=== PATIENT | female | born 1950 | race Caucasian/White ===

== ENCOUNTER → 2016-10-13 | Outpatient (CLI) | payer MEDICARE, BC | END | disposition home or self-care (01) | LOC: LABWHC1 12:57 | PROVIDERS: ATTEND Internal Medicine Rheumatology | DX: M86.9 Osteomyelitis, unspecified (principal) | CPT/HCPCS: 36415; 87040 ==

== ENCOUNTER → 2016-10-20 | Outpatient (CLI) | payer MEDICARE, BC ==
--- NOTE | 2016-10-20 15:55 | US ---
EXAMINATION TYPE: US venous doppler duplex LE DATE OF EXAM: 10/20/2016 2:50 PM COMPARISON: NONE CLINICAL HISTORY: M79.605 PAIN IN LEFT LEG. LOWER EXTREMITY VENOUS INSUFFICIENCY; [facility] with now healed left plantar ulcer; has RA and is on multiple meds for RA; no visible varicose veins SIDE PERFORMED: bilateral TECHNOLOGIST IMPRESSION: 1) Color flow is present and patency is documented in the following vessels. No DVT or SVT is noted . ? Common Femoral Vein ? Deep Femoral Vein ? Femoral Vein ? Popliteal Vein ? Proximal Calf Veins ? Greater Saph Vein ? Upper Small Saph Vein 2) There is venous reflux noted at the following venous levels: none indicated 3) Incompetent perforators are noted at these levels: none indicated Satisfactory blood flow is seen in the bilateral lower extremities at above levels. Satisfactory comp ression and phasicity is noted. During real-time scanning no suspicious reflux is noted per technolog ist bilaterally. IMPRESSION: Unremarkable study.
--- NOTE | 2016-11-04 11:14 | P.ARTDOP ---
Arterial Doppler LOWER EXTREMITY ARTERIAL DOPPLER: DATE OF SERVICE: 10/20/2016 Reason for study: Foot ulcer. Doppler waveforms: Multiphasic bilaterally throughout.. Pulse volume recording: Toe waveforms are nearly flat line however.. Pressure gradients: Only at the foot level. Ankle-brachial indices: Greater than 1 bilaterally. Toe pressures: 43 on the right and not measured on the left Impression: Normal proximal study. Total readings are suspicious for very distal disease but no major named vessels involved. Clinical correlation recommended
== END | disposition home or self-care (01) ==
LOC: RADUSWWP 14:15
PROVIDERS: ATTEND Family Medicine
DX: M79.605 Pain in left leg (principal)
CPT/HCPCS: 93923; 93970

== ENCOUNTER → 2017-01-26 | Outpatient (CLI) | payer MEDICARE, BC ==
--- NOTE | 2017-01-27 09:13 | MM ---
Reason for exam: screening (asymptomatic). Last mammogram was performed 4 years and 6 months ago. History: Patient is postmenopausal. Family history of breast cancer in 2 paternal aunts. Took estrogen for 12 years. Physical Findings: A clinical breast exam by your physician is recommended on an annual basis and results should be correlated with mammographic findings. MG 3D Screening Mammo W/Cad Bilateral CC and MLO view(s) were taken. Prior study comparison: August 02, 2012, bilateral digital screening mammo w/CAD. March 23, 2011, [facility] DIGITAL RIGHT MAMMOGRAM w/CAD. The breast tissue is almost entirely fat. Asymmetric breast tissue in the right breast. No significant changes when compared with prior studies. ASSESSMENT: Benign, BI-RAD 2 RECOMMENDATION: Routine screening mammogram of both breasts in 1 year.
== END | disposition home or self-care (01) ==
LOC: RADMAMWWP 12:43
PROVIDERS: ATTEND Internal Medicine Hematology & Oncology
DX: Z12.31 Encounter for screening mammogram for malignant neoplasm of breast (principal)
CPT/HCPCS: 77063; G0202

== ENCOUNTER 2017-06-24 08:06 | Day surgery (SDC) | payer MEDICARE, BC ==
[2017-06-22 13:09] VITALS: BMI 34.9
[~2017-06-24 08:06] MED LIST: LACTATED RINGERS 1,000 ML IV SCH
[2017-06-24] MEDS ORDERED: LIDOCAINE 1% 20 ML VIAL (10MG/ML) FOR IV START INTRADERMA ONE (08:27)
[2017-06-24 08:38] LABS: Glucose,Whole Blood 97 mg/dL (75-99)
[2017-06-24 08:40] VITALS: TEMP 97.1
[2017-06-24] MEDS ORDERED: PROPOFOL 10 MG/ML 20 ML VIAL IV ONE (09:00)
[2017-06-24] MEDS ORDERED: LIDOCAINE 1% INJ 10MG/ML (20 ML MDV) ONE (09:00)
--- NOTE | 2017-06-24 09:20 | P.PCN ---
Date of Procedure: 06/24/17 Procedure(s) Performed: Brief history: Patient is a pleasant 67-year-old white female, scheduled for an elective upper endoscopy as well as colonoscopy as a part of evaluation of abdominal pain and chronic diarrhea for the last 1 year duration. She has 1 cm from 5-6 a day which are loose to watery in consistency but denies any blood or mucus in the stool. Procedure performed: Esophagogastroduodenoscopy with biopsy Colonoscopy with biopsy Preoperative diagnosis: Abdominal pain and chronic diarrhea for 1 year duration. Anesthesia: MAC Procedure: After informed consent was obtained from the patient was brought into the endoscopy unit and IV sedation was administered by anesthesia under continuous monitoring. Initially upper endoscopy was done. The Olympus GF 160 video endoscope was inserted inserted into the mouth and esophagus intubated without any difficulty and was gradually advanced into the stomach and duodenum and carefully examined. The bulb and second part of the duodenum appeared normal. Biopsies were done from the duodenum to rule out celiac disease. The scope was then withdrawn into the stomach adequately insufflated with air and upon careful examination the antrum had patchy areas of erythema and biopsies were done to evaluate for H. pylori infection. The body, cardia and fundus appeared normal. The scope was then withdrawn into the esophagus. Moderate to large size hiatal hernia noted. The GE junction was located at 32 cm to the incisors. It appeared regular with no erythema erosions or ulcerations. Rest of the esophagus appeared normal. Patient tolerated the procedure well. At this time the patient continued to remain sedation. Initial digital rectal examination was normal. Olympus CF 160 video colonoscope was then inserted into the rectum and gradually advanced to the cecum without any difficulty. Careful examination was performed as the scope was gradually being withdrawn. The prep was excellent. The cecum, ascending colon, transverse colon, descending colon, sigmoid colon and rectum appeared normal. Retroflexion was performed in the rectum and no lesions were noted. random biopsies were done from the ascending and descending colon to rule out microscopic/collagenous colitis Patient tolerated the procedure well. Impression: 1. Upper endoscopy revealed mild antral gastritis and moderate to large size hiatal hernia. 2. Colonoscopy revealed normal-appearing colon from rectum to cecum with no evidence of colitis or colorectal neoplasia. Recommendations: Findings of this examination were discussed with the patient as well as her family. She was advised to follow with the biopsy results. She'll be seen in office in 3-4 weeks.
[2017-06-24 09:46] VITALS: BP 120/70; PULSE 63; RESP 16
== END 2017-06-24 10:27 | disposition home or self-care (01) ==
LOC: ORWHC2ENDO 08:06
PROVIDERS: ATTEND Internal Medicine Gastroenterology
DX: K29.50 Unspecified chronic gastritis without bleeding (principal); K44.9 Diaphragmatic hernia without obstruction or gangrene; E78.5 Hyperlipidemia, unspecified; I48.91 Unspecified atrial fibrillation; M06.9 Rheumatoid arthritis, unspecified; K21.9 Gastro-esophageal reflux disease without esophagitis; Z88.8 Allergy status to other drugs, medicaments and biological substances; Z79.891 Long term (current) use of opiate analgesic; Z79.899 Other long term (current) drug therapy
CPT/HCPCS: 88305; 88342; 45380; 43239; J2001; J2704

== ENCOUNTER 2018-01-31 23:59 | Inpatient (IN) | payer MEDICARE, BC ==
[2018-02-01 00:47] LABS: Basophils # (A) 0.1 k/uL (0-0.2); Basophils % (A) 0 %; Eosinophils # (A) 0.1 k/uL (0-0.7); Eosinophils % (A) 1 %; HCT 22.2 % (34.0-46.0); Hypochromasia Marked; Lymphocytes # (A) 4.5 k/uL (1.0-4.8); Lymphocytes % (A) 33 %; MCH 28.3 pg (25.0-35.0); MCHC 31.5 g/dL (31.0-37.0); MCV 89.6 fL (80.0-100.0); Mean Platelet Volume 7.4; Monocytes # (A) 0.6 k/uL (0-1.0); Monocytes % (A) 5 %; Neutrophils # (A) 7.8 k/uL (1.3-7.7); Neutrophils % (A) 58 %; Platelet Count 297 k/uL (150-450); Poikilocytosis Slight; RBC 2.48 m/uL (3.80-5.40); WBC 13.4 k/uL (3.8-10.6)
[2018-02-01 01:04] LABS: Albumin 3.3 g/dL (3.5-5.0); Calcium 9.3 mg/dL (8.4-10.2); Magnesium 1.8 mg/dL (1.6-2.3); Total Bilirubin 0.2 mg/dL (0.2-1.3); Total Protein 5.7 g/dL (6.3-8.2)
--- NOTE | 2018-02-01 01:04 | ED ---
SOB HPI - General Chief Complaint: Shortness of Breath Stated Complaint: SOB Time Seen by Provider: 02/01/18 01:01 Source: patient, family Mode of arrival: wheelchair Limitations: no limitations - History of Present Illness Initial Comments: This patient is a 67-year-old woman who presents to be evaluated for shortness of breath. She states that she was feeling about in her usual health yesterday , and noticed from this morning that she was feeling short of breath when she would walk in the house. Tonight she is even feeling some shortness of breath when at rest. Patient denies chest pain. No cough. No fever or chills. With review of systems, patient states that she may have had a dark stool today. She does acknowledge a previous history of anemia and she had been taken off of nonsteroidals due to "stomach problems." MD Complaint: shortness of breath Onset/Timin -: days(s) Consistency: constant Improves With: rest Worsens With: exertion Associated Symptoms: denies other symptoms Treatments Prior to Arrival: none - Related Data Home Medications Medication Instructions Recorded Confirmed Atorvastatin [Lipitor] 80 mg PO DAILY 04/16/14 02/01/18 Omeprazole [PriLOSEC] 20 mg PO AC-BRKFST 04/16/14 02/01/18 ALPRAZolam [Xanax] 0.25 mg PO HS PRN 10/08/16 02/01/18 Metoprolol Tartrate [Lopressor] 50 mg PO BID 10/08/16 02/01/18 predniSONE 10 mg PO DAILY 10/08/16 02/01/18 HYDROcodone/APAP 5-325MG [[place] 1 tab PO Q6HR PRN 06/22/17 02/01/18 5-325] Tofacitinib Citrate [Xeljanz Xr] 11 mg PO DAILY 06/22/17 02/01/18 Allergies Allergy/AdvReac Type Severity Reaction Status Date / Time celecoxib [From Celebrex] Allergy Rash/Hives Verified 06/24/17 08:22 gold sodium thiomalate AdvReac flushing Verified 06/24/17 08:22 [From Myochrysine] Review of Systems ROS Statement: Those systems with pertinent positive or pertinent negative responses have been documented in the HPI. ROS Other: All systems not noted in ROS Statement are negative. Constitutional: Denies: fever, chills Respiratory: Reports: dyspnea. Denies: cough, wheezes, hemoptysis Cardiovascular: Reports: dyspnea on exertion. Denies: chest pain, palpitations , orthopnea, edema, syncope Gastrointestinal: Denies: abdominal pain, nausea, vomiting Genitourinary: Denies: dysuria, hematuria Musculoskeletal: Reports: back pain (Chronic), arthralgia (Chronic) Skin: Denies: rash, lesions Neurological: Denies: headache, weakness, numbness Hematological/Lymphatic: Denies: easy bleeding Past Medical History Past Medical History: Atrial Fibrillation, GERD/Reflux, Hyperlipidemia, Osteoarthritis (OA), Respiratory Disorder, Rheumatoid Arthritis (RA) Additional Past Medical History / Comment(s): HIATAL HERNIA,PULMONARY FIBROSIS, sepsis june 11 2016 History of Any Multi-Drug Resistant Organisms: None Reported Past Surgical History: Adenoidectomy, Back Surgery, Hysterectomy, Tonsillectomy Additional Past Surgical History / Comment(s): SINUS SURG,johnathon cataracts Past Anesthesia/Blood Transfusion Reactions: No Reported Reaction Additional Past Anesthesia/Blood Transfusion Reaction / Comment(s): no hx blood transfusion Past Psychological History: No Psychological Hx Reported Smoking Status: Never smoker - Past Family History Mother Family Medical History: CVA/TIA, Myocardial Infarction ([place]) Additional Family Medical History / Comment(s): borderline diabetes Father Family Medical History: Cancer Additional Family Medical History / Comment(s): carcinoma gallbladder General Exam Limitations: no limitations General appearance: alert, in no apparent distress Head exam: Present: atraumatic, normocephalic Eye exam: Present: normal appearance. Absent: scleral icterus, conjunctival injection ENT exam: Present: normal oropharynx Neck exam: Present: normal inspection Respiratory exam: Present: normal lung sounds bilaterally. Absent: respiratory distress, wheezes, rales, rhonchi, stridor Cardiovascular Exam: Present: normal rhythm, tachycardia (Rate is approximately 112 at my exam), normal heart sounds. Absent: systolic murmur, diastolic murmur , rubs, gallop GI/Abdominal exam: Present: soft. Absent: distended, tenderness, guarding, rebound, rigid, mass Rectal exam: Present: normal inspection, normal rectal tone, black stool. Absent: fecal impaction, hemorrhoids, mass, tenderness Extremities exam: Present: normal inspection, normal capillary refill. Absent: pedal edema, calf tenderness Back exam: Present: normal inspection. Absent: CVA tenderness (R), CVA tenderness (L) Skin exam: Present: warm, dry, intact, pallor. Absent: normal color, rash, cyanosis, diaphoretic, erythema, petechiae, mottled Course Vital Signs 02/01/18 02/01/18 02/01/18 00:00 00:42 00:47 Temperature 96.9 F L Pulse Rate 134 H 78 Respiratory 20 22 20 Rate Blood Pressure 88/53 110/57 O2 Sat by Pulse 99 97 Oximetry 02/01/18 02/01/18 02/01/18 02:05 03:00 03:20 Temperature 97.7 F Pulse Rate 128 H 104 H 102 H Respiratory 24 20 20 Rate Blood Pressure 109/66 96/55 111/59 O2 Sat by Pulse 99 96 97 Oximetry 02/01/18 02/01/18 02/01/18 03:27 03:37 04:00 Temperature 97.7 F 97.7 F 97.7 F Pulse Rate 99 100 102 H Respiratory 18 18 20 Rate Blood Pressure 122/61 102/58 116/75 O2 Sat by Pulse 98 Oximetry Medical Decision Making - Lab Data Result diagrams: 02/01/18 00:30 02/01/18 00:30 Lab Results 02/01/18 02/01/18 02/01/18 Range/Units 00:30 00:30 00:30 WBC 13.4 H (3.8-10.6) k/uL RBC 2.48 L (3.80-5.40) m/uL Hgb 7.0 L* (11.4-16.0) gm/dL Hct 22.2 L (34.0-46.0) % MCV 89.6 (80.0-100.0) fL MCH 28.3 (25.0-35.0) pg MCHC 31.5 (31.0-37.0) g/dL RDW 15.0 (11.5-15.5) % Plt Count 297 (150-450) k/uL Neutrophils % 58 % Lymphocytes % 33 % Monocytes % 5 % Eosinophils % 1 % Basophils % 0 % Neutrophils # 7.8 H (1.3-7.7) k/uL Lymphocytes # 4.5 (1.0-4.8) k/uL Monocytes # 0.6 (0-1.0) k/uL Eosinophils # 0.1 (0-0.7) k/uL Basophils # 0.1 (0-0.2) k/uL Hypochromasia Marked Poikilocytosis Slight D-Dimer (<0.60) mg/L FEU Sodium 144 (137-145) mmol/L Potassium 3.9 (3.5-5.1) mmol/L Chloride 109 H (98-107) mmol/L Carbon Dioxide 20 L (22-30) mmol/L Anion Gap 15 mmol/L BUN 66 H (7-17) mg/dL Creatinine 0.90 (0.52-1.04) mg/dL Est GFR (CKD-EPI)AfAm 76 (>60 ml/min/1.73 sqM) Est GFR (CKD-EPI)NonAf 66 (>60 ml/min/1.73 sqM) Glucose 106 H (74-99) mg/dL Calcium 9.3 (8.4-10.2) mg/dL Magnesium 1.8 (1.6-2.3) mg/dL Total Bilirubin 0.2 (0.2-1.3) mg/dL AST 25 (14-36) U/L ALT 29 (9-52) U/L Alkaline Phosphatase 46 (38-126) U/L Total Creatine Kinase 44 (30-135) U/L CK-MB (CK-2) 1.0 (0.0-2.4) ng/mL CK-MB (CK-2) Rel Index 2.3 Troponin I <0.012 (0.000-0.034) ng/mL Total Protein 5.7 L (6.3-8.2) g/dL Albumin 3.3 L (3.5-5.0) g/dL Blood Type Blood Type Recheck Antibody Screen Crossmatch Spec Expiration Date 02/01/18 02/01/18 Range/Units 00:30 01:51 WBC (3.8-10.6) k/uL RBC (3.80-5.40) m/uL Hgb (11.4-16.0) gm/dL Hct (34.0-46.0) % MCV (80.0-100.0) fL MCH (25.0-35.0) pg MCHC (31.0-37.0) g/dL RDW (11.5-15.5) % Plt Count (150-450) k/uL Neutrophils % % Lymphocytes % % Monocytes % % Eosinophils % % Basophils % % Neutrophils # (1.3-7.7) k/uL Lymphocytes # (1.0-4.8) k/uL Monocytes # (0-1.0) k/uL Eosinophils # (0-0.7) k/uL Basophils # (0-0.2) k/uL Hypochromasia Poikilocytosis D-Dimer 0.23 (<0.60) mg/L FEU Sodium (137-145) mmol/L Potassium (3.5-5.1) mmol/L Chloride (98-107) mmol/L Carbon Dioxide (22-30) mmol/L Anion Gap mmol/L BUN (7-17) mg/dL Creatinine (0.52-1.04) mg/dL Est GFR (CKD-EPI)AfAm (>60 ml/min/1.73 sqM) Est GFR (CKD-EPI)NonAf (>60 ml/min/1.73 sqM) Glucose (74-99) mg/dL Calcium (8.4-10.2) mg/dL Magnesium (1.6-2.3) mg/dL Total Bilirubin (0.2-1.3) mg/dL AST (14-36) U/L ALT (9-52) U/L Alkaline Phosphatase (38-126) U/L Total Creatine Kinase (30-135) U/L CK-MB (CK-2) (0.0-2.4) ng/mL CK-MB (CK-2) Rel Index Troponin I (0.000-0.034) ng/mL Total Protein (6.3-8.2) g/dL Albumin (3.5-5.0) g/dL Blood Type O Positive Blood Type Recheck No Antibody Screen NEGATIVE Crossmatch See Detail Spec Expiration Date 02/04/2018 0939 - EKG Data -: EKG Interpreted by Me EKG shows normal: sinus rhythm, axis (Normal), intervals, QRS complexes (Normal) , ST-T waves (Normal) Rate: tachycardia (Rate proximally 128 bpm) Disposition Clinical Impression: Dyspnea, Anemia, GI bleed Disposition: ADMITTED IP TO THIS [facility] Condition: Fair Referrals: Alsawah,Chris, MD [Primary Care Provider] - 1-2 days
[2018-02-01 01:06] LABS: Potassium 3.9 mmol/L (3.5-5.1)
[2018-02-01 01:13] LABS: Creatine Kinase 44 U/L (30-135)
--- NOTE | 2018-02-01 01:23 | XR ---
EXAMINATION TYPE: XR chest 2V DATE OF EXAM: 02/01/2018 COMPARISON: 02/04/2017 HISTORY: Short of breath TECHNIQUE: Frontal and lateral views of the chest are obtained. FINDINGS: There is coarsening of interstitial pulmonary markings. There is no gross heart failure. T here is hiatal hernia. There is no pleural effusion. IMPRESSION: Interstitial pulmonary fibrosis. Hiatal hernia. No heart failure. No significant change compared to last exam.
[2018-02-01] MEDS ORDERED: SODIUM CHLORIDE 0.9% 500 ML IV STA (01:24)
[2018-02-01 01:26] LABS: Troponin I <0.012 ng/mL (0.000-0.034)
[2018-02-01] MEDS ORDERED: HYDROcodone/APAP 5-325MG 1 EACH TAB PO STA (01:26)
[2018-02-01] MEDS ORDERED: MORPHINE SULFATE 4 MG/ML SYRINGE IVP STA (02:25)
[2018-02-01] MEDS ORDERED: RX INFO: IV CONTRAST WAS GIVEN 1 EACH MISC MISCELLANE PRN (02:28)
--- NOTE | 2018-02-01 03:20 | CT ---
EXAMINATION TYPE: CT angio thoracic/abd aorta DATE OF EXAM: 02/01/2018 COMPARISON: NONE HISTORY: pt. SOB and chest/back Pain CT DLP: 1409.00 mGycm. Automated Exposure Control for Dose Reduction was Utilized. CONTRAST: CT scan of the thorax, abdomen and pelvis is performed with IV Contrast, patient injected with 100 mL of Isovue 370. There are 3-D post processed images. FINDINGS: The noncontrast images show no renal calculus. Thoracic aorta is atheromatous. The SMA and aorta measures 3.5 cm. Descending thoracic aorta measures 2 cm. There is no evidence of aneurysm or dissection. There is a large hiatal hernia. There is coars e some pleural interstitial infiltrate in both lungs. There is no pleural effusion. There is no peric ardial effusion. I see no filling defect in the pulmonary arteries. There is a small calcified gallstone. Abdominal aorta has normal size. There is no evidence of aneury sm or dissection. There is patency of the celiac artery and superior mesenteric artery. There is bila teral patency of the renal arteries. There is wide patency of the iliac arteries. Liver shows no foca l defect. Spleen appears normal. There is no pancreatic mass. Kidneys show no hydronephrosis. There i s no focal renal defect. There are spondylotic changes in the mid and lower lumbar spine. IMPRESSION: Mild atherosclerotic vascular disease. No evidence of aortic aneurysm or dissection. No sign of hemod ynamically significant stenosis. Pulmonary interstitial fibrotic changes. No evidence of pulmonary embolism. Large hiatal hernia.
[2018-02-01] MEDS ORDERED: NALOXONE 0.4 MG/ML 1 ML VIAL IV PRN (03:56)
[2018-02-01] MEDS ORDERED: MORPHINE SULFATE 4 MG/ML SYRINGE IV PRN (03:56)
[2018-02-01] MEDS ORDERED: ONDANSETRON 4 MG/2 ML VIAL IVP PRN (03:56)
[2018-02-01] MEDS ORDERED: ALPRAZolam 0.25 MG TAB PO PRN (03:59)
[2018-02-01] MEDS: SODIUM CHLORIDE 0.9% 1,000 ML IV SCH (04:48)
[2018-02-01] MEDS: PANTOPRAZOLE 40 MG/10 ML VIAL IV SCH (07:58)
[2018-02-01] MEDS: predniSONE 10 MG TAB PO SCH (07:59)
[2018-02-01] MEDS: METOPROLOL TARTRATE 50 MG TAB PO SCH ×3 (07:59→22:08)
[2018-02-01] MEDS: ATORVASTATIN 80 MG TAB PO SCH (07:59)
--- NOTE | 2018-02-01 08:58 | P.CONS ---
History of Present Illness - Reason for Consult Consult date: 02/01/18 Anemia possible GI bleeding Requesting physician: Chris Conroy - History of Present Illness 67-year-old female admitted with shortness of breath 1-2 weeks and dark- colored bowel movements that started yesterday. Past medical history of rheumatoid arthritis, atrial fibrillation, GERD, pulmonary fibrosis, hiatal hernia, and hyperlipidemia. Denies fever chills gross hematemesis or hematochezia. She has been more short of breath and weak over the last 1-2 weeks. She was recently seen by her senior structural engineer thought her rheumatoid arthritis was acting up. She was a little constipated and took a few [place] yesterday followed by some MiraLAX. Yesterday she had 3 small bowel movements that were very dark near black in color without abdominal pain. No EtOH. No NSAIDs or aspirin or antiplatelet medications. Admission hemoglobin 7. Transfused 1 unit of blood. Platelet 297. White count 13.4. BUN 66. Creatinine 0.9. Stool occult blood positive. Previous hemoglobin on 01/08/2017 was 11.3. Endoscopic history: 1. EGD colonoscopy June 2017 for evaluation of chronic diarrhea abdominal pain. Mild antral gastritis moderate to large size hiatal hernia. Colonoscopy revealed a normal-appearing colon from rectum to cecum with no evidence of colitis or colorectal neoplasia. Thoracic CT: Mild atherosclerotic vascular disease. No evidence of aortic aneurysm or dissection. No significant stenosis. Pulmonary interstitial fibrotic changes. No evidence of PE. Large hiatal hernia. Review of Systems Constitutional: Denies fever, chills, sweats, weight gain, or loss. HEENT: Negative for migraines, blurred vision or loss, earaches, drainage, tinnitus, oral mucosal lesions, dysphagia, or odynophagia. CARDIAC: Negative for chest pain, arrhythmias, or palpitation. RESPIRATORY: Admitted with shortness of breath, denies hemoptysis, cough, or sputum production. GI: See HPI for pertinent findings. : Negative for hematuria, urgency, frequency, polyuria, or dysuria. GYNc: Denies possibility of . Negative vaginal discharge. MUSCULOSKELETAL: Chronic arthritis rheumatoid. NEUROLOGIC: Negative for stroke or TIA. ENDOCRINE: Negative for thyroid problems. SKIN: Negative for rash or itching. PSYCHIATRIC: Negative history for depression and anxiety Past Medical History Past Medical History: Atrial Fibrillation, GERD/Reflux, Hyperlipidemia, Osteoarthritis (OA), Respiratory Disorder, Rheumatoid Arthritis (RA) Additional Past Medical History / Comment(s): HIATAL HERNIA,PULMONARY FIBROSIS, sepsis june 11 2016 History of Any Multi-Drug Resistant Organisms: None Reported Past Surgical History: Adenoidectomy, Back Surgery, Hysterectomy, Tonsillectomy Additional Past Surgical History / Comment(s): SINUS SURG,johnathon cataracts Past Anesthesia/Blood Transfusion Reactions: No Reported Reaction Additional Past Anesthesia/Blood Transfusion Reaction / Comm: no hx blood transfusion Past Psychological History: No Psychological Hx Reported Smoking Status: Never smoker Past Alcohol Use History: None Reported Past Drug Use History: None Reported - Past Family History Mother Family Medical History: CVA/TIA, Myocardial Infarction ([place]) Additional Family Medical History / Comment(s): borderline diabetes Father Family Medical History: Cancer Additional Family Medical History / Comment(s): carcinoma gallbladder Medications and Allergies Home Medications Medication Instructions Recorded Confirmed Type Atorvastatin [Lipitor] 80 mg PO HS 04/16/14 02/01/18 History HYDROcodone/APAP 5-325MG [[place] 1 tab PO Q6HR PRN 06/22/17 02/01/18 History 5-325] Tofacitinib Citrate [Xeljanz Xr] 11 mg PO DAILY 06/22/17 02/01/18 History Cyclobenzaprine [Flexeril] 10 mg PO HS 02/01/18 02/01/18 History Hydrocortisone [Cortef] 10 mg PO HS 02/01/18 02/01/18 History Hydrocortisone [Cortef] 20 mg PO DAILY 02/01/18 02/01/18 History Metoprolol Tartrate [Lopressor] 12.5 mg PO BID PRN 02/01/18 02/01/18 History Multivitamins, Thera [Multivitamin 1 tab PO DAILY 02/01/18 02/01/18 History (formulary)] Allergies Allergy/AdvReac Type Severity Reaction Status Date / Time celecoxib [From Celebrex] Allergy Rash/Hives Verified 02/01/18 08:22 ciprofloxacin [From Cipro] AdvReac Hallucinati Verified 02/01/18 08:22 ons gold sodium thiomalate AdvReac flushing Verified 02/01/18 08:22 [From Myochrysine] Physical Exam Vitals: Vital Signs Temp Pulse Pulse Resp BP BP Pulse Ox 02/01/18 05:30 97.5 F L 99 17 99/60 100 02/01/18 05:21 97.8 F 98 18 118/74 02/01/18 04:29 97.2 F L 104 H 18 117/73 98 02/01/18 04:07 97.7 F 99 20 116/75 02/01/18 04:00 97.7 F 102 H 20 116/75 98 02/01/18 03:37 97.7 F 100 18 102/58 02/01/18 03:27 97.7 F 99 18 122/61 02/01/18 03:20 97.7 F 102 H 20 111/59 97 02/01/18 03:00 104 H 20 96/55 96 02/01/18 02:05 128 H 24 109/66 99 02/01/18 00:47 78 20 110/57 97 02/01/18 00:42 22 02/01/18 00:00 96.9 F L 134 H 20 88/53 99 Intake and Output 01/31/18 02/01/18 02/01/18 22:59 06:59 14:59 Intake Total 310 Balance 310 Intake: Blood Product 310 Rc As-1 Unit 310 [id number] Other: # Voids 0 Weight 86.183 kg General appearance: The patient is alert, oriented, in no acute distress. HET: Head is normocephalic and atraumatic. Pupils are equal and reactive. Oropharynx is clear without lesions. Neck: Supple without lymphadenopathy. Trachea midline. Heart: S1 S2. Regular rate and rhythm. Lungs: No crackles or wheezes are heard. Abdomen: Soft, nontender, nondistended with bowel sounds. No peritoneal signs. No palpable organomegaly or masses. Extremities: Normal skin color and turgor. No cyanosis, rash, ulceration, clubbing, or edema. Radial and pedal pulses are 2/4 bilaterally. Neurological: No focal deficits. Strength and sensation are grossly intact. Results CBC & Chem 7: 02/01/18 00:30 02/01/18 00:30 Labs: Abnormal Lab Results - Last 24 Hours (Table) 02/01/18 02/01/18 02/01/18 Range/Units 00:30 00:30 01:51 WBC 13.4 H (3.8-10.6) k/uL RBC 2.48 L (3.80-5.40) m/uL Hgb 7.0 L* (11.4-16.0) gm/dL Hct 22.2 L (34.0-46.0) % Neutrophils # 7.8 H (1.3-7.7) k/uL Chloride 109 H (98-107) mmol/L Carbon Dioxide 20 L (22-30) mmol/L BUN 66 H (7-17) mg/dL Glucose 106 H (74-99) mg/dL Total Protein 5.7 L (6.3-8.2) g/dL Albumin 3.3 L (3.5-5.0) g/dL Stool Occult Blood (Negative) Crossmatch See Detail 02/01/18 Range/Units 04:05 WBC (3.8-10.6) k/uL RBC (3.80-5.40) m/uL Hgb (11.4-16.0) gm/dL Hct (34.0-46.0) % Neutrophils # (1.3-7.7) k/uL Chloride (98-107) mmol/L Carbon Dioxide (22-30) mmol/L BUN (7-17) mg/dL Glucose (74-99) mg/dL Total Protein (6.3-8.2) g/dL Albumin (3.5-5.0) g/dL Stool Occult Blood Positive H (Negative) Crossmatch Comments: Thoracic CT report reviewed by Dr. Singh Assessment and Plan (1) Symptomatic anemia Narrative/Plan: 77-year-old female that was shortness of breath suspected GI bleed component of acute blood loss anemia with reported dark-colored bowel movements status post EGD colonoscopy 7 months ago for evaluation chronic diarrhea abdominal pain with no evidence of peptic ulcer disease normal colonoscopy. Possible peptic ulcer disease possible [place] erosions from large hiatal hernia underlying small bowel source cannot be entirely excluded. Current Visit: Yes Status: Acute Code(s): D64.9 - ANEMIA, UNSPECIFIED SNOMED Code(s): 349996039 (2) Dyspnea Current Visit: Yes Status: Acute Code(s): R06.00 - DYSPNEA, UNSPECIFIED SNOMED Code(s): 750410114 (3) GI bleed Current Visit: Yes Status: Acute Code(s): K92.2 - GASTROINTESTINAL HEMORRHAGE, UNSPECIFIED SNOMED Code(s): 35529302 Plan: 1. EGD. Nothing by mouth except medications. 2. Protonix 40 mg IV daily. 3. CBC at noon. The maintenance advisor has discussed the risks, benefits and alternative therapies for the above-mentioned procedure and for both sedation/analgesia as well as necessary blood product administration, if indicated, as they pertain to this patient. The patient has indicated understanding and acceptance of the risks and procedures discussed. Thank you for this kind referral and the opportunity to participate in the care of your patient. This consultation was discussed with Dr. Singh. The impression and plan of care have been directed as dictated.
[2018-02-01 11:09] LABS: Reticulocyte % 3.8 % (0.5-2.0)
[2018-02-01 13:19] LABS: Basophils % (A) 0 %; Eosinophils # (A) 0.1 k/uL (0-0.7); Eosinophils % (A) 1 %; HCT 21.9 % (34.0-46.0); Hypochromasia Moderate; Lymphocytes # (A) 1.1 k/uL (1.0-4.8); Lymphocytes % (A) 11 %; MCHC 31.3 g/dL (31.0-37.0); MCV 89.5 fL (80.0-100.0); Mean Platelet Volume 7.6; Monocytes # (A) 0.5 k/uL (0-1.0); Monocytes % (A) 5 %; Neutrophils # (A) 7.8 k/uL (1.3-7.7); Neutrophils % (A) 82 %; Platelet Count 216 k/uL (150-450); Poikilocytosis Slight; RBC 2.45 m/uL (3.80-5.40); RDW 15.6 % (11.5-15.5); WBC 9.6 k/uL (3.8-10.6)
[2018-02-01 13:26] LABS: HGB 6.9 gm/dL (11.4-16.0)
[2018-02-01] MEDS ORDERED: MIDAZOLAM 2 MG/2 ML VIAL ONE (14:05)
[2018-02-01] MEDS ORDERED: IV FLUID CONTINUATION 1,000 ML IV ONE (14:05)
[2018-02-01] MEDS ORDERED: LIDOCAINE 1% INJ 10MG/ML (20 ML MDV) ONE (14:05)
[2018-02-01] MEDS ORDERED: PROPOFOL 10 MG/ML 20 ML VIAL IV ONE (14:05)
--- NOTE | 2018-02-01 14:40 | P.PCN ---
Date of Procedure: 02/01/18 Procedure(s) Performed: Procedure: Esophagogastroduodenoscopy and biopsy. Preoperative diagnosis: Symptomatic anemia and dark stools. Postoperative diagnosis: 1. Moderately size hiatal hernia with no obvious esophagitis or complicated reflux disease. 2. Gastritis with few erosions noted at the level of the diaphragmatic impression but no ulcers or active bleeding. 3. Biopsies obtained to rule out H. pylori infection. Preparation sedation: Was provided by anesthesia. Brief clinical history: the patient is a 67-year-old female who was admitted with shortness of breath 1-2 weeks and dark-colored bowel movements that started yesterday. Past medical history of rheumatoid arthritis, atrial fibrillation, GERD, pulmonary fibrosis, hiatal hernia, and hyperlipidemia. Denies fever chills gross hematemesis or hematochezia. She has been more short of breath and weak over the last 1-2 weeks. 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 She was a little constipated and took a few [place] yesterday followed by some MiraLAX. Yesterday she had 3 small bowel movements that were very dark near black in color without abdominal pain. No EtOH. No NSAIDs or aspirin or antiplatelet medications. Admission hemoglobin 7. Transfused 1 unit of blood. Platelet 297. White count 13.4. BUN 66. Creatinine 0.9. Stool occult blood positive. Previous hemoglobin on 01/08/2017 was 11.3. Endoscopic history: 1. EGD colonoscopy June 2017 for evaluation of chronic diarrhea abdominal pain. Mild antral gastritis moderate to large size hiatal hernia. Colonoscopy revealed a normal-appearing colon from rectum to cecum with no evidence of colitis or colorectal neoplasia. Thoracic CT: Mild atherosclerotic vascular disease. No evidence of aortic aneurysm or dissection. No significant stenosis. Pulmonary interstitial fibrotic changes. No evidence of PE. Large hiatal hernia.
[2018-02-01] MEDS: HYDROcodone/APAP 5-325MG 1 EACH TAB PO PRN (16:29)
[2018-02-01 16:49] LABS: Iron Saturation 16.98 (12.00-45.00)
[2018-02-01 16:59] LABS: Folate, Serum 13.7 ng/mL
--- NOTE | 2018-02-01 18:31 | P.HPIM ---
History of Present Illness H&P Date: 02/01/18 Chief Complaint: Shortness of Breath Ms. 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 Castañeda. She has a known history of chronic anemia, severe rheumatoid arthritis, Atrial Fibrillation, GERD, Hiatel Hernia, Hyperlipidemia, intermittent dysphagia, and recurrent upper respiratory infections. She had Ct Scan of Chest : Large Hital Hernia. MRI of Spine : L2-L3 Disc Herniation. She has managed chronic pain from arthritis with different medications and therapies including PT and previous Epidural injection by Dr Longoria. She has attempted multiple lines of medications including Chromagen, Arava, Steroids, Remicaid, and most recently Xeljanz. She has known diffuse Pulmonary Fibrosis, Likely from the cigar wrapper DMARDS use. 06/25/16: Was admitted to [facility] with diffuse pneumonia ( AMISHA) , required prolonged care, was in ICU X 4 days. Still having SOB, was found in A- FIB with RVR : 07/23/16: Feels better & stronger, tolerated IVIG infusion well, weaning off steroids (Now on 25mg Po daily). Edema in lower extremities resolved. 08/17/17: C/O Vertigo intermittently, arthralgias managed with Zeljanz and Prednisone. Had negative Gi work up by Dr Willy De Los Santos, still has intermitent diarrhea. 02/01/18 - She was advised to seek further evaluation in hospital after calling our answering service late last night. She has been admitted with shortness of breath 1-2 weeks and dark-colored bowel movements that started yesterday. She has been more short of breath and weak over the last 1-2 weeks. She has been constipated, but did admit to having dark stools, which were harder than usual when she did. She denies NSAIDs or Aspirin On admission her hemoglobin was 7 and she was given one unit of PRBC Stool occult blood positive. She had an EGD colonoscopy June 2017 for evaluation of chronic diarrhea abdominal pain. Mild antral gastritis moderate to large size hiatal hernia. Colonoscopy revealed a normal-appearing colon from rectum to cecum with no evidence of colitis or colorectal neoplasia. Thoracic CT: Pulmonary interstitial fibrotic changes. No evidence of PE. Redemonstration of Large hiatal hernia. Review of Systems A 14 point review of systems assessed and completed and all negative except HPI Past Medical History Past Medical History: Atrial Fibrillation, GERD/Reflux, Hyperlipidemia, Osteoarthritis (OA), Respiratory Disorder, Rheumatoid Arthritis (RA) Additional Past Medical History / Comment(s): HIATAL HERNIA,PULMONARY FIBROSIS, sepsis june 11 2016 History of Any Multi-Drug Resistant Organisms: None Reported Past Surgical History: Adenoidectomy, Back Surgery, Hysterectomy, Tonsillectomy Additional Past Surgical History / Comment(s): SINUS SURG,johnathon cataracts Past Anesthesia/Blood Transfusion Reactions: No Reported Reaction Additional Past Anesthesia/Blood Transfusion Reaction / Comment(s): no hx blood transfusion Past Psychological History: No Psychological Hx Reported Smoking Status: Never smoker Past Alcohol Use History: None Reported Past Drug Use History: None Reported - Past Family History Mother Family Medical History: CVA/TIA, Myocardial Infarction ([place]) Additional Family Medical History / Comment(s): borderline diabetes Father Family Medical History: Cancer Additional Family Medical History / Comment(s): carcinoma gallbladder Medications and Allergies Home Medications Medication Instructions Recorded Confirmed Type Atorvastatin [Lipitor] 80 mg PO HS 04/16/14 02/01/18 History HYDROcodone/APAP 5-325MG [[place] 1 tab PO Q6HR PRN 06/22/17 02/01/18 History 5-325] Tofacitinib Citrate [Xeljanz Xr] 11 mg PO DAILY 06/22/17 02/01/18 History Cyclobenzaprine [Flexeril] 10 mg PO HS 02/01/18 02/01/18 History Hydrocortisone [Cortef] 10 mg PO HS 02/01/18 02/01/18 History Hydrocortisone [Cortef] 20 mg PO DAILY 02/01/18 02/01/18 History Metoprolol Tartrate [Lopressor] 12.5 mg PO BID PRN 02/01/18 02/01/18 History Multivitamins, Thera [Multivitamin 1 tab PO DAILY 02/01/18 02/01/18 History (formulary)] Allergies Allergy/AdvReac Type Severity Reaction Status Date / Time celecoxib [From Celebrex] Allergy Rash/Hives Verified 02/01/18 08:22 ciprofloxacin [From Cipro] AdvReac Hallucinati Verified 02/01/18 08:22 ons gold sodium thiomalate AdvReac flushing Verified 02/01/18 08:22 [From Myochrysine] Physical Exam Vitals: Vital Signs Temp Pulse Pulse Resp BP BP Pulse Ox 02/01/18 05:30 97.5 F L 99 17 99/60 100 02/01/18 05:21 97.8 F 98 18 118/74 02/01/18 04:29 97.2 F L 104 H 18 117/73 98 02/01/18 04:07 97.7 F 99 20 116/75 02/01/18 04:00 97.7 F 102 H 20 116/75 98 02/01/18 03:37 97.7 F 100 18 102/58 02/01/18 03:27 97.7 F 99 18 122/61 02/01/18 03:20 97.7 F 102 H 20 111/59 97 02/01/18 03:00 104 H 20 96/55 96 02/01/18 02:05 128 H 24 109/66 99 02/01/18 00:47 78 20 110/57 97 02/01/18 00:42 22 02/01/18 00:00 96.9 F L 134 H 20 88/53 99 Intake and Output 01/31/18 02/01/18 02/01/18 22:59 06:59 14:59 Intake Total 310 Balance 310 Intake: Blood Product 310 Rc As-1 Unit 310 [id number] Other: Voiding Method Toilet # Voids 0 1 Weight 86.183 kg - Constitutional General appearance: average body habitus, no acute distress - EENT Eyes: EOMI, PERRLA, dentition normal ENT: hard of hearing, NA/AT, normal oropharynx - Neck Neck: normal ROM - Respiratory Respiratory: bilateral: diminished (Bilateral Lower lobes) - Cardiovascular Rhythm: regular Heart sounds: normal: S1, S2 - Gastrointestinal General gastrointestinal: normal bowel sounds, soft, tenderness - Integumentary Integumentary: pale - Neurologic Neurologic: CNII-XII intact - Musculoskeletal Musculoskeletal: generalized weakness, strength equal bilaterally - Psychiatric Psychiatric: A&O x's 3, appropriate affect, intact judgment & insight Results CBC & Chem 7: 02/01/18 10:40 02/01/18 00:30 Labs: Abnormal Lab Results - Last 24 Hours (Table) 02/01/18 02/01/18 02/01/18 Range/Units 00:30 00:30 00:30 WBC 13.4 H (3.8-10.6) k/uL RBC 2.48 L (3.80-5.40) m/uL Hgb 7.0 L* (11.4-16.0) gm/dL Hct 22.2 L (34.0-46.0) % Neutrophils # 7.8 H (1.3-7.7) k/uL Retic Count 3.8 H (0.5-2.0) % Chloride 109 H (98-107) mmol/L Carbon Dioxide 20 L (22-30) mmol/L BUN 66 H (7-17) mg/dL Glucose 106 H (74-99) mg/dL Total Protein 5.7 L (6.3-8.2) g/dL Albumin 3.3 L (3.5-5.0) g/dL Stool Occult Blood (Negative) Crossmatch 02/01/18 02/01/18 Range/Units 01:51 04:05 WBC (3.8-10.6) k/uL RBC (3.80-5.40) m/uL Hgb (11.4-16.0) gm/dL Hct (34.0-46.0) % Neutrophils # (1.3-7.7) k/uL Retic Count (0.5-2.0) % Chloride (98-107) mmol/L Carbon Dioxide (22-30) mmol/L BUN (7-17) mg/dL Glucose (74-99) mg/dL Total Protein (6.3-8.2) g/dL Albumin (3.5-5.0) g/dL Stool Occult Blood Positive H (Negative) Crossmatch See Detail Thrombosis Risk Factor Assmnt - DVT/VTE Prophylaxis DVT/VTE Prophylaxis: Mechanical Prophylaxis ordered, Contraindicated - See note - Choose All That Apply Each Factor Represents 1 point: Obesity (BMI >25) Other Risk Factors: Yes Each Risk Factor Represents 2 Points: Age 61-74 years Other congenital or acquired thrombophilia - If yes, enter type in comment: No Thrombosis Risk Factor Assessment Total Risk Factor Score: 3 Thrombosis Risk Factor Assessment Level: Moderate Risk Assessment and Plan Plan: Assessment and Plan: 1. Normocytic Anemia - Acute on Chronic secondary to acute blood loss - Stool OB Positive - Patient symptomatic - GI Following. - Anemia and Iron Studies - Hx: with use of RA medication which can decrease blood counts - Daily CBC - Transfuse PRBC less than 7, Repeated today and 6.9 Another unit PRBC ordered for transfusion. 2. Shortness of Breath - Acute on Chronic Secondary to underlying fibrosis and Anemia - Improving 3. GI Bleeding - Status Post EGD - Supportive Care 4. DVT Prophylaxis - Contraindicated as acute blood loss - mechanical at this time 5. Rheumatoid Arthritis - Many lines of therapy with DMARDS Physician Attestation: I have completed the full history and physical of this patient and agree with above dictation by Crys Dorado NP, Dictated as a scribe
[2018-02-01 21:33] LABS: HCT 25.4 % (34.0-46.0); HGB 8.2 gm/dL (11.4-16.0); Hypochromasia Moderate; MCH 28.8 pg (25.0-35.0); MCHC 32.3 g/dL (31.0-37.0); MCV 89.4 fL (80.0-100.0); Mean Platelet Volume 7.4; Platelet Count 205 k/uL (150-450); Poikilocytosis Slight; RBC 2.85 m/uL (3.80-5.40); RDW 15.3 % (11.5-15.5); WBC 8.4 k/uL (3.8-10.6)
[2018-02-02] MEDS: SODIUM CHLORIDE 0.9% 1,000 ML IV SCH (06:09)
[2018-02-02] MEDS: METOPROLOL TARTRATE 50 MG TAB PO SCH ×2 (07:17→21:40)
[2018-02-02] MEDS: predniSONE 10 MG TAB PO SCH (07:25)
[2018-02-02] MEDS: PANTOPRAZOLE 40 MG/10 ML VIAL IV SCH (07:25)
[2018-02-02] MEDS: ATORVASTATIN 80 MG TAB PO SCH (07:25)
[2018-02-02] MEDS: HYDROcodone/APAP 5-325MG 1 EACH TAB PO PRN ×2 (07:26→21:43)
[2018-02-02 08:20] LABS: Basophils % (A) 0 %; Eosinophils # (A) 0.1 k/uL (0-0.7); Eosinophils % (A) 2 %; HCT 24.7 % (34.0-46.0); HGB 7.7 gm/dL (11.4-16.0); Hypochromasia Moderate; Lymphocytes # (A) 1.2 k/uL (1.0-4.8); Lymphocytes % (A) 17 %; MCHC 31.2 g/dL (31.0-37.0); MCV 89.5 fL (80.0-100.0); Mean Platelet Volume 7.3; Monocytes # (A) 0.4 k/uL (0-1.0); Monocytes % (A) 6 %; Neutrophils # (A) 5.1 k/uL (1.3-7.7); Neutrophils % (A) 73 %; Platelet Count 183 k/uL (150-450); Poikilocytosis Moderate; RBC 2.76 m/uL (3.80-5.40); RDW 15.3 % (11.5-15.5)
[2018-02-02] MEDS ORDERED: MORPHINE SULFATE 2 MG/ML SYRINGE IV PRN (08:52)
[2018-02-02] MEDS: SODIUM FERRIC GLUCONAT-SUCROSE 125 MG in SODIUM CHLORIDE 0.9% 100 ML IVPB SCH (13:36)
[2018-02-02 15:20] LABS: Basophils % (A) 0 %; Eosinophils % (A) 0 %; HCT 23.5 % (34.0-46.0); HGB 7.6 gm/dL (11.4-16.0); Hypochromasia Moderate; Lymphocytes % (A) 14 %; MCH 28.6 pg (25.0-35.0); MCHC 32.1 g/dL (31.0-37.0); MCV 88.9 fL (80.0-100.0); Mean Platelet Volume 7.5; Monocytes # (A) 0.2 k/uL (0-1.0); Monocytes % (A) 3 %; Neutrophils # (A) 5.7 k/uL (1.3-7.7); Neutrophils % (A) 82 %; Platelet Count 192 k/uL (150-450); Poikilocytosis Moderate; RBC 2.65 m/uL (3.80-5.40); RDW 15.6 % (11.5-15.5); WBC 6.9 k/uL (3.8-10.6)
--- NOTE | 2018-02-02 17:55 | P.PN ---
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 She has a known history of chronic anemia, severe rheumatoid arthritis, Atrial Fibrillation, GERD, Hiatel Hernia, Hyperlipidemia, intermittent dysphagia, and recurrent upper respiratory infections. She had Ct Scan of Chest : Large Hital Hernia. MRI of Spine : L2-L3 Disc Herniation. She has managed chronic pain from arthritis with different medications and therapies including PT and previous Epidural injection by Dr Longoria. She has attempted multiple lines of medications including Chromagen, Arava, Steroids, Remicaid, and most recently Xeljanz. She has known diffuse Pulmonary Fibrosis, Likely from the manager long term care DMARDS use. 06/25/16: Was admitted to [facility] with diffuse pneumonia ( AMISHA) , required prolonged care, was in ICU X 4 days. Still having SOB, was found in A- FIB with RVR : 07/23/16: Feels better & stronger, tolerated IVIG infusion well, weaning off steroids (Now on 25mg Po daily). Edema in lower extremities resolved. 08/17/17: C/O Vertigo intermittently, arthralgias managed with Zeljanz and Prednisone. Had negative Gi work up by Dr Willy De Los Santos, still has intermitent diarrhea. 02/01/18 - She was advised to seek further evaluation in hospital after calling our answering service late last night. She has been admitted with shortness of breath 1-2 weeks and dark-colored bowel movements that started yesterday. She has been more short of breath and weak over the last 1-2 weeks. She has been constipated, but did admit to having dark stools, which were harder than usual when she did. She denies NSAIDs or Aspirin On admission her hemoglobin was 7 and she was given one unit of PRBC Stool occult blood positive. She had an EGD colonoscopy June 2017 for evaluation of chronic diarrhea abdominal pain. Mild antral gastritis moderate to large size hiatal hernia. Colonoscopy revealed a normal-appearing colon from rectum to cecum with no evidence of colitis or colorectal neoplasia. Thoracic CT: Pulmonary interstitial fibrotic changes. No evidence of PE. Redemonstration of Large hiatal hernia. 02/02/18 - patient seen in follow-up this am, she is resting comfortably, still fatigued. She did receive transfusion of PRBC yesterday and planning for endoscopy with GI today. Objective - Vital Signs Vital signs: Vital Signs Temp 97.6 F 02/02/18 13:45 Pulse 102 H 02/02/18 13:45 Resp 18 02/02/18 13:45 BP 99/45 02/02/18 13:45 Pulse Ox 100 02/02/18 13:45 Intake & Output 02/01/18 02/02/18 02/02/18 18:59 06:59 18:59 Intake Total 754 710 870 Balance 754 710 870 Intake: IV 100 Oral 654 400 870 Blood Product 0 310 Rc As-1 Unit 0 310 [id number] Other: Voiding Method Toilet Toilet Toilet # Voids 1 2 1 # Bowel Movements 1 - Constitutional General appearance: Present: average body habitus, no acute distress - EENT Eyes: Present: abnormal pupil, dentition normal ENT: Present: NA/AT, normal oropharynx - Neck Neck: Present: normal ROM - Respiratory Respiratory: bilateral: CTA - Cardiovascular Heart rate: 102 Rhythm: regular Heart sounds: normal: S1, S2 - Gastrointestinal General gastrointestinal: Present: normal bowel sounds, soft - Integumentary Integumentary: Present: pale - Neurologic Neurologic: Present: CNII-XII intact - Musculoskeletal Musculoskeletal: Present: gait normal, strength equal bilaterally, left sided weakness - Labs CBC & Chem 7: 02/02/18 15:05 02/01/18 00:30 Labs: Abnormal Lab Results - Last 24 Hours (Table) 02/01/18 02/01/18 02/01/18 Range/Units 01:51 10:40 21:16 RBC 2.85 L (3.80-5.40) m/uL Hgb 8.2 L (11.4-16.0) gm/dL Hct 25.4 L (34.0-46.0) % RDW (11.5-15.5) % Ferritin 5.9 L (10.0-291.0) ng/mL Crossmatch See Detail 02/02/18 02/02/18 Range/Units 07:13 15:05 RBC 2.76 L 2.65 L (3.80-5.40) m/uL Hgb 7.7 L 7.6 L (11.4-16.0) gm/dL Hct 24.7 L 23.5 L (34.0-46.0) % RDW 15.6 H (11.5-15.5) % Ferritin (10.0-291.0) ng/mL Crossmatch Assessment and Plan Plan: Assessment and Plan: 1. Normocytic Anemia - Acute on Chronic secondary to acute blood loss - Stool OB Positive - Patient symptomatic - GI Following. - Anemia and Iron Studies - Hx: with use of RA medication which can decrease blood counts - Daily CBC - Transfuse PRBC less than 7, after transfusion yesterday 7.7 today - Await Endoscopy and repeat CBC in am. Possible discharge in am - IV Iron ordered today for 3 days 2. Shortness of Breath - Acute on Chronic Secondary to underlying fibrosis and Anemia - Improving 3. GI Bleeding - Status Post EGD - Supportive Care 4. DVT Prophylaxis - Contraindicated as acute blood loss - mechanical at this time 5. Rheumatoid Arthritis - Many lines of therapy with DMARDS Physician Attestation: I have completed the full history and physical of this patient and agree with above dictation by Crys Dorado NP, Dictated as a scribe
[2018-02-02] MEDS: POLYETHYLENE GLYCOL 3350 17 GM POWD.PACK PO SCH (18:50)
[2018-02-02 23:49] LABS: Basophils % (A) 0 %; Eosinophils # (A) 0.1 k/uL (0-0.7); Eosinophils % (A) 1 %; HCT 23.4 % (34.0-46.0); HGB 7.7 gm/dL (11.4-16.0); Hypochromasia Moderate; Lymphocytes # (A) 1.7 k/uL (1.0-4.8); Lymphocytes % (A) 26 %; MCH 28.8 pg (25.0-35.0); MCHC 32.8 g/dL (31.0-37.0); MCV 87.9 fL (80.0-100.0); Mean Platelet Volume 7.8; Monocytes # (A) 0.4 k/uL (0-1.0); Monocytes % (A) 7 %; Neutrophils # (A) 4.2 k/uL (1.3-7.7); Neutrophils % (A) 64 %; Platelet Count 200 k/uL (150-450); Poikilocytosis Slight; RBC 2.66 m/uL (3.80-5.40); RDW 15.5 % (11.5-15.5); WBC 6.6 k/uL (3.8-10.6)
[2018-02-03] MEDS ORDERED: ALPRAZolam 0.25 MG TAB ONE (01:25)
[2018-02-03] MEDS: SODIUM CHLORIDE 0.9% 1,000 ML IV SCH (05:49)
[2018-02-03 06:31] VITALS: BP 90/57; PULSE 77; RESP 16; TEMP 97.8
[2018-02-03] MEDS ORDERED: PANTOPRAZOLE 40 MG TABLET PO SCH (07:30)
[2018-02-03 07:48] LABS: Basophils % (A) 0 %; Eosinophils # (A) 0.1 k/uL (0-0.7); Eosinophils % (A) 1 %; HCT 24.9 % (34.0-46.0); HGB 8.1 gm/dL (11.4-16.0); Hypochromasia Moderate; Lymphocytes # (A) 1.7 k/uL (1.0-4.8); Lymphocytes % (A) 23 %; MCH 28.9 pg (25.0-35.0); MCHC 32.6 g/dL (31.0-37.0); MCV 88.8 fL (80.0-100.0); Mean Platelet Volume 8.9; Monocytes # (A) 0.5 k/uL (0-1.0); Monocytes % (A) 6 %; Neutrophils % (A) 67 %; Platelet Count 196 k/uL (150-450); Poikilocytosis Slight; RBC 2.81 m/uL (3.80-5.40); RDW 15.5 % (11.5-15.5); WBC 7.5 k/uL (3.8-10.6)
[2018-02-03] MEDS: ATORVASTATIN 80 MG TAB PO SCH (09:07)
[2018-02-03] MEDS: predniSONE 10 MG TAB PO SCH (09:08)
[2018-02-03] MEDS: POLYETHYLENE GLYCOL 3350 17 GM POWD.PACK PO SCH (09:08)
[2018-02-03] MEDS: METOPROLOL TARTRATE 50 MG TAB PO SCH (09:09)
[2018-02-03] MEDS: SODIUM FERRIC GLUCONAT-SUCROSE 125 MG in SODIUM CHLORIDE 0.9% 100 ML IVPB SCH (09:17)
--- NOTE | 2018-02-03 09:43 | P.PN ---
Subjective Progress Note Date: 02/03/18 Principal diagnosis: Anemia 67-year-old female admitted with symptomatic anemia dark-colored bowel movements status post 2 units of blood positive stool Hemoccult status post EGD with findings of a large hiatal hernia. Erosions noted at the diaphragmatic impression but no active ulcers or bleeding. Biopsies negative for H. pylori. Feels better today. Receiving intravenous iron. Iron indices; iron 55. Iron saturation 16%. Ferritin 5.9. TIBC 324. Hemoglobin 8.1. No active melena or hematochezia. Tolerating diet. Denies abdominal pain. Objective - Vital Signs Vital signs: Vital Signs Temp 97.8 F 02/03/18 06:10 Pulse 77 02/03/18 06:10 Resp 16 02/03/18 06:10 BP 90/57 02/03/18 06:10 Pulse Ox 98 02/03/18 06:10 Intake & Output 02/02/18 02/03/18 02/03/18 18:59 06:59 18:59 Intake Total 870 Balance 870 Intake: Oral 870 Other: Voiding Method Toilet Toilet # Voids 1 2 - Exam General appearance: The patient is alert, oriented, in no acute distress. HET: Head is normocephalic and atraumatic. Pupils are equal and reactive. Oropharynx is clear without lesions. Neck: Supple without lymphadenopathy. Trachea midline. Heart: S1 S2. Regular rate and rhythm. Lungs: No crackles or wheezes are heard. Abdomen: Soft, nontender, nondistended with bowel sounds. No peritoneal signs. No palpable organomegaly or masses. Extremities: Normal skin color and turgor. No cyanosis, rash, ulceration, clubbing, or edema. Radial and pedal pulses are 2/4 bilaterally. Neurological: No focal deficits. Strength and sensation are grossly intact. - Labs CBC & Chem 7: 02/03/18 07:30 02/01/18 00:30 Labs: Abnormal Lab Results - Last 24 Hours (Table) 02/02/18 02/02/18 02/03/18 Range/Units 15:05 23:24 07:30 RBC 2.65 L 2.66 L 2.81 L (3.80-5.40) m/uL Hgb 7.6 L 7.7 L 8.1 L (11.4-16.0) gm/dL Hct 23.5 L 23.4 L 24.9 L (34.0-46.0) % RDW 15.6 H (11.5-15.5) % Assessment and Plan (1) Symptomatic anemia Narrative/Plan: Status post EGD evaluation large hiatal hernia. Erosions of the diaphragmatic impression no active peptic ulcer disease or bleeding. Current Visit: Yes Status: Acute Code(s): D64.9 - ANEMIA, UNSPECIFIED SNOMED Code(s): 957057058 (2) Dyspnea Current Visit: Yes Status: Acute Code(s): R06.00 - DYSPNEA, UNSPECIFIED SNOMED Code(s): 573763686 (3) GI bleed Current Visit: Yes Status: Acute Code(s): K92.2 - GASTROINTESTINAL HEMORRHAGE, UNSPECIFIED SNOMED Code(s): 30034785 Plan: 1. Agreeable for discharge. Follow-up in office with Dr. Singh in 1-2 weeks. Outpatient capsule endoscopy discussed. CBC in outpatient setting in 5-7 days. Assessment and plan a care discussed with Dr. De Los Santos
[2018-02-03] MEDS ORDERED: MORPHINE ORAL SOLN 10 MG/5 ML CUP PO PRN (09:54)
--- NOTE | 2018-02-03 18:22 | P.DS ---
Providers Date of admission: 02/01/18 04:00 02/01/18 Expected date of discharge: 02/03/18 Attending physician: Chris Conroy Consults: 02/01/18 03:57 Consult Physician Routine Consulting Provider: Jonathan Singh Consult Reason/Comments: GI Bleeding Do you want consulting provider notified?: Yes Primary care physician: Chris Conroy - Discharge Diagnosis(es) (1) Anemia Status: Acute (2) Dyspnea Status: Acute (3) GI bleed Status: Acute (4) Symptomatic anemia Status: Acute Hospital Course: Monitoring of CBC Endoscopy Procedure Transfusion of PRBC IV Iron Supplementation Supportive Care IV Hydration Stool for OB Positive 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 She has a known history of chronic anemia, severe rheumatoid arthritis, Atrial Fibrillation, GERD, Hiatel Hernia, Hyperlipidemia, intermittent dysphagia, and recurrent upper respiratory infections. She had Ct Scan of Chest : Large Hital Hernia. MRI of Spine : L2-L3 Disc Herniation. She has managed chronic pain from arthritis with different medications and therapies including PT and previous Epidural injection by Dr Longoria. She has attempted multiple lines of medications including Chromagen, Arava, Steroids, Remicaid, and most recently Xeljanz. 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 06/25/16: Was admitted to [facility] with diffuse pneumonia ( AMISHA) , required prolonged care, was in ICU X 4 days. Still having SOB, was found in A- FIB with RVR : 07/23/16: Feels better & stronger, tolerated IVIG infusion well, weaning off steroids (Now on 25mg Po daily). Edema in lower extremities resolved. 08/17/17: C/O Vertigo intermittently, arthralgias managed with Zeljanz and Prednisone. Had negative Gi work up by Dr Willy De Los Santos, still has intermitent diarrhea. 02/01/18 - She was advised to seek further evaluation in hospital after calling our answering service late last night. She has been admitted with shortness of breath 1-2 weeks and dark-colored bowel movements that started yesterday. She has been more short of breath and weak over the last 1-2 weeks. She has been constipated, but did admit to having dark stools, which were harder than usual when she did. She denies NSAIDs or Aspirin On admission her hemoglobin was 7 and she was given one unit of PRBC Stool occult blood positive. She had an EGD colonoscopy June 2017 for evaluation of chronic diarrhea abdominal pain. Mild antral gastritis moderate to large size hiatal hernia. Colonoscopy revealed a normal-appearing colon from rectum to cecum with no evidence of colitis or colorectal neoplasia. Thoracic CT: Pulmonary interstitial fibrotic changes. No evidence of PE. Redemonstration of Large hiatal hernia. 02/03/18 - Seen this am and feeling better, no signs of bleeding and hemoglobin stable. We will give her another IV dose of iron, discharge home on po iron tablemts and office will call regarding completing IV iron in office, follow-up with Dr. Chao next week. Pertinent Studies: Hemoglobin Stool for Occult Blood Positive Patient Condition at Discharge: Fair Plan - Discharge Summary Discharge Rx Participant: Yes New Discharge Prescriptions: New Ferrous Sulfate [Iron (65 MG Elemental)] 325 mg PO BID #60 tab No Action Atorvastatin [Lipitor] 80 mg PO HS Tofacitinib Citrate [Xeljanz Xr] 11 mg PO DAILY HYDROcodone/APAP 5-325MG [[place] 5-325] 1 tab PO Q6HR PRN PRN Reason: Pain Multivitamins, Thera [Multivitamin (formulary)] 1 tab PO DAILY Cyclobenzaprine [Flexeril] 10 mg PO HS Hydrocortisone [Cortef] 10 mg PO HS Hydrocortisone [Cortef] 20 mg PO DAILY Metoprolol Tartrate [Lopressor] 12.5 mg PO BID PRN PRN Reason: Blood Pressure - High Discharge Medication List Atorvastatin [Lipitor] 80 mg PO HS 04/16/14 [History] HYDROcodone/APAP 5-325MG [[place] 5-325] 1 tab PO Q6HR PRN 06/22/17 [History] Tofacitinib Citrate [Xeljanz Xr] 11 mg PO DAILY 06/22/17 [History] Cyclobenzaprine [Flexeril] 10 mg PO HS 02/01/18 [History] Hydrocortisone [Cortef] 10 mg PO HS 02/01/18 [History] Hydrocortisone [Cortef] 20 mg PO DAILY 02/01/18 [History] Metoprolol Tartrate [Lopressor] 12.5 mg PO BID PRN 02/01/18 [History] Multivitamins, Thera [Multivitamin (formulary)] 1 tab PO DAILY 02/01/18 [History ] Ferrous Sulfate [Iron (65 MG Elemental)] 325 mg PO BID #60 tab 02/03/18 [Rx] Follow up Appointment(s)/Referral(s): Jonathan Singh MD [STAFF PHYSICIAN] - 02/17/18 3:30 pm (Outpatient endoscopic capsule to be discussed. ) Chris Conroy MD [Primary Care Provider] - 02/17/18 2:45 am Patient Instructions/Handouts: Iron Deficiency Anemia (GEN) Activity/Diet/Wound Care/Special Instructions: TAKE DAILY PRILOSEC BEFORE. PATIENT ALREADY HAS APPT WITH DR. CONROY IN MID FEBRUARY. WILL RECEIVE IV IRON IN OFFICE, OFFICE WILL CALL TO SET UP LOW FAT DIET. ACTIVITY TOLERATED. Care Plan Goals (MU): To increase hemoglobin, prevent further bleeding, and maintain a hemoglobin above 8. Discharge Disposition: HOME SELF-CARE
--- NOTE | 2018-02-14 09:47 | CDI ---
Last Revision, August 2017 Documentation Clarification Form Date: 02/14/18 From: Vida Royer Elisa Mancilla, Zipper Machine Operator Hours-8:30 am & 5 pm MCielo Admit Date: 02/01/2018 4:00:00 AM Patient Name: Madai Castorena Visit Number: [id number] Discharge Date: 02/03/18 ATTENTION: The Clinical Documentation Specialists (CDI) and [facility] Coding Staff appreciate your assistance in clarifying documentation. Please respond to the clarification below the line at the bottom and electronically sign. The CDI & [facility] Coding staff will review the response and follow-up if needed. Please note: Queries are made part of the Legal Health Record. If you have any questions, please contact the author of this message via ITS. Dr. Chris Conroy Atrial fibrillation is documented in the ED note, H&P, GI consult, GI procedure note and DS. History/Risk Factors: anemia, RA, GERD, HH, hyperlipidemia Clinical Indicators: EKG/telemetry: sinus tachycardia; A-Fib with RVR Treatment: Lopressor In your professional opinion, can you please clarify the type of atrial fibrillation, if known? Chronic/Permanent Paroxysmal Persistent Other, please specify Unable to determine Please continue to document in your progress notes and discharge summary in order to capture severity of illness and risk of mortality. Include clinical findings that support your diagnosis. MTDD
--- NOTE | 2018-03-07 09:15 | CDI ---
Last Revision, August 2017 Documentation Clarification Form Date: 03/07/18 From: Vida Royer Elisa Mancilla, Administrative Specialist Hours-8:30 am & 5 pm Janiya Admit Date: 02/01/2018 4:00:00 AM Patient Name: Madai Castorena Visit Number: [id number] Discharge Date: 02/03/18 ATTENTION: The Clinical Documentation Specialists (CDI) and [facility] Coding Staff appreciate your assistance in clarifying documentation. Please respond to the clarification below the line at the bottom and electronically sign. The CDI & [facility] Coding staff will review the response and follow-up if needed. Please note: Queries are made part of the Legal Health Record. If you have any questions, please contact the author of this message via ITS. Dr. Kike Mercedes Paroxysmal Atrial fibrillation is documented in the ED note, H&P, GI consult, GI procedure note and DS. History/Risk Factors: anemia, RA, GERD, HH, hyperlipidemia Clinical Indicators: EKG/telemetry: sinus tachycardia; A-Fib with RVR Treatment: Lopressor In your professional opinion, can you please clarify the type of atrial fibrillation, if known? Chronic/Permanent Persistent Other, please specify Unable to determine Please continue to document in your progress notes and discharge summary in order to capture severity of illness and risk of mortality. Include clinical findings that support your diagnosis. MTDD
--- NOTE | 2018-03-14 11:02 | CDI ---
Last Revision, August 2017 Documentation Clarification Form Date: 03/14/18 From: Vida Royer Elisa Mancilla, Display Director Hours-8:30 am & 5 pm Janiya Admit Date: 02/01/2018 4:00:00 AM Patient Name: Madai Castorena Visit Number: [id number] Discharge Date: 02/03/18 ATTENTION: The Clinical Documentation Specialists (CDI) and [facility] Coding Staff appreciate your assistance in clarifying documentation. Please respond to the clarification below the line at the bottom and electronically sign. The CDI & [facility] Coding staff will review the response and follow-up if needed. Please note: Queries are made part of the Legal Health Record. If you have any questions, please contact the author of this message via ITS. Dr. Kike Mercedes Atrial fibrillation is documented in the ED note, H&P, GI consult, GI procedure note and DS. History/Risk Factors: anemia, RA, GERD, HH, hyperlipidemia Clinical Indicators: EKG/telemetry: sinus tachycardia; A-Fib with RVR Treatment: Lopressor In your professional opinion, can you please clarify the type of atrial fibrillation, if known? Chronic/Permanent Paroxysmal Persistent Other, please specify Unable to determine Please continue to document in your progress notes and discharge summary in order to capture severity of illness and risk of mortality. Include clinical findings that support your diagnosis. MTDD
== END 2018-02-03 12:26 | disposition home or self-care (01) | DRG 378 ==
LOC: EC 23:59 → 4MS4W 02-01 04:00
PROVIDERS: ADMIT Internal Medicine Hematology & Oncology; ATTEND Internal Medicine Hematology & Oncology
PROC: 0DB78ZX Excision of Stomach, Pylorus, Via Natural or Artificial Opening Endoscopic, Diagnostic (ICD-10-PCS; 2018-02-01)
PROC: 30233N1 Transfusion of Nonautologous Red Blood Cells into Peripheral Vein, Percutaneous Approach (ICD-10-PCS; principal; 2018-02-01 08:35)
DX: K92.2 Gastrointestinal hemorrhage, unspecified (principal); D62 Acute posthemorrhagic anemia; D50.0 Iron deficiency anemia secondary to blood loss (chronic); J84.10 Pulmonary fibrosis, unspecified; R13.10 Dysphagia, unspecified; K29.60 Other gastritis without bleeding; M06.9 Rheumatoid arthritis, unspecified; K21.9 Gastro-esophageal reflux disease without esophagitis; M51.26 Other intervertebral disc displacement, lumbar region; K59.00 Constipation, unspecified; G89.29 Other chronic pain; E78.5 Hyperlipidemia, unspecified; M19.91 Primary osteoarthritis, unspecified site; K44.9 Diaphragmatic hernia without obstruction or gangrene; H91.90 Unspecified hearing loss, unspecified ear; Z79.52 Long term (current) use of systemic steroids; Z79.899 Other long term (current) drug therapy; Z87.01 Personal history of pneumonia (recurrent); Z90.710 Acquired absence of both cervix and uterus; Z98.42 Cataract extraction status, left eye; I48.91 Unspecified atrial fibrillation; Z98.41 Cataract extraction status, right eye; Z88.1 Allergy status to other antibiotic agents; Z88.8 Allergy status to other drugs, medicaments and biological substances; Z82.49 Family history of ischemic heart disease and other diseases of the circulatory system; Z82.3 Family history of stroke; Z80.0 Family history of malignant neoplasm of digestive organs
CPT/HCPCS: 36415; 43239; 71046; 71275; 75635; 80053; 82272; 82550; 82553; 82607; 82728; 82746; 83540; 83550; 83735; 84484; 85025; 85027; 85045; 85379; 86850; 86900; 86901; 86920; 88305; 93005; 96361; 96374; 99285

== ENCOUNTER 2018-02-04 21:15 | Inpatient (IN) | payer MEDICARE, BC ==
--- NOTE | 2018-02-04 21:43 | ED ---
General Adult HPI - General Chief complaint: Extremity Injury, Upper Stated complaint: Hand Swelling/Pain Time Seen by Provider: 02/04/18 21:43 Source: patient Mode of arrival: ambulatory Limitations: no limitations - History of Present Illness Initial comments: Patient presents with mild erythema and swelling of the back of her left hand. States she also feels like there is some swelling in her elbow without redness. States both areas are regions where she had IVs placed during hospital admission, states she was admitted to the hospital for anemia for the past 5 days was discharged yesterday. States she noticed redness and swelling around 5 PM today. States she went to urgent care, given prescription of Keflex which she has not yet filled. States she does have immunosuppression medications for her rheumatoid arthritis. States this does not feel like her rheumatoid arthritis flare, states that usually comes on gradually. States this developed quickly over the past day. Patient denies redness or streaking up the arm. Patient denies fevers or chills, nausea, vomiting, decreased appetite. - Related Data Home Medications Medication Instructions Recorded Confirmed Atorvastatin [Lipitor] 80 mg PO HS 04/16/14 02/04/18 HYDROcodone/APAP 5-325MG [[place] 1 tab PO Q6HR PRN 06/22/17 02/04/18 5-325] Tofacitinib Citrate [Xeljanz Xr] 11 mg PO DAILY 06/22/17 02/04/18 Cyclobenzaprine [Flexeril] 10 mg PO HS 02/01/18 02/04/18 Hydrocortisone [Cortef] 10 mg PO HS 02/01/18 02/04/18 Hydrocortisone [Cortef] 20 mg PO DAILY 02/01/18 02/04/18 Metoprolol Tartrate [Lopressor] 12.5 mg PO BID PRN 02/01/18 02/04/18 Multivitamins, Thera [Multivitamin 1 tab PO DAILY 02/01/18 02/04/18 (formulary)] Cephalexin [Keflex] 500 mg PO Q6HR 02/04/18 02/04/18 Omeprazole [PriLOSEC] 20 mg PO AC-BRKFST 02/04/18 02/04/18 Previous Rx's Medication Instructions Recorded Ferrous Sulfate [Iron (65 MG 325 mg PO BID #60 tab 02/03/18 Elemental)] Sulfamethox-Tmp 800-160Mg [Bactrim 1 tab PO Q12HR 7 Days #14 tab 02/04/18 DS 800-160 mg] Allergies Allergy/AdvReac Type Severity Reaction Status Date / Time celecoxib [From Celebrex] Allergy Rash/Hives Verified 02/04/18 21:57 ciprofloxacin [From Cipro] AdvReac Hallucinati Verified 02/04/18 21:57 ons gold sodium thiomalate AdvReac flushing Verified 02/04/18 21:57 [From Myochrysine] Review of Systems ROS Statement: Those systems with pertinent positive or pertinent negative responses have been documented in the HPI. ROS Other: All systems not noted in ROS Statement are negative. Constitutional: Denies: fever, chills, weakness, night sweats Eyes: Denies: vision change ENT: Denies: ear pain, throat pain, congestion Respiratory: Denies: cough, dyspnea Cardiovascular: Denies: chest pain, palpitations Endocrine: Denies: fatigue Gastrointestinal: Denies: abdominal pain, nausea, vomiting Genitourinary: Denies: dysuria, frequency Musculoskeletal: Reports: joint swelling, arthralgia. Denies: myalgia Skin: Reports: change in color Neurological: Denies: headache, weakness, numbness Past Medical History Past Medical History: Atrial Fibrillation, GERD/Reflux, Hyperlipidemia, Osteoarthritis (OA), Respiratory Disorder, Rheumatoid Arthritis (RA) Additional Past Medical History / Comment(s): HIATAL HERNIA,PULMONARY FIBROSIS, sepsis june 11 2016, anemia with transfusion, adrenal insufficiency. History of Any Multi-Drug Resistant Organisms: None Reported Past Surgical History: Adenoidectomy, Back Surgery, Hysterectomy, Tonsillectomy Additional Past Surgical History / Comment(s): SINUS SURG,johnathon cataracts, Past Anesthesia/Blood Transfusion Reactions: No Reported Reaction Additional Past Anesthesia/Blood Transfusion Reaction / Comment(s): no hx blood transfusion Past Psychological History: No Psychological Hx Reported Smoking Status: Never smoker Past Alcohol Use History: None Reported Past Drug Use History: None Reported - Past Family History Mother Family Medical History: CVA/TIA, Myocardial Infarction ([place]) Additional Family Medical History / Comment(s): borderline diabetes Father Family Medical History: Cancer Additional Family Medical History / Comment(s): carcinoma gallbladder General Exam - General Exam Comments Initial Comments: Sitting up in chair. No acute distress. Conversing normally. Calm, pleasant. Well appearing. Limitations: no limitations General appearance: alert, in no apparent distress Head exam: Present: atraumatic, normocephalic Eye exam: Present: normal appearance, PERRL, EOMI ENT exam: Present: normal exam Neck exam: Present: normal inspection Respiratory exam: Present: normal lung sounds bilaterally. Absent: respiratory distress, wheezes, rales Cardiovascular Exam: Present: regular rate, normal rhythm GI/Abdominal exam: Present: soft. Absent: distended, tenderness Extremities exam: Present: full ROM, tenderness, normal capillary refill, joint swelling, other (Trace to 1+ pitting edema dorsum of left hand in the region of the knuckles, with mild overlying erythema, tenderness to palpation. No swelling or erythema of the fingers. Minimal swelling left antecubital fossa, no erythema. Range of motion in wrist, fingers, elbow intact.) Neurological exam: Present: alert, oriented X3 Psychiatric exam: Present: normal affect, normal mood Skin exam: Present: warm, dry, intact, erythema. Absent: cyanosis, diaphoretic Course Vital Signs 02/04/18 21:15 Temperature 97.4 F L Pulse Rate 120 H Respiratory 18 Rate Blood Pressure 163/73 O2 Sat by Pulse 99 Oximetry Procedures - Sepsis Sepsis Focused Exam #1 Sepsis Focused Exam Date: 02/05/18 Sepsis Focused Exam Time: 00:10 Sepsis Focused Exam Complete: Yes (Heart rate improved, we will continue with IV hydration.) Medical Decision Making - Medical Decision Making Patient with mild erythema and swelling at states that these, appears to be localized cellulitis. Patient would like to be discharged home, trial of oral antibiotics. States she heart he has prescription for Keflex, will add Bactrim. We'll give first dose of Bactrim and Keflex in the ER. Patient has no systemic signs of infection other than elevated heart rate. Patient states she is due for her metoprolol which she has not taken yet tonight for history of A. fib. Patient states she has a history of sepsis 2 years ago being treated in [place]. We'll give patient's home dose of metoprolol, monitor heart rate. 1 L IV fluids ordered. Patient is agreeable to checking labs, blood cultures given elevated heart rate. 11:51 SEPSIS IDENTIFIED AT THIS TIME. White blood cell count elevated. Patient afebrile. Lactic acid 2.1. We'll give IV vancomycin. Every 3 hours lactic acids ordered. Blood cultures are drawn. Will admit for IV antibiotics, follow -up blood cultures. Patient & updated with results and plan. 30 mL per KG fluid bolus ordered. IM Dr. Conroy notified. - Lab Data Result diagrams: 02/04/18 22:56 Lab Results 02/04/18 02/04/18 02/04/18 Range/Units 22:56 22:56 22:56 WBC 14.5 H (3.8-10.6) k/uL RBC 3.17 L (3.80-5.40) m/uL Hgb 8.9 L (11.4-16.0) gm/dL Hct 28.4 L (34.0-46.0) % MCV 89.8 (80.0-100.0) fL MCH 28.2 (25.0-35.0) pg MCHC 31.5 (31.0-37.0) g/dL RDW 17.0 H (11.5-15.5) % Plt Count 284 (150-450) k/uL Neutrophils % 78 % Lymphocytes % 17 % Monocytes % 4 % Eosinophils % 0 % Basophils % 0 % Neutrophils # 11.3 H (1.3-7.7) k/uL Lymphocytes # 2.4 (1.0-4.8) k/uL Monocytes # 0.6 (0-1.0) k/uL Eosinophils # 0.0 (0-0.7) k/uL Basophils # 0.0 (0-0.2) k/uL Hypochromasia Moderate Poikilocytosis Moderate Anisocytosis Slight PT 10.2 (9.0-12.0) sec INR 1.0 (<1.2) APTT 20.6 L (22.0-30.0) sec Plasma Lactic Acid Giovanny 2.1 H* (0.7-2.0) mmol/L Urine Color Urine Appearance (Clear) Urine pH (5.0-8.0) Ur Specific [place] (1.001-1.035) Urine Protein (Negative) Urine Glucose (UA) (Negative) Urine Ketones (Negative) Urine Blood (Negative) Urine Nitrite (Negative) Urine Bilirubin (Negative) Urine Urobilinogen (<2.0) mg/dL Ur Leukocyte Esterase (Negative) Urine RBC (0-5) /hpf Urine WBC (0-5) /hpf Ur Squamous Epith Cells (0-4) /hpf Urine Bacteria (None) /hpf Hyaline Casts (0-2) /lpf Urine Mucus (None) /hpf //18 Range/Units 23:11 WBC (3.8-10.6) k/uL RBC (3.80-5.40) m/uL Hgb (11.4-16.0) gm/dL Hct (34.0-46.0) % MCV (80.0-100.0) fL MCH (25.0-35.0) pg MCHC (31.0-37.0) g/dL RDW (11.5-15.5) % Plt Count (150-450) k/uL Neutrophils % % Lymphocytes % % Monocytes % % Eosinophils % % Basophils % % Neutrophils # (1.3-7.7) k/uL Lymphocytes # (1.0-4.8) k/uL Monocytes # (0-1.0) k/uL Eosinophils # (0-0.7) k/uL Basophils # (0-0.2) k/uL Hypochromasia Poikilocytosis Anisocytosis PT (9.0-12.0) sec INR (<1.2) APTT (22.0-30.0) sec Plasma Lactic Acid Giovanny (0.7-2.0) mmol/L Urine Color Yellow Urine Appearance Clear (Clear) Urine pH 5.0 (5.0-8.0) Ur Specific [place] 1.015 (1.001-1.035) Urine Protein Negative (Negative) Urine Glucose (UA) Negative (Negative) Urine Ketones Negative (Negative) Urine Blood Negative (Negative) Urine Nitrite Negative (Negative) Urine Bilirubin Negative (Negative) Urine Urobilinogen <2.0 (<2.0) mg/dL Ur Leukocyte Esterase Large H (Negative) Urine RBC 3 (0-5) /hpf Urine WBC 18 H (0-5) /hpf Ur Squamous Epith Cells 2 (0-4) /hpf Urine Bacteria Rare H (None) /hpf Hyaline Casts 5 H (0-2) /lpf Urine Mucus Occasional H (None) /hpf Disposition Clinical Impression: Cellulitis of hand excluding fingers, Severe sepsis, Dislocation of shoulder region Disposition: ADMITTED IP TO THIS HOSP Condition: Good Prescriptions: Sulfamethox-Tmp 800-160Mg [Bactrim DS 800-160 mg] 1 tab PO Q12HR 7 Days #14 tab Referrals: Chris Conroy MD [Primary Care Provider] - 1-2 days
[2018-02-04] MEDS ORDERED: CEPHALEXIN 500MG STARTER PACK 4 CAP BTL PO STA (22:04)
[2018-02-04] MEDS ORDERED: SULFAMETHOX-TMP 800-160MG 1 EACH TAB PO STA (22:04)
[2018-02-04] MEDS ORDERED: METOPROLOL SUCCINATE (ER) 25 MG TAB.ER.24H PO STA (22:20)
[2018-02-04] MEDS: SODIUM CHLORIDE 0.9% 500 ML IV SCH (23:10)
[2018-02-04 23:12] LABS: Anisocytosis Slight; Basophils % (A) 0 %; Eosinophils % (A) 0 %; HCT 28.4 % (34.0-46.0); HGB 8.9 gm/dL (11.4-16.0); Hypochromasia Moderate; Lymphocytes # (A) 2.4 k/uL (1.0-4.8); Lymphocytes % (A) 17 %; MCH 28.2 pg (25.0-35.0); MCHC 31.5 g/dL (31.0-37.0); MCV 89.8 fL (80.0-100.0); Mean Platelet Volume 7.4; Monocytes # (A) 0.6 k/uL (0-1.0); Monocytes % (A) 4 %; Neutrophils # (A) 11.3 k/uL (1.3-7.7); Neutrophils % (A) 78 %; Platelet Count 284 k/uL (150-450); Poikilocytosis Moderate; RBC 3.17 m/uL (3.80-5.40); WBC 14.5 k/uL (3.8-10.6)
[2018-02-04 23:23] LABS: Partial Thromboplastin Time 20.6 sec (22.0-30.0); Prothrombin Time 10.2 sec (9.0-12.0)
[2018-02-04] MEDS ORDERED: VANCOMYCIN IV PER PHARMACY 1 EACH MISC MISCELLANE PRN (23:50)
[2018-02-04 23:54] LABS: Appearance,Urine Clear (Clear); Bacteria,Urine Rare /hpf; Bilirubin,Urine Negative (Negative); Blood,Urine Negative (Negative); Color,Urine Yellow; Glucose,Urine (UA) Negative (Negative); Hyaline Casts,Urine 5 /lpf (0-2); Ketones,Urine Negative (Negative); Leukocyte Esterase,Urine Large (Negative); Mucus,Urine Occasional /hpf; Nitrite,Urine Negative (Negative); Protein,Urine Negative (Negative); RBC,Urine 3 /hpf (0-5); Specific Gravity,Urine 1.015 (1.001-1.035); Squamous Epithelial Cell,Urine 2 /hpf (0-4); Urobilinogen,Urine <2.0 mg/dL (<2.0); WBC,Urine 18 /hpf (0-5)
[2018-02-04] MEDS ORDERED: VANCOMYCIN 1,500 MG in SODIUM CHLORIDE 0.9% 250 ML IVPB STA (23:58)
[2018-02-05] MEDS ORDERED: SODIUM CHLORIDE 0.9% 1,400 ML IV STA (00:02)
[2018-02-05 00:04] LABS: Calcium 9.5 mg/dL (8.4-10.2); Potassium 3.9 mmol/L (3.5-5.1)
[2018-02-05] MEDS: SODIUM CHLORIDE 0.9% 500 ML IV SCH (00:27)
[2018-02-05 01:16] VITALS: BMI 35.1
[2018-02-05] MEDS ORDERED: ALPRAZolam 0.5 MG TAB PO PRN (03:44)
[2018-02-05] MEDS ORDERED: METOPROLOL TARTRATE 12.5 MG TAB PO PRN (09:13)
--- NOTE | 2018-02-05 09:20 | P.HPIM ---
History of Present Illness H&P Date: 02/05/18 Chief Complaint: Arm swelling and pain Ms. Castorena is a very pleasant 67 yo female who follows with Dr. Conroy, here for left hand swelling, redness, and pain. She has multiple comorbidities, including RA, atrial fibrillation, GERD, HLP, hiatal hernia, pulmonary fibrosis as well as chronic anemia for which she sees Dr. Conroy. She has had extensive work up in the past for her anemia, including extensive GI work up. Recently admitted on 02/01-02/03/18 for anemia, Hgb 6.9, with positive FOBT. She underwent EGD and colonoscopy which revealed mild antral gastritis, biopsy benign with chronic gastritis and negative for H. pylori. She did receive a unit of pRBC with appropriate response, and received IV iron as well. Had IV in her LUE at that time. After discharge, she began having left hand swelling and redness. Seen in urgent care and prescribed Keflex course, which she had not yet started. Presented to the ED last night for worsening symptoms, and found to have lactate 2.2, WBC 14, Hgb 8.9, plt 284, ANC 11.3, and normal Cr. She did have some tachycardia as well at 120 (history of atrial fibrillation and did not take her home medications; prior HR in EMR 80-100), although afebrile. Was admitted for further management of concerns of cellulitis. She has been given a dose of vancomycin in ED. Complains of pain in her left hand, although still able to use it. Review of Systems All systems: negative Constitutional: Reports as per HPI Past Medical History Past Medical History: Atrial Fibrillation, GERD/Reflux, Hyperlipidemia, Osteoarthritis (OA), Respiratory Disorder, Rheumatoid Arthritis (RA) Additional Past Medical History / Comment(s): HIATAL HERNIA,PULMONARY FIBROSIS, sepsis june 11 2016, anemia with transfusion, adrenal insufficiency. History of Any Multi-Drug Resistant Organisms: None Reported Past Surgical History: Adenoidectomy, Back Surgery, Hysterectomy, Tonsillectomy Additional Past Surgical History / Comment(s): SINUS SURG,johnathon cataracts, Past Anesthesia/Blood Transfusion Reactions: No Reported Reaction Additional Past Anesthesia/Blood Transfusion Reaction / Comment(s): no hx blood transfusion Past Psychological History: No Psychological Hx Reported Smoking Status: Never smoker Past Alcohol Use History: None Reported Past Drug Use History: None Reported - Past Family History Mother Family Medical History: CVA/TIA, Myocardial Infarction ([place]) Additional Family Medical History / Comment(s): borderline diabetes Father Family Medical History: Cancer Additional Family Medical History / Comment(s): carcinoma gallbladder Medications and Allergies Home Medications Medication Instructions Recorded Confirmed Type Atorvastatin [Lipitor] 80 mg PO HS 04/16/14 02/04/18 History HYDROcodone/APAP 5-325MG [[place] 1 tab PO Q6HR PRN 06/22/17 02/04/18 History 5-325] Tofacitinib Citrate [Xeljanz Xr] 11 mg PO DAILY 06/22/17 02/04/18 History Cyclobenzaprine [Flexeril] 10 mg PO HS 02/01/18 02/04/18 History Hydrocortisone [Cortef] 10 mg PO HS 02/01/18 02/04/18 History Hydrocortisone [Cortef] 20 mg PO DAILY 02/01/18 02/04/18 History Metoprolol Tartrate [Lopressor] 12.5 mg PO BID PRN 02/01/18 02/04/18 History Multivitamins, Thera [Multivitamin 1 tab PO DAILY 02/01/18 02/04/18 History (formulary)] Ferrous Sulfate [Iron (65 MG 325 mg PO BID #60 tab 02/03/18 02/04/18 Rx Elemental)] Cephalexin [Keflex] 500 mg PO Q6HR 02/04/18 02/04/18 History Omeprazole [PriLOSEC] 20 mg PO AC-BRKFST 02/04/18 02/04/18 History Sulfamethox-Tmp 800-160Mg [Bactrim 1 tab PO Q12HR 7 Days #14 tab 02/04/18 Rx DS 800-160 mg] Allergies Allergy/AdvReac Type Severity Reaction Status Date / Time celecoxib [From Celebrex] Allergy Rash/Hives Verified 02/04/18 21:57 ciprofloxacin [From Cipro] AdvReac Hallucinati Verified 02/04/18 21:57 ons gold sodium thiomalate AdvReac flushing Verified 02/04/18 21:57 [From Myochrysine] Physical Exam Vitals: Vital Signs Temp Pulse Pulse Resp BP BP Pulse Ox 02/05/18 04:00 16 02/05/18 00:45 98 F 02/05/18 00:20 98.3 F 105 H 16 153/72 100 02/05/18 00:15 115 H 18 145/74 98 02/04/18 21:15 97.4 F L 120 H 18 163/73 99 Intake and Output 02/04/18 02/04/18 02/05/18 14:59 22:59 06:59 Other: Voiding Method Toilet Weight 81.647 kg 87.09 kg General: In no acute distress. HEENT: EOMI. No conjunctival pallor or scleral icterus. Mucosa moist. Neck: Neck supple. Lymph: No cervical/supraclavicular LAD. Lungs: CTA-B without wheezing or rhonchi on left, although some mid and lower lung crackles on the right. Heart: RRR. No LE edema. Abdomen: Soft, nontender, nondistended, with positive bowel sounds. No hepatosplenomegaly or masses appreciated. MSK: 4/4 strength in all 4 extremities. Neuro: Alert and oriented 3. No obvious gross neurologic deficits. Skin: No jaundice or rash. LUE with erythema of the dorsom of the hand, and swelling extending up to the elbow. Mild warmth in the hand. Fingers with chronic RA deformity. Psych: Appropriate affect. Results CBC & Chem 7: 02/04/18 22:56 02/04/18 22:56 Labs: Abnormal Lab Results - Last 24 Hours (Table) 02/04/18 02/04/18 02/04/18 Range/Units 22:56 22:56 22:56 WBC 14.5 H (3.8-10.6) k/uL RBC 3.17 L (3.80-5.40) m/uL Hgb 8.9 L (11.4-16.0) gm/dL Hct 28.4 L (34.0-46.0) % RDW 17.0 H (11.5-15.5) % Neutrophils # 11.3 H (1.3-7.7) k/uL APTT 20.6 L (22.0-30.0) sec BUN (7-17) mg/dL Glucose (74-99) mg/dL Plasma Lactic Acid Giovanny 2.1 H* (0.7-2.0) mmol/L Ur Leukocyte Esterase (Negative) Urine WBC (0-5) /hpf Urine Bacteria (None) /hpf Hyaline Casts (0-2) /lpf Urine Mucus (None) /hpf 02/04/18 02/04/18 Range/Units 22:56 23:11 WBC (3.8-10.6) k/uL RBC (3.80-5.40) m/uL Hgb (11.4-16.0) gm/dL Hct (34.0-46.0) % RDW (11.5-15.5) % Neutrophils # (1.3-7.7) k/uL APTT (22.0-30.0) sec BUN 26 H (7-17) mg/dL Glucose 134 H (74-99) mg/dL Plasma Lactic Acid Giovanny (0.7-2.0) mmol/L Ur Leukocyte Esterase Large H (Negative) Urine WBC 18 H (0-5) /hpf Urine Bacteria Rare H (None) /hpf Hyaline Casts 5 H (0-2) /lpf Urine Mucus Occasional H (None) /hpf lactate 2.2, repeat 1 Thrombosis Risk Factor Assmnt - DVT/VTE Prophylaxis DVT/VTE Prophylaxis: Low risk, early ambulation encouraged - Choose All That Apply Any of the Below Risk Factors Present?: Yes Each Factor Represents 1 point: Sepsis (< 1month) Other Risk Factors: Yes Each Risk Factor Represents 2 Points: Age 61-74 years Other congenital or acquired thrombophilia - If yes, enter type in comment: No Thrombosis Risk Factor Assessment Total Risk Factor Score: 3 Thrombosis Risk Factor Assessment Level: Moderate Risk Assessment and Plan Assessment: 1. Sepsis due to LUE cellulitis 2. LUE cellulitis due to recent IV line 3. Anemia, chronic and currently stable 4. Leukocytosis, likely reactive from infection 5. Atrial fibrillation 6. Rheumatoid arthritis 7. HLP 8. Pulmonary fibrosis Plan: Ms. Castorena is a very pleasant 67 yo female with multiple comorbidities as listed above under history and assessment, who is here for LUE cellulitis and severe sepsis. 1) Sepsis, due to LUE cellulitis. Vancomycin ID consult Hydration as needed 2) LUE redness and swelling, likely due to cellulitis from recent IV line placement Pt immunocompromised due to RA therapy, although she is not neutropenic Vanco and ID consult as per #1 [place] prn for pain 3) Anemia, chronic and currently stable Recent admission for Hgb 6.9 (baseline 8's), with positive FOBT GI consulted and EGD/colonoscopy did not identify source of bleed s/p pRBC and IV iron during recent admission Currently Hgb stable in 8's Monitor daily CBC while IPD, and transfuse as needed to maintain Hgb >7 Oral daily iron 4) Atrial fibrillation Continue home medication Tachycardia on presentation likely due to infection 5) RA, without current flare Hold medication for now, until infection controlled. 6) HLP Continue home medications 7) Pulmonary fibrosis, stable Continue home therapy 8) DVT prophylaxis Heparin SQ bid, encourage ambulation 9) Difficulty sleeping Xanax qhs prn for sleep
[2018-02-05] MEDS: PANTOPRAZOLE 40 MG TABLET PO SCH (10:35)
[2018-02-05] MEDS: HYDROCORTISONE 20 MG TAB PO SCH (10:35)
[2018-02-05] MEDS: FERROUS SULFATE 325 MG TAB PO SCH (10:35)
[2018-02-05] MEDS: VANCOMYCIN 1,500 MG in SODIUM CHLORIDE 0.9% 250 ML IVPB SCH (12:30)
[2018-02-05] MEDS: ATORVASTATIN 80 MG TAB PO SCH (17:46)
[2018-02-05] MEDS: HYDROCORTISONE 10 MG TAB PO SCH (17:46)
[2018-02-05] MEDS ORDERED: FERROUS SULFATE 325 MG TAB PO SCH (21:00)
[2018-02-05] MEDS: HYDROcodone/APAP 5-325MG 1 EACH TAB PO PRN (22:33)
[2018-02-06] MEDS: VANCOMYCIN 1,500 MG in SODIUM CHLORIDE 0.9% 250 ML IVPB SCH (04:50)
[2018-02-06] MEDS: PANTOPRAZOLE 40 MG TABLET PO SCH (06:18)
[2018-02-06 06:42] LABS: Anisocytosis Slight; Basophils % (A) 0 %; Eosinophils # (A) 0.1 k/uL (0-0.7); Eosinophils % (A) 2 %; HCT 23.9 % (34.0-46.0); HGB 7.7 gm/dL (11.4-16.0); Hypochromasia Moderate; Lymphocytes # (A) 1.1 k/uL (1.0-4.8); Lymphocytes % (A) 20 %; MCH 29.4 pg (25.0-35.0); MCHC 32.3 g/dL (31.0-37.0); MCV 90.9 fL (80.0-100.0); Mean Platelet Volume 7.8; Monocytes # (A) 0.4 k/uL (0-1.0); Monocytes % (A) 7 %; Neutrophils # (A) 3.8 k/uL (1.3-7.7); Neutrophils % (A) 69 %; Platelet Count 220 k/uL (150-450); Poikilocytosis Slight; RBC 2.63 m/uL (3.80-5.40); RDW 17.7 % (11.5-15.5); WBC 5.5 k/uL (3.8-10.6)
[2018-02-06 06:54] LABS: ALT 30 U/L (9-52); AST 22 U/L (14-36); Albumin 2.9 g/dL (3.5-5.0); Alkaline Phosphatase 47 U/L (38-126); Anion Gap 10 mmol/L; Blood Urea Nitrogen 16 mg/dL (7-17); Calcium 8.7 mg/dL (8.4-10.2); Carbon Dioxide 24 mmol/L (22-30); Chloride 108 mmol/L (98-107); Glucose 74 mg/dL (74-99); Sodium 142 mmol/L (137-145); Total Bilirubin 0.5 mg/dL (0.2-1.3)
[2018-02-06] MEDS: MULTIVITAMINS, THERA 1 EACH TAB PO SCH (08:28)
[2018-02-06] MEDS: FERROUS SULFATE 325 MG TAB PO SCH (08:28)
[2018-02-06] MEDS: HYDROCORTISONE 20 MG TAB PO SCH (08:28)
--- NOTE | 2018-02-06 08:43 | P.PN ---
Subjective Progress Note Date: 02/06/18 Principal diagnosis: Cellulitis Afebrile, Tmax 99.4. Slightly tachycardic at 100, much improved. Hand/arm feels better overall with less swelling and pain. Objective - Vital Signs Vital signs: Vital Signs Temp 98.7 F 02/06/18 00:00 Pulse 109 H 02/06/18 00:00 Resp 18 02/06/18 00:00 BP 128/75 02/06/18 00:00 Pulse Ox 97 02/06/18 00:00 Intake & Output 02/05/18 02/05/18 02/06/18 06:59 18:59 06:59 Intake Total 660 20 Balance 660 20 Weight 87.4 kg Intake: IV 20 0.9 20 Oral 660 Other: Voiding Method Toilet Toilet # Voids 2 1 - Exam General: In no acute distress. HEENT:No conjunctival pallor or scleral icterus. Mucosa moist. Neck: Neck supple. Lungs: CTA-B without wheezing or rhonchi. Heart: RRR. No LE edema. Abdomen: Soft, nontender, nondistended, with positive bowel sounds. MSK: 4/4 strength in all 4 extremities. Neuro: Alert and oriented 3. No obvious gross neurologic deficits. Skin: No jaundice. Left hand appears much improved. Still slight erythema and swelling over knuckles, and warmth, however much improved as compared to yesterday. Psych: Appropriate affect. - Labs CBC & Chem 7: 02/06/18 06:09 02/06/18 06:09 Labs: Microbiology - Last 24 Hours (Table) 02/04/18 22:56 Blood Culture - Preliminary Blood No Growth after 24 hours 02/04/18 23:11 Urine Culture - Preliminary Urine,Voided Assessment and Plan Assessment: 1. Sepsis due to LUE cellulitis, improved 2. LUE cellulitis due to recent IV line, improving 3. Anemia, chronic and currently stable 4. Leukocytosis, likely reactive from infection, resolved 5. Atrial fibrillation 6. Rheumatoid arthritis 7. HLP 8. Pulmonary fibrosis Plan: Ms. Castorena is a very pleasant 67 yo female with multiple comorbidities as listed above under history and assessment, who is here for LUE cellulitis and severe sepsis. 1) Sepsis, due to LUE cellulitis, resolving Vancomycin ID consult, awaiting recommendations Hydration as needed, no current need for this 2) LUE redness and swelling, likely due to cellulitis from recent IV line placement, improving Pt immunocompromised due to RA therapy, although she is not neutropenic Vanco and ID consult as per #1 [place] prn for pain Pt is having difficulty with line placement as well. If unable to successfully place IV line, consider starting oral antibiotics today, Bactrim, otherwise would prefer continuing vanco for at least one more day. 3) Anemia, chronic and currently stable Recent admission for Hgb 6.9 (baseline 8's), with positive FOBT GI consulted and EGD/colonoscopy did not identify source of bleed s/p pRBC and IV iron during recent admission Currently Hgb stable in 8's Monitor daily CBC while IPD, and transfuse as needed to maintain Hgb >7 Oral daily iron 4) Atrial fibrillation Continue home medication Tachycardia on presentation likely due to infection 5) RA, without current flare Hold medication for now, until infection controlled. 6) HLP Continue home medications 7) Pulmonary fibrosis, stable Continue home therapy 8) DVT prophylaxis Heparin SQ bid, encourage ambulation 9) Difficulty sleeping Xanax qhs prn for sleep Likely discharge tomorrow on PO antibiotics
[2018-02-06] MEDS: HYDROCORTISONE 10 MG TAB PO SCH (17:26)
[2018-02-06] MEDS: ATORVASTATIN 80 MG TAB PO SCH (17:26)
[2018-02-06] MEDS: SULFAMETHOX-TMP 800-160MG 1 EACH TAB PO SCH (17:27)
[2018-02-06] MEDS: HYDROcodone/APAP 5-325MG 1 EACH TAB PO PRN (21:21)
--- NOTE | 2018-02-06 23:40 | CONS ---
CONSULTATION DATE OF SERVICE: 02/06/2018. REASON FOR CONSULTATION: Left hand cellulitis. HISTORY OF PRESENT ILLNESS: The patient is a 67-year-old female who was recently admitted at this facility from 02/01/2018 through 02/03/2018 for anemia. The patient underwent EGD and colonoscopy with mild antral gastritis. The patient received a unit of packed RBC and subsequently improved and went home. She did have IV in her left arm. The patient is presenting to the [facility] ER on 02/04/2018 with chief complaints of left hand swelling and redness and pain, apparently started very quickly. He says that by the time she was getting out of the house she had significant swelling and redness of her left arm. She is complaining of pain. Pain is described to be sharp, almost 6 to 10/10, and no radiation. There is no skin breakdown or any drainage. With these symptoms the patient presented to the urgent care where the patient was advised Keflex, for the patient took. Subsequently presented to the [facility] ER where the patient has been evaluated by the ER physician and the patient did have an elevated white count of 14,000. Lactic acid was 2.2. The patient was started on vancomycin and admitted to the hospital. Infectious Disease was consulted for further recommendation regarding antibiotic therapy. The patient did have significant improvement of her swelling and redness to the left arm within the last 24 hours. The patient did lose her IV and antibiotic has been switched over to Bactrim DS. REVIEW OF SYSTEM: CONSTITUTIONAL: Positive for weakness. No high-grade fever. EYES: No complaints. ENT: No complaints. RESPIRATORY: No complaint. CARDIOVASCULAR: No complaint. GENITOURINARY: No complaint. GASTROINTESTINAL: No complaint. MUSCULOSKELETAL: As per HPI. INTEGUMENTARY: As per HPI. PSYCHOLOGICAL: No complaint. ENDOCRINE: No complaint. NEUROLOGICAL: No complaint. PAST MEDICAL HISTORY: Atrial fibrillation, gastroesophageal reflux disease, hyperlipidemia, osteoarthritis, diverticulitis, hiatal hernia, and pulmonary fibrosis. PAST SURGICAL HISTORY: Adenoidectomy, back surgery, hysterectomy, tonsillectomy. SOCIAL HISTORY: No history of smoking, drinking, or drug use. FAMILY HISTORY: Mother had a CVA, TIA and OK. Father history of carcinoma of the gallbladder. ALLERGIES: CIPRO, CELEBREX. MEDICATIONS: The patient is currently on Bactrim DS, Protonix, Theragran, Cortef, iron sulfate, Lipitor, Xanax, [place]. EXAMINATION: Blood pressure is 122/63, pulse of 112, temperature of 98.4, she is 93% on room air. GENERAL DESCRIPTION: An elderly female up in the chair in no distress. No tachypnea or accessory muscle of respiration use. HEENT: Shows pallor. No scleral icterus. Oral mucous membranes dry. No pharyngeal erythema or thrush. NECK: Trachea central. No thyromegaly. LUNGS: Unlabored breathing. Clear to auscultation anteriorly. No wheeze or crackle. HEART: S1, S2. Regular rate and rhythm. ABDOMEN: Soft, no tenderness. No guarding or rigidity. EXTREMITIES: No edema of the feet. Examination of the left hand, she did have minimal swelling at the 2nd finger at the carpophalangeal joint. No swelling or redness of the left arm was currently noticed. No open wound or any drainage. EXTREMITIES: 2+ edema of the feet. NEUROLOGIC: The patient is awake, alert, oriented x3. Mood and affect normal. LABS: Hemoglobin 7.7, white count 5.5, admission white count 14.5 with a BUN of 16, creatinine 0.77. Electrolytes have been normal. Urine has been negative. DIAGNOSTIC IMPRESSION AND PLAN: Patient admitted to the hospital with significant swelling and redness of the left arm with a question of possible cellulitis to the left arm. May be from the IV as the patient has been in the hospital recently, however, currently the patient has significant swelling at the metacarpophalangeal joint and that may indicate possible history of rheumatoid arthritis or septic joint. PLAN: 1. May consider short course of oral Bactrim DS 1 b.i.d. for about a week. 2. May consider short course of steroids, as may have seemed to help her more than antibiotic. 3. Depending upon the clinical response, may adjust her medications further if needed. Thank you for this consultation. Will follow this patient along with you. MMODL / IJN: [id number] /
[2018-02-07] MEDS: PANTOPRAZOLE 40 MG TABLET PO SCH (06:46)
[2018-02-07 07:57] LABS: Anisocytosis Slight; HCT 25.4 % (34.0-46.0); HGB 7.9 gm/dL (11.4-16.0); Hypochromasia Moderate; MCH 28.8 pg (25.0-35.0); MCHC 31.3 g/dL (31.0-37.0); MCV 92.1 fL (80.0-100.0); Mean Platelet Volume 7.8; Platelet Count 241 k/uL (150-450); Poikilocytosis Slight; RBC 2.76 m/uL (3.80-5.40); RDW 18.3 % (11.5-15.5); WBC 5.4 k/uL (3.8-10.6)
[2018-02-07 08:10] LABS: Albumin 3.1 g/dL (3.5-5.0); Calcium 8.5 mg/dL (8.4-10.2); Potassium 4.1 mmol/L (3.5-5.1); Total Bilirubin 0.5 mg/dL (0.2-1.3); Total Protein 5.2 g/dL (6.3-8.2)
[2018-02-07] MEDS: SULFAMETHOX-TMP 800-160MG 1 EACH TAB PO SCH (09:17)
[2018-02-07] MEDS: FERROUS SULFATE 325 MG TAB PO SCH (09:18)
[2018-02-07] MEDS: HYDROCORTISONE 20 MG TAB PO SCH (09:18)
[2018-02-07] MEDS: MULTIVITAMINS, THERA 1 EACH TAB PO SCH (09:18)
[2018-02-07 09:23] VITALS: BP 120/65; RESP 18
--- NOTE | 2018-02-07 11:03 | CDI ---
Last Revision, August 2017 Documentation Clarification Form Date: 02/07/18 1102 From: Janine Rosales RN, CCDS Admit Date: 02/05/2018 12:03:00 AM Patient Name: Madai Castorena Visit Number: [id number] ATTENTION: The Clinical Documentation Specialists (CDI) and [facility] Coding Staff appreciate your assistance in clarifying documentation. Please respond to the clarification below the line at the bottom and electronically sign. The CDI & [facility] Coding staff will review the response and follow-up if needed. Please note: Queries are made part of the Legal Health Record. If you have any questions, please contact the author of this message via ITS. Dr. Chris Conroy/ Shanell Fallon MD- Crys Dorado [facility]- A diagnosis of anemia lacks specificity to accurately reflect your patients severity of condition and clarification is needed. History/Risk Factors: C anemia with work up, atrial Fib, GERD, OA/RA, adrenal insufficiency Clinical indicators: 02/05 H&P: "chronic anemia for which she sees Dr. Conroy. She has had extensive work up in the past for her anemia, including extensive GI work up. Recently admitted on 02/01-02/03/18 for anemia, Hgb 6.9, with positive FOBT." Hemoglobin: 8.9/7.7/7.9 Hematocrit: 28.4/23.9/25.4 Treatment: Feosol 325 mg PO QD Monitoring of labs AM daily In order to capture the severity of condition, please clarify the type of anemia and etiology if known: Chronic blood loss anemia Iron deficiency anemia Drug induced anemia Nutritional anemia Anemia of chronic disease Unable to determine Other, please specify Please continue to document in your progress notes and discharge summary in order to capture severity of illness and risk of mortality. Include clinical findings that support your diagnosis. MTDD
--- NOTE | 2018-02-07 11:09 | CDI ---
Last Revision, August 2017 Documentation Clarification Form Date: 02/07/18 1108 From: Janine Rosales RN, CCDS Admit Date: 02/05/2018 12:03:00 AM Patient Name: Madai Castorena Visit Number: [id number] ATTENTION: The Clinical Documentation Specialists (CDI) and [facility] Coding Staff appreciate your assistance in clarifying documentation. Please respond to the clarification below the line at the bottom and electronically sign. The CDI & [facility] Coding staff will review the response and follow-up if needed. Please note: Queries are made part of the Legal Health Record. If you have any questions, please contact the author of this message via ITS. Dr. Chris Conroy/ Shanell Fallon MD/ Crys Dorado ANP_BC Atrial fibrillation is documented in the H&P and progress notes and requires further specificity. History/Risk Factors: AF, RA, pulmonary fibrosis, Hiatal hernia, chronic anemia Clinical Indicators: EKG/telemetry: NSR to NST Treatment: Lopressor 12.5 mg PO BID In your professional opinion, can you please clarify the type of atrial fibrillation, if known? Chronic/Permanent Paroxysmal Persistent Other, please specify Unable to determine Please continue to document in your progress notes and discharge summary in order to capture severity of illness and risk of mortality. Include clinical findings that support your diagnosis. MTDD
[2018-02-07 11:58] VITALS: PULSE 99
[2018-02-07 11:59] VITALS: TEMP 97.3
[2018-02-07] MEDS ORDERED: VANCOMYCIN TROUGH DUE 1 EACH MISC MISCELLANE ONE (12:00)
--- NOTE | 2018-02-07 12:14 | PN ---
PROGRESS NOTE DATE OF SERVICE: 02/07/2018 REASON FOR FOLLOWUP: Left lower extremity cellulitis. INTERVAL HISTORY: The patient is afebrile. Overall, the patient is feeling better. The swelling and redness to the left arm has improved. He did mention one spot in the mid shaft of the left arm which is slightly swollen, but there is no redness. The patient denies having any chest pain or shortness of breath or cough. No abdominal pain or any diarrhea. PHYSICAL EXAMINATION: Blood pressure is 120/65, pulse of 105, temperature 97, she is 97% on room air. General description is an elderly female up in the bed in no distress. RESPIRATORY SYSTEM: Unlabored breathing, clear to auscultation anteriorly. HEART: S1, S2. Regular rate and rhythm. ABDOMEN: Soft, no tenderness. Left upper extremity currently small area of swelling with no redness. No open area or any tenderness. LABS: Hemoglobin 7.8, white count of 5.4, BUN of 19, creatinine 0.91. DIAGNOSTIC IMPRESSION AND PLAN: Patient left upper extremity cellulitis. Overall improvement on vanco and Bactrim. The patient did have Keflex at home which the patient can continue for about a week to finish a course of therapy. I advised if any recurrence of symptoms to let us know. MMODL / IJN: [id number] /
--- NOTE | 2018-02-07 20:54 | P.DS ---
Providers Date of admission: 02/05/18 00:03 Expected date of discharge: 02/07/18 Attending physician: Chris Conroy Consults: 02/05/18 09:15 Consult Physician Routine Consulting Provider: Issac Nair Consult Reason/Comments: Cellulitis Do you want consulting provider notified?: Yes Primary care physician: [facility] Emergency Course: Ms. Castorena is a very pleasant 67 yo female who follows with Dr. Conroy, here for left hand swelling, redness, and pain. She has multiple comorbidities, including RA, atrial fibrillation, GERD, HLP, hiatal hernia, pulmonary fibrosis as well as chronic anemia for which she sees Dr. Conroy. She has had extensive work up in the past for her anemia, including extensive GI work up. Recently admitted on 02/01-02/03/18 for anemia, Hgb 6.9, with positive FOBT. She underwent EGD and colonoscopy which revealed mild antral gastritis, biopsy benign with chronic gastritis and negative for H. pylori. She did receive a unit of pRBC with appropriate response, and received IV iron as well. Had IV in her LUE at that time. After discharge, she began having left hand swelling and redness. Seen in urgent care and prescribed Keflex course, which she had not yet started. Presented to the ED last night for worsening symptoms, and found to have lactate 2.2, WBC 14, Hgb 8.9, plt 284, ANC 11.3, and normal Cr. She did have some tachycardia as well at 120 (history of atrial fibrillation and did not take her home medications; prior HR in EMR 80-100), although afebrile. Was admitted for further management of concerns of cellulitis. She has been given a dose of vancomycin in ED. Complains of pain in her left hand, although still able to use it. During hospitalization she was monitored for fevers, and her heart rate and rhythm. Antibiotics were initiated and she was afebrile for over 24 hours with decreased edema and erythema of left arm. She was discharged on po Keflex and has been made a follow-up in office this week. Patient Condition at Discharge: Good Plan - Discharge Summary Discharge Rx Participant: Yes New Discharge Prescriptions: New Cephalexin [Keflex] 500 mg PO Q8HR #30 cap No Action Atorvastatin [Lipitor] 80 mg PO HS Tofacitinib Citrate [Xeljanz Xr] 11 mg PO DAILY HYDROcodone/APAP 5-325MG [Rake 5-325] 1 tab PO Q6HR PRN PRN Reason: Pain Multivitamins, Thera [Multivitamin (formulary)] 1 tab PO DAILY Cyclobenzaprine [Flexeril] 10 mg PO HS Hydrocortisone [Cortef] 10 mg PO HS Hydrocortisone [Cortef] 20 mg PO DAILY Metoprolol Tartrate [Lopressor] 12.5 mg PO BID Ferrous Sulfate [Iron (65 MG Elemental)] 325 mg PO BID #60 tab Omeprazole [PriLOSEC] 20 mg PO -[facility] Discharge Medication List Atorvastatin [Lipitor] 80 mg PO HS 04/16/14 [History] HYDROcodone/APAP 5-325MG [Rake 5-325] 1 tab PO Q6HR PRN 06/22/17 [History] Tofacitinib Citrate [Xeljanz Xr] 11 mg PO DAILY 06/22/17 [History] Cyclobenzaprine [Flexeril] 10 mg PO HS 02/01/18 [History] Hydrocortisone [Cortef] 10 mg PO HS 02/01/18 [History] Hydrocortisone [Cortef] 20 mg PO DAILY 02/01/18 [History] Metoprolol Tartrate [Lopressor] 12.5 mg PO BID 02/01/18 [History] Multivitamins, Thera [Multivitamin (formulary)] 1 tab PO DAILY 02/01/18 [History ] Ferrous Sulfate [Iron (65 MG Elemental)] 325 mg PO BID #60 tab 02/03/18 [Rx] Omeprazole [PriLOSEC] [facility] 02/04/18 [History] Cephalexin [Keflex] 500 mg PO Q8HR #30 cap 02/07/18 [Rx] Follow up Appointment(s)/Referral(s): Stephie Sin NPC [Nurse Practitioner] - 02/10/18 2:30 pm Chris Conroy MD [Primary Care Provider] - 02/10/18 1:00 pm (Infusion for Iron at 1pm, then see ELECTRO [facility]ATER at 2:30PM same day for hospital follow-up) Issac Nair MD [STAFF PHYSICIAN] - 02/17/18 11:30 am Patient Instructions/Handouts: Cellulitis (DC) Activity/Diet/Wound Care/Special Instructions: Previous to admission Care Plan Goals (MU): Remain afebrile, Heart rate lower than 100, and follow-up in office for IV Iron Discharge Disposition: HOME SELF-CARE
== END 2018-02-07 13:52 | disposition home or self-care (01) | DRG 867 ==
LOC: EC 21:15 → 6SEL 02-05 00:03
PROVIDERS: ADMIT Internal Medicine Hematology & Oncology; ATTEND Internal Medicine Hematology & Oncology
DX: T80.29XA Infection following other infusion, transfusion and therapeutic injection, initial encounter (principal); A41.9 Sepsis, unspecified organism; R65.20 Severe sepsis without septic shock; E27.40 Unspecified adrenocortical insufficiency; L03.114 Cellulitis of left upper limb; D64.9 Anemia, unspecified; E78.5 Hyperlipidemia, unspecified; I48.91 Unspecified atrial fibrillation; J84.10 Pulmonary fibrosis, unspecified; K21.9 Gastro-esophageal reflux disease without esophagitis; K29.50 Unspecified chronic gastritis without bleeding; K29.60 Other gastritis without bleeding; K44.9 Diaphragmatic hernia without obstruction or gangrene; M06.9 Rheumatoid arthritis, unspecified; Z79.899 Other long term (current) drug therapy; Z80.0 Family history of malignant neoplasm of digestive organs; Z82.3 Family history of stroke; Z82.49 Family history of ischemic heart disease and other diseases of the circulatory system; Z90.710 Acquired absence of both cervix and uterus
CPT/HCPCS: 36415; 80048; 80053; 81001; 83605; 85025; 85027; 85610; 85730; 87040; 87086; 94760; 96365; 99284

== ENCOUNTER → 2018-06-22 | Outpatient (CLI) | payer MEDICARE, BC ==
--- NOTE | 2018-06-24 11:22 | MM ---
Reason for exam: screening (asymptomatic). Last mammogram was performed 1 year and 5 months ago. History: Patient is postmenopausal. Family history of breast cancer in 2 paternal aunts. Took estrogen for 12 years. Physical Findings: A clinical breast exam by your physician is recommended on an annual basis and results should be correlated with mammographic findings. MG 3D Screening Mammo W/Cad Bilateral CC and MLO view(s) were taken. Prior study comparison: January 26, 2017, bilateral MG 3d screening mammo w/cad. August 02, 2012, bilateral digital screening mammo w/CAD. There are scattered fibroglandular densities. Stable focal asymmetry right breast. No significant changes when compared with prior studies. ASSESSMENT: Negative, BI-RAD 1 RECOMMENDATION: Routine screening mammogram of both breasts in 1 year.
== END ==
LOC: RADMAMWWP 13:25
PROVIDERS: ATTEND Internal Medicine Hematology & Oncology
DX: Z12.31 Encounter for screening mammogram for malignant neoplasm of breast (principal)
CPT/HCPCS: 77063; 77067

== ENCOUNTER → 2018-06-25 | Outpatient (CLI) | payer MEDICARE, BC | END | disposition home or self-care (01) | LOC: LABWHC1 08:09 | PROVIDERS: ATTEND Internal Medicine Endocrinology, Diabetes & Metabolism | DX: E27.3 Drug-induced adrenocortical insufficiency (principal) | CPT/HCPCS: 36415; 82024; 82533 ==

== ENCOUNTER 2018-08-07 10:51 | Emergency (ER) | payer MEDICARE, BC ==
[2018-08-07] MEDS ORDERED: ONDANSETRON 4 MG/2 ML VIAL IVP STA (11:06)
[2018-08-07] MEDS ORDERED: MORPHINE SULFATE 2 MG/ML SYRINGE IVP ONE (11:06)
[2018-08-07] MEDS ORDERED: SODIUM CHLORIDE 0.9% 1,000 ML IV STA (11:06)
--- NOTE | 2018-08-07 11:12 | ED ---
URI HPI - General Chief Complaint: Upper Respiratory Infection Stated Complaint: URI Time Seen by Provider: 08/07/18 10:56 Source: patient, RN notes reviewed Mode of arrival: ambulatory Limitations: no limitations - History of Present Illness Initial Comments: This a 68-year-old female presents emergency Department chief complaint of cough congestion shortness breath since July 29. Patient states she does have pulmonary fibrosis from rheumatoid arthritis. Patient states that she stopped her arthritis medication and double on her steroids. She states she having severe right-sided rib pain worse when she takes a deep inspiration or coughs. Patient states she has no otherwise chest pain. Denies fever, chills, night sweats. 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 Patient states that initially started a scratchy sore throat that she still has a raspy voice. Denies any ear pain, headache or dizziness. - Related Data Home Medications Medication Instructions Recorded Confirmed Atorvastatin [Lipitor] 80 mg PO HS 04/16/14 02/05/18 HYDROcodone/APAP 5-325MG [[place] 1 tab PO Q6HR PRN 06/22/17 02/05/18 5-325] Tofacitinib Citrate [Xeljanz Xr] 11 mg PO DAILY 06/22/17 02/05/18 Cyclobenzaprine [Flexeril] 10 mg PO HS 02/01/18 02/05/18 Hydrocortisone [Cortef] 10 mg PO HS 02/01/18 02/05/18 Hydrocortisone [Cortef] 20 mg PO DAILY 02/01/18 02/05/18 Metoprolol Tartrate [Lopressor] 12.5 mg PO BID 02/01/18 02/05/18 Multivitamins, Thera [Multivitamin 1 tab PO DAILY 02/01/18 02/05/18 (formulary)] Omeprazole [PriLOSEC] 20 mg PO AC-BRKFST 02/04/18 02/05/18 Previous Rx's Medication Instructions Recorded Ferrous Sulfate [Iron (65 MG 325 mg PO BID #60 tab 02/03/18 Elemental)] Cephalexin [Keflex] 500 mg PO Q8HR #30 cap 02/07/18 Clarithromycin [Biaxin] 500 mg PO Q12HR #20 tablet 08/07/18 Allergies Allergy/AdvReac Type Severity Reaction Status Date / Time celecoxib [From Celebrex] Allergy Rash/Hives Verified 08/07/18 10:55 ciprofloxacin [From Cipro] AdvReac Hallucinati Verified 08/07/18 10:55 ons gold sodium thiomalate AdvReac flushing Verified 08/07/18 10:55 [From Myochrysine] Review of Systems ROS Statement: Those systems with pertinent positive or pertinent negative responses have been documented in the HPI. ROS Other: All systems not noted in ROS Statement are negative. Past Medical History Past Medical History: Atrial Fibrillation, GERD/Reflux, Hyperlipidemia, Osteoarthritis (OA), Respiratory Disorder, Rheumatoid Arthritis (RA) Additional Past Medical History / Comment(s): HIATAL HERNIA,PULMONARY FIBROSIS, sepsis june 11 2016, anemia with transfusion, adrenal insufficiency. History of Any Multi-Drug Resistant Organisms: None Reported Past Surgical History: Adenoidectomy, Back Surgery, Hysterectomy, Tonsillectomy Additional Past Surgical History / Comment(s): SINUS SURG,johnathon cataracts, Past Anesthesia/Blood Transfusion Reactions: No Reported Reaction Additional Past Anesthesia/Blood Transfusion Reaction / Comment(s): no hx blood transfusion Past Psychological History: No Psychological Hx Reported Smoking Status: Never smoker Past Alcohol Use History: None Reported Past Drug Use History: None Reported - Past Family History Mother Family Medical History: CVA/TIA, Myocardial Infarction ([place]) Additional Family Medical History / Comment(s): borderline diabetes Father Family Medical History: Cancer Additional Family Medical History / Comment(s): carcinoma gallbladder General Exam Limitations: no limitations General appearance: alert, in no apparent distress Head exam: Present: atraumatic, normocephalic, normal inspection Eye exam: Present: normal appearance, PERRL, EOMI. Absent: scleral icterus, conjunctival injection, periorbital swelling ENT exam: Present: normal exam, normal oropharynx, mucous membranes moist Neck exam: Present: normal inspection, full ROM. Absent: tenderness, meningismus, lymphadenopathy Respiratory exam: Present: normal lung sounds bilaterally, chest wall tenderness. Absent: respiratory distress, wheezes, rales, rhonchi, stridor Cardiovascular Exam: Present: regular rate, normal rhythm, normal heart sounds. Absent: systolic murmur, diastolic murmur, rubs, gallop, clicks GI/Abdominal exam: Present: soft, normal bowel sounds. Absent: distended, tenderness, guarding, rebound, rigid Neurological exam: Present: alert, oriented X3, CN II-XII intact Skin exam: Present: warm, dry, intact, normal color. Absent: rash Course Vital Signs 08/07/18 08/07/18 08/07/18 10:52 12:00 12:30 Temperature 98.4 F Pulse Rate 86 86 91 Respiratory 16 11 L 12 Rate Blood Pressure 139/81 132/83 114/72 O2 Sat by Pulse 96 97 83 L Oximetry 08/07/18 13:00 Temperature Pulse Rate 91 Respiratory 18 Rate Blood Pressure 124/65 O2 Sat by Pulse 97 Oximetry Medical Decision Making - Medical Decision Making 68-year-old female presented from for cough congestion for 10 days. Patient had lab work, EKG, chest x-ray which is unremarkable. Patient does have adrenal insufficiency. Patient we given Solu-Cortef. Patient will double up on her steroids at home and has a follow-up appointment beginning of week. Patient was offered admission she states that she was more concerned about pain and possible ability of pneumonia. Chest x-ray did not reveal that and is no rib fracture noted. - Lab Data Result diagrams: 08/07/18 11:34 08/07/18 11:34 Lab Results 08/07/18 08/07/18 08/07/18 Range/Units 11:34 11:34 11:34 WBC 9.4 (3.8-10.6) k/uL RBC 4.67 (3.80-5.40) m/uL Hgb 14.9 (11.4-16.0) gm/dL Hct 44.6 (34.0-46.0) % MCV 95.5 (80.0-100.0) fL MCH 32.0 (25.0-35.0) pg MCHC 33.6 (31.0-37.0) g/dL RDW 15.0 (11.5-15.5) % Plt Count 219 (150-450) k/uL Neutrophils % 75 % Lymphocytes % 14 % Monocytes % 8 % Eosinophils % 2 % Basophils % 0 % Neutrophils # 7.0 (1.3-7.7) k/uL Lymphocytes # 1.3 (1.0-4.8) k/uL Monocytes # 0.7 (0-1.0) k/uL Eosinophils # 0.2 (0-0.7) k/uL Basophils # 0.0 (0-0.2) k/uL Sodium 140 (137-145) mmol/L Potassium 4.0 (3.5-5.1) mmol/L Chloride 106 (98-107) mmol/L Carbon Dioxide 26 (22-30) mmol/L Anion Gap 8 mmol/L BUN 22 H (7-17) mg/dL Creatinine 0.76 (0.52-1.04) mg/dL Est GFR (CKD-EPI)AfAm >90 (>60 ml/min/1.73 sqM) Est GFR (CKD-EPI)NonAf 80 (>60 ml/min/1.73 sqM) Glucose 86 (74-99) mg/dL Plasma Lactic Acid Giovanny 1.8 (0.7-2.0) mmol/L Calcium 9.3 (8.4-10.2) mg/dL Magnesium 2.0 (1.6-2.3) mg/dL Total Bilirubin 0.7 (0.2-1.3) mg/dL AST 36 (14-36) U/L ALT 33 (9-52) U/L Alkaline Phosphatase 65 (38-126) U/L Troponin I (0.000-0.034) ng/mL Total Protein 6.8 (6.3-8.2) g/dL Albumin 3.7 (3.5-5.0) g/dL 08/07/18 Range/Units 11:34 WBC (3.8-10.6) k/uL RBC (3.80-5.40) m/uL Hgb (11.4-16.0) gm/dL Hct (34.0-46.0) % MCV (80.0-100.0) fL MCH (25.0-35.0) pg MCHC (31.0-37.0) g/dL RDW (11.5-15.5) % Plt Count (150-450) k/uL Neutrophils % % Lymphocytes % % Monocytes % % Eosinophils % % Basophils % % Neutrophils # (1.3-7.7) k/uL Lymphocytes # (1.0-4.8) k/uL Monocytes # (0-1.0) k/uL Eosinophils # (0-0.7) k/uL Basophils # (0-0.2) k/uL Sodium (137-145) mmol/L Potassium (3.5-5.1) mmol/L Chloride (98-107) mmol/L Carbon Dioxide (22-30) mmol/L Anion Gap mmol/L BUN (7-17) mg/dL Creatinine (0.52-1.04) mg/dL Est GFR (CKD-EPI)AfAm (>60 ml/min/1.73 sqM) Est GFR (CKD-EPI)NonAf (>60 ml/min/1.73 sqM) Glucose (74-99) mg/dL Plasma Lactic Acid Giovanny (0.7-2.0) mmol/L Calcium (8.4-10.2) mg/dL Magnesium (1.6-2.3) mg/dL Total Bilirubin (0.2-1.3) mg/dL AST (14-36) U/L ALT (9-52) U/L Alkaline Phosphatase (38-126) U/L Troponin I <0.012 (0.000-0.034) ng/mL Total Protein (6.3-8.2) g/dL Albumin (3.5-5.0) g/dL Disposition Clinical Impression: Rib pain on right side, Acute bronchitis Disposition: HOME SELF-CARE Condition: Stable Instructions: Costochondritis (ED), Upper Respiratory Infection (ED) Additional Instructions: Please return to the Emergency Department if symptoms worsen or any other concerns. Prescriptions: Clarithromycin [Biaxin] 500 mg PO Q12HR #20 tablet Is patient prescribed a controlled substance at d/c from ED?: No Referrals: Chris Conroy MD [Primary Care Provider] - 1-2 days Rocael Mondragon MD [STAFF PHYSICIAN] - 1-2 days Time of Disposition: 13:06
[2018-08-07 11:54] LABS: Basophils % (A) 0 %; Eosinophils # (A) 0.2 k/uL (0-0.7); Eosinophils % (A) 2 %; HCT 44.6 % (34.0-46.0); HGB 14.9 gm/dL (11.4-16.0); Lymphocytes # (A) 1.3 k/uL (1.0-4.8); Lymphocytes % (A) 14 %; MCHC 33.6 g/dL (31.0-37.0); MCV 95.5 fL (80.0-100.0); Mean Platelet Volume 7.3; Monocytes # (A) 0.7 k/uL (0-1.0); Monocytes % (A) 8 %; Neutrophils % (A) 75 %; Platelet Count 219 k/uL (150-450); RBC 4.67 m/uL (3.80-5.40); WBC 9.4 k/uL (3.8-10.6)
--- NOTE | 2018-08-07 12:07 | XR ---
EXAMINATION TYPE: XR chest 2V DATE OF EXAM: 08/07/2018 COMPARISON: 02/01/2018 HISTORY: Shortness of breath TECHNIQUE: Frontal and lateral views of the chest are obtained. FINDINGS: Scattered senescent parenchymal changes noted. Hyperinflation compatible with COPD. No evidence for infiltrate. No evidence for atelectasis. Moderate fixed hiatal hernia. Heart size is stable. Mediastinal structures are stable and grossly unremarkable. No evidence for hilar prominence. Degenerative changes dorsal spine. IMPRESSION: 1. No evidence for acute pulmonary disease.
[2018-08-07 12:13] LABS: Anion Gap 8 mmol/L; Blood Urea Nitrogen 22 mg/dL (7-17); Carbon Dioxide 26 mmol/L (22-30); Chloride 106 mmol/L (98-107); Glucose 86 mg/dL (74-99); Sodium 140 mmol/L (137-145)
[2018-08-07 12:14] LABS: ALT 33 U/L (9-52); AST 36 U/L (14-36); Albumin 3.7 g/dL (3.5-5.0); Alkaline Phosphatase 65 U/L (38-126); Calcium 9.3 mg/dL (8.4-10.2); Total Bilirubin 0.7 mg/dL (0.2-1.3); Total Protein 6.8 g/dL (6.3-8.2)
[2018-08-07 13:02] VITALS: RESP 18
[2018-08-07] MEDS ORDERED: HYDROCORTISONE SUCCINATE 100 MG/2 ML VIAL IV STA (13:03)
[2018-08-07 14:19] VITALS: BP 129/72; PULSE 95; TEMP 97.8
== END 2018-08-07 14:17 | disposition home or self-care (01) ==
LOC: EC 10:51
DX: J20.9 Acute bronchitis, unspecified (principal); E27.40 Unspecified adrenocortical insufficiency; I48.91 Unspecified atrial fibrillation; K21.9 Gastro-esophageal reflux disease without esophagitis; E78.5 Hyperlipidemia, unspecified; M06.9 Rheumatoid arthritis, unspecified; Z98.890 Other specified postprocedural states; Z87.09 Personal history of other diseases of the respiratory system; Z79.52 Long term (current) use of systemic steroids; Z79.899 Other long term (current) drug therapy; Z88.6 Allergy status to analgesic agent; Z88.1 Allergy status to other antibiotic agents; Z88.8 Allergy status to other drugs, medicaments and biological substances
CPT/HCPCS: 99285; 96365; 96375 ×3; 96361; 36415; 93005; 80053; 83605; 83735; 84484; 85025; 87040; 71046; J1720; J2405; J0696; J2270

== ENCOUNTER → 2019-01-31 | Outpatient (CLI) | payer MEDICARE, BC | LOC: LABWHC1 09:29 | PROVIDERS: ATTEND Internal Medicine Endocrinology, Diabetes & Metabolism | DX: E27.3 Drug-induced adrenocortical insufficiency (principal) | CPT/HCPCS: 36415; 82024; 82533 ==

== ENCOUNTER → 2019-02-04 | Outpatient (CLI) | payer MEDICARE, BC ==
[2019-02-04 16:11] LABS: Albumin/Globulin Ratio 2.22 (1.60-3.17); Anion Gap 6.3 mmol/L (4.00-12.00); Calcium 9.4 mg/dL (8.7-10.3); Carbon Dioxide 27.7 mmol/L (21.6-31.8); Globulin 1.8 g/dL (1.6-3.3); Potassium 4.1 mmol/L (3.5-5.5); Total Bilirubin 0.7 mg/dL (0.3-1.2); Total Protein 5.8 g/dL (6.2-8.2)
== END | disposition home or self-care (01) ==
LOC: LABWHC1 10:19
PROVIDERS: ATTEND Internal Medicine Endocrinology, Diabetes & Metabolism
DX: E27.3 Drug-induced adrenocortical insufficiency (principal)
CPT/HCPCS: 36415; 80053; 82024; 82533

== ENCOUNTER → 2019-07-18 | Outpatient (CLI) | payer MEDICARE, BC ==
[2019-07-18 20:22] LABS: African American GFR (CKD) 74.6 (60.0-200.0); Albumin 4.3 g/dL (3.80-4.90); Albumin/Globulin Ratio 2.15 (1.60-3.17); Anion Gap 9.3 mmol/L (4.00-12.00); BUN/Creat Ratio 24.44 Ratio (12.00-20.00); Calcium 9.6 mg/dL (8.7-10.3); Carbon Dioxide 27.7 mmol/L (21.6-31.8); Total Bilirubin 0.5 mg/dL (0.2-1.2); Total Protein 6.3 g/dL (6.2-8.2)
== END | disposition home or self-care (01) ==
LOC: LABWHC1 14:55
PROVIDERS: ATTEND Internal Medicine Endocrinology, Diabetes & Metabolism
DX: E27.3 Drug-induced adrenocortical insufficiency (principal)
CPT/HCPCS: 36415; 80053; 82024; 82533

== ENCOUNTER → 2020-03-06 | Outpatient (CLI) | payer MEDICARE, BC ==
[2020-03-06 21:13] LABS: African American GFR (CKD) 65.6 (60.0-200.0); Albumin 3.9 g/dL (3.80-4.90); Albumin/Globulin Ratio 1.77 (1.60-3.17); Anion Gap 8.1 mmol/L (4.00-12.00); Calcium 8.9 mg/dL (8.7-10.3); Carbon Dioxide 26.9 mmol/L (21.6-31.8); Globulin 2.2 g/dL (1.6-3.3); Non-African American GFR(CKD) 56.6 (60.0-200.0); Total Bilirubin 0.7 mg/dL (0.2-1.2); Total Protein 6.1 g/dL (6.2-8.2)
== END | disposition home or self-care (01) ==
LOC: LABWHC1 10:38
PROVIDERS: ATTEND Internal Medicine Endocrinology, Diabetes & Metabolism
DX: E27.3 Drug-induced adrenocortical insufficiency (principal)
CPT/HCPCS: 36415; 80053; 82024; 82533

== ENCOUNTER → 2021-01-09 | Outpatient (CLI) | payer MEDICARE, BC | END | disposition home or self-care (01) | LOC: LABWHC1 13:01 | PROVIDERS: ATTEND Internal Medicine Endocrinology, Diabetes & Metabolism | DX: E27.3 Drug-induced adrenocortical insufficiency (principal) | CPT/HCPCS: 36415; 82024; 82533 ==

== ENCOUNTER → 2021-02-07 | Outpatient (CLI) | payer MEDICARE, BC ==
--- NOTE | 2021-02-08 05:43 | MR ---
EXAMINATION TYPE: MR lumbar spine wo/w con DATE OF EXAM: 02/07/2021 COMPARISON: 01/27/2012 HISTORY: Low back pain that goes down right leg for years. Back surgery 2014. CONTRAST: Standard multiplanar, multisequence MRI departmental protocol utilizing 9.5 mL intravenous Gadavist g adolinium contrast. There is almost 1 cm anterior subluxation of L4 in relation L5. There is moderate disc space narrowin g from L2 to L5. There is spurring of the endplates. There is small posterior disc herniations from L 2 to L5. There is multilevel lumbar hypertrophic facet arthropathy. There is some mild lateral recess stenosis due to facet arthropathy at L3-4. There is no lumbar paraspinal mass. There is narrowing of the L2-3 right side neural foramen due to facet arthropathy and disc space narrowing. There is poste rior lateral disc herniation at L2-3 on the right side. There is no significant compression deformity . IMPRESSION: There is L4-5 degenerative first-degree spondylolisthesis that has progressed compared to old exam. N o acute fracture seen. Posterior right side and lateral disc herniation at L2-3 appears slightly smaller than old exam and c ould relate to desiccation. Moderate multilevel degenerative disc space narrowing. This has progresse d significantly compared to old exam.
== END | disposition home or self-care (01) ==
LOC: RADMRIMAIN 16:46
PROVIDERS: ATTEND Internal Medicine Hematology & Oncology
DX: M43.16 Spondylolisthesis, lumbar region (principal); M51.26 Other intervertebral disc displacement, lumbar region; M51.36 Other intervertebral disc degeneration, lumbar region
CPT/HCPCS: 72158; A9585

== ENCOUNTER → 2021-05-08 | Outpatient (CLI) | payer MEDICARE, BC | END | disposition home or self-care (01) | LOC: LABWHC1 08:21 | PROVIDERS: ATTEND Internal Medicine Endocrinology, Diabetes & Metabolism | DX: E27.3 Drug-induced adrenocortical insufficiency (principal) | CPT/HCPCS: 36415; 82024; 82533 ==

== ENCOUNTER 2021-06-07 23:46 | Inpatient (IN) | payer MEDICARE, BC ==
--- NOTE | 2021-06-08 00:47 | XR ---
EXAMINATION TYPE: XR chest 2V DATE OF EXAM: 06/08/2021 COMPARISON: 06/04/2021 HISTORY: Short of breath TECHNIQUE: 2 views FINDINGS: There is large hiatal hernia. There is mild pulmonary congestion. Heart is probably enlarge d. There is no definite pleural effusion. Mediastinum is normal. IMPRESSION: Mild pulmonary congestion increased slightly compared to old exam. Mild heart failure is possible. Large hiatal hernia unchanged.
--- NOTE | 2021-06-08 00:48 | ED ---
SOB HPI - General Chief Complaint: Shortness of Breath Stated Complaint: Difficulty Breathing Time Seen by Provider: 06/08/21 00:13 Source: patient, family Mode of arrival: wheelchair - History of Present Illness Initial Comments: This patient is a 70-year-old woman who presents with complaints of worsening of shortness of breath going on for 2-3 weeks. She also is having some tightness to the right chest and upper back that is been going on over the course of today worse tonight. Currently no chest pain but there is tightness across her back. The patient has not noted fever or chills. No productive cough. 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 who did not change any of her current medications MD Complaint: shortness of breath Onset/Timin -: week(s) Radiation: back Severity: mild Quality: other (Tightness) Consistency: constant Improves With: nothing Worsens With: nothing Known History Of: other (Pulmonary fibrosis) Treatments Prior to Arrival: none - Related Data Home Oxygen Therapy: No Home Medications Medication Instructions Recorded Confirmed Atorvastatin [Lipitor] 80 mg PO HS 04/16/14 06/08/21 HYDROcodone/APAP 5-325MG [[place] 1 tab PO TID 06/22/17 06/08/21 5-325] Tofacitinib Citrate [Xeljanz Xr] 11 mg PO DAILY 06/22/17 06/08/21 Cyclobenzaprine [Flexeril] 10 mg PO DAILY 02/01/18 06/08/21 Diltiazem Cd [Cardizem CD] 120 mg PO DAILY 06/08/21 06/08/21 Leflunomide [Arava] 20 mg PO DAILY 06/08/21 06/08/21 Prednisolone Acetate/Pf 1 drop RIGHT EYE BID 06/08/21 06/08/21 [Prednisolone Acet 1% Eye Drop] Zolpidem [Ambien] 10 mg PO HS 06/08/21 06/08/21 cycloSPORINE 0.05% OPHTH SOLN 1 drop BOTH EYES BID 06/08/21 06/08/21 [Restasis] valACYclovir [Valtrex] 500 mg PO BID 06/08/21 06/08/21 Previous Rx's Medication Instructions Recorded Apixaban [Eliquis] 5 mg PO BID #60 tab 06/09/21 Famotidine [Pepcid] 20 mg PO BID #30 tablet 06/10/21 Metoprolol Tartrate [Lopressor] 12.5 mg PO BID #60 tab 06/10/21 predniSONE 10 mg PO DAILY tab 06/10/21 Allergies Allergy/AdvReac Type Severity Reaction Status Date / Time celecoxib [From Celebrex] Allergy Rash/Hives Verified 06/07/21 23:54 ciprofloxacin [From Cipro] AdvReac Hallucinati Verified 06/07/21 23:54 ons gold sodium thiomalate AdvReac flushing Verified 06/07/21 23:54 [From Myochrysine] Review of Systems ROS Statement: Those systems with pertinent positive or pertinent negative responses have been documented in the HPI. ROS Other: All systems not noted in ROS Statement are negative. Constitutional: Denies: fever, chills Respiratory: Reports: as per HPI, cough, dyspnea. Denies: wheezes, hemoptysis, stridor Cardiovascular: Reports: as per HPI, chest pain. Denies: palpitations, orthopnea, edema, syncope Gastrointestinal: Denies: abdominal pain, nausea, vomiting Genitourinary: Denies: dysuria, hematuria Musculoskeletal: Reports: as per HPI, back pain Skin: Denies: rash, lesions Neurological: Denies: headache, weakness, numbness Past Medical History Past Medical History: Atrial Fibrillation, GERD/Reflux, Hyperlipidemia, Osteoarthritis (OA), Respiratory Disorder, Rheumatoid Arthritis (RA) Additional Past Medical History / Comment(s): HIATAL HERNIA,PULMONARY FIBROSIS, sepsis june 11 2016, anemia with transfusion, adrenal insufficiency. History of Any Multi-Drug Resistant Organisms: None Reported Past Surgical History: Adenoidectomy, Back Surgery, Hysterectomy, Tonsillectomy Additional Past Surgical History / Comment(s): SINUS SURG,johnathon cataracts, Past Anesthesia/Blood Transfusion Reactions: No Reported Reaction Additional Past Anesthesia/Blood Transfusion Reaction / Comment(s): no hx blood transfusion Past Psychological History: No Psychological Hx Reported Smoking Status: Never smoker Past Alcohol Use History: None Reported Past Drug Use History: None Reported - Past Family History Mother Family Medical History: CVA/TIA, Myocardial Infarction ([place]) Additional Family Medical History / Comment(s): borderline diabetes Father Family Medical History: Cancer Additional Family Medical History / Comment(s): carcinoma gallbladder General Exam General appearance: alert, in no apparent distress Head exam: Present: atraumatic, normocephalic Eye exam: Present: normal appearance. Absent: scleral icterus, conjunctival injection Neck exam: Present: normal inspection Respiratory exam: Present: rales. Absent: respiratory distress, wheezes, rhonchi, stridor, accessory muscle use, decreased breath sounds Cardiovascular Exam: Present: normal rhythm, tachycardia, normal heart sounds. Absent: systolic murmur, diastolic murmur, rubs, gallop GI/Abdominal exam: Present: soft. Absent: distended, tenderness, guarding, rebound, rigid, mass Extremities exam: Present: normal inspection, normal capillary refill. Absent: pedal edema, calf tenderness Back exam: Present: normal inspection. Absent: CVA tenderness (R), CVA tenderness (L), paraspinal tenderness, vertebral tenderness Neurological exam: Present: alert Skin exam: Present: warm, dry, intact, normal color. Absent: rash Course Vital Signs 06/07/21 06/08/21 06/08/21 23:48 00:06 00:58 Temperature 98 F Pulse Rate 110 H 100 Respiratory 18 22 22 Rate Blood Pressure 167/77 143/90 Blood Pressure [Left Arm] O2 Sat by Pulse 96 95 Oximetry 06/08/21 06/08/21 06:00 07:00 Temperature Pulse Rate 108 H Respiratory 22 18 Rate Blood Pressure 134/71 Blood Pressure 154/94 [Left Arm] O2 Sat by Pulse 98 96 Oximetry Medical Decision Making - Lab Data Result diagrams: 06/10/21 05:10 06/10/21 05:10 Lab Results 06/08/21 06/08/21 06/08/21 Range/Units 00:23 00:23 00:23 WBC 14.0 H (3.8-10.6) k/uL RBC 4.40 (3.80-5.40) m/uL Hgb 14.0 (11.4-16.0) gm/dL Hct 43.3 (34.0-46.0) % MCV 98.3 (80.0-100.0) fL MCH 31.9 (25.0-35.0) pg MCHC 32.4 (31.0-37.0) g/dL RDW 14.9 (11.5-15.5) % Plt Count 273 (150-450) k/uL MPV 8.0 Immature Gran % (Auto) % Absolute Nucleated RBC (0.00-0.00) X 10*3/uL Neutrophils % 88 % Lymphocytes % 4 % Monocytes % 6 % Eosinophils % 0 % Basophils % 0 % Immature Gran # (0.00-0.04) X 10*3/uL Neutrophils # 12.3 H (1.3-7.7) k/uL Lymphocytes # 0.5 L (1.0-4.8) k/uL Monocytes # 0.8 (0-1.0) k/uL Eosinophils # 0.0 (0-0.7) k/uL Basophils # 0.0 (0-0.2) k/uL NRBC/100 WBC Diff (0.0-0.0) /100 WBCS PT 10.8 (9.0-12.0) sec INR 1.0 (<1.2) APTT 22.1 (22.0-30.0) sec D-Dimer <0.17 (<0.60) mg/L FEU Sodium 133 L (137-145) mmol/L Potassium 3.8 (3.5-5.1) mmol/L Chloride 99 (98-107) mmol/L Carbon Dioxide 26 (22-30) mmol/L Anion Gap 8 mmol/L BUN 34 H (7-17) mg/dL Creatinine 1.09 H (0.52-1.04) mg/dL Est GFR (CKD-EPI)AfAm 59 (>60 ml/min/1.73 sqM) Est GFR (CKD-EPI)NonAf 51 (>60 ml/min/1.73 sqM) Glucose 119 H (74-99) mg/dL Plasma Lactic Acid Giovanny (0.7-2.0) mmol/L Calcium 9.5 (8.4-10.2) mg/dL Total Bilirubin 0.7 (0.2-1.3) mg/dL AST 34 (14-36) U/L ALT 27 (4-34) U/L Alkaline Phosphatase 89 (38-126) U/L Troponin I (0.000-0.034) ng/mL NT-Pro-B Natriuret Pep pg/mL Total Protein 6.6 (6.3-8.2) g/dL Albumin 3.8 (3.5-5.0) g/dL Urine Color Urine Appearance (Clear) Urine pH (5.0-8.0) Ur Specific [place] (1.001-1.035) Urine Protein (Negative) Urine Glucose (UA) (Negative) Urine Ketones (Negative) Urine Blood (Negative) Urine Nitrite (Negative) Urine Bilirubin (Negative) Urine Urobilinogen (<2.0) mg/dL Ur Leukocyte Esterase (Negative) Urine RBC (0-5) /hpf Urine WBC (0-5) /hpf Ur Squamous Epith Cells (0-4) /hpf Urine Bacteria (None) /hpf Hyaline Casts (0-2) /lpf Urine Mucus (None) /hpf Coronavirus (PCR) (Not Detectd) 06/08/21 06/08/21 06/08/21 Range/Units 00:23 00:23 00:24 WBC (3.8-10.6) k/uL RBC (3.80-5.40) m/uL Hgb (11.4-16.0) gm/dL Hct (34.0-46.0) % MCV (80.0-100.0) fL MCH (25.0-35.0) pg MCHC (31.0-37.0) g/dL RDW (11.5-15.5) % Plt Count (150-450) k/uL MPV Immature Gran % (Auto) % Absolute Nucleated RBC (0.00-0.00) X 10*3/uL Neutrophils % % Lymphocytes % % Monocytes % % Eosinophils % % Basophils % % Immature Gran # (0.00-0.04) X 10*3/uL Neutrophils # (1.3-7.7) k/uL Lymphocytes # (1.0-4.8) k/uL Monocytes # (0-1.0) k/uL Eosinophils # (0-0.7) k/uL Basophils # (0-0.2) k/uL NRBC/100 WBC Diff (0.0-0.0) /100 WBCS PT (9.0-12.0) sec INR (<1.2) APTT (22.0-30.0) sec D-Dimer (<0.60) mg/L FEU Sodium (137-145) mmol/L Potassium (3.5-5.1) mmol/L Chloride (98-107) mmol/L Carbon Dioxide (22-30) mmol/L Anion Gap mmol/L BUN (7-17) mg/dL Creatinine (0.52-1.04) mg/dL Est GFR (CKD-EPI)AfAm (>60 ml/min/1.73 sqM) Est GFR (CKD-EPI)NonAf (>60 ml/min/1.73 sqM) Glucose (74-99) mg/dL Plasma Lactic Acid Giovanny 1.2 (0.7-2.0) mmol/L Calcium (8.4-10.2) mg/dL Total Bilirubin (0.2-1.3) mg/dL AST (14-36) U/L ALT (4-34) U/L Alkaline Phosphatase (38-126) U/L Troponin I <0.012 (0.000-0.034) ng/mL NT-Pro-B Natriuret Pep pg/mL Total Protein (6.3-8.2) g/dL Albumin (3.5-5.0) g/dL Urine Color Light Yellow Urine Appearance Clear (Clear) Urine pH 5.5 (5.0-8.0) Ur Specific [place] 1.010 (1.001-1.035) Urine Protein Negative (Negative) Urine Glucose (UA) Negative (Negative) Urine Ketones Negative (Negative) Urine Blood Trace H (Negative) Urine Nitrite Negative (Negative) Urine Bilirubin Negative (Negative) Urine Urobilinogen <2.0 (<2.0) mg/dL Ur Leukocyte Esterase Moderate H (Negative) Urine RBC 3 (0-5) /hpf Urine WBC 4 (0-5) /hpf Ur Squamous Epith Cells 3 (0-4) /hpf Urine Bacteria Rare H (None) /hpf Hyaline Casts 3 H (0-2) /lpf Urine Mucus Rare H (None) /hpf Coronavirus (PCR) (Not Detectd) 06/08/21 06/08/21 06/09/21 Range/Units 00:24 03:41 15:00 WBC (3.8-10.6) k/uL RBC (3.80-5.40) m/uL Hgb (11.4-16.0) gm/dL Hct (34.0-46.0) % MCV (80.0-100.0) fL MCH (25.0-35.0) pg MCHC (31.0-37.0) g/dL RDW (11.5-15.5) % Plt Count (150-450) k/uL MPV Immature Gran % (Auto) % Absolute Nucleated RBC (0.00-0.00) X 10*3/uL Neutrophils % % Lymphocytes % % Monocytes % % Eosinophils % % Basophils % % Immature Gran # (0.00-0.04) X 10*3/uL Neutrophils # (1.3-7.7) k/uL Lymphocytes # (1.0-4.8) k/uL Monocytes # (0-1.0) k/uL Eosinophils # (0-0.7) k/uL Basophils # (0-0.2) k/uL NRBC/100 WBC Diff (0.0-0.0) /100 WBCS PT (9.0-12.0) sec INR (<1.2) APTT (22.0-30.0) sec D-Dimer (<0.60) mg/L FEU Sodium 134 L (137-145) mmol/L Potassium 3.6 (3.5-5.1) mmol/L Chloride 99 (98-107) mmol/L Carbon Dioxide 26 (22-30) mmol/L Anion Gap 9 mmol/L BUN 36 H (7-17) mg/dL Creatinine 1.13 H (0.52-1.04) mg/dL Est GFR (CKD-EPI)AfAm 56 (>60 ml/min/1.73 sqM) Est GFR (CKD-EPI)NonAf 49 (>60 ml/min/1.73 sqM) Glucose 179 H (74-99) mg/dL Plasma Lactic Acid Giovanny (0.7-2.0) mmol/L Calcium 9.1 (8.4-10.2) mg/dL Total Bilirubin (0.2-1.3) mg/dL AST (14-36) U/L ALT (4-34) U/L Alkaline Phosphatase (38-126) U/L Troponin I (0.000-0.034) ng/mL NT-Pro-B Natriuret Pep 198 pg/mL Total Protein (6.3-8.2) g/dL Albumin (3.5-5.0) g/dL Urine Color Urine Appearance (Clear) Urine pH (5.0-8.0) Ur Specific [place] (1.001-1.035) Urine Protein (Negative) Urine Glucose (UA) (Negative) Urine Ketones (Negative) Urine Blood (Negative) Urine Nitrite (Negative) Urine Bilirubin (Negative) Urine Urobilinogen (<2.0) mg/dL Ur Leukocyte Esterase (Negative) Urine RBC (0-5) /hpf Urine WBC (0-5) /hpf Ur Squamous Epith Cells (0-4) /hpf Urine Bacteria (None) /hpf Hyaline Casts (0-2) /lpf Urine Mucus (None) /hpf Coronavirus (PCR) Not Detected (Not Detectd) 06/10/21 06/10/21 Range/Units 05:10 05:10 WBC 11.34 H (3.8-10.6) k/uL RBC 3.78 L (3.80-5.40) m/uL Hgb 12.3 (11.4-16.0) gm/dL Hct 37.8 (34.0-46.0) % MCV 100.0 H (80.0-100.0) fL MCH 32.5 H (25.0-35.0) pg MCHC 32.5 (31.0-37.0) g/dL RDW 15.7 H (11.5-15.5) % Plt Count 252 (150-450) k/uL MPV 10.4 Immature Gran % (Auto) 2.3 % Absolute Nucleated RBC 0 (0.00-0.00) X 10*3/uL Neutrophils % 81.5 % Lymphocytes % 6.3 % Monocytes % 9.2 % Eosinophils % 0.4 % Basophils % 0.3 % Immature Gran # 0.26 H (0.00-0.04) X 10*3/uL Neutrophils # 9.26 H (1.3-7.7) k/uL Lymphocytes # 0.71 L (1.0-4.8) k/uL Monocytes # 1.04 H (0-1.0) k/uL Eosinophils # 0.04 (0-0.7) k/uL Basophils # 0.03 (0-0.2) k/uL NRBC/100 WBC Diff 0 (0.0-0.0) /100 WBCS PT (9.0-12.0) sec INR (<1.2) APTT (22.0-30.0) sec D-Dimer (<0.60) mg/L FEU Sodium 134 L (137-145) mmol/L Potassium 3.3 L (3.5-5.1) mmol/L Chloride 100 (98-107) mmol/L Carbon Dioxide 29 (22-30) mmol/L Anion Gap 5 mmol/L BUN 34 H (7-17) mg/dL Creatinine 1.01 (0.52-1.04) mg/dL Est GFR (CKD-EPI)AfAm 64 (>60 ml/min/1.73 sqM) Est GFR (CKD-EPI)NonAf 56 (>60 ml/min/1.73 sqM) Glucose 81 (74-99) mg/dL Plasma Lactic Acid Giovanny (0.7-2.0) mmol/L Calcium 8.7 (8.4-10.2) mg/dL Total Bilirubin (0.2-1.3) mg/dL AST (14-36) U/L ALT (4-34) U/L Alkaline Phosphatase (38-126) U/L Troponin I (0.000-0.034) ng/mL NT-Pro-B Natriuret Pep pg/mL Total Protein (6.3-8.2) g/dL Albumin (3.5-5.0) g/dL Urine Color Urine Appearance (Clear) Urine pH (5.0-8.0) Ur Specific [place] (1.001-1.035) Urine Protein (Negative) Urine Glucose (UA) (Negative) Urine Ketones (Negative) Urine Blood (Negative) Urine Nitrite (Negative) Urine Bilirubin (Negative) Urine Urobilinogen (<2.0) mg/dL Ur Leukocyte Esterase (Negative) Urine RBC (0-5) /hpf Urine WBC (0-5) /hpf Ur Squamous Epith Cells (0-4) /hpf Urine Bacteria (None) /hpf Hyaline Casts (0-2) /lpf Urine Mucus (None) /hpf Coronavirus (PCR) (Not Detectd) - EKG Data -: EKG Interpreted by [place] EKG shows normal: sinus rhythm, axis (Left axis deviation), intervals (Normal), ST-T waves (Normal) Rate: tachycardia (Rate 101 bpm) Interpretation: other (There is possible old inferior infarct. Possible old anteroseptal infarct.) Disposition Clinical Impression: Dyspnea, Pulmonary fibrosis Disposition: ADMITTED IP TO THIS HOSP Condition: Fair
[2021-06-08 01:08] LABS: Basophils % (A) 0 %; Eosinophils % (A) 0 %; HCT 43.3 % (34.0-46.0); Lymphocytes # (A) 0.5 k/uL (1.0-4.8); Lymphocytes % (A) 4 %; MCH 31.9 pg (25.0-35.0); MCHC 32.4 g/dL (31.0-37.0); MCV 98.3 fL (80.0-100.0); Monocytes # (A) 0.8 k/uL (0-1.0); Monocytes % (A) 6 %; Neutrophils # (A) 12.3 k/uL (1.3-7.7); Neutrophils % (A) 88 %; Platelet Count 273 k/uL (150-450); RDW 14.9 % (11.5-15.5)
[2021-06-08 01:20] LABS: Albumin 3.8 g/dL (3.5-5.0); Calcium 9.5 mg/dL (8.4-10.2); Potassium 3.8 mmol/L (3.5-5.1); Total Bilirubin 0.7 mg/dL (0.2-1.3); Total Protein 6.6 g/dL (6.3-8.2)
[2021-06-08 01:27] LABS: Appearance,Urine Clear (Clear); Bacteria,Urine Rare /hpf; Bilirubin,Urine Negative (Negative); Blood,Urine Trace (Negative); Color,Urine Light Yellow; Glucose,Urine (UA) Negative (Negative); Hyaline Casts,Urine 3 /lpf (0-2); Ketones,Urine Negative (Negative); Leukocyte Esterase,Urine Moderate (Negative); Mucus,Urine Rare /hpf; Nitrite,Urine Negative (Negative); PH, Urine 5.5 (5.0-8.0); Protein,Urine Negative (Negative); RBC,Urine 3 /hpf (0-5); Squamous Epithelial Cell,Urine 3 /hpf (0-4); Urobilinogen,Urine <2.0 mg/dL (<2.0); WBC,Urine 4 /hpf (0-5)
[2021-06-08 01:31] LABS: Partial Thromboplastin Time 22.1 sec (22.0-30.0); Prothrombin Time 10.8 sec (9.0-12.0)
[2021-06-08] MEDS ORDERED: methylPREDNISolone SOD SUCCI 125 MG/2 ML VIAL IV STA (02:54)
[2021-06-08] MEDS ORDERED: ALBUTEROL NEBULIZED 2.5 MG/3 ML INHALATION STA (02:55)
[2021-06-08] MEDS ORDERED: ALBUTEROL HFA INHALER INHALATION STA (04:35)
[2021-06-08] MEDS ORDERED: ZOLPIDEM 5 MG TAB PO STA (04:58)
[2021-06-08] MEDS ORDERED: AZITHROMYCIN 500 MG TAB PO STA (06:43)
[2021-06-08] MEDS: ALBUTEROL NEBULIZED 2.5 MG/3 ML INHALATION SCH ×4 (08:40→20:13)
[2021-06-08] MEDS ORDERED: methylPREDNISolone SOD SUCCI 125 MG/2 ML VIAL IV SCH (12:00)
[2021-06-08] MEDS: PANTOPRAZOLE 40 MG TABLET PO SCH (13:34)
--- NOTE | 2021-06-08 14:39 | P.CNPUL ---
History of Present Illness Consult date: 06/08/21 Reason for consult: dyspnea History of present illness: 68-year-old female patient with known history of rheumatoid lungs with secondary pulmonary fibrosis whereas been followed up in our office. The patient over the past 2-3 weeks as an extensive worsening shortness of breath. No reported cough or sputum production. She was seen in our office and she was told that her pulmonary fibrosis essentially stable. As such the patient is coming in for further advice push that she developed some chest discomfort in her upper right chest moving to her back especially with activity. No heartburn. She has a chronic limited by cough. No significant worsening. Cognitive testing was negative. Chest x-ray is consistent with bilateral pulmonary fibrosis with chronic interstitial pulmonary infiltrates, unchanged. The patient also hiatal hernia. No bruises of DVT or pulmonary embolism. She has tachycardia. She has had one bout of atrial fibrillation at time of a sepsis and since then her cardiac rhythm and remained sinus. This was many years back and the patient accordingly is metabolic was 2.5 mg twice a day. She is diabetic. She has no previous history of DVT and pulmonary embolism. D-dimer is not elevated. ProBNP is nonelevated. UA has been negative. No anemia and hemoglobin is at 14.0. Cardiac enzymes 1 is been negative. Pulse ox on room air is around 94%. Upon walking approximately 100 feet, heart rate went up from 100 baseline to 1:30 and she was able to maintain a saturation above 94%. Exact cause for her w orsening shortness of breath is not clear. Needs further investigation. She is on oral Cardizem CD 120 mg by mouth daily. She is also on long-term and to coagulation with Eliquis. Review of Systems Constitutional: Denies chills, Denies fever Eyes: denies as per HPI, denies blurred vision, denies bulging eye, denies decreased vision, denies diplopia, denies discharge, denies dry eye, denies irritation, denies itching, denies pain, denies photophobia, denies loss of peripheral vision, denies loss of vision, denies tunnel vision/blind spots Ears: deny: decreased hearing, ear discharge, earache, tinnitus Ears, nose, mouth and throat: Reports as per HPI Breasts: absent: as per HPI, change in shape, gynecomastia, masses, nipple discharge, pain, skin changes, swelling Cardiovascular: Reports decreased exercise tolerance, Reports dyspnea on exertion Respiratory: Reports dyspnea Gastrointestinal: Reports as per HPI Genitourinary: Reports as per HPI Menstruation: Reports as per HPI Musculoskeletal: Reports as per HPI (Joint deformities related to rheumatoid arthritis.) Musculoskeletal: absent: ankle pain, ankle stiffness, ankle swelling Integumentary: Reports as per HPI Neurological: Reports as per HPI Psychiatric: Reports as per HPI Endocrine: Reports as per HPI Past Medical History Past Medical History: Atrial Fibrillation, GERD/Reflux, Hyperlipidemia, Osteoarthritis (OA), Respiratory Disorder, Rheumatoid Arthritis (RA) Additional Past Medical History / Comment(s): HIATAL HERNIA,PULMONARY FIBROSIS, sepsis june 11 2016, anemia with transfusion, adrenal insufficiency. History of Any Multi-Drug Resistant Organisms: None Reported Past Surgical History: Adenoidectomy, Back Surgery, Hysterectomy, Tonsillectomy Additional Past Surgical History / Comment(s): SINUS SURG,johnathon cataracts, Past Anesthesia/Blood Transfusion Reactions: No Reported Reaction Additional Past Anesthesia/Blood Transfusion Reaction / Comment(s): no hx blood transfusion Past Psychological History: No Psychological Hx Reported Smoking Status: Never smoker Past Alcohol Use History: None Reported Past Drug Use History: None Reported - Past Family History Mother Family Medical History: CVA/TIA, Myocardial Infarction ([place]) Additional Family Medical History / Comment(s): borderline diabetes Father Family Medical History: Cancer Additional Family Medical History / Comment(s): carcinoma gallbladder Medications and Allergies Home Medications Medication Instructions Recorded Confirmed Type Atorvastatin [Lipitor] 80 mg PO HS 04/16/14 06/08/21 History HYDROcodone/APAP 5-325MG [[place] 1 tab PO TID 06/22/17 06/08/21 History 5-325] Tofacitinib Citrate [Xeljanz Xr] 11 mg PO DAILY 06/22/17 06/08/21 History Cyclobenzaprine [Flexeril] 10 mg PO DAILY 02/01/18 06/08/21 History Omeprazole [PriLOSEC] 20 mg PO DAILY 02/04/18 06/08/21 History Apixaban [Eliquis] 2.5 mg PO BID 06/08/21 06/08/21 History Diltiazem Cd [Cardizem CD] 120 mg PO DAILY 06/08/21 06/08/21 History Furosemide [Lasix] 20 mg PO DAILY 06/08/21 06/08/21 History Leflunomide [Arava] 20 mg PO DAILY 06/08/21 06/08/21 History Prednisolone Acetate/Pf 1 drop RIGHT EYE BID 06/08/21 06/08/21 History [Prednisolone Acet 1% Eye Drop] Zolpidem [Ambien] 10 mg PO HS 06/08/21 06/08/21 History cycloSPORINE 0.05% OPHTH SOLN 1 drop BOTH EYES BID 06/08/21 06/08/21 History [Restasis] predniSONE 30 mg PO DAILY 06/08/21 06/08/21 History valACYclovir [Valtrex] 500 mg PO BID 06/08/21 06/08/21 History Allergies Allergy/AdvReac Type Severity Reaction Status Date / Time celecoxib [From Celebrex] Allergy Rash/Hives Verified 06/07/21 23:54 ciprofloxacin [From Cipro] AdvReac Hallucinati Verified 06/07/21 23:54 ons gold sodium thiomalate AdvReac flushing Verified 06/07/21 23:54 [From Myochrysine] Physical Exam Vitals: Vital Signs Temp Pulse Resp BP BP Pulse Ox 06/08/21 12:08 116 H 06/08/21 11:54 124 H 06/08/21 08:52 112 H 06/08/21 08:40 120 H 06/08/21 07:00 18 154/94 96 06/08/21 06:00 108 H 22 134/71 98 06/08/21 00:58 100 22 143/90 95 06/08/21 00:06 22 06/07/21 23:48 98 F 110 H 18 167/77 96 Intake and Output 06/07/21 06/08/21 06/08/21 22:59 06:59 14:59 Other: # Voids 2 Weight 90.718 kg 90.718 kg Obese, comfortable, BMI of 37.8, resting heart rate of 100 Head exam was generally normal. There was no scleral icterus or corneal arcus. Mucous membranes were moist. Neck was supple and without jugular venous distension, thyromegaly, or carotid bruits. Carotids were easily palpable bilaterally. There was no adenopathy. Lungs sounds revealed coarse crackles in lung bases bilaterally Heart sounds tachycardic given at this, no cervical murmurs appreciated. Abdominal exam revealed normal bowel sounds. The abdomen was soft, non-tender, and without masses, organomegaly, or appreciable enlargement of the abdominal aorta. Examination of the extremities revealed easily palpable radial, femoral and pedal pulses. There was no cyanosis, clubbing or edema. Examination of the skin revealed no evidence of significant rashes, suspicious appearing nevi or other concerning lesions. Neurologically, the patient is awake and alert and the patient does not have any focal neurological deficit. Cranial nerves are essentially intact. Results - Laboratory Findings CBC and BMP: 06/08/21 00:23 06/08/21 00:23 PT/INR, D-dimer PT 10.8 sec (9.0-12.0) 06/08/21: INR 1.0 (<1.2) 06/08/21: D-Dimer <0.17 mg/L FEU (<0.60) 06/08/21 00:23 Abnormal lab findings: Abnormal Labs 06/08/21 06/08/21 06/08/21 00:23 00:23 00:24 WBC 14.0 H Neutrophils # 12.3 H Lymphocytes # 0.5 L Sodium 133 L BUN 34 H Creatinine 1.09 H Glucose 119 H Urine Blood Trace H Ur Leukocyte Esterase Moderate H Urine Bacteria Rare H Hyaline Casts 3 H Urine Mucus Rare H - Diagnostic Findings Chest x-ray: image reviewed Assessment and Plan Plan: 1 exertional dyspnea, exact etiology is not clear. Patient has pulmonary fibrosis/rheumatoid lungs and the fibrotic changes in her lungs are essentially stable. No clear indication for superinfection or pneumonia. No clear indication for heart failure. No clear indication for pulmonary embolism or embolic disease. No weight gain. No anemia. No other clear cause for worsening shortness of breath. COVID-19 testing is been negative 2 history of atrial fibrillation, paroxysmal currently she is in sinus. Affect the patient only had one bout of pulmonary embolism many years back 3 rheumatoid arthritis maintained on Arava and prednisone a dose of 10 mg daily basis. Prednisone maintenance was also given for chronic adrenal insufficiency for chronic steroid use in the past. 4 diabetes mellitus 5 hiatal hernia, large with ongoing symptoms of reflux 6 osteoarthritis 7 hyperlipidemia 8 history of chronic and insufficiency maintained on prednisone on long-term basis dose of 10 mg by mouth daily Plan Exact cause for shortness of breath is not clear To my judgment the pulmonary status is stable Obtain a CT angiogram Obtain 2-D echocardiogram to assess LV function and rule out pulmonary hypertension No need for systemic steroids and this will be discontinued Resume home medications including Eliquis 2.5 mg twice a day May need additional beta blockers in addition calcium blockers knowing that the resting heart is quite elevated and the patient has exertional tachycardia Continue to follow.
--- NOTE | 2021-06-08 14:57 | P.HPIM ---
History of Present Illness Patient is a pleasant 68-year-old female with known history of rheumatoid arthritis pulmonary fibrosis which is stable for many years came in with the complaints of shortness of breath has been going on for about the 2-3 weeks denied any cough or sputum production or any fever chills chest x-ray showed some pulmonary fibrosis and chronic interstitial infiltrates which were unchanged from the past. Patient was evaluated by pulmonology. Patient had a proBNP which is not elevated. Patient is visibly short of breath saturating at 94% on room air but becomes tachypneic and upon ablation. REVIEW OF SYSTEMS: CONSTITUTIONAL: No fever, no malaise, no fatigue. HEENT: No recent visual problems or hearing problems. Denied any sore throat. CARDIOVASCULAR: No chest pain, orthopnea, PND, no palpitations, no syncope. PULMONARY: As mentioned in HPI GASTROINTESTINAL: No diarrhea, no nausea, no vomiting, no abdominal pain. NEUROLOGICAL: No headaches, no weakness, no numbness. HEMATOLOGICAL: Denies any bleeding or petechiae. GENITOURINARY: Denies any burning micturition, frequency, or urgency. MUSCULOSKELETAL/RHEUMATOLOGICAL: Denies any joint pain, swelling, or any muscle pain. ENDOCRINE: Denies any polyuria or polydipsia. The rest of the 14-point review of systems is negative. PHYSICAL EXAMINATION: GENERAL: The patient is alert and oriented x3, not in any acute distress. Well developed, well nourished. HEENT: Pupils are round and equally reacting to light. EOMI. No scleral icterus. No conjunctival pallor. Normocephalic, atraumatic. No pharyngeal erythema. No thyromegaly. CARDIOVASCULAR: S1 and S2 present. No murmurs, rubs, or gallops. PULMONARY: Chest is clear to auscultation, no wheezing or crackles. ABDOMEN: Soft, nontender, nondistended, normoactive bowel sounds. No palpable organomegaly. MUSCULOSKELETAL: No joint swelling or deformity. EXTREMITIES: No cyanosis, clubbing, or pedal edema. NEUROLOGICAL: Gross neurological examination did not reveal any focal deficits. SKIN: No rashes. Assessment and plan -Shortness of breath etiology is not clear but patient does have history of pul monary fibrosis of brain and neck echocardiogram to assess for pulmonary hypertension and patient is also getting a CT angios the chest rule out pulmonary embolism or any other worsening of interstitial lung disease pulmonology evaluated the patient -Hyponatremia possibly hypovolemic -Atrial fibrillation paroxysmal patient heart rate is bit higher patient will be resumed on home regimen regimen monitor closely continue with Vasile next and her gases. Reflux disease Hyperlipidemia -Rheumatoid arthritis -History of pulmonary fibrosis from [place] arthritis -Leukocytosis is secondary to systemic steroids she received DVT prophylaxis: On Eliquis Past Medical History Past Medical History: Atrial Fibrillation, GERD/Reflux, Hyperlipidemia, Osteoarthritis (OA), Respiratory Disorder, Rheumatoid Arthritis (RA) Additional Past Medical History / Comment(s): HIATAL HERNIA,PULMONARY FIBROSIS, sepsis june 11 2016, anemia with transfusion, adrenal insufficiency. History of Any Multi-Drug Resistant Organisms: None Reported Past Surgical History: Adenoidectomy, Back Surgery, Hysterectomy, Tonsillectomy Additional Past Surgical History / Comment(s): SINUS SURG,johnathon cataracts, Past Anesthesia/Blood Transfusion Reactions: No Reported Reaction Additional Past Anesthesia/Blood Transfusion Reaction / Comment(s): no hx blood transfusion Past Psychological History: No Psychological Hx Reported Smoking Status: Never smoker Past Alcohol Use History: None Reported Past Drug Use History: None Reported - Past Family History Mother Family Medical History: CVA/TIA, Myocardial Infarction ([place]) Additional Family Medical History / Comment(s): borderline diabetes Father Family Medical History: Cancer Additional Family Medical History / Comment(s): carcinoma gallbladder Medications and Allergies Home Medications Medication Instructions Recorded Confirmed Type Atorvastatin [Lipitor] 80 mg PO HS 04/16/14 06/08/21 History HYDROcodone/APAP 5-325MG [[place] 1 tab PO TID 06/22/17 06/08/21 History 5-325] Tofacitinib Citrate [Xeljanz Xr] 11 mg PO DAILY 06/22/17 06/08/21 History Cyclobenzaprine [Flexeril] 10 mg PO DAILY 02/01/18 06/08/21 History Omeprazole [PriLOSEC] 20 mg PO DAILY 02/04/18 06/08/21 History Apixaban [Eliquis] 2.5 mg PO BID 06/08/21 06/08/21 History Diltiazem Cd [Cardizem CD] 120 mg PO DAILY 06/08/21 06/08/21 History Furosemide [Lasix] 20 mg PO DAILY 06/08/21 06/08/21 History Leflunomide [Arava] 20 mg PO DAILY 06/08/21 06/08/21 History Prednisolone Acetate/Pf 1 drop RIGHT EYE BID 06/08/21 06/08/21 History [Prednisolone Acet 1% Eye Drop] Zolpidem [Ambien] 10 mg PO HS 06/08/21 06/08/21 History cycloSPORINE 0.05% OPHTH SOLN 1 drop BOTH EYES BID 06/08/21 06/08/21 History [Restasis] predniSONE 30 mg PO DAILY 06/08/21 06/08/21 History valACYclovir [Valtrex] 500 mg PO BID 06/08/21 06/08/21 History Allergies Allergy/AdvReac Type Severity Reaction Status Date / Time celecoxib [From Celebrex] Allergy Rash/Hives Verified 06/07/21 23:54 ciprofloxacin [From Cipro] AdvReac Hallucinati Verified 06/07/21 23:54 ons gold sodium thiomalate AdvReac flushing Verified 06/07/21 23:54 [From Myochrysine] Physical Exam Vitals: Vital Signs Temp Pulse Pulse Resp BP BP Pulse Ox 06/08/21 14:54 97.8 F 118 H 16 112/70 95 06/08/21 12:08 116 H 06/08/21 11:54 124 H 06/08/21 08:52 112 H 06/08/21 08:40 120 H 06/08/21 07:00 18 154/94 96 06/08/21 06:00 108 H 22 134/71 98 06/08/21 00:58 100 22 143/90 95 06/08/21 00:06 22 06/07/21 23:48 98 F 110 H 18 167/77 96 Intake and Output 06/07/21 06/08/21 06/08/21 22:59 06:59 14:59 Other: # Voids 2 Weight 90.718 kg 90.718 kg Results CBC & Chem 7: 06/08/21 00:23 06/08/21 00:23 Labs: Abnormal Lab Results - Last 24 Hours (Table) 06/08/21 06/08/21 06/08/21 Range/Units 00:23 00:23 00:24 WBC 14.0 H (3.8-10.6) k/uL Neutrophils # 12.3 H (1.3-7.7) k/uL Lymphocytes # 0.5 L (1.0-4.8) k/uL Sodium 133 L (137-145) mmol/L BUN 34 H (7-17) mg/dL Creatinine 1.09 H (0.52-1.04) mg/dL Glucose 119 H (74-99) mg/dL Urine Blood Trace H (Negative) Ur Leukocyte Esterase Moderate H (Negative) Urine Bacteria Rare H (None) /hpf Hyaline Casts 3 H (0-2) /lpf Urine Mucus Rare H (None) /hpf Thrombosis Risk Factor Assmnt - Choose All That Apply Any of the Below Risk Factors Present?: No Each Risk Factor Represents 2 Points: Age 61-74 years Thrombosis Risk Factor Assessment Total Risk Factor Score: 2 Thrombosis Risk Factor Assessment Level: Low Risk
--- NOTE | 2021-06-08 16:33 | CT ---
EXAMINATION TYPE: CT chest angio for PE DATE OF EXAM: 06/08/2021 COMPARISON: 04/19/2013 HISTORY: PE CT DLP: 353.40 mGycm Automated exposure control for dose reduction was used. CONTRAST: Performed without and with IV Contrast, patient injected with 100 ml mL of Isovue 370. Images obtained from the thoracic inlet to the diaphragm with IV contrast. There are 3-D post process ed images. There is elevated right diaphragm. There is interstitial infiltrate and atelectasis at the lung bases . There is reticular interstitial infiltrate in both lungs probably related to pulmonary fibrosis. There is no mediastinal adenopathy. Thoracic aorta shows mild atheromatous change. There is no dissec tion. There are no hilar masses. There is normal contrast opacification of the pulmonary arteries. There are no filling defects. There is no pleural effusion. There is large hiatal hernia. Thoracic spine is intact. There is no compression fracture. Sternum is intact. The ribs appear intact . IMPRESSION: No evidence of pulmonary embolism. Pulmonary interstitial fibrotic changes. Large hiatal hernia. Hiat al hernia increased compared to old exam. Interstitial infiltrates increased compared to old exam.
[2021-06-08] MEDS: HYDROcodone/APAP 5-325MG 1 EACH TAB PO SCH ×2 (17:16→21:58)
[2021-06-08] MEDS: cycloSPORINE 0.05% OPHTH 0.4 ML DROPERETTE BOTH EYES SCH (19:35)
[2021-06-08] MEDS: prednisoLONE ACETATE 1% OPHTH DROPS 5 ML BTL RIGHT EYE SCH (19:35)
[2021-06-08] MEDS: APIXABAN 2.5 MG TABLET PO SCH (19:35)
[2021-06-08] MEDS: ATORVASTATIN 80 MG TAB PO SCH (19:36)
[2021-06-08] MEDS: valACYclovir 500 MG TAB PO SCH (19:36)
[2021-06-08] MEDS ORDERED: ZOLPIDEM 5 MG TAB PO SCH (21:00)
[2021-06-08] MEDS: ZOLPIDEM 10 MG TAB PO PRN (21:56)
[2021-06-08] MEDS ORDERED: ACETAMINOPHEN TAB 325 MG TAB PO PRN (22:01)
[2021-06-09 07:55] VITALS: RESP 16
[2021-06-09] MEDS: ALBUTEROL NEBULIZED 2.5 MG/3 ML INHALATION SCH ×4 (08:08→20:38)
--- NOTE | 2021-06-09 08:16 | P.CRDCN ---
History of Present Illness History of present illness: HISTORY OF PRESENTING ILLNESS This is a pleasant 70-year-old female with history of paroxysmal atrial fibrillation, hypertension, hyperlipidemia, rheumatoid arthritis, pulmonary fibrosis who presents secondary to worsening shortness breath. 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 Then approximately 3-4 weeks ago she started noticing extreme fatigue, dyspnea with minimal exertion. This has been worsening. Prior to presentation she also was having some chest discomfort which was not necessarily associated with exertion and felt sharp going around her chest. She believes has been approximately a year since her last echo and a few years since her last stress test. She denies any heart catheterization, no history of coronary artery disease. She really has only had one episode of atrial fibrillation and on presentation her EKG was normal sinus rhythm, denies any palpitations. She has been on the Eliquis 2.5 mg twice a day dosing, however she does not meet criteria for lower dosing based off of age, weight, creatinine. She denies any GI bleeding. She had workup with CTA performed which showed no pulmonary embolism, increased bilateral interstitial infiltrates. There is also on personal review coronary calcification of the LAD. She admits she is unable to do more than walk, all without becoming significantly short of breath. She denies any recent fevers, chills, cough. REVIEW OF SYSTEMS At the time of my exam: CONSTITUTIONAL: Denies fever or chills. CARDIOVASCULAR: +chest pain, +shortness of breath, no orthopnea, PND or palpitations. RESPIRATORY: Denies cough. GASTROINTESTINAL: Denies abdominal pain, diarrhea, constipation, nausea or vomiting. MUSCULOSKELETAL: Denies myalgias. NEUROLOGIC: Denies numbness, tingling or weakness. ENDOCRINE: Denies fatigue, weight change, polydipsia or polyurina. GENITOURINARY: Denies burning, hematuria or urgency with micturation. HEMATOLOGIC: Denies history of anemia or bleeding. PHYSICAL EXAMINATION Vital signs reviewed. CONSTITUTIONAL: No apparent distress, obese. HEENT: Head is normocephalic. Pupils are equal, round. Sclerae anicteric. Mucous membranes of the mouth are moist. No JVD. No carotid bruit. CHEST EXAMINATION: Mild bilateral crackles, no wheeze HEART EXAMINATION: Regular rate and rhythm. S1, S2 heard. +2/6 systolic murmur, no gallops or rub. ABDOMEN: Soft, nontender. Positive bowel sounds. EXTREMITIES: 2+ peripheral pulses, no lower extremity edema and no calf tenderness. NEUROLOGIC EXAMINATION: Patient is awake, alert and oriented x3. ASSESSMENT 1. Increased dyspnea on exertion over the last 3-4 weeks, rule out angina equivalent/ unstable angina 2. Atypical chest pain 3. Paroxysmal atrial fibrillation, currently normal sinus rhythm 4. Coronary artery calcification noted on CTA 5. History of pulmonary fibrosis, bilateral infiltrates on CT. No signs or symptoms to suggest pneumonia 6. Leukocytosis likely related to steroid use 7. Rheumatoid arthritis 8. Obesity PLAN Patient with numerous possible etiologies of her shortness breath including pulmonary fibrosis with CT showing bilateral infiltrates. Rheumatoid arthritis however does increase her risk of coronary artery disease and she does have significant coronary calcifications noted on CTA. We will rule out an ischemic etiology and check a Cardiolite stress test and 2-D echo. If both are unrevealing, patient may be cleared for discharge from a cardiology standpoint. Does not appear to be related to atrial fibrillation with patient being in normal sinus rhythm currently. We will increase her Eliquis dose to 5 mg twice a day, does not meet criteria for 2.5 mg dosing. Sinus tachycardia likely phys iologic, reactive and we will continue with current negative chronotropic regimen. Past Medical History Past Medical History: Atrial Fibrillation, GERD/Reflux, Hyperlipidemia, Osteoarthritis (OA), Respiratory Disorder, Rheumatoid Arthritis (RA) Additional Past Medical History / Comment(s): HIATAL HERNIA,PULMONARY FIBROSIS, sepsis june 11 2016, anemia with transfusion, adrenal insufficiency. History of Any Multi-Drug Resistant Organisms: None Reported Past Surgical History: Adenoidectomy, Back Surgery, Hysterectomy, Tonsillectomy Additional Past Surgical History / Comment(s): SINUS SURG,johnathon cataracts, Past Anesthesia/Blood Transfusion Reactions: No Reported Reaction Additional Past Anesthesia/Blood Transfusion Reaction / Comment(s): no hx blood transfusion Past Psychological History: No Psychological Hx Reported Smoking Status: Never smoker Past Alcohol Use History: None Reported Past Drug Use History: None Reported - Past Family History Mother Family Medical History: CVA/TIA, Myocardial Infarction ([place]) Additional Family Medical History / Comment(s): borderline diabetes Father Family Medical History: Cancer Additional Family Medical History / Comment(s): carcinoma gallbladder Medications and Allergies Home Medications Medication Instructions Recorded Confirmed Type Atorvastatin [Lipitor] 80 mg PO HS 04/16/14 06/08/21 History HYDROcodone/APAP 5-325MG [[place] 1 tab PO TID 06/22/17 06/08/21 History 5-325] Tofacitinib Citrate [Xeljanz Xr] 11 mg PO DAILY 06/22/17 06/08/21 History Cyclobenzaprine [Flexeril] 10 mg PO DAILY 02/01/18 06/08/21 History Omeprazole [PriLOSEC] 20 mg PO DAILY 02/04/18 06/08/21 History Apixaban [Eliquis] 2.5 mg PO BID 06/08/21 06/08/21 History Diltiazem Cd [Cardizem CD] 120 mg PO DAILY 06/08/21 06/08/21 History Furosemide [Lasix] 20 mg PO DAILY 06/08/21 06/08/21 History Leflunomide [Arava] 20 mg PO DAILY 06/08/21 06/08/21 History Prednisolone Acetate/Pf 1 drop RIGHT EYE BID 06/08/21 06/08/21 History [Prednisolone Acet 1% Eye Drop] Zolpidem [Ambien] 10 mg PO HS 06/08/21 06/08/21 History cycloSPORINE 0.05% OPHTH SOLN 1 drop BOTH EYES BID 06/08/21 06/08/21 History [Restasis] predniSONE 30 mg PO DAILY 06/08/21 06/08/21 History valACYclovir [Valtrex] 500 mg PO BID 06/08/21 06/08/21 History Allergies Allergy/AdvReac Type Severity Reaction Status Date / Time celecoxib [From Celebrex] Allergy Rash/Hives Verified 06/07/21 23:54 ciprofloxacin [From Cipro] AdvReac Hallucinati Verified 06/07/21 23:54 ons gold sodium thiomalate AdvReac flushing Verified 06/07/21 23:54 [From Myochrysine] Physical Exam Vitals: Vital Signs Temp Pulse Pulse Pulse Resp BP Pulse Ox 06/09/21 07:00 98.5 F 101 H 16 147/89 95 06/09/21 02:00 97.8 F 105 H 18 137/77 96 06/09/21 01:12 20 06/08/21 20:25 110 H 06/08/21 20:13 110 H 06/08/21 19:42 101 H 20 06/08/21 19:09 97.8 F 101 H 20 151/91 96 06/08/21 17:27 100 06/08/21 17:16 100 95 06/08/21 14:54 97.8 F 118 H 16 112/70 95 06/08/21 12:08 116 H 06/08/21 11:54 124 H 06/08/21 08:52 112 H 06/08/21 08:40 120 H Intake and Output 06/08/21 06/09/21 06/09/21 22:59 06:59 14:59 Other: # Voids 2 3 Results 06/08/21 00:23 06/08/21 00:23 Current Medications Generic Name Dose Route Start Last Admin Trade Name Freq PRN Reason Stop Dose Admin Acetaminophen 650 mg 06/08/21 22:01 Acetaminophen Tab 325 Mg Tab PO Q4HR PRN Fever and/ or Pain Hydrocodone Bitart/Acetaminophen 1 each 06/08/21 16:00 06/08/21 21:58 Hydrocodone/Apap 5-325mg 1 Each Tab PO Not Given TID [facility] Albuterol Sulfate 2.5 mg 06/08/21 08:00 06/08/21 20:13 Albuterol Nebulized 2.5 Mg/3 Ml INHALATION 2.5 mg RT-QID BLU Administration Apixaban 2.5 mg 06/08/21 21:00 06/08/21 19:35 Apixaban 2.5 Mg Tablet PO 2.5 mg BID BLU Administration Protocol Atorvastatin Calcium 80 mg 06/08/21 21:00 06/08/21 19:36 Atorvastatin 80 Mg Tab PO 80 mg HS BLU Administration Cyclosporine 1 drops 06/08/21 21:00 06/08/21 19:35 Cyclosporine 0.05% Ophth 0.4 Ml Droperette BOTH EYES 1 drops BID BLU Administration Diltiazem HCl 120 mg 06/09/21 09:00 Diltiazem Cd 120 Mg Cap.Er.24h PO DAILY BLU Leflunomide 20 mg 06/09/21 09:00 Leflunomide 20 Mg Tab PO DAILY BLU Patient's Own ( 11 mg 06/09/21 09:00 Tofacitinib Citrate PO [Xeljanz Xr] 11 Mg DAILY BLU Tab.Er.24h) Pantoprazole Sodium 40 mg 10/03/21 13:15 06/08/21 13:34 Pantoprazole 40 Mg Tablet PO 40 mg DAILY BLU Administration Prednisolone Acetate 1 drops 06/08/21 21:00 06/08/21 19:35 Prednisolone Acetate 1% Ophth Drops 5 Ml Btl RIGHT EYE 1 drops BID BLU Administration Prednisone 10 mg 06/09/21 09:00 Prednisone 10 Mg Tab PO DAILY BLU Sodium Chloride 10 ml 06/08/21 09:00 06/08/21 21:57 Sodium Chloride 0.9% Flush 10 Ml Syringe IV 10 ml BID BLU Administration Valacyclovir HCl 500 mg 06/08/21 21:00 06/08/21 19:36 Valacyclovir 500 Mg Tab PO 500 mg BID BLU Administration Zolpidem Tartrate 10 mg 06/08/21 13:02 06/08/21 21:56 Zolpidem 10 Mg Tab PO 10 mg HS PRN Administration Insomnia Intake and Output 06/08/21 06/09/21 06/09/21 22:59 06:59 14:59 Other: # Voids 2 3 06/08/21 00:23 06/08/21 00:23
[2021-06-09] MEDS: predniSONE 10 MG TAB PO SCH (09:08)
[2021-06-09] MEDS: APIXABAN 2.5 MG TABLET PO SCH ×2 (09:08→21:04)
[2021-06-09] MEDS: HYDROcodone/APAP 5-325MG 1 EACH TAB PO SCH ×3 (09:08→21:06)
[2021-06-09] MEDS: valACYclovir 500 MG TAB PO SCH ×2 (09:08→21:04)
[2021-06-09] MEDS: cycloSPORINE 0.05% OPHTH 0.4 ML DROPERETTE BOTH EYES SCH ×2 (09:08→21:04)
[2021-06-09] MEDS: LEFLUNOMIDE 20 MG TAB PO SCH (09:08)
[2021-06-09] MEDS: prednisoLONE ACETATE 1% OPHTH DROPS 5 ML BTL RIGHT EYE SCH ×2 (09:08→21:05)
[2021-06-09] MEDS: PANTOPRAZOLE 40 MG TABLET PO SCH (09:08)
[2021-06-09] MEDS ORDERED: REGADENOSON 0.4 MG/5 ML SYRINGE IV ONE (10:15)
[2021-06-09] MEDS: TOFACITINIB CITRATE 11 MG PO SCH (12:31)
[2021-06-09] MEDS: DILTIAZEM CD 120 MG CAP.ER.24H PO SCH (12:31)
--- NOTE | 2021-06-09 12:54 | ECHOF ---
Referral Reason:SOB MEASUREMENTS -------- HEIGHT: 154.9 cm WEIGHT: 90.7 kg BP: 137/77 RVIDd: 2.6 cm (< 3.3) IVSd: 1.2 cm (0.6 - 1.1) LVIDd: 2.2 cm (3.9 - 5.3) LVPWd: 1.0 cm (0.6 - 1.1) IVSs: 1.4 cm LVIDs: 1.5 cm LVPWs: 1.3 cm LA Diam: 2.2 cm (2.7 - 3.8) LAESV Index (A-L): 14.58 ml/m Ao Diam: 2.8 cm (2.0 - 3.7) AV Cusp: 1.3 cm (1.5 - 2.6) MV EXCURSION: 12.234 mm (> 18.000) MV EF SLOPE: 24 mm/s (70 - 150) EPSS: 0.6 cm MV E James: 0.53 m/s MV DecT: 346 ms MV A James: 1.06 m/s MV E/A Ratio: 0.50 RAP: 5.00 mmHg RVSP: 34.01 mmHg FINDINGS -------- Sinus rhythm. This was a technically adequate study. The left ventricular size is normal. There is borderline concentric left ventricular hypertrophy. Overall left ventricular systolic function is normal with, an EF between 55 - 60 %. The right ventricle is normal in size. Normal LA size by volume 22+/-6 ml/m2. The right atrium is normal in size. Interatrial and interventricular septum intact. There is mild aortic valve sclerosis. Trace to mild aortic regurgitation. Mild mitral annular calcification present. Mild tricuspid regurgitation present. There is borderline pulmonary artery hypertension. The righ t ventricular systolic pressure, as measured by Doppler, is 34.01mmHg. The pulmonic valve was not well visualized. The aortic root size is normal. Normal inferior vena cava with normal inspiratory collapse consistent with estimated right atrial pre ssure of 5 mmHg. There is no pericardial effusion. CONCLUSIONS -------- 1. The left ventricular size is normal. 2. There is borderline concentric left ventricular hypertrophy. 3. Overall left ventricular systolic function is normal with, an EF between 55 - 60 %. 4. There is mild aortic valve sclerosis. 5. Trace to mild aortic regurgitation. 6. Mild mitral annular calcification present. 7. Mild tricuspid regurgitation present. 8. There is borderline pulmonary artery hypertension. 9. The right ventricular systolic pressure, as measured by Doppler, is 34.01mmHg. 10. There is no pericardial effusion. [employer]INE ADJUSTER: Brianne Cox RDCS
--- NOTE | 2021-06-09 12:58 | P.STRESS ---
- Stress Test Note Stress Test Results/Findings: Exam Performed: NM stress lexiscan cardiolite Exam Date: 06/09/21 Reason for Exam: Shortness of breath Height: 5 ft 1 in Weight: 90.72 kg Protocol: Lexiscan Stage: na Duration of Exercise: na Resting Heart Rate: 108 Resting Blood Pressure: 126/78 Maximum Achieved Heart Rate: 117 Maximum Achieved Blood Pressure: 137/76 85% PMHR: 126 100% PMHR: 148 METS: na Technologist Comment: Stress Test Results/Findings: At baseline EKG showed normal sinus rhythm, left axis deviation, incomplete left bundle branch block with J-point elevation V2, V3. Patient recieved IV infusion of Lexiscan 0.4mg and at peak infusion EKG showed no significant change from baseline. Conclusions: 1. Normal EKG response to Lexiscan infusion 2. Nuclear imaging to be reported separately.
--- NOTE | 2021-06-09 13:51 | NM ---
EXAMINATION TYPE: NM stress lexiscan cardiolite DATE OF EXAM: 06/09/2021 COMPARISON: NONE HISTORY: Chest pain TECHNIQUE: After the intravenous administration of 9.8 mCi Tc 99m Sestamibi - Cardiolite resting SPE CT images acquired 45 minutes post injection. The patient received 0.4mg Lexiscan, 25.6 mCi Tc 99m Sestamibi - Stress images obtained [address] injection FINDINGS: There are some technical limitations to the exam. Review of stress and rest SPECT images demonstrates some questionable decreased uptake along the ante rolateral left ventricle on stress as compared to rest images. Gated analysis shows normal wall jesse on with an estimated left ventricular ejection fraction of 100 %, likely technological error. IMPRESSION: Exam is limited technically. Question some pharmacologically-induced left ventricular myocardial ischemia along the anterolateral wall. Recommend echocardiographic correlation for elevated ejection fraction, possible hypertrophic c ardiomyopathy, elevated ejection fraction
[2021-06-09 15:26] LABS: African American GFR (CKD) 56 (>60 ml/min/1.73 sqM); Anion Gap 9 mmol/L; Blood Urea Nitrogen 36 mg/dL (7-17); Calcium 9.1 mg/dL (8.4-10.2); Carbon Dioxide 26 mmol/L (22-30); Chloride 99 mmol/L (98-107); Glucose 179 mg/dL (74-99); Non-African American GFR(CKD) 49 (>60 ml/min/1.73 sqM); Potassium 3.6 mmol/L (3.5-5.1); Sodium 134 mmol/L (137-145)
--- NOTE | 2021-06-09 16:07 | P.PN ---
Subjective Progress Note Date: 06/09/21 Principal diagnosis: Exertional dyspnea, multifactorial likely related to underlying interstitial lung disease, atrial fibrillation, and possible component of coronary artery disease, workup is in progress 68-year-old female patient with known history of rheumatoid lungs with secondary pulmonary fibrosis whereas been followed up in our office. The patient over the past 2-3 weeks as an extensive worsening shortness of breath. No reported cough or sputum production. She was seen in our office and she was told that her pulmonary fibrosis essentially stable. As such the patient is coming in for further advice push that she developed some chest discomfort in her upper right chest moving to her back especially with activity. No heartburn. She has a chronic limited by cough. No significant worsening. Cognitive testing was negative. Chest x-ray is consistent with bilateral pulmonary fibrosis with chronic interstitial pulmonary infiltrates, unchanged. The patient also hiatal hernia. No bruises of DVT or pulmonary embolism. She has tachycardia. She has had one bout of atrial fibrillation at time of a sepsis and since then her cardiac rhythm and remained sinus. This was many years back and the patient accordingly is metabolic was 2.5 mg twice a day. She is diabetic. She has no previous history of DVT and pulmonary embolism. D-dimer is not elevated. P roBNP is nonelevated. UA has been negative. No anemia and hemoglobin is at 14.0. Cardiac enzymes 1 is been negative. Pulse ox on room air is around 94%. Upon walking approximately 100 feet, heart rate went up from 100 baseline to 1:30 and she was able to maintain a saturation above 94%. Exact cause for her worsening shortness of breath is not clear. Needs further investigation. She is on oral Cardizem CD 120 mg by mouth daily. She is also on long-term and to coagulation with Eliquis. Reevaluated today on 06/09/2021, patient is about the same, continues to have exertional dyspnea, no cough no wheezing no chest pain no fever no chills no hemoptysis. Cannula to undergo cardiac catheterization tomorrow review all the workup since admission and clearly the findings do not explain her exertional dyspnea so far. Patient does have interstitial lung disease, but relatively unchanged over the last 2 years or so far the workup is nondiagnostic. Objective - Vital Signs Vital signs: Vital Signs Temp 98.5 F 06/09/21 07:00 Pulse 106 H 06/09/21 15:46 Resp 16 06/09/21 07:00 BP 147/89 06/09/21 07:00 Pulse Ox 95 06/09/21 08:10 Intake & Output 06/08/21 06/09/21 06/09/21 18:59 06:59 18:59 Weight 90.718 kg 90.72 kg Other: # Voids 2 3 1 - Exam Physical Exam: Revealed a 70-year-old female in no distress. Head: Atraumatic, normocephalic. HEENT:[Neck is supple.] [No neck masses.] [No thyromegaly.] [No JVD.] Chest: [Fine Velcro crackles at the bases bilaterally. Cardiac Exam: [Normal S1 and S2, no S3 gallop, no murmur.] Abdomen: [Soft, nontender, no megaly, no rebound, no guarding, normal bowel sounds.] Extremities: [No clubbing, no edema, no cyanosis.] Neurological Exam: [No focal neurologic deficit.] Psychiatric: Normal mood affect and normal mental status examination. Skin: No rashes. - Labs CBC & Chem 7: 06/08/21 00:23 06/09/21 15:00 Labs: Abnormal Lab Results - Last 24 Hours (Table) 06/09/21 Range/Units 15:00 Sodium 134 L (137-145) mmol/L BUN 36 H (7-17) mg/dL Creatinine 1.13 H (0.52-1.04) mg/dL Glucose 179 H (74-99) mg/dL Assessment and Plan Assessment: Impression: Dyspnea on exertion, workup so far is nondiagnostic History of mild interstitial lung disease/rheumatoid lung disease History of rheumatoid arthritis Large hiatal hernia Degenerative joint disease and dyslipidemia Recommendation: Agree with cardiac catheterization in a.m. Continue present treatment plan. Patient could be considered for eventual discharge on oxygen and prednisone burst and taper. Cardiac catheterization is scheduled to be done tomorrow. Time with Patient: Less than 30
[2021-06-09] MEDS: ZOLPIDEM 10 MG TAB PO PRN (21:04)
[2021-06-09] MEDS: ATORVASTATIN 80 MG TAB PO SCH (21:04)
--- NOTE | 2021-06-09 22:04 | P.PN ---
Subjective Progress Note Date: 06/09/21 Patient is a pleasant 68-year-old female with known history of rheumatoid arthritis pulmonary fibrosis which is stable for many years came in with the complaints of shortness of breath has been going on for about the 2-3 weeks denied any cough or sputum production or any fever chills chest x-ray showed andrzej e pulmonary fibrosis and chronic interstitial infiltrates which were unchanged from the past. Patient was evaluated by pulmonology. Patient had a proBNP which is not elevated. Patient is visibly short of breath saturating at 94% on room air but becomes tachypneic and upon ablation. 06/09/2021 Patient is evaluated sitting up at the beside. Her lungs sounds are clear, and she denies shortness of breath at rest. Overall she is feeling better, however her work up so far is unclear for an etiology of this ongoing dyspnea. She does continue to experience tachycardia while ambulating. She denies any chest pain or chest pressure, denies palpitations. She denies and dizziness or lightheadeness. Patient has history of pulmonary fibrosis and follows with pulmonary in the office. Additonally, she has a history of rheumatoid arthritis. She has been maintained on oral prednisone which may contribute to her leukocytosis. Her chemistry panel today reveals a sodium level of 134, a BUN of 36, and creatinine of 1.13. Glucose remains elevated. Troponin is negative. Cardiology performed an echo and lexiscan stress today. Lexiscan stress revealed some questionable pharmacologically-induced left ventricular myocardial ischemia along the anterolateral wall. There is a recommendatiton for echocardiographic correlation for elevated ejection fraction, possible hypertrophic cardiomyopathy. Echo results include an EF of 55 to 60%, with borderline concentric left ventricular hypertrophy, and borderline pulmonary artery hypertension. In addition, there is mild mitral annular calcification. Pulmonary has evaluated the patient and feels her chronic pulmonary conditions are stable and are not contributing to this ongoing exertional dyspnea. CTA performed was negative for DVT but did reveal a large hiatal hernia increasing in size as well as increased interstitial infiltrates and pulmonary fibrotic changes. Vital signs today include a temp of 98, heart rate of 102, and a blood pressure of 147/85. She is 92% on room air. We will wait for further recommendations from cardiology. REVIEW OF SYSTEMS: CONSTITUTIONAL: No fever, no malaise, no fatigue. HEENT: No recent visual problems or hearing problems. Denied any sore throat. CARDIOVASCULAR: No chest pain, orthopnea, PND, no palpitations, no syncope. PULMONARY: As mentioned in HPI GASTROINTESTINAL: No diarrhea, no nausea, no vomiting, no abdominal pain. NEUROLOGICAL: No headaches, no weakness, no numbness. HEMATOLOGICAL: Denies any bleeding or petechiae. GENITOURINARY: Denies any burning micturition, frequency, or urgency. MUSCULOSKELETAL/RHEUMATOLOGICAL: Denies any joint pain, swelling, or any muscle pain. ENDOCRINE: Denies any polyuria or polydipsia. The rest of the 14-point review of systems is negative. PHYSICAL EXAMINATION: GENERAL: The patient is alert and oriented x3, not in any acute distress. Well developed, well nourished. HEENT: Pupils are round and equally reacting to light. EOMI. No scleral icterus. No conjunctival pallor. Normocephalic, atraumatic. No pharyngeal erythema. No thyromegaly. CARDIOVASCULAR: S1 and S2 present. No murmurs, rubs, or gallops. PULMONARY: Chest is clear to auscultation, no wheezing or crackles. ABDOMEN: Soft, nontender, nondistended, normoactive bowel sounds. No palpable organomegaly. MUSCULOSKELETAL: No joint swelling or deformity. EXTREMITIES: No cyanosis, clubbing, or pedal edema. NEUROLOGICAL: Gross neurological examination did not reveal any focal deficits. SKIN: No rashes. Assessment and plan -Shortness of breath etiology is not clear, CTA negative for PE, strestest revealed some possible ischemia -Hyponatremia possibly hypovolemic, improving repeat labs tomorrow -Atrial fibrillation paroxysmal, patient heart rate is bit higher patient will be resumed on home regimen regimen monitor closely continue with Eliquis - Cardiology was recommending an increase in Eliquis to 5 mg PO BID. -Gastroesophageal Reflux disease on protonix -Hyperlipidemia -Rheumatoid arthritis -History of pulmonary fibrosis from Procrit -Rhemuatoid arthritis -Leukocytosis is secondary to systemic steroids she received DVT prophylaxis: On Eliquis GI Prophylaxis: On Protonix Plan - possible cardiac catheterization as additonal work up for source of exertional dyspnea is not diagnostic at this time. Continue all current medications. On discharged patient may need a home oxygen evaluation as she is only resting at 92% on room air. Pulmonary recommeded to stop systemic steroids, and cardiology recommended to increase Eliquis to 5 mg PO BID. Monitor vitals and repeat labs in the morning. Objective - Vital Signs Vital signs: Vital Signs Temp 98.5 F 06/09/21 07:00 Pulse 98 06/09/21 08:19 Resp 16 06/09/21 07:00 BP 147/89 06/09/21 07:00 Pulse Ox 95 06/09/21 08:10 Intake & Output 06/08/21 06/09/21 06/09/21 18:59 06:59 18:59 Weight 90.718 kg 90.72 kg Other: # Voids 2 3 - Labs CBC & Chem 7: 06/08/21 00:23 06/09/21 15:00 Assessment and Plan Time with Patient: Greater than 30
[2021-06-09] MEDS: METOPROLOL TARTRATE 12.5 MG TAB PO SCH (22:33)
[2021-06-10 06:38] LABS: African American GFR (CKD) 64 (>60 ml/min/1.73 sqM); Anion Gap 5 mmol/L; Blood Urea Nitrogen 34 mg/dL (7-17); Calcium 8.7 mg/dL (8.4-10.2); Carbon Dioxide 29 mmol/L (22-30); Chloride 100 mmol/L (98-107); Glucose 81 mg/dL (74-99); Non-African American GFR(CKD) 56 (>60 ml/min/1.73 sqM); Potassium 3.3 mmol/L (3.5-5.1); Sodium 134 mmol/L (137-145)
[2021-06-10] MEDS ORDERED: HEPARIN SODIUM,PORCINE 10,000 UNIT in SODIUM CHLORIDE 0.9% 1,000 ML IRRIGATION PRN (07:00)
[2021-06-10] MEDS ORDERED: HEPARIN SODIUM,PORCINE 2,500 UNIT in SODIUM CHLORIDE 0.9% 250 ML IRRIGATION PRN (07:00)
[2021-06-10] MEDS: ALBUTEROL NEBULIZED 2.5 MG/3 ML INHALATION SCH ×3 (08:02→17:55)
--- NOTE | 2021-06-10 08:29 | P.PN ---
Subjective HISTORY OF PRESENTING ILLNESS This is a pleasant 70-year-old female with history of paroxysmal atrial fibrillation, hypertension, hyperlipidemia, rheumatoid arthritis, pulmonary fibrosis who presents secondary to worsening shortness breath. 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 Then approximately 3-4 weeks ago she started noticing extreme fatigue, dyspnea with minimal exertion. This has been worsening. Prior to presentation she also was having some chest discomfort which was not necessarily associated with exertion and felt sharp g oing around her chest. She believes has been approximately a year since her last echo and a few years since her last stress test. She denies any heart catheterization, no history of coronary artery disease. She really has only had one episode of atrial fibrillation and on presentation her EKG was normal sinus rhythm, denies any palpitations. She has been on the Eliquis 2.5 mg twice a day dosing, however she does not meet criteria for lower dosing based off of age, weight, creatinine. She denies any GI bleeding. She had workup with CTA performed which showed no pulmonary embolism, increased bilateral interstitial infiltrates. There is also on personal review coronary calcification of the LAD. She admits she is unable to do more than walk, all without becoming significantly short of breath. She denies any recent fevers, chills, cough. 06/10 Patient seen and examined. She admits to continued dyspnea on exertion, not much improved since yesterday. She did have a Lexiscan stress test performed which showed questionable anterolateral ischemia. Denies any chest pain or pressure. Telemetry reveals normal sinus rhythm with occasional PACs. PHYSICAL EXAMINATION Vital signs reviewed. CONSTITUTIONAL: No apparent distress, obese. HEENT: Head is normocephalic. Pupils are equal, round. Sclerae anicteric. Mucous membranes of the mouth are moist. No JVD. No carotid bruit. CHEST EXAMINATION: Mild bilateral crackles, no wheeze HEART EXAMINATION: Regular rate and rhythm. S1, S2 heard. +2/6 systolic murmur, no gallops or rub. ABDOMEN: Soft, nontender. Positive bowel sounds. EXTREMITIES: 2+ peripheral pulses, no lower extremity edema and no calf tenderness. NEUROLOGIC EXAMINATION: Patient is awake, alert and oriented x3. ASSESSMENT 1. Increased dyspnea on exertion over the last 3-4 weeks, rule out angina equivalent/ unstable angina 2. Atypical chest pain 3. Paroxysmal atrial fibrillation, currently normal sinus rhythm 4. Coronary artery calcification noted on CTA 5. History of pulmonary fibrosis, bilateral infiltrates on CT. No signs or symptoms to suggest pneumonia 6. Leukocytosis likely related to steroid use 7. Rheumatoid arthritis 8. Obesity 9. Aortic stenosis, mild by echo. PLAN 2-D echo reviewed with normal left ventricular function, mild aortic stenosis and no other significant valvular disease. Stress test personally reviewed and questionable anterolateral perfusion defect, appears more related to positioning. We discussed that this may be a false positive however given ongoing symptoms and quality of life patient would like a definitive diagnosis. Therefore discussed heart catheterization. Hold Eliquis and possible heart catheterization today versus tomorrow. Objective - Vital Signs Vital signs: Vital Signs Temp 98.2 F 06/10/21 01:36 Pulse 94 06/10/21 08:12 Resp 16 06/10/21 02:00 BP 132/80 06/10/21 01:36 Pulse Ox 94 L 06/10/21 08:04 Intake & Output 06/09/21 06/10/21 06/10/21 18:59 06:59 18:59 Intake Total 240 Balance 240 Weight 90.72 kg Intake: Oral 240 Other: # Voids 1 3 - Labs CBC & Chem 7: 06/08/21 00:23 06/10/21 05:10 Labs: Abnormal Lab Results - Last 24 Hours (Table) 06/09/21 06/10/21 Range/Units 15:00 05:10 Sodium 134 L 134 L (137-145) mmol/L Potassium 3.3 L (3.5-5.1) mmol/L BUN 36 H 34 H (7-17) mg/dL Creatinine 1.13 H (0.52-1.04) mg/dL Glucose 179 H (74-99) mg/dL
[2021-06-10] MEDS ORDERED: ATORVASTATIN 80 MG TAB PO STA (08:43)
[2021-06-10] MEDS ORDERED: ALPRAZolam 0.25 MG TAB PO PRN (08:43)
[2021-06-10] MEDS: HYDROcodone/APAP 5-325MG 1 EACH TAB PO SCH ×2 (08:43→15:53)
[2021-06-10] MEDS ORDERED: NITROGLYCERIN SL TABS 0.4 MG TAB SUBLINGUAL PRN (08:43)
[2021-06-10] MEDS ORDERED: ASPIRIN 325 MG TAB PO STA (08:43)
[2021-06-10] MEDS ORDERED: ALPRAZolam 0.5 MG TAB PO PRN (08:43)
[2021-06-10] MEDS ORDERED: SODIUM CHLORIDE 0.9% 1,000 ML in EMPTY BAG 1 BAG IV SCH (08:45)
[2021-06-10] MEDS: PANTOPRAZOLE 40 MG TABLET PO SCH (08:47)
[2021-06-10] MEDS: prednisoLONE ACETATE 1% OPHTH DROPS 5 ML BTL RIGHT EYE SCH (08:47)
[2021-06-10] MEDS: TOFACITINIB CITRATE 11 MG PO SCH (08:47)
[2021-06-10] MEDS: METOPROLOL TARTRATE 12.5 MG TAB PO SCH (08:48)
[2021-06-10] MEDS: predniSONE 10 MG TAB PO SCH (08:48)
[2021-06-10] MEDS: cycloSPORINE 0.05% OPHTH 0.4 ML DROPERETTE BOTH EYES SCH (08:48)
[2021-06-10] MEDS: valACYclovir 500 MG TAB PO SCH (08:48)
[2021-06-10] MEDS: DILTIAZEM CD 120 MG CAP.ER.24H PO SCH (08:49)
[2021-06-10] MEDS: LEFLUNOMIDE 20 MG TAB PO SCH (08:49)
[2021-06-10 09:26] LABS: Basophils # (A) 0.03 X 10*3/uL (0.00-0.10); Basophils % (A) 0.3 %; Eosinophils # (A) 0.04 X 10*3/uL (0.04-0.35); Eosinophils % (A) 0.4 %; HCT 37.8 % (37.2-46.3); HGB 12.3 g/dL (12.0-15.0); Lymphocytes # (A) 0.71 X 10*3/uL (0.90-5.00); Lymphocytes % (A) 6.3 %; MCH 32.5 pg (27.0-32.0); MCHC 32.5 g/dL (32.0-37.0); Mean Platelet Volume 10.4 fL (9.5-12.2); Monocytes # (A) 1.04 X 10*3/uL (0.20-1.00); Monocytes % (A) 9.2 %; Neutrophils # (A) 9.26 X 10*3/uL (1.80-7.70); Neutrophils % (A) 81.5 %; Platelet Count 252 X 10*3/uL (140-440); RBC 3.78 X 10*6/uL (4.10-5.20); RDW 15.7 % (11.5-14.5); WBC 11.34 X 10*3/uL (4.50-10.00)
[2021-06-10] MEDS ORDERED: fentaNYL (PF) 50 MCG/ML 2 ML AMP ONE (12:56)
[2021-06-10] MEDS ORDERED: VERAPAMIL 2.5 MG/ML 2 ML AMP ONE (12:56)
[2021-06-10] MEDS ORDERED: LIDOCAINE 1% INJ 10MG/ML (20 ML MDV) ONE (12:56)
--- NOTE | 2021-06-10 12:57 | P.PN ---
Subjective Progress Note Date: 06/10/21 Principal diagnosis: exertional dyspnea 68-year-old female patient with known history of rheumatoid lungs with secondary pulmonary fibrosis whereas been followed up in our office. The patient over the past 2-3 weeks as an extensive worsening shortness of breath. No reported cough or sputum production. She was seen in our office and she was told that her pulmonary fibrosis essentially stable. As such the patient is coming in for further advice push that she developed some chest discomfort in her upper right chest moving to her back especially with activity. No heartburn. She has a chronic limited by cough. No significant worsening. Cognitive testing was negative. Chest x-ray is consistent with bilateral pulmonary fibrosis with chronic interstitial pulmonary infiltrates, unchanged. The patient also hiatal hernia. No bruises of DVT or pulmonary embolism. She has tachycardia. She has had one bout of atrial fibrillation at time of a sepsis and since then her cardiac rhythm and remained sinus. This was many years back and the patient accordingly is metabolic was 2.5 mg twice a day. She is diabetic. She has no previous history of DVT and pulmonary embolism. D-dimer is not elevated. ProBNP is nonelevated. UA has been negative. No anemia and hemoglobin is at 14.0. Cardiac enzymes 1 is been negative. Pulse ox on room air is around 94%. Upon walking approximately 100 feet, heart rate went up from 100 baseline to 1:30 and she was able to maintain a saturation above 94%. Exact cause for her worsening shortness of breath is not clear. Needs further investigation. She is on oral Cardizem CD 120 mg by mouth daily. She is also on long-term and to coagulation with Eliquis. Reevaluated today on 06/09/2021, patient is about the same, continues to have exertional dyspnea, no cough no wheezing no chest pain no fever no chills no hemoptysis. Cannula to undergo cardiac catheterization tomorrow review all the workup since admission and clearly the findings do not explain her exertional dyspnea so far. Patient does have interstitial lung disease, but relatively unchanged over the last 2 years or so far the workup is nondiagnostic. On 06/10/2021 patient seen in follow-up on cardiac observation unit. Room air pulse ox is 94-95%, she is resting comfortably in bed, blood pressure is 155/77, she's been afebrile, chest x-ray showed mild pulmonary congestion, CTA chest showed no evidence of pulmonary embolism, pulmonary interstitial fibrotic changes, large hiatal hernia. COVID-19 PCR was negative, her more blood cell count is improving on today's labs, and is down to 11.3, hemoglobin is 12.3, sodium is 134, potassium 3.3, BUN is 34 creatinine is 1.01, d-dimer was less than 0.017. Troponin was less than 0.012, proBNP was within normal limits at 198. Urinalysis showed rare bacteria, moderate leukocyte esterase, but no definite sign of urinary tract infection. Patient had a Lexiscan stress test showing some pharmacologically induced left ventricular myocardial ischemia along the anterolateral wall. Cardiology is following, and considering cardiac catheterization possibly tomorrow. Eliquis has been placed on hold. Objective - Vital Signs Vital signs: Vital Signs Temp 98.1 F 06/10/21 07:00 Pulse 94 06/10/21 08:12 Resp 16 06/10/21 07:00 BP 155/77 06/10/21 07:00 Pulse Ox 94 L 06/10/21 08:04 Intake & Output 06/09/21 06/10/21 06/10/21 18:59 06:59 18:59 Intake Total 240 Balance 240 Weight 90.72 kg Intake: Oral 240 Other: # Voids 1 3 - Exam GENERAL EXAM: Alert, very pleasant, 70-year-old white female, on room air with pulse ox of 94-95% comfortable in no apparent distress. HEAD: Normocephalic/atraumatic. EYES: Normal reaction of pupils, equal size. Conjunctiva pink, sclera white. NOSE: Clear with pink turbinates. THROAT: No erythema or exudates. NECK: No masses, no JVD, no thyroid enlargement, no adenopathy. CHEST: No chest wall deformity. Symmetrical expansion. LUNGS:Fine velcro crackles at the bases CVS: Regular rate and rhythm, normal S1 and S2, no gallops, no murmurs, no rubs ABDOMEN: Soft, nontender. No hepatosplenomegaly, normal bowel sounds, no guarding or rigidity. EXTREMITIES: No clubbing, no edema, no cyanosis, 2+ pulses and upper and lower extremities. MUSCULOSKELETAL: Muscle strength and tone normal. SPINE: No scoliosis or deformity SKIN: No rashes CENTRAL NERVOUS SYSTEM: Alert and oriented -3. No focal deficits, tone is normal in all 4 extremities. PSYCHIATRIC: Alert and oriented -3. Appropriate affect. Intact judgment and insight. - Labs CBC & Chem 7: 06/10/21 05:10 06/10/21 05:10 Labs: Abnormal Lab Results - Last 24 Hours (Table) 06/09/21 06/10/21 06/10/21 Range/Units 15:00 05:10 05:10 WBC 11.34 H (4.50-10.00) X 10*3/uL RBC 3.78 L (4.10-5.20) X 10*6/uL MCV 100.0 H (80.0-97.0) fL MCH 32.5 H (27.0-32.0) pg RDW 15.7 H (11.5-14.5) % Immature Gran # 0.26 H (0.00-0.04) X 10*3/uL Neutrophils # 9.26 H (1.80-7.70) X 10*3/uL Lymphocytes # 0.71 L (0.90-5.00) X 10*3/uL Monocytes # 1.04 H (0.20-1.00) X 10*3/uL Sodium 134 L 134 L (137-145) mmol/L Potassium 3.3 L (3.5-5.1) mmol/L BUN 36 H 34 H (7-17) mg/dL Creatinine 1.13 H (0.52-1.04) mg/dL Glucose 179 H (74-99) mg/dL Assessment and Plan Plan: Assessment: #1. Exertional dyspnea, patient had a Lexiscan stress test that was suggestive for a possible anterolateral ischemia, and patient is being scheduled for cardiac catheterization tomorrow on 06/11/2001 #2. History of mild interstitial lung disease/rheumatoid lung disease #3. History of rheumatoid arthritis #4. Large hiatal hernia. #5. Degenerative joint disease and dyslipidemia Plan: Continue maintenance dose prednisone 10 mg daily Vital signs are stable CT chest negative for any evidence of pulmonary embolism No fever or chills Patient is being scheduled for heart catheterization tomorrow We'll continue to follow her clinical course I performed a history & physical examination of the patient and discussed their management with my nurse practitioner, Margo Perez. I reviewed the nurse practitioner's note and agree with the documented findings and plan of care. Lung sounds are positive for fine crackles at the bases. The findings and the impression was discussed with the patient. I attest to the documentation by the nurse practitioner. Time with Patient: Less than 30
[2021-06-10] MEDS ORDERED: HEPARIN SODIUM 1,000 UN/ML (10ML VL) ONE (13:03)
[2021-06-10] MEDS ORDERED: LIDOCAINE 1% INJ 10MG/ML (20 ML MDV) SQ ONE ×2 (13:08→13:10)
[2021-06-10] MEDS ORDERED: fentaNYL (PF) 50 MCG/ML 2 ML AMP IV ONE ×2 (13:08→13:09)
[2021-06-10] MEDS ORDERED: MIDAZOLAM 2 MG/2 ML VIAL IV ONE (13:08)
[2021-06-10] MEDS ORDERED: VERAPAMIL SYRINGE (5 MG/10 ML) INTRAARTER ONE ×2 (13:09→13:12)
[2021-06-10] MEDS ORDERED: HEPARIN SODIUM 1,000 UN/ML (10ML VL) IV ONE (13:14)
[2021-06-10] MEDS ORDERED: IV FLUID CONTINUATION 1,000 ML IV ONE (13:19)
[2021-06-10] MEDS ORDERED: IOPAMIDOL-370 125ML BTL INJ ONE (13:20)
[2021-06-10] MEDS ORDERED: POTASSIUM CHLORIDE ER 20 MEQ TAB.ER PO STA (13:36)
[2021-06-10] MEDS ORDERED: RX INFO: IV CONTRAST WAS GIVEN 1 EACH MISC MISCELLANE PRN (13:50)
--- NOTE | 2021-06-10 14:09 | P.DS ---
Providers Date of admission: 06/10/21 09:10 Attending physician: Carmen Kelly Consults: 06/08/21 06:40 Consult Physician Routine Consulting Provider: Rocael Mondragon Consult Reason/Comments: Your patient. Dyspnea Do you want consulting provider notified?: Yes Consult Physician Routine Consulting Provider: Luis Briceño Consult Reason/Comments: dyspnea on exertion Do you want consulting provider notified?: Yes Primary care physician: [facility] Course: Patient is a pleasant 68-year-old female with known history of rheumatoid arthritis pulmonary fibrosis which is stable for many years came in with the complaints of shortness of breath has been going on for about the 2-3 weeks denied any cough or sputum production or any fever chills chest x-ray showed some pulmonary fibrosis and chronic interstitial infiltrates which were unchanged from the past. Patient was evaluated by pulmonology. Patient had a proBNP which is not elevated. Patient is visibly short of breath saturating at 94% on room air but becomes tachypneic and upon ablation. 06/09/2021 Patient is evaluated sitting up at the beside. Her lungs sounds are clear, and she denies shortness of breath at rest. Overall she is feeling better, however her work up so far is unclear for an etiology of this ongoing dyspnea. She does continue to experience tachycardia while ambulating. She denies any chest pain or chest pressure, denies palpitations. She denies and dizziness or lightheadeness. Patient has history of pulmonary fibrosis and follows with pulmonary in the office. Additonally, she has a history of rheumatoid arthritis. She has been maintained on oral prednisone which may contribute to her leukocytosis. Her chemistry panel today reveals a sodium level of 134, a BUN of 36, and creatinine of 1.13. Glucose remains elevated. Troponin is negative. Cardiology performed an echo and lexiscan stress today. Lexiscan stress revealed some questionable pharmacologically-induced left ventricular myocardial ischemia along the anterolateral wall. There is a recommendatiton for echocardiographic correlation for elevated ejection fraction, possible hypertrophic cardiomyopathy. Echo results include an EF of 55 to 60%, with borderline concentric left ventricular hypertrophy, and borderline pulmonary artery hypertension. In addition, there is mild mitral annular calcification. Pulmonary has evaluated the patient and feels her chronic pulmonary conditions are stable and are not contributing to this ongoing exertional dyspnea. CTA performed was negative for DVT but did reveal a large hiatal hernia increasing in size as well as increased interstitial infiltrates and pulmonary fibrotic changes. Vital signs today include a temp of 98, heart rate of 102, and a blood pressure of 147/85. She is 92% on room air. We will wait for further recommendations from cardiology. 06/10/2021 Patient had cardiac catheterization which did not show any significant atherosclerotic occlusive disease that will require intervention. Patient is doing well patient feels better patient will be discharged today. Patient was evaluated by pulmonology the recommending continuation of maintenance dose of prednisone. Although etiology of her shortness of breath remains unclear at this time it can be flareup of rheumatoid lung disease considering that she responded pretty quickly to systemic steroids. PHYSICAL EXAMINATION: GENERAL: The patient is alert and oriented x3, not in any acute distress. Well developed, well nourished. HEENT: Pupils are round and equally reacting to light. EOMI. No scleral icterus. No conjunctival pallor. Normocephalic, atraumatic. No pharyngeal erythema. No thyromegaly. CARDIOVASCULAR: S1 and S2 present. No murmurs, rubs, or gallops. PULMONARY: Chest is clear to auscultation, no wheezing or crackles. ABDOMEN: Soft, nontender, nondistended, normoactive bowel sounds. No palpable organomegaly. MUSCULOSKELETAL: No joint swelling or deformity. EXTREMITIES: No cyanosis, clubbing, or pedal edema. NEUROLOGICAL: Gross neurological examination did not reveal any focal deficits. SKIN: No rashes. Assessment and plan -Shortness of breath etiology is not clear, CTA negative for PE, patient had a cardiac catheterization which did not show any significant abnormality -Hyponatremia possibly hypovolemic, marginal improvement. -Atrial fibrillation paroxysmal, patient will continue her Cardizem and metoprolol was added and the patient will be on Eliquis 5 mg twice a day -Gastroesophageal Reflux disease, proton pump inhibitors will be discussed uterine patient was started on Pepcid to avoid osteoporosis. -Hyperlipidemia -Rheumatoid arthritis -History of pulmonary fibrosis -Rhemuatoid arthritis -Leukocytosis is secondary to systemic steroids she received Patient Condition at Discharge: Fair Plan - Discharge Summary Discharge Rx Participant: No New Discharge Prescriptions: New predniSONE 10 mg PO DAILY tab Famotidine [Pepcid] 20 mg PO BID #30 tablet Apixaban [Eliquis] 5 mg PO BID #60 tab Metoprolol Tartrate [Lopressor] 12.5 mg PO BID #60 tab Continue Atorvastatin [Lipitor] 80 mg PO HS Tofacitinib Citrate [Xeljanz Xr] 11 mg PO DAILY HYDROcodone/APAP 5-325MG [Kirby 5-325] 1 tab PO TID Cyclobenzaprine [Flexeril] 10 mg PO DAILY Prednisolone Acetate/Pf [Prednisolone Acet 1% Eye Drop] 1 drop RIGHT EYE BID cycloSPORINE 0.05% OPHTH SOLN [Restasis] 1 drop BOTH EYES BID valACYclovir [Valtrex] 500 mg PO BID Zolpidem [Ambien] 10 mg PO HS Diltiazem Cd [Cardizem CD] 120 mg PO DAILY Leflunomide [Arava] 20 mg PO DAILY Discontinued Omeprazole [PriLOSEC] 20 mg PO DAILY Apixaban [Eliquis] 2.5 mg PO BID Furosemide [Lasix] 20 mg PO DAILY predniSONE 30 mg PO DAILY Discharge Medication List Atorvastatin [Lipitor] 80 mg PO HS 04/16/14 [History] HYDROcodone/APAP 5-325MG [Kirby 5-325] 1 tab PO TID 06/22/17 [History] Tofacitinib Citrate [Xeljanz Xr] 11 mg PO DAILY 06/22/17 [History] Cyclobenzaprine [Flexeril] 10 mg PO DAILY 02/01/18 [History] Diltiazem Cd [Cardizem CD] 120 mg PO DAILY 06/08/21 [History] Leflunomide [Arava] 20 mg PO DAILY 06/08/21 [History] Prednisolone Acetate/Pf [Prednisolone Acet 1% Eye Drop] 1 drop RIGHT EYE BID [History] Zolpidem [Ambien] 10 mg PO HS 06/08/21 [History] cycloSPORINE 0.05% OPHTH SOLN [Restasis] 1 drop BOTH EYES BID 06/08/21 [History] valACYclovir [Valtrex] 500 mg PO BID 06/08/21 [History] Apixaban [Eliquis] 5 mg PO BID #60 tab 06/09/21 [Rx] Famotidine [Pepcid] 20 mg PO BID #30 tablet 06/10/21 [Rx] Metoprolol Tartrate [Lopressor] 12.5 mg PO BID #60 tab 06/10/21 [Rx] predniSONE 10 mg PO DAILY tab 06/10/21 [Rx] Follow up Appointment(s)/Referral(s): Rocael Mondragon MD [STAFF PHYSICIAN] - 1 Week Victoriano Brennan DO [STAFF PHYSICIAN] - 1 Week Chris Conroy MD [Primary Care Provider] - 3 Days Activity/Diet/Wound Care/Special Instructions: complete a walking oxygen test for possible home oxygen thank you Review Eliquis recommendations with cardiology prior to discharge Review prednisone recommendations with pulmonary prior to discharge.
[2021-06-10 15:11] VITALS: TEMP 97.5
[2021-06-10 17:35] VITALS: BP 145/72; PULSE 114
--- NOTE | 2021-06-10 18:31 | P.CARDCATH ---
Description of Procedure: PROCEDURES PERFORMED: Left heart catheterization, bilateral coronary angiography INDICATION: AC, abnormal stress test HISTORY: Patient a pleasant 70-year-old female with history of pulmonary fibrosis who has been having worsened dyspnea on exertion despite treatment. This has been progressive and therefore she had cardiac workup with stress test showing concern of anterolateral ischemia. Therefore heart catheterization was recommended. CONSENT:I have discussed the risks, benefits and alternative therapies for the above-mentioned procedure and for both sedation/analgesia as well as necessary blood product administration, if indicated, as they pertain to this patient. The patient has indicated understanding and acceptance of the risks and procedures discussed. PROCEDURE: After the risks, benefits and alternatives of the above mentioned procedure explained in detail with the patient, informed consent was obtained. Patient was taken to the catheterization lab and prepped and draped in usual fashion. 1% lidocaine was used to anesthetize the right radial artery. A 6- Mongolian sheath was placed in the right radial artery using modified Seldinger technique. Left coronary angiography was performed with a 5-Mongolian JL 3.5 catheter and right coronary angiography was performed with a 5-Mongolian JR5 catheter in various views. A 5-Mongolian FR5 catheter was inserted into the left ventricle and pressure measurements were obtained. The right radial sheath was removed and a TR band was placed with hemostasis achieved. The patient tolerated the procedure well. Patient was transported back to the post catheterization holding area in stable condition. Conscious Sedation: Patient was monitored under the direct supervision of vision of myself for conscious sedation using Versed and fentanyl for a total duration of 14 minutes HEMODYNAMICS: Ao: 139/68 LV: 136, 4, LVEDP 15mmHg SELECTIVE CORONARY ARTERIOGRAPHY: LEFT MAIN: The left main is a large caliber vessel which bifurcates into the LAD and circumflex. There is no significant stenosis. LEFT ANTERIOR DESCENDING CORONARY ARTERY: LAD is a large caliber vessel which wraps around to the apex. There is mild disease up to 30% of the mid LAD and otherwise normal. LEFT CIRCUMFLEX CORONARY ARTERY: Left circumflex is a moderate caliber vessel without significant stenosis. RIGHT CORONARY ARTERY: The right coronary artery is a large caliber vessel which gives off a PDA and PLV branch and is the dominant vessel. There is 20% proximal RCA stenosis. FINAL IMPRESSION: 1. Mild CAD as described above including 20% RCA stenosis and 30% mid LAD stenosis. 2. Normal left sided filling pressures PLAN: 1. Aggressive risk factor modification per most recent ACC/AHA guidelines. 2. Follow-up in the office in 1-2 weeks.
== END 2021-06-10 17:58 | disposition home or self-care (01) | DRG 287 ==
LOC: EC 23:46 → 6NMEDSUR 06-08 06:41 → OBSVTOIN 06-10 09:10
PROVIDERS: ADMIT Hospitalist; ATTEND Hospitalist
PROC: B2111ZZ Fluoroscopy of Multiple Coronary Arteries using Low Osmolar Contrast (ICD-10-PCS; principal; 2021-06-10 08:25)
PROC: 4A023N7 Measurement of Cardiac Sampling and Pressure, Left Heart, Percutaneous Approach (ICD-10-PCS; principal; 2021-06-10 08:25)
DX: R94.39 Abnormal result of other cardiovascular function study (principal); E27.40 Unspecified adrenocortical insufficiency; E87.1 Hypo-osmolality and hyponatremia; R07.89 Other chest pain; D72.829 Elevated white blood cell count, unspecified; T38.0X5A Adverse effect of glucocorticoids and synthetic analogues, initial encounter; E11.9 Type 2 diabetes mellitus without complications; E66.9 Obesity, unspecified; Z68.37 Body mass index [BMI] 37.0-37.9, adult; E78.5 Hyperlipidemia, unspecified; E86.1 Hypovolemia; I10 Essential (primary) hypertension; I25.10 Atherosclerotic heart disease of native coronary artery without angina pectoris; J84.10 Pulmonary fibrosis, unspecified; I48.0 Paroxysmal atrial fibrillation; I35.0 Nonrheumatic aortic (valve) stenosis; I27.21 Secondary pulmonary arterial hypertension; K21.9 Gastro-esophageal reflux disease without esophagitis; K44.9 Diaphragmatic hernia without obstruction or gangrene; M05.10 Rheumatoid lung disease with rheumatoid arthritis of unspecified site; Z20.822 Contact with and (suspected) exposure to COVID-19; Z79.01 Long term (current) use of anticoagulants; Z79.52 Long term (current) use of systemic steroids; Z79.899 Other long term (current) drug therapy; Z82.49 Family history of ischemic heart disease and other diseases of the circulatory system; Z90.710 Acquired absence of both cervix and uterus; Z82.3 Family history of stroke; Z80.0 Family history of malignant neoplasm of digestive organs; Z98.42 Cataract extraction status, left eye; Z98.41 Cataract extraction status, right eye; Z98.890 Other specified postprocedural states; Z83.3 Family history of diabetes mellitus; Z86.711 Personal history of pulmonary embolism; Z88.1 Allergy status to other antibiotic agents; Z88.8 Allergy status to other drugs, medicaments and biological substances; Z90.89 Acquired absence of other organs; Z86.19 Personal history of other infectious and parasitic diseases; M19.90 Unspecified osteoarthritis, unspecified site; T45.8X5D Adverse effect of other primarily systemic and hematological agents, subsequent encounter
CPT/HCPCS: 36415; 71046; 71275; 78452; 80048; 80053; 81001; 83605; 83880; 84484; 85025; 85379; 85610; 85730; 87635; 93005; 93017; 93306; 93458; 94640; 94760; 96374; 99285

== ENCOUNTER 2021-06-22 11:45 | Inpatient (IN) | payer MEDICARE, BC ==
[2021-06-22 12:46] LABS: Basophils % (A) 0 %; Eosinophils % (A) 0 %; HCT 35.3 % (34.0-46.0); HGB 11.8 gm/dL (11.4-16.0); Lymphocytes # (A) 0.3 k/uL (1.0-4.8); Lymphocytes % (A) 2 %; MCH 33.2 pg (25.0-35.0); MCHC 33.6 g/dL (31.0-37.0); MCV 98.9 fL (80.0-100.0); Macrocytosis Slight; Mean Platelet Volume 7.7; Monocytes # (A) 0.6 k/uL (0-1.0); Monocytes % (A) 5 %; Neutrophils # (A) 10.5 k/uL (1.3-7.7); Neutrophils % (A) 91 %; Platelet Count 176 k/uL (150-450); RBC 3.57 m/uL (3.80-5.40); RDW 15.8 % (11.5-15.5); WBC 11.5 k/uL (3.8-10.6)
[2021-06-22 12:52] LABS: Albumin 3.2 g/dL (3.5-5.0); Calcium 8.6 mg/dL (8.4-10.2); Magnesium 2.1 mg/dL (1.6-2.3); Potassium 3.3 mmol/L (3.5-5.1)
--- NOTE | 2021-06-22 12:57 | XR ---
EXAMINATION TYPE: XR chest 2V DATE OF EXAM: 06/22/2021 COMPARISON: 06/08/2021 TECHNIQUE: PA and lateral views submitted. HISTORY: Weakness FINDINGS: Large hiatal hernia. Limited inspiration with left basilar subsegmental changes. Coarsened interstiti um no pneumothorax. Heart size stable from prior. IMPRESSION: 1. Hiatal hernia with compressive the left basilar atelectasis favored over pneumonia correlate clini urmila. 2. Coarsened interstitium appears similar to prior exam. Correlate for interstitial pneumonitis or ve nous congestion.
[2021-06-22 13:00] LABS: Prothrombin Time 10.9 sec (9.0-12.0)
--- NOTE | 2021-06-22 13:16 | ED ---
General Adult HPI - General Chief complaint: Weakness Stated complaint: SOB & trouble sleeping Time Seen by Provider: 06/22/21 12:03 Source: patient, RN notes reviewed, old records reviewed Mode of arrival: wheelchair Limitations: no limitations - History of Present Illness Initial comments: 71-year-old female presenting with fatigue, dyspnea over the past 2 months. She had her hospital admission which she states was largely involved with cardiac testing. She states that she has had increased dyspnea as well as fatigue and generalized weakness over the past 2 months. No reported fever. No cough. She does report left leg swelling which is new over the past several days. No abdominal pain. She's had significant nausea without vomiting. - Related Data Home Medications Medication Instructions Recorded Confirmed Atorvastatin [Lipitor] 80 mg PO HS 04/16/14 06/08/21 HYDROcodone/APAP 5-325MG [[place] 1 tab PO TID 06/22/17 06/08/21 5-325] Tofacitinib Citrate [Xeljanz Xr] 11 mg PO DAILY 06/22/17 06/08/21 Cyclobenzaprine [Flexeril] 10 mg PO DAILY 02/01/18 06/08/21 Diltiazem Cd [Cardizem CD] 120 mg PO DAILY 06/08/21 06/08/21 Leflunomide [Arava] 20 mg PO DAILY 06/08/21 06/08/21 Prednisolone Acetate/Pf 1 drop RIGHT EYE BID 06/08/21 06/08/21 [Prednisolone Acet 1% Eye Drop] Zolpidem [Ambien] 10 mg PO HS 06/08/21 06/08/21 cycloSPORINE 0.05% OPHTH SOLN 1 drop BOTH EYES BID 06/08/21 06/08/21 [Restasis] valACYclovir [Valtrex] 500 mg PO BID 06/08/21 06/08/21 Previous Rx's Medication Instructions Recorded Apixaban [Eliquis] 5 mg PO BID #60 tab 06/09/21 Famotidine [Pepcid] 20 mg PO BID #30 tablet 06/10/21 Metoprolol Tartrate [Lopressor] 12.5 mg PO BID #60 tab 06/10/21 predniSONE 10 mg PO DAILY tab 06/10/21 Allergies Allergy/AdvReac Type Severity Reaction Status Date / Time celecoxib [From Celebrex] Allergy Rash/Hives Verified 06/07/21 23:54 ciprofloxacin [From Cipro] AdvReac Hallucinati Verified 06/07/21 23:54 ons gold sodium thiomalate AdvReac flushing Verified 06/07/21 23:54 [From Myochrysine] Review of Systems ROS Statement: Those systems with pertinent positive or pertinent negative responses have been documented in the HPI. ROS Other: All systems not noted in ROS Statement are negative. Past Medical History Past Medical History: Atrial Fibrillation, GERD/Reflux, Hyperlipidemia, Osteoarthritis (OA), Respiratory Disorder, Rheumatoid Arthritis (RA) Additional Past Medical History / Comment(s): HIATAL HERNIA,PULMONARY FIBROSIS, sepsis june 11 2016, anemia with transfusion, adrenal insufficiency. History of Any Multi-Drug Resistant Organisms: None Reported Past Surgical History: Adenoidectomy, Back Surgery, Hysterectomy, Tonsillectomy Additional Past Surgical History / Comment(s): SINUS SURG,johnathon cataracts, Past Anesthesia/Blood Transfusion Reactions: No Reported Reaction Additional Past Anesthesia/Blood Transfusion Reaction / Comment(s): no hx blood transfusion Past Psychological History: No Psychological Hx Reported Smoking Status: Never smoker Past Alcohol Use History: None Reported Past Drug Use History: None Reported - Past Family History Mother Family Medical History: CVA/TIA, Myocardial Infarction ([place]) Additional Family Medical History / Comment(s): borderline diabetes Father Family Medical History: Cancer Additional Family Medical History / Comment(s): carcinoma gallbladder General Exam Limitations: no limitations General appearance: alert, in distress (Mild respiratory) Head exam: Present: atraumatic, normocephalic Eye exam: Present: normal appearance, PERRL ENT exam: Present: normal exam Neck exam: Present: normal inspection. Absent: tenderness, meningismus Respiratory exam: Present: respiratory distress, rales, decreased breath sounds Cardiovascular Exam: Present: regular rate, normal rhythm GI/Abdominal exam: Present: soft. Absent: distended, tenderness, guarding Extremities exam: Present: pedal edema (Left leg) Neurological exam: Present: alert, oriented X3, CN II-XII intact. Absent: motor sensory deficit Psychiatric exam: Present: normal affect, normal mood Skin exam: Present: warm, dry, intact Course Vital Signs 06/22/21 06/22/21 06/22/21 12:10 12:18 14:11 Temperature 98.7 F Pulse Rate 110 H 105 H 109 H Respiratory 24 16 16 Rate Blood Pressure 151/88 151/88 O2 Sat by Pulse 96 97 96 Oximetry EKG Findings - EKG Comments: EKG Findings:: EKG: Sinus tachycardia, left axis, rate of 108 MS interval 1:30, QRS duration 74, QTC 412, no ST segment elevation T waves in V2 Medical Decision Making - Medical Decision Making 71-year-old female with increased dyspnea, generalized weakness, fatigue and difficulty ambulating. This has progressed over the past 2 months. Workup initiated, she has a mild leukocytosis 11.5, stable hemoglobin, mild hyponatremia 133. Potassium is replaced in the emergency department. Chest x- ray shows chronic changes without large focal pneumonia or acute findings. Patient did have some left leg swelling ultrasound was performed which was negative for DVT. Urinalysis was pending. Patient will be admitted to Dr. Kelly service who is aware. She may require placement. - Lab Data Result diagrams: 06/22/21 12:18 06/22/21 12:18 Lab Results 06/22/21 06/22/21 06/22/21 Range/Units 12:18 12:18 12:18 WBC 11.5 H (3.8-10.6) k/uL RBC 3.57 L (3.80-5.40) m/uL Hgb 11.8 (11.4-16.0) gm/dL Hct 35.3 (34.0-46.0) % MCV 98.9 (80.0-100.0) fL MCH 33.2 (25.0-35.0) pg MCHC 33.6 (31.0-37.0) g/dL RDW 15.8 H (11.5-15.5) % Plt Count 176 (150-450) k/uL MPV 7.7 Neutrophils % 91 % Lymphocytes % 2 % Monocytes % 5 % Eosinophils % 0 % Basophils % 0 % Neutrophils # 10.5 H (1.3-7.7) k/uL Lymphocytes # 0.3 L (1.0-4.8) k/uL Monocytes # 0.6 (0-1.0) k/uL Eosinophils # 0.0 (0-0.7) k/uL Basophils # 0.0 (0-0.2) k/uL Macrocytosis Slight PT 10.9 (9.0-12.0) sec INR 1.0 (<1.2) APTT 21.7 L (22.0-30.0) sec Sodium 133 L (137-145) mmol/L Potassium 3.3 L (3.5-5.1) mmol/L Chloride 101 (98-107) mmol/L Carbon Dioxide 26 (22-30) mmol/L Anion Gap 6 mmol/L BUN 27 H (7-17) mg/dL Creatinine 0.78 (0.52-1.04) mg/dL Est GFR (CKD-EPI)AfAm 88 (>60 ml/min/1.73 sqM) Est GFR (CKD-EPI)NonAf 76 (>60 ml/min/1.73 sqM) Glucose 112 H (74-99) mg/dL Plasma Lactic Acid Giovanny (0.7-2.0) mmol/L Calcium 8.6 (8.4-10.2) mg/dL Magnesium 2.1 (1.6-2.3) mg/dL Total Bilirubin 1.0 (0.2-1.3) mg/dL AST 37 H (14-36) U/L ALT 32 (4-34) U/L Alkaline Phosphatase 71 (38-126) U/L Troponin I (0.000-0.034) ng/mL NT-Pro-B Natriuret Pep pg/mL Total Protein 6.0 L (6.3-8.2) g/dL Albumin 3.2 L (3.5-5.0) g/dL 06/22/21 06/22/21 06/22/21 Range/Units 12:18 12:18 12:18 WBC (3.8-10.6) k/uL RBC (3.80-5.40) m/uL Hgb (11.4-16.0) gm/dL Hct (34.0-46.0) % MCV (80.0-100.0) fL MCH (25.0-35.0) pg MCHC (31.0-37.0) g/dL RDW (11.5-15.5) % Plt Count (150-450) k/uL MPV Neutrophils % % Lymphocytes % % Monocytes % % Eosinophils % % Basophils % % Neutrophils # (1.3-7.7) k/uL Lymphocytes # (1.0-4.8) k/uL Monocytes # (0-1.0) k/uL Eosinophils # (0-0.7) k/uL Basophils # (0-0.2) k/uL Macrocytosis PT (9.0-12.0) sec INR (<1.2) APTT (22.0-30.0) sec Sodium (137-145) mmol/L Potassium (3.5-5.1) mmol/L Chloride (98-107) mmol/L Carbon Dioxide (22-30) mmol/L Anion Gap mmol/L BUN (7-17) mg/dL Creatinine (0.52-1.04) mg/dL Est GFR (CKD-EPI)AfAm (>60 ml/min/1.73 sqM) Est GFR (CKD-EPI)NonAf (>60 ml/min/1.73 sqM) Glucose (74-99) mg/dL Plasma Lactic Acid Giovanny 1.1 (0.7-2.0) mmol/L Calcium (8.4-10.2) mg/dL Magnesium (1.6-2.3) mg/dL Total Bilirubin (0.2-1.3) mg/dL AST (14-36) U/L ALT (4-34) U/L Alkaline Phosphatase (38-126) U/L Troponin I 0.028 (0.000-0.034) ng/mL NT-Pro-B Natriuret Pep 332 pg/mL Total Protein (6.3-8.2) g/dL Albumin (3.5-5.0) g/dL Disposition Clinical Impression: Dyspnea, Generalized weakness Disposition: ADMITTED IP TO THIS [facility] Condition: Stable Is patient prescribed a controlled substance at d/c from ED?: No Referrals: Chris Conroy MD [Primary Care Provider] - 1-2 days Decision to Admit Reason: Admit from EC Decision Date: 06/22/21 Decision Time: 15:10
[2021-06-22 13:31] LABS: Partial Thromboplastin Time 21.7 sec (22.0-30.0)
--- NOTE | 2021-06-22 14:09 | US ---
EXAMINATION TYPE: US venous doppler duplex LE LT DATE OF EXAM: 06/22/2021 1:34 PM COMPARISON: 10/20/2016 CLINICAL HISTORY: swelling. left ankle swelling and foot pain, h/o RA and on Eliquis for heart, no h/ o dvt SIDE PERFORMED: Left TECHNIQUE: The lower extremity deep venous system is examined utilizing real time linear array sonog jose l with graded compression, doppler sonography and color-flow sonography. VESSELS IMAGED: Common Femoral Vein Deep Femoral Vein Greater Saphenous Vein * Femoral Vein Popliteal Vein Small Saphenous Vein * Proximal Calf Veins (* superficial vessels) Left Leg: Negative for DVT. There is normal flow, compressibility, vascular waveforms There is evidence of peripheral vascular disease common femoral vein. IMPRESSION: No sonographic evidence of deep vein thrombosis in the left lower extremity. Mild soft tissue edema in the lower extremity.
[2021-06-22] MEDS ORDERED: LORazepam 2 MG/ML INJ IV STA (14:59)
[2021-06-22] MEDS ORDERED: NALOXONE 0.4 MG/ML 1 ML VIAL IV PRN (15:04)
[2021-06-22] MEDS ORDERED: ACETAMINOPHEN TAB 325 MG TAB PO PRN (15:04)
[2021-06-22 15:42] LABS: Appearance,Urine Clear (Clear); Bilirubin,Urine Negative (Negative); Blood,Urine Trace (Negative); Color,Urine Yellow; Glucose,Urine (UA) Trace (Negative); Ketones,Urine Negative (Negative); Leukocyte Esterase,Urine Negative (Negative); Nitrite,Urine Negative (Negative); PH, Urine 6.5 (5.0-8.0); Protein,Urine Trace (Negative); RBC,Urine 4 /hpf (0-5); Specific Gravity,Urine 1.012 (1.001-1.035); Squamous Epithelial Cell,Urine 1 /hpf (0-4); Urobilinogen,Urine <2.0 mg/dL (<2.0); WBC,Urine 1 /hpf (0-5)
[2021-06-22] MEDS ORDERED: IPRATROPIUM-ALBUTEROL 3 ML NEB INHALATION PRN (18:43)
[2021-06-22] MEDS ORDERED: Potassium Replacement Protocol 1 EACH MISC MISCELLANE PRN ×2 (18:45→19:09)
[2021-06-22] MEDS ORDERED: Magnesium Replacement Protocol 1 EACH MISC MISCELLANE PRN (18:45)
--- NOTE | 2021-06-22 19:59 | US ---
EXAMINATION TYPE: US venous doppler duplex LE RT DATE OF EXAM: 06/22/2021 7:25 PM COMPARISON: NONE CLINICAL HISTORY: dvt. SIDE PERFORMED: TECHNIQUE: The lower extremity deep venous system is examined utilizing real time linear array sonog jose l with graded compression, doppler sonography and color-flow sonography. VESSELS IMAGED: Common Femoral Vein Deep Femoral Vein Greater Saphenous Vein * Femoral Vein Popliteal Vein (* superficial vessels) Right Leg: Negative for DVT Bakers cyst measuring 4.5 x 1.2 x 2.6cm IMPRESSION: No evidence of deep vein thrombosis in the right leg. There is right side popliteal cyst.
--- NOTE | 2021-06-22 20:06 | HP ---
HISTORY AND PHYSICAL DATE OF SERVICE: 06/22/2021 CHIEF COMPLAINTS: Weakness, shortness of breath and trouble sleeping. HISTORY OF PRESENT ILLNESS: This 71-year-old woman with a past medical history of multiple medical problems, including rheumatoid arthritis, rheumatoid lung, atrial fibrillation, history of DJD, history of hiatal hernia, being followed by Dr. Conroy in the outpatient setting, was recently admitted with shortness of breath. The patient also had abnormal stress test and cardiac catheterization showed only mild coronary artery disease. Medication was adjusted. Patient went home. Currently the patient is complaining of increasing weakness as well as right leg swelling, increased shortness of breath and lack of sleep. There is no history of any fever, rigor or chills at this time. PAST MEDICAL HISTORY: History of atrial fibrillation, GERD, hyperlipidemia, history of DJD, history of rheumatoid arthritis. HOME MEDICATIONS: Omeprazole, Valtrex, prednisone, Restasis, Ambien, , Arava, Hershey, Pepcid, Cardizem CD, Lipitor, Eliquis. Doses are reviewed. ALLERGIES: CELEBREX AND CIPRO. FAMILY HISTORY: History of CVA, TIA, myocardial infarction, borderline diabetes. SOCIAL HISTORY: No history of smoking. No history of alcohol intake. REVIEW OF SYSTEMS: ENT: No diminished hearing. No diminished vision. CARDIOVASCULAR SYSTEM: No angina, palpitations. RESPIRATORY SYSTEM: As mentioned earlier. GI: As mentioned earlier. : No dysuria. NERVOUS SYSTEM: No numbness, weakness. ALLERGY/IMMUNOLOGY: No asthma or hay fever. MUSCULOSKELETAL: As mentioned earlier. HEMATOLOGY/ONCOLOGY: As mentioned earlier. ENDOCRINE: No history of diabetes or hypothyroidism. CONSTITUTIONAL: As mentioned earlier. DERMATOLOGY: Negative. RHEUMATOLOGY: As mentioned earlier. . PSYCHIATRY: As mentioned earlier. PHYSICAL EXAMINATION: Alert and oriented x3. Pulse 94, blood pressure 159/80, respirations 16, temperature 98.2, pulse ox 94% on room air. HEENT: Conjunctivae normal. NECK: No jugular venous distention. CARDIOVASCULAR: S1, S2 muffled. RESPIRATION: Breath sounds diminished at the bases. A few scattered rhonchi and crackles. ABDOMEN: Soft, nontender. LEGS: No edema. No swelling. NERVOUS SYSTEM: No focal deficit. LABS: WBC 7.5, sodium , potassium 3.3. Chest x-ray, which was personally reviewed by me, showed some increased bronchovascular markings. ASSESSMENT: 1. Shortness of breath with possible congestive heart failure, acute exacerbation. 2. Significant left leg swelling. Rule out DVT or cellulitis. 3. Insomnia. 4. Generalized weakness and gait dysfunction. 5. Hyponatremia. 6. Hypokalemia. 7. Increased white count. 8. Increased random glucose. 9. History of atrial fibrillation. 10.History of gastroesophageal reflux disease. 11.Hyperlipidemia. 12.History of degenerative joint disease. 13.Rheumatoid arthritis. 14.Hiatal hernia. 15.History of pulmonary fibrosis. 16.Adenoidectomy. 17.History of back surgery. 18.Obesity with body mass index of 37.8. 19.FULL CODE. RECOMMENDATIONS AND DISCUSSION: In this 71-year-old woman who presented with multiple complex medical issues, we will monitor the patient closely, continue the current medications, continue symptomatic treatment. I recommend a small dose of diuretics as well as bronchodilators, empiric steroids. Otherwise, cultures will be obtained. PT/OT evaluation. The patient also has insomnia. Recommend symptomatic treatment. Overall prognosis is guarded because of multiple complex medical issues. Further recommendations to follow. A copy of this dictation is being forwarded to Dr. Conroy, who is the primary physician. MMLEVIL / IJN: [id number] /
[2021-06-22] MEDS: IPRATROPIUM-ALBUTEROL 3 ML NEB INHALATION SCH (20:08)
[2021-06-22] MEDS: methylPREDNISolone SOD SUCCI 125 MG/2 ML VIAL IV SCH (21:10)
[2021-06-22] MEDS: FUROSEMIDE 10 MG/ML 4 ML VIAL IV SCH (21:10)
[2021-06-22] MEDS: valACYclovir 500 MG TAB PO SCH (21:11)
[2021-06-22] MEDS: APIXABAN 5 MG TAB PO SCH (21:11)
[2021-06-22] MEDS: cycloSPORINE 0.05% OPHTH 0.4 ML DROPERETTE BOTH EYES SCH (21:11)
[2021-06-22] MEDS: ATORVASTATIN 80 MG TAB PO SCH (21:11)
[2021-06-22] MEDS: POTASSIUM CHLORIDE ER 20 MEQ TAB.ER PO SCH ×2 (21:11→22:18)
[2021-06-22] MEDS: FAMOTIDINE 20 MG TAB PO SCH (21:11)
[2021-06-22] MEDS: QUEtiapine 50 MG TAB PO PRN (22:52)
[2021-06-23] MEDS: methylPREDNISolone SOD SUCCI 125 MG/2 ML VIAL IV SCH ×4 (01:21→17:07)
[2021-06-23] MEDS: IPRATROPIUM-ALBUTEROL 3 ML NEB INHALATION SCH ×3 (07:05→20:56)
[2021-06-23] MEDS: FAMOTIDINE 20 MG TAB PO SCH ×2 (08:25→20:27)
[2021-06-23] MEDS: FUROSEMIDE 10 MG/ML 4 ML VIAL IV SCH ×2 (08:25→20:27)
[2021-06-23] MEDS: cycloSPORINE 0.05% OPHTH 0.4 ML DROPERETTE BOTH EYES SCH ×2 (08:26→20:27)
[2021-06-23] MEDS: APIXABAN 5 MG TAB PO SCH ×2 (08:26→20:27)
[2021-06-23] MEDS: PANTOPRAZOLE 40 MG TABLET PO SCH (08:26)
[2021-06-23] MEDS: valACYclovir 500 MG TAB PO SCH ×2 (08:27→20:27)
[2021-06-23] MEDS: TOFACITINIB CITRATE PO SCH (08:27)
[2021-06-23] MEDS: DILTIAZEM CD 180 MG CAP.ER.24H PO SCH (08:27)
[2021-06-23] MEDS: LEFLUNOMIDE 20 MG TAB PO SCH (08:29)
[2021-06-23 09:21] LABS: Basophils # (A) 0.01 X 10*3/uL (0.00-0.10); Basophils % (A) 0.1 %; Eosinophils # (A) 0 X 10*3/uL (0.04-0.35); Eosinophils % (A) 0 %; HCT 33.4 % (37.2-46.3); HGB 10.8 g/dL (12.0-15.0); Lymphocytes # (A) 0.14 X 10*3/uL (0.90-5.00); Lymphocytes % (A) 1.7 %; MCH 31.2 pg (27.0-32.0); MCHC 32.3 g/dL (32.0-37.0); MCV 96.5 fL (80.0-97.0); Mean Platelet Volume 10.8 fL (9.5-12.2); Monocytes # (A) 0.21 X 10*3/uL (0.20-1.00); Monocytes % (A) 2.6 %; Neutrophils # (A) 7.69 X 10*3/uL (1.80-7.70); Neutrophils % (A) 94.6 %; Platelet Count 177 X 10*3/uL (140-440); RBC 3.46 X 10*6/uL (4.10-5.20); RDW 15.7 % (11.5-14.5); WBC 8.13 X 10*3/uL (4.50-10.00)
[2021-06-23 11:26] LABS: African American GFR (CKD) 84.8 (60.0-200.0); Anion Gap 13.1 mmol/L (4.00-12.00); BUN/Creat Ratio 28.75 Ratio (12.00-20.00); Calcium 8.1 mg/dL (8.7-10.3); Carbon Dioxide 23.9 mmol/L (21.6-31.8); Magnesium 2.1 mg/dL (1.5-2.4); Non-African American GFR(CKD) 73.1 (60.0-200.0); Potassium 3.8 mmol/L (3.5-5.5)
--- NOTE | 2021-06-23 14:11 | P.CONS ---
History of Present Illness - Reason for Consult Consult date: 06/23/21 known Requesting physician: Carmen Kelly - Chief Complaint insomnia, LLE swelling - History of Present Illness Ms. Castorena is a very pleasant 71 yo female who follows with Dr. Conroy, here for severe insomnia, weakness, orthopnea and severe left foot pain. She has multiple comorbidities, including RA, atrial fibrillation, GERD, HLP, hiatal hernia, pulmonary fibrosis as well as chronic anemia-for which she sees Dr. Conroy. She has had extensive work up in the past, including extensive GI work up. She has had a few admissions over the last 3 years. Admitted on 02/01- 02/03/18 for anemia, Hgb 6.9, with positive FOBT. She underwent EGD and colonoscopy which revealed mild antral gastritis, biopsy benign with chronic gastritis and negative for H. pylori. She did receive a unit of PRBC with appropriate response, and received IV iron as well. She was admitted soon after that for cellulitis 2/2 invasive line. She was last seen in the ofc 06/13/21, concerns for steroid induced myopathy, she had ambien refilled (which she states today just suddenly stopped working for her). She does state recent increase in steroids from Pulmonary. Last iron studies were done in Oct 2020, she did receive parenteral iron at that time. She denies fever, chills, nausea, expectoration, chest pain, abd pain, acute changes in bowel or bladder habits. Her left foot pain is better since admit, she denies any breathing c/o at this time. She is desperate to sleep. Review of Systems 10 point ROS is neg Past Medical History Past Medical History: Atrial Fibrillation, GERD/Reflux, Hyperlipidemia, Osteoarthritis (OA), Respiratory Disorder, Rheumatoid Arthritis (RA) Additional Past Medical History / Comment(s): HIATAL HERNIA,PULMONARY FIBROSIS, sepsis june 11 2016, anemia with transfusion, adrenal insufficiency. History of Any Multi-Drug Resistant Organisms: None Reported Past Surgical History: Adenoidectomy, Back Surgery, Hysterectomy, Tonsillectomy Additional Past Surgical History / Comment(s): SINUS SURG,johnathon cataracts removal Past Anesthesia/Blood Transfusion Reactions: No Reported Reaction Additional Past Anesthesia/Blood Transfusion Reaction / Comm: no hx blood transfusion Past Psychological History: No Psychological Hx Reported Smoking Status: Never smoker Past Alcohol Use History: None Reported Past Drug Use History: None Reported - Past Family History Mother Family Medical History: CVA/TIA, Myocardial Infarction ([place]) Additional Family Medical History / Comment(s): borderline diabetes Father Family Medical History: Cancer Additional Family Medical History / Comment(s): carcinoma gallbladder Medications and Allergies Home Medications Medication Instructions Recorded Confirmed Type Atorvastatin [Lipitor] 80 mg PO HS 04/16/14 06/22/21 History HYDROcodone/APAP 5-325MG [[place] 1 tab PO TID PRN 06/22/17 06/22/21 History 5-325] Tofacitinib Citrate [Xeljanz Xr] 11 mg PO DAILY 06/22/17 06/22/21 History Leflunomide [Arava] 20 mg PO DAILY 06/08/21 06/22/21 History Zolpidem [Ambien] 10 mg PO HS 06/08/21 06/22/21 History cycloSPORINE 0.05% OPHTH SOLN 1 drop BOTH EYES BID 06/08/21 06/22/21 History [Restasis] valACYclovir [Valtrex] 500 mg PO BID 06/08/21 06/22/21 History Apixaban [Eliquis] 5 mg PO BID #60 tab 06/09/21 06/22/21 Rx Famotidine [Pepcid] 20 mg PO BID #30 tablet 06/10/21 06/22/21 Rx Diltiazem Cd [Cardizem CD] 180 mg PO DAILY 06/22/21 06/22/21 History Omeprazole 20 mg PO DAILY 06/22/21 06/22/21 History predniSONE 40 mg PO DAILY 06/22/21 06/22/21 History Allergies Allergy/AdvReac Type Severity Reaction Status Date / Time celecoxib [From Celebrex] Allergy Rash/Hives Verified 06/22/21 15:24 ciprofloxacin [From Cipro] AdvReac Hallucinati Verified 06/22/21 15:24 ons gold sodium thiomalate AdvReac flushing Verified 06/22/21 15:24 [From Myochrysine] Physical Exam Vitals: Vital Signs Temp Pulse Pulse Resp BP BP Pulse Ox 06/23/21 07:15 115 H 06/23/21 07:07 111 H 06/23/21 07:00 98.0 F 98 18 130/78 100 06/23/21 02:00 100 18 06/23/21 01:53 97.8 F 100 18 128/77 94 L 06/22/21 20:18 96 06/22/21 20:11 94 06/22/21 20:00 94 20 06/22/21 19:00 98.2 F 105 H 20 127/74 97 06/22/21 18:04 98.2 F 94 16 159/82 95 06/22/21 15:26 98.3 F 105 H 18 142/84 97 06/22/21 14:11 109 H 16 96 06/22/21 12:18 105 H 16 151/88 97 06/22/21 12:10 98.7 F 110 H 24 151/88 96 Intake and Output 06/22/21 06/23/21 06/23/21 22:59 06:59 14:59 Intake Total 118 Balance 118 Intake: Oral 118 Other: Voiding Method Toilet Toilet # Voids 2 2 1 # Bowel Movements 1 Weight 90.718 kg - Constitutional General appearance: average body habitus, cooperative, no acute distress - EENT Eyes: anicteric sclerae, EOMI ENT: hearing grossly normal, normal oropharynx - Neck Neck: no lymphadenopathy - Respiratory Respiratory: bilateral: CTA - Cardiovascular Heart sounds: normal: S1, S2 leg Peripheral Edema: right: 1+, left: 2+ - Gastrointestinal General gastrointestinal: no absent bowel sounds, no decreased bowel sounds, no distended, no hepatomegaly, no hyperactive bowel sounds, normal bowel sounds, no organomegaly, no rigid, no scaphoid, soft, no splenomegaly, no tenderness, no umbilical hernia, no ventral hernia - Integumentary Integumentary: pale - Neurologic Neurologic: CNII-XII intact - Musculoskeletal severe joint deformities 2/2 RA Musculoskeletal: strength equal bilaterally - Psychiatric Psychiatric: A&O x's 3, appropriate affect, intact judgment & insight Results CBC & Chem 7: 06/23/21 05:57 06/23/21 05:57 Labs: Abnormal Lab Results - Last 24 Hours (Table) 06/22/21 06/22/21 06/22/21 Range/Units 12:18 12:18 12:18 WBC 11.5 H (3.8-10.6) k/uL RBC 3.57 L (3.80-5.40) m/uL Hgb (12.0-15.0) g/dL Hct (37.2-46.3) % RDW 15.8 H (11.5-15.5) % Immature Gran # (0.00-0.04) X 10*3/uL Neutrophils # 10.5 H (1.3-7.7) k/uL Lymphocytes # 0.3 L (1.0-4.8) k/uL Eosinophils # (0.04-0.35) X 10*3/uL APTT 21.7 L (22.0-30.0) sec Sodium 133 L (137-145) mmol/L Potassium 3.3 L (3.5-5.1) mmol/L BUN 27 H (7-17) mg/dL Glucose 112 H (74-99) mg/dL AST 37 H (14-36) U/L Total Protein 6.0 L (6.3-8.2) g/dL Albumin 3.2 L (3.5-5.0) g/dL Urine Protein (Negative) Urine Glucose (UA) (Negative) Urine Blood (Negative) 06/22/21 06/23/21 Range/Units Unknown 05:57 WBC (3.8-10.6) k/uL RBC 3.46 L (3.80-5.40) m/uL Hgb 10.8 L (12.0-15.0) g/dL Hct 33.4 L (37.2-46.3) % RDW 15.7 H (11.5-15.5) % Immature Gran # 0.08 H (0.00-0.04) X 10*3/uL Neutrophils # (1.3-7.7) k/uL Lymphocytes # 0.14 L (1.0-4.8) k/uL Eosinophils # 0 L (0.04-0.35) X 10*3/uL APTT (22.0-30.0) sec Sodium (137-145) mmol/L Potassium (3.5-5.1) mmol/L BUN (7-17) mg/dL Glucose (74-99) mg/dL AST (14-36) U/L Total Protein (6.3-8.2) g/dL Albumin (3.5-5.0) g/dL Urine Protein Trace H (Negative) Urine Glucose (UA) Trace H (Negative) Urine Blood Trace H (Negative) Abdominal x-ray: report reviewed Venous US: report reviewed (no DVT in either lower extremity) Assessment and Plan (1) Rheumatoid arthritis Narrative/Plan: Pt c/o insomnia-? if r/t steroids. Rheumatology consulted for other treatment options for her RA. Current Visit: Yes Status: Chronic Priority: High Code(s): M06.9 - RHEUMATOID ARTHRITIS, UNSPECIFIED SNOMED Code(s): 98429980 (2) Anemia Narrative/Plan: Pt has history of iron deficiency. Last anemia work up and iron infusions in Oct 2020, Anemia work up ordered. Current Visit: Yes Status: Chronic Priority: Medium Code(s): D64.9 - ANEMIA, UNSPECIFIED SNOMED Code(s): 453399387 Plan: Dr. Stewartests: I have seen and examined pt, performed H&P, developed impression and plan of care. Discussed with dictator. Agree with documentation, documented as a scribe.
--- NOTE | 2021-06-23 14:27 | P.CONS ---
History of Present Illness - Reason for Consult Consult date: 06/23/21 weakness - Chief Complaint weakness - History of Present Illness This is a inpatient hospital consult for a patient that we regularly follow regarding rheumatoid arthritis. Patient is now seen in hospital complaining of increased weakness with right leg swelling, increased shortness of breath, and t rouble sleeping. She has been given intravenous diuretics as well as bronchodilators and empiric steroids. She was started on Seroquel 50 mg daily at bedtime for her insomnia. She is also receiving IV Solu-Medrol 60 mg every 6 hours. Patient is regularly seen in our office for her rheumatoid arthritis and is currently on Xeljanz 11mg daily and leflunomide 20 mg daily. She has been seeing Dr. Saleh on a frequent basis regarding complaints of fatigue and shortness of breath. She is a poor historian and at several encounters there have been discrepancies between steroid prescriptions and plan of care through her various specialists. In April 2021, patient saw Dr. Saleh at which time she was on hydrocortisone through endocrinology, Dr. Cote for adrenal insufficiency. She complained to Dr. Saleh of fatigue and joint pain therefore Dr. Saleh switched her hydrocortisone to prednisone 30mg. Patient then saw Dr. Mondragon who increased her to prednisone 60mg daily for her SOB per patient. Dr. Saleh last spoke with her on 06/17/[address] Saleh explained that we need to better understand who is going to manage her prednisone and also whether or not there is underlying rheumatoid lung or adrenal insufficiency as this would change the course of her therapy. She then made a referral to [facility] rheumatology and stated that patient may also need to see [facility] pulmonary and endocrinology depending on rheumatology opinion. CHIEF COMPLAINT: Patient is found resting comfortably in a seated position. She has no haroon shortness of breath and states that she is feeling better with use of intravenous diuretics. She denies any specific joint pain, stiffness, or swelling. She is tearful stating that now that she has a full night of sleep she feels more herself. She came to emergency room as she fell after experiencing right leg pain and weakness. She states that she has not slept in several days. Exam: Lungs CTA, no haroon evidence of synovitis, fairly normal range of motion. From a rheumatological standpoint, patient's rheumatoid arthritis does appear stable. We do not plan on assuming responsibility of her long-term steroid use as it is not being used for her rheumatoid arthritis. It seems she was increased most recently by pulmonary so this may be for treating her shortness of breath. We would like recommendations from pulmonary and [facility] rheumatology to rule out any underlying evidence of rheumatoid lung which would cause us to be more aggressive in her treatment. Patient will continue steroid dosing per pulmonary unless they would like us to taper patient off. We are willing to do so. Patient will keep her next follow-up as planned on 07/01/21. Past Medical History Past Medical History: Atrial Fibrillation, GERD/Reflux, Hyperlipidemia, Osteoarthritis (OA), Respiratory Disorder, Rheumatoid Arthritis (RA) Additional Past Medical History / Comment(s): HIATAL HERNIA,PULMONARY FIBROSIS, sepsis june 11 2016, anemia with transfusion, adrenal insufficiency. History of Any Multi-Drug Resistant Organisms: None Reported Past Surgical History: Adenoidectomy, Back Surgery, Hysterectomy, Tonsillectomy Additional Past Surgical History / Comment(s): SINUS SURG,johnathon cataracts removal Past Anesthesia/Blood Transfusion Reactions: No Reported Reaction Additional Past Anesthesia/Blood Transfusion Reaction / Comm: no hx blood transfusion Past Psychological History: No Psychological Hx Reported Smoking Status: Never smoker Past Alcohol Use History: None Reported Past Drug Use History: None Reported - Past Family History Mother Family Medical History: CVA/TIA, Myocardial Infarction ([place]) Additional Family Medical History / Comment(s): borderline diabetes Father Family Medical History: Cancer Additional Family Medical History / Comment(s): carcinoma gallbladder Medications and Allergies Home Medications Medication Instructions Recorded Confirmed Type Atorvastatin [Lipitor] 80 mg PO HS 04/16/14 06/22/21 History HYDROcodone/APAP 5-325MG [Adams 1 tab PO TID PRN 06/22/17 06/22/21 History 5-325] Tofacitinib Citrate [Xeljanz Xr] 11 mg PO DAILY 06/22/17 06/22/21 History Leflunomide [Arava] 20 mg PO DAILY 06/08/21 06/22/21 History Zolpidem [Ambien] 10 mg PO HS 06/08/21 06/22/21 History cycloSPORINE 0.05% OPHTH SOLN 1 drop BOTH EYES BID 06/08/21 06/22/21 History [Restasis] valACYclovir [Valtrex] 500 mg PO BID 06/08/21 06/22/21 History Apixaban [Eliquis] 5 mg PO BID #60 tab 06/09/21 06/22/21 Rx Famotidine [Pepcid] 20 mg PO BID #30 tablet 06/10/21 06/22/21 Rx Diltiazem Cd [Cardizem CD] 180 mg PO DAILY 06/22/21 06/22/21 History Omeprazole 20 mg PO DAILY 06/22/21 06/22/21 History predniSONE 40 mg PO DAILY 06/22/21 06/22/21 History Allergies Allergy/AdvReac Type Severity Reaction Status Date / Time celecoxib [From Celebrex] Allergy Rash/Hives Verified 06/22/21 15:24 ciprofloxacin [From Cipro] AdvReac Hallucinati Verified 06/22/21 15:24 ons gold sodium thiomalate AdvReac flushing Verified 06/22/21 15:24 [From Myochrysine] Physical Exam Vitals: Vital Signs Temp Pulse Pulse Resp BP BP Pulse Ox 06/23/21 07:15 115 H 06/23/21 07:07 111 H 06/23/21 07:00 98.0 F 98 18 130/78 100 06/23/21 02:00 100 18 06/23/21 01:53 97.8 F 100 18 128/77 94 L 06/22/21 20:18 96 06/22/21 20:11 94 06/22/21 20:00 94 20 06/22/21 19:00 98.2 F 105 H 20 127/74 97 06/22/21 18:04 98.2 F 94 16 159/82 95 06/22/21 15:26 98.3 F 105 H 18 142/84 97 Intake and Output 06/22/21 06/23/21 06/23/21 22:59 06:59 14:59 Intake Total 118 Balance 118 Intake: Oral 118 Other: Voiding Method Toilet Toilet # Voids 2 2 1 # Bowel Movements 1 Weight 90.718 kg Results CBC & Chem 7: 06/23/21 05:57 06/23/21 05:57 Labs: Abnormal Lab Results - Last 24 Hours (Table) 06/22/21 06/23/21 06/23/21 Range/Units Unknown 05:57 05:57 RBC 3.46 L (4.10-5.20) X 10*6/uL Hgb 10.8 L (12.0-15.0) g/dL Hct 33.4 L (37.2-46.3) % RDW 15.7 H (11.5-14.5) % Immature Gran # 0.08 H (0.00-0.04) X 10*3/uL Lymphocytes # 0.14 L (0.90-5.00) X 10*3/uL Eosinophils # 0 L (0.04-0.35) X 10*3/uL Anion Gap 13.10 H (4.00-12.00) mmol/L BUN/Creatinine Ratio 28.75 H (12.00-20.00) Ratio Glucose 186 H (70-110) mg/dL Calcium 8.1 L (8.7-10.3) mg/dL Urine Protein Trace H (Negative) Urine Glucose (UA) Trace H (Negative) Urine Blood Trace H (Negative)
[2021-06-23 16:41] LABS: % Iron Saturation 6.63 (12.00-45.00)
--- NOTE | 2021-06-23 17:46 | P.CNPUL ---
History of Present Illness Consult date: 06/23/21 Reason for consult: dyspnea Chief complaint: dyspnea, Lower extremity leg swelling History of present illness: This is a 71-year-old white female patient that sees Dr. 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 Patient also has history of chronic A. fib, iron deficiency anemia, relative adrenal cortical insufficiency, hypercholesterolemia, coronary artery disease, with recent history of a positive Lexiscan stress test and subsequently patient underwent coronary angiography on 06/10/2021 which showed mild CAD with 20% RCA stenosis and 30% mid LAD stenosis, normal sided filling pressures, and medical management was recommended. Last PFT from the office from 06/04/2021 showed FVC of 1.5 L or 60% of predicted, FEV1 of 1.32 L or 68% of predicted, FEV1 to FVC ratio of 112, total lung capacity of 3.25 L or 70% of predicted, and DLCO of 63% of predicted, and this was consistent with moderate restriction, and mild diffusion abnormality. Her PFT showed stable lung function over the course of 2 years, and Dr. 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 On 06/22/2021 patient came into the emergency department with complaints of weakness, shortness of breath and trouble sleeping. Patient has also been complaining of fatigue, generalized weakness over the period of last 2 months. No reported fever, she does report some left leg swelling. Her chest x-ray showed air with compressive left basilar atelectasis. Left lower extremity Doppler showed no evidence of DVT. Right lower leg was also negative for DVT. EKG showed sinus tachycardia, patient is on Eliquis for chronic anticoagulation. Been afebrile, she is breathing comfortably, she is on room air with a pulse ox of 100%, her lab work was negative for any sign of infection, she tested negative for COVID-19, her pro-calcitonin is low this admission at 0.04. Today's labs reviewed showing white blood cell count of 8.13, hemoglobin of 10.8, electrolytes are within normal limits, BUN of 23 creatinine 0.8, proBNP was within normal limits at 332, urinalysis showed trace routine, trace glucose, trace blood but no clear evidence of infection. Review of Systems All systems: negative Constitutional: Reports fatigue, Reports weakness, Denies chills, Denies fever Eyes: denies blurred vision, denies pain Ears, nose, mouth and throat: Denies headache, Denies sore throat Cardiovascular: Denies chest pain, Denies shortness of breath Respiratory: Reports dyspnea, Denies cough Gastrointestinal: Denies abdominal pain, Denies diarrhea, Denies nausea, Denies vomiting Genitourinary: Denies dysuria, Denies hematuria Musculoskeletal: Denies myalgias Integumentary: Denies pruritus, Denies rash Neurological: Denies numbness, Denies weakness Psychiatric: Denies anxiety, Denies depression Endocrine: Denies fatigue, Denies weight change Past Medical History Past Medical History: Atrial Fibrillation, GERD/Reflux, Hyperlipidemia, Osteoarthritis (OA), Respiratory Disorder, Rheumatoid Arthritis (RA) Additional Past Medical History / Comment(s): HIATAL HERNIA,PULMONARY FIBROSIS, sepsis june 11 2016, anemia with transfusion, adrenal insufficiency. History of Any Multi-Drug Resistant Organisms: None Reported Past Surgical History: Adenoidectomy, Back Surgery, Hysterectomy, Tonsillectomy Additional Past Surgical History / Comment(s): SINUS SURG,johnathon cataracts removal Past Anesthesia/Blood Transfusion Reactions: No Reported Reaction Additional Past Anesthesia/Blood Transfusion Reaction / Comment(s): no hx blood transfusion Past Psychological History: No Psychological Hx Reported Smoking Status: Never smoker Past Alcohol Use History: None Reported Past Drug Use History: None Reported - Past Family History Mother Family Medical History: CVA/TIA, Myocardial Infarction ([place]) Additional Family Medical History / Comment(s): borderline diabetes Father Family Medical History: Cancer Additional Family Medical History / Comment(s): carcinoma gallbladder Medications and Allergies Home Medications Medication Instructions Recorded Confirmed Type Atorvastatin [Lipitor] 80 mg PO HS 04/16/14 06/22/21 History HYDROcodone/APAP 5-325MG [[place] 1 tab PO TID PRN 06/22/17 06/22/21 History 5-325] Tofacitinib Citrate [Xeljanz Xr] 11 mg PO DAILY 06/22/17 06/22/21 History Leflunomide [Arava] 20 mg PO DAILY 06/08/21 06/22/21 History Zolpidem [Ambien] 10 mg PO HS 06/08/21 06/22/21 History cycloSPORINE 0.05% OPHTH SOLN 1 drop BOTH EYES BID 06/08/21 06/22/21 History [Restasis] valACYclovir [Valtrex] 500 mg PO BID 06/08/21 06/22/21 History Apixaban [Eliquis] 5 mg PO BID #60 tab 06/09/21 06/22/21 Rx Famotidine [Pepcid] 20 mg PO BID #30 tablet 06/10/21 06/22/21 Rx Diltiazem Cd [Cardizem CD] 180 mg PO DAILY 06/22/21 06/22/21 History Omeprazole 20 mg PO DAILY 06/22/21 06/22/21 History predniSONE 40 mg PO DAILY 06/22/21 06/22/21 History Allergies Allergy/AdvReac Type Severity Reaction Status Date / Time celecoxib [From Celebrex] Allergy Rash/Hives Verified 06/22/21 15:24 ciprofloxacin [From Cipro] AdvReac Hallucinati Verified 06/22/21 15:24 ons gold sodium thiomalate AdvReac flushing Verified 06/22/21 15:24 [From Myochrysine] Physical Exam Vitals: Vital Signs Temp Pulse Pulse Resp BP Pulse Ox 06/23/21 15:00 98.5 F 114 H 16 145/77 06/23/21 07:15 115 H 06/23/21 07:07 111 H 06/23/21 07:00 98.0 F 98 18 130/78 100 06/23/21 02:00 100 18 06/23/21 01:53 97.8 F 100 18 128/77 94 L 06/22/21 20:18 96 06/22/21 20:11 94 06/22/21 20:00 94 20 06/22/21 19:00 98.2 F 105 H 20 127/74 97 06/22/21 18:04 98.2 F 94 16 159/82 95 Intake and Output 06/23/21 06/23/21 06/23/21 06:59 14:59 22:59 Intake Total 354 Balance 354 Intake: Oral 354 Other: Voiding Method Toilet # Voids 2 1 # Bowel Movements 1 GENERAL EXAM: Alert, pleasant, morbidly obese white female, on room air, breathing fairly comfortable, sitting up in the chair, comfortable in no apparent distress. HEAD: Normocephalic/atraumatic. EYES: Normal reaction of pupils, equal size. Conjunctiva pink, sclera white. NOSE: Clear with pink turbinates. THROAT: No erythema or exudates. NECK: No masses, no JVD, no thyroid enlargement, no adenopathy. CHEST: No chest wall deformity. Symmetrical expansion. LUNGS: Equal air entry with bilateral crackles CVS: Regular rate and rhythm, normal S1 and S2, no gallops, no murmurs, no rubs ABDOMEN: Soft, nontender. No hepatosplenomegaly, normal bowel sounds, no guarding or rigidity. EXTREMITIES: No clubbing, no edema, no cyanosis, 2+ pulses and upper and lower extremities. MUSCULOSKELETAL: Muscle strength and tone normal. SPINE: No scoliosis or deformity SKIN: No rashes CENTRAL NERVOUS SYSTEM: Alert and oriented -3. No focal deficits, tone is normal in all 4 extremities. PSYCHIATRIC: Alert and oriented -3. Appropriate affect. Intact judgment and insight. Results - Laboratory Findings CBC and BMP: 06/23/21 05:57 06/23/21 05:57 PT/INR, D-dimer PT 10.9 sec (9.0-12.0) 06/22/21 12:18 INR 1.0 (<1.2) 06/22/21 12:18 Abnormal lab findings: Abnormal Labs 06/22/21 06/22/21 06/22/21 12:18 12:18 12:18 WBC 11.5 H RBC 3.57 L Hgb Hct RDW 15.8 H Immature Gran # Neutrophils # 10.5 H Lymphocytes # 0.3 L Eosinophils # APTT 21.7 L Sodium 133 L Potassium 3.3 L Anion Gap BUN 27 H BUN/Creatinine Ratio Glucose 112 H Calcium Iron % Saturation Transferrin AST 37 H Total Protein 6.0 L Albumin 3.2 L Urine Protein Urine Glucose (UA) Urine Blood 06/22/21 06/23/21 06/23/21 Unknown 05:57 05:57 WBC RBC 3.46 L Hgb 10.8 L Hct 33.4 L RDW 15.7 H Immature Gran # 0.08 H Neutrophils # Lymphocytes # 0.14 L Eosinophils # 0 L APTT Sodium Potassium Anion Gap 13.10 H BUN BUN/Creatinine Ratio 28.75 H Glucose 186 H Calcium 8.1 L Iron % Saturation Transferrin AST Total Protein Albumin Urine Protein Trace H Urine Glucose (UA) Trace H Urine Blood Trace H 06/23/21 05:57 WBC RBC Hgb Hct RDW Immature Gran # Neutrophils # Lymphocytes # Eosinophils # APTT Sodium Potassium Anion Gap BUN BUN/Creatinine Ratio Glucose Calcium Iron 16 L % Saturation 6.63 L Transferrin 168.0 L AST Total Protein Albumin Urine Protein Urine Glucose (UA) Urine Blood - Diagnostic Findings Chest x-ray: report reviewed, image reviewed Assessment and Plan Plan: Assessment: #1. Interstitial lung disease, related to rheumatoid lung disease, patient follows with Dr. Hinojosa in the pulmonary clinic, she is on Xeljanz, Prednisone and Arava. Most recent PFT showed moderate restriction and mild diffusion defect, overall her lung function has been stable over last 2 years. FVC is 1.55 L or 60% of predicted, FEV1 is 1.32 L or 68% of predicted, with FEV1 to FVC ratio of 112, total lung capacity is 3.25 L or 70% of predicted, and DLCO of 63% of predicted. This is based on the PFT dated 06/04/2021 #2. Lower Extremity swelling, lotion renal Dopplers were negative for DVT #3. History of rheumatoid arthritis, On Xeljanz, Arava and Prednisone off #4. Coronary artery disease, on medical treatment #5. Paroxysmal atrial fibrillation, currently in sinus mechanism #6. Insomnia #7. History of iron deficiency anemia #8. GERD secondary to hiatal hernia #9. Hypercholesterolemia #10. Relative adrenal insufficiency #11. History of herpes simplex conjunctivitis and scleritis #12. History of back surgery #13. Obesity Plan: Continue treatment for rheumatoid arthritis Last PFT from the office showed stable lung function over a period of 2 years Patient was advised to continue to try to be active, lose weight No evidence of infection or heart failure Continue to follow with Dr. Hinojosa in the office Medical management for CAD per cardiology Continue oral anticoagulation for history of paroxysmal atrial fibrillation Rheumatoid arthritis medications per rheumatology Outpatient follow-up with Dr. Hinojosa in the office in 2-3 weeks I performed a history & physical examination of the patient and discussed their management with my nurse practitioner, Margo Perez. I reviewed the nurse practitioner's note and agree with the documented findings and plan of care. Lung sounds are positive for bibasilar crackles throughout the lung berrios. The findings and the impression was discussed with the patient. I attest to the documentation by the nurse practitioner. Time with Patient: Greater than 30
[2021-06-23] MEDS: ATORVASTATIN 80 MG TAB PO SCH (20:27)
--- NOTE | 2021-06-24 | P.PN ---
Subjective This is a pleasant 71 years old female with multiple medical problems, she has history of rheumatoid arthritis and possible rheumatoid arthritis lung and she follows up with Dr. Hinojosa the office. She has dyspnea for 2 months but patient told me today she came to the hospital because she was exhausted, she could not sleep well her legs were weeping with water and cannot stand up and fell. She has significant left leg redness on the lateral side and swollen, especially around the ankle. Suspicious for cellulitis. Right leg with minimal or no swelling. Also on exam she has bilateral crepitation in the middle and lower zone with decreased air entry, pulmonary evaluated the patient and This is a chronic problem and recommended to continue with current treatment and follow-up with Dr. Hinojosa in 2-3 weeks post discharge. Also patient seen by electricity trading analyst who recommended no change in treatment and follow-up as an outpatient, patient already has appointment on 07/01. Hematology team recommended anemia workup Objective - Vital Signs Vital signs: Vital Signs Temp 98.0 F 06/23/21 07:00 Pulse 115 H 06/23/21 07:15 Resp 18 06/23/21 07:00 BP 130/78 06/23/21 07:00 Pulse Ox 100 06/23/21 07:00 Intake & Output 06/22/21 06/23/21 06/23/21 18:59 06:59 18:59 Intake Total 118 Balance 118 Weight 90.718 kg 90.718 kg Intake: Oral 118 Other: Voiding Method Toilet Toilet # Voids 2 1 # Bowel Movements 1 - Labs CBC & Chem 7: 06/23/21 05:57 06/23/21 05:57 Labs: Abnormal Lab Results - Last 24 Hours (Table) 06/22/21 06/23/21 06/23/21 Range/Units Unknown 05:57 05:57 RBC 3.46 L (4.10-5.20) X 10*6/uL Hgb 10.8 L (12.0-15.0) g/dL Hct 33.4 L (37.2-46.3) % RDW 15.7 H (11.5-14.5) % Immature Gran # 0.08 H (0.00-0.04) X 10*3/uL Lymphocytes # 0.14 L (0.90-5.00) X 10*3/uL Eosinophils # 0 L (0.04-0.35) X 10*3/uL Anion Gap 13.10 H (4.00-12.00) mmol/L BUN/Creatinine Ratio 28.75 H (12.00-20.00) Ratio Glucose 186 H (70-110) mg/dL Calcium 8.1 L (8.7-10.3) mg/dL Urine Protein Trace H (Negative) Urine Glucose (UA) Trace H (Negative) Urine Blood Trace H (Negative) Assessment and Plan Assessment: Acute left leg cellulitis Iron deficiency anemia Chronic RA lung disease, follow-up as an outpatient History of rheumatoid arthritis Chronic pain syndrome Insomnia Iron deficiency anemia Plan: This is a pleasant 71 years old female with left leg cellulitis. Add cefazolin Pulmonary and rheumatology team on the case follow-up as an outpatient upon discharge with both surfaces. Hematology consult Continue with home dose of liquids Switch IV Lasix to 40 mg by mouth daily. Labs and medication were reviewed.. Continue same treatment. Continue with symptomatic treatment. Resume home medication. Monitor lytes and vitals. DVT and GI prophylaxis. Further recommendationsas per clinical course of the patient DVT prophylaxis: Eliquis GI Prophylaxis: Ppi PT/OT: Home health care
[2021-06-24] MEDS: QUEtiapine 50 MG TAB PO PRN (00:08)
[2021-06-24] MEDS: HYDROcodone/APAP 5-325MG 1 EACH TAB PO PRN ×2 (00:59→23:03)
[2021-06-24] MEDS: IPRATROPIUM-ALBUTEROL 3 ML NEB INHALATION SCH ×3 (07:27→20:46)
[2021-06-24] MEDS: DILTIAZEM CD 180 MG CAP.ER.24H PO SCH (08:30)
[2021-06-24] MEDS: FUROSEMIDE 40 MG TAB PO SCH (08:30)
[2021-06-24] MEDS: predniSONE 20 MG TAB PO SCH (08:30)
[2021-06-24] MEDS: valACYclovir 500 MG TAB PO SCH ×2 (08:30→20:52)
[2021-06-24] MEDS: PANTOPRAZOLE 40 MG TABLET PO SCH (08:31)
[2021-06-24] MEDS: LEFLUNOMIDE 20 MG TAB PO SCH (08:31)
[2021-06-24] MEDS: cycloSPORINE 0.05% OPHTH 0.4 ML DROPERETTE BOTH EYES SCH ×2 (08:31→20:52)
[2021-06-24] MEDS: APIXABAN 5 MG TAB PO SCH ×2 (08:31→20:52)
[2021-06-24] MEDS: FAMOTIDINE 20 MG TAB PO SCH (08:31)
[2021-06-24] MEDS: TOFACITINIB CITRATE PO SCH (08:32)
--- NOTE | 2021-06-24 09:58 | XR ---
EXAMINATION TYPE: XR chest 1V DATE OF EXAM: 06/24/2021 COMPARISON: 06/22/2021 HISTORY: Shortness of breath TECHNIQUE: Single frontal view of the chest is obtained. FINDINGS: Limited inspiration with bibasilar consolidation. Coarsened interstitium. Heart size stabl e. Hiatal hernia suspected. No pneumothorax. No sizable pleural effusion. IMPRESSION: 1. Large hiatal or diaphragmatic hernia with by basilar atelectasis or infiltrate similar to the prio r exam. 2. Mild coarsened interstitium can be associated with chronic interstitial lung disease, interstitial pneumonitis or venous congestion. Correlate clinically. Findings stable.
[2021-06-24] MEDS: LIDOCAINE 5% PATCH TOPICAL SCH (13:18)
[2021-06-24] MEDS ORDERED: diphenhydrAMINE 25 MG CAP PO PRN (19:32)
--- NOTE | 2021-06-24 19:51 | P.PN ---
Subjective This is a pleasant 71 years old female with multiple medical problems, she has history of rheumatoid arthritis and possible rheumatoid arthritis lung and she follows up with Dr. Hinojosa the office. She has dyspnea for 2 months but patient told me today she came to the hospital because she was exhausted, she could not sleep well her legs were weeping with water and cannot stand up and fell. She has significant left leg redness on the lateral side and swollen, especially around the ankle. Suspicious for cellulitis. Right leg with minimal or no swelling. Also on exam she has bilateral crepitation in the middle and lower zone with decreased air entry, pulmonary evaluated the patient and This is a chronic problem and recommended to continue with current treatment and follow-up with Dr. Hinojosa in 2-3 weeks post discharge. Also patient seen by animal assistant who recommended no change in treatment and follow-up as an outpatient, patient already has appointment on 07/01. Hematology team recommended anemia workup 06/24/2021 Patient sitting in bed. Still tachypneic. Although states that her breathing is close to her baseline. She still complains from some left leg pain but swelling is significantly important. Also complaining from low back pain and lidocaine patch was started she feels like her sciatic symptoms spreading from her low back pain to both legs. Patient has been evaluated by town planner recently last week during the previous admission she had negative cardiac cath. She was tachycardic at that time and currently she still tachycardic and blood pressure is also elevated 150/80, we will start metoprolol. Patient already on Cardizem 180 and liquids. Chest x-ray: Large hiatal hernia with bibasilar infiltrate. Also mild conversant interstitial can be associated with chronic interstitial lung disease, interstitial pneumonitis or venous congestion. PT/OT recommended home health care which is ordered. She is tachycardic heart rate 107-224. Sitting bilaterally tachypneic at 20. Afebrile. Extremities on Eliquis, cefazolin, Lasix switched orally and serous to prednisone 40 daily. Check labs in the morning including TSH, telemetry, monitor hemoglobin, BMP magnesium. Objective - Vital Signs Vital signs: Vital Signs Temp 97.8 F 06/24/21 07:00 Pulse 107 H 06/24/21 12:35 Resp 16 06/24/21 07:00 BP 153/78 06/24/21 07:00 Pulse Ox 94 L 06/24/21 07:00 Intake & Output 06/23/21 06/24/21 06/24/21 18:59 06:59 18:59 Intake Total 354 500 420 Balance 354 500 420 Intake: Oral 354 500 420 Other: Voiding Method Toilet External Catheter # Voids 1 2 # Bowel Movements 1 - Exam GENERAL: The patient is alert and oriented x3, not in any acute distress. Well developed, well nourished. HEENT: Pupils are round and equally reacting to light. EOMI. No scleral icterus. No conjunctival pallor. Normocephalic, atraumatic. No pharyngeal erythema. No thyromegaly. CARDIOVASCULAR: S1 and S2 present. No murmurs, rubs, or gallops. -PULMONARY: Chest is clear to auscultation, no wheezing . Bilateral basal crepitation. Tachypneic ABDOMEN: Soft, nontender, nondistended, normoactive bowel sounds. No palpable organomegaly. MUSCULOSKELETAL: No joint swelling or deformity. -EXTREMITIES: No cyanosis, clubbing, or pedal edema. Left leg edema significantly more on the left, erythema and warmth of the lateral left leg is improving. NEUROLOGICAL: Gross neurological examination did not reveal any focal deficits. SKIN: No rashes. no petechiae. - Labs CBC & Chem 7: 06/23/21 05:57 06/23/21 05:57 Labs: Abnormal Lab Results - Last 24 Hours (Table) 06/23/21 Range/Units 05:57 Iron 16 L (50-170) ug/dL % Saturation 6.63 L (12.00-45.00) Transferrin 168.0 L (204.0-354.0) mg/dL Assessment and Plan Assessment: Acute left leg cellulitis with left leg swelling Chronic RA lung disease, pulmonary the case Paroxysmal atrial fibrillation, with RVR. on Eliquis, Cardizem and metoprolol Iron deficiency without anemia History of rheumatoid arthritis Chronic pain syndrome Insomnia Iron deficiency anemia Plan: This is a pleasant 71 years old female with left leg cellulitis. Add cefazolin. Pulmonary and rheumatology team on the case follow-up as an outpatient upon discharge with both service is Hematology consult Continue with home dose of Eliquis, Cardizem. Add metoprolol 25 mg. Switch IV Lasix to 40 mg by mouth daily. Labs and medication were reviewed.. Continue same treatment. Continue with sy mptomatic treatment. Resume home medication. Monitor lytes and vitals. DVT and GI prophylaxis. Further recommendationsas per clinical course of the patient DVT prophylaxis: Eliquis GI Prophylaxis: Ppi PT/OT: Home health care
[2021-06-24] MEDS ORDERED: QUEtiapine 25 MG TAB PO STA (20:34)
[2021-06-24] MEDS: METOPROLOL TARTRATE 25 MG TAB PO SCH (20:52)
[2021-06-24] MEDS: ATORVASTATIN 80 MG TAB PO SCH (20:52)
[2021-06-25] MEDS: METOPROLOL TARTRATE 25 MG TAB PO SCH (08:05)
[2021-06-25] MEDS: PANTOPRAZOLE 40 MG TABLET PO SCH (08:06)
[2021-06-25] MEDS: FAMOTIDINE 20 MG TAB PO SCH (08:07)
[2021-06-25] MEDS: DILTIAZEM CD 180 MG CAP.ER.24H PO SCH (08:07)
[2021-06-25] MEDS: APIXABAN 5 MG TAB PO SCH ×2 (08:07→21:07)
[2021-06-25] MEDS: valACYclovir 500 MG TAB PO SCH ×2 (08:07→21:06)
[2021-06-25] MEDS: FUROSEMIDE 40 MG TAB PO SCH (08:07)
[2021-06-25] MEDS: predniSONE 20 MG TAB PO SCH (08:07)
[2021-06-25] MEDS: LEFLUNOMIDE 20 MG TAB PO SCH (08:07)
[2021-06-25] MEDS: cycloSPORINE 0.05% OPHTH 0.4 ML DROPERETTE BOTH EYES SCH ×2 (08:07→21:08)
[2021-06-25] MEDS: TOFACITINIB CITRATE PO SCH (08:07)
[2021-06-25] MEDS: LIDOCAINE 5% PATCH TOPICAL SCH (08:09)
[2021-06-25] MEDS: IPRATROPIUM-ALBUTEROL 3 ML NEB INHALATION SCH ×3 (08:31→20:18)
[2021-06-25 11:09] LABS: Magnesium 2.3 mg/dL (1.5-2.4)
[2021-06-25 12:32] LABS: African American GFR (CKD) 43.9 (60.0-200.0); Anion Gap 15.2 mmol/L (4.00-12.00); BUN/Creat Ratio 31.45 Ratio (12.00-20.00); Blood Urea Nitrogen 43.4 mg/dL (9.0-27.0); Calcium 8.6 mg/dL (8.7-10.3); Carbon Dioxide 23.9 mmol/L (21.6-31.8); Non-African American GFR(CKD) 37.8 (60.0-200.0); Potassium 3.8 mmol/L (3.5-5.5)
--- NOTE | 2021-06-25 12:38 | P.PN ---
Subjective Progress Note Date: 06/25/21 Principal diagnosis: insomnia In f/u today pt states sleeping good last night, her lt ankle pain and swelling is better, she is anxious to go home. Objective - Vital Signs Vital signs: Vital Signs Temp 97.6 F 06/25/21 07:00 Pulse 102 H 06/25/21 12:06 Resp 18 06/25/21 07:00 BP 158/89 06/25/21 07:00 Pulse Ox 97 06/25/21 07:00 Intake & Output 06/24/21 06/25/21 06/25/21 18:59 06:59 18:59 Intake Total 420 Balance 420 Intake: Oral 420 Other: Voiding Method External Catheter External Catheter # Voids 4 2 - Constitutional General appearance: Present: cooperative, no acute distress, obese - EENT Eyes: Present: anicteric sclerae, EOMI ENT: Present: hearing grossly normal - Respiratory Respiratory: bilateral: CTA, diminished - Peripheral edema ankle Peripheral Edema: right: None, left: Trace - Neurologic Neurologic: Present: CNII-XII intact - Musculoskeletal Musculoskeletal Comment(s): Severe joint deformities from RA - Psychiatric Psychiatric: Present: A&O x's 3, appropriate affect, intact judgment & insight - Labs CBC & Chem 7: 06/23/21 05:57 06/23/21 05:57 Labs: Abnormal Lab Results - Last 24 Hours (Table) 06/24/21 06/25/21 Range/Units 04:58 05:45 RBC Folate 1,001 H (280 - 791) ng/mL TSH 0.084 L (0.350-5.500) uIU/mL - Imaging and Cardiology Chest x-ray: report reviewed Assessment and Plan (1) Rheumatoid arthritis Narrative/Plan: Pt c/o insomnia-? if r/t steroids. Rheumatology has seen pt and made recommendations Current Visit: Yes Status: Chronic Priority: High Code(s): M06.9 - RHEUMATOID ARTHRITIS, UNSPECIFIED SNOMED Code(s): 52020903 (2) Anemia Narrative/Plan: Pt has history of iron deficiency. Last anemia work up and iron infusions in Oct 2020. Anemia work up showing iron deficiency, planning parenteral iron infusions outpt, pt agrees with plan. She will be contacted for appts. Current Visit: Yes Status: Chronic Priority: Medium Code(s): D64.9 - ANEMIA, UNSPECIFIED SNOMED Code(s): 603514438 Plan: Dr. Conroy is her PCP. Pt is asking for norco and sleeping pills. Our records show that a Rx was sent on 06/13 for #120 tabs, pending MAPS to see if that Rx was ever filled. Checking last Ambien refill. Pt states the seroquil she was given inpt worked well. Will refill if appropriate. F/U with Dr. Conroy sched.
--- NOTE | 2021-06-25 13:11 | P.PN ---
Subjective This is a pleasant 71 years old female with multiple medical problems, she has history of rheumatoid arthritis and possible rheumatoid arthritis lung and she follows up with Dr. Hinojosa the office. She has dyspnea for 2 months but patient told me today she came to the hospital because she was exhausted, she could not sleep well her legs were weeping with water and cannot stand up and fell. She has significant left leg redness on the lateral side and swollen, especially around the ankle. Suspicious for cellulitis. Right leg with minimal or no swelling. Also on exam she has bilateral crepitation in the middle and lower zone with decreased air entry, pulmonary evaluated the patient and This is a chronic problem and recommended to continue with current treatment and follow-up with Dr. Hinojosa in 2-3 weeks post discharge. Also patient seen by cosmetic sales advisor who recommended no change in treatment and follow-up as an outpatient, patient already has appointment on 07/01. Hematology team recommended anemia workup 06/24/2021 Patient sitting in bed. Still tachypneic. Although states that her breathing is close to her baseline. She still complains from some left leg pain but swelling is significantly important. Also complaining from low back pain and lidocaine patch was started she feels like her sciatic symptoms spreading from her low back pain to both legs. Patient has been evaluated by risk reduction counselor recently last week during the previous admission she had negative cardiac cath. She was tachycardic at that time and currently she still tachycardic and blood pressure is also elevated 150/80, we will start metoprolol. Patient already on Cardizem 180 and liquids. Chest x-ray: Large hiatal hernia with bibasilar infiltrate. Also mild conversant interstitial can be associated with chronic interstitial lung disease, interstitial pneumonitis or venous congestion. PT/OT recommended home health care which is ordered. She is tachycardic heart rate 107-224. Sitting bilaterally tachypneic at 20. Afebrile. Extremities on Eliquis, cefazolin, Lasix switched orally and serous to prednisone 40 daily. Check labs in the morning including TSH, telemetry, monitor hemoglobin, BMP magnesium. 06/25/2021 Patient dyspnea is significantly improved today, she is less tachypneic, less tachycardic. Patient refused metoprolol because it causes her problems before. Continue with Cardizem, heart rate currently is around 102. He complains from insomnia. Once her Seroquel. Her creatinine is 1.4 compared to 0.8 yesterday. She remains on Eliquis 5 mg and prednisone 40 mg per observer electrical prospecting. We will hold Lasix. Continue with cefazolin Her left leg is significantly better with less swelling and redness. However not completely resolved. Continue with IV antibiotics Patient wants to go home today add temazepam for insomnia when necessary Possible discharge in 24-48 hours if she keeps improving Objective - Vital Signs Vital signs: Vital Signs Temp 97.6 F 06/25/21 07:00 Pulse 102 H 06/25/21 12:06 Resp 18 06/25/21 07:00 BP 158/89 06/25/21 07:00 Pulse Ox 97 06/25/21 07:00 Intake & Output 06/24/21 06/25/21 06/25/21 18:59 06:59 18:59 Intake Total 420 Balance 420 Intake: Oral 420 Other: Voiding Method External Catheter External Catheter # Voids 4 2 - Exam GENERAL: The patient is alert and oriented x3, not in any acute distress. Well developed, well nourished. HEENT: Pupils are round and equally reacting to light. EOMI. No scleral icterus. No conjunctival pallor. Normocephalic, atraumatic. No pharyngeal erythema. No thyromegaly. CARDIOVASCULAR: S1 and S2 present. No murmurs, rubs, or gallops. -PULMONARY: Chest is clear to auscultation, no wheezing . Bilateral basal crepitation. Tachypneic ABDOMEN: Soft, nontender, nondistended, normoactive bowel sounds. No palpable organomegaly. MUSCULOSKELETAL: No joint swelling or deformity. -EXTREMITIES: No cyanosis, clubbing, or pedal edema. Left leg edema significantly more on the left, erythema and warmth of the lateral left leg is improving. NEUROLOGICAL: Gross neurological examination did not reveal any focal deficits. SKIN: No rashes. no petechiae. - Labs CBC & Chem 7: 06/23/21 05:57 06/25/21 05:45 Labs: Abnormal Lab Results - Last 24 Hours (Table) 06/24/21 06/25/21 Range/Units 04:58 05:45 Anion Gap 15.20 H (4.00-12.00) mmol/L BUN 43.4 H (9.0-27.0) mg/dL Est GFR (CKD-EPI)AfAm 43.9 L (60.0-200.0) Est GFR (CKD-EPI)NonAf 37.8 L (60.0-200.0) BUN/Creatinine Ratio 31.45 H (12.00-20.00) Ratio Glucose 161 H (70-110) mg/dL Calcium 8.6 L (8.7-10.3) mg/dL RBC Folate 1,001 H (280 - 791) ng/mL TSH 0.084 L (0.350-5.500) uIU/mL Assessment and Plan Assessment: Acute left leg cellulitis with left leg swelling Chronic RA lung disease, pulmonary the case Paroxysmal atrial fibrillation, with RVR. on Eliquis, Cardizem and metoprolol Iron deficiency without anemia History of rheumatoid arthritis Chronic pain syndrome Insomnia Iron deficiency anemia Plan: This is a pleasant 71 years old female with left leg cellulitis. Add cefazolin. Pulmonary and rheumatology team on the case follow-up as an outpatient upon discharge with both service is Hematology consult Continue with temazepam urine Continue with home dose of Eliquis, Cardizem. Add metoprolol 25 mg. Switch IV Lasix to 40 mg by mouth daily. Labs and medication were reviewed.. Continue same treatment. Continue with symptomatic treatment. Resume home medication. Monitor lytes and vitals. DVT and GI prophylaxis. Further recommendationsas per clinical course of the patient DVT prophylaxis: Eliquis GI Prophylaxis: Ppi PT/OT: Home health care
[2021-06-25] MEDS: ATORVASTATIN 80 MG TAB PO SCH (21:07)
[2021-06-25] MEDS: HYDROcodone/APAP 5-325MG 1 EACH TAB PO PRN (23:05)
[2021-06-26 07:23] LABS: Methylmalonic Acid 0.23 umol/L (<0.40)
[2021-06-26] MEDS: LIDOCAINE 5% PATCH TOPICAL SCH (07:35)
[2021-06-26] MEDS: TOFACITINIB CITRATE PO SCH (07:36)
[2021-06-26] MEDS: cycloSPORINE 0.05% OPHTH 0.4 ML DROPERETTE BOTH EYES SCH (07:36)
[2021-06-26] MEDS: predniSONE 20 MG TAB PO SCH (07:37)
[2021-06-26] MEDS: APIXABAN 5 MG TAB PO SCH (07:37)
[2021-06-26] MEDS: FAMOTIDINE 20 MG TAB PO SCH (07:37)
[2021-06-26] MEDS: PANTOPRAZOLE 40 MG TABLET PO SCH (07:37)
[2021-06-26] MEDS: DILTIAZEM CD 180 MG CAP.ER.24H PO SCH (07:38)
[2021-06-26] MEDS: valACYclovir 500 MG TAB PO SCH (07:38)
[2021-06-26] MEDS: LEFLUNOMIDE 20 MG TAB PO SCH (07:38)
[2021-06-26] MEDS: IPRATROPIUM-ALBUTEROL 3 ML NEB INHALATION SCH ×2 (08:14→11:59)
[2021-06-26 08:49] VITALS: BMI 37.8
[2021-06-26] MEDS: HYDROcodone/APAP 5-325MG 1 EACH TAB PO PRN (10:29)
[2021-06-26] MEDS ORDERED: MAG HYDROX/AL HYDROX/SIMETH 30 ML, HYOSCYAMINE ELIXIR 10 ML, LIDOCAINE VISCOUS 2% 10 ML PO PRN ×3 (11:20)
[2021-06-26] MEDS ORDERED: TEMAZEPAM 15 MG CAP PO PRN (11:21)
[2021-06-26 13:17] LABS: African American GFR (CKD) 57.1 (60.0-200.0); Anion Gap 14.8 mmol/L (4.00-12.00); BUN/Creat Ratio 36.49 Ratio (12.00-20.00); Blood Urea Nitrogen 40.5 mg/dL (9.0-27.0); Calcium 8.7 mg/dL (8.7-10.3); Carbon Dioxide 26.1 mmol/L (21.6-31.8); Non-African American GFR(CKD) 49.2 (60.0-200.0); Potassium 3.4 mmol/L (3.5-5.5)
[2021-06-26] MEDS ORDERED: POTASSIUM CHLORIDE ER 20 MEQ TAB.ER PO STA (14:26)
[2021-06-26 15:00] VITALS: BP 144/69; PULSE 117; RESP 20; TEMP 97.9
--- NOTE | 2021-06-26 16:11 | P.PN ---
Subjective Progress Note Date: 06/26/21 Principal diagnosis: insomnia In f/u today pt states bad day, not doing good. She had persistent c/o about not being able to sleep despite numerous medication trials. Lt ankle pain and swelling improved, no relapse. Today she does not want to go home. Objective - Vital Signs Vital signs: Vital Signs Temp 97.9 F 06/26/21 14:58 Pulse 117 H 06/26/21 14:58 Resp 20 06/26/21 14:58 BP 144/69 06/26/21 14:58 Pulse Ox 91 L 06/26/21 14:58 Intake & Output 06/25/21 06/26/21 06/26/21 18:59 06:59 18:59 Intake Total 476 900 598 Balance 476 900 598 Weight 90.718 kg Intake: Intake, IV Titration 100 Amount ceFAZolin 2 gm In Sodium 100 Chloride 0.9% 50 ml @ 100 mls/hr IVPB Q8HR BLU Rx# :[id number] Oral 476 800 598 Other: Voiding Method Toilet Toilet # Voids 2 1 - Constitutional General appearance: Present: cooperative, no acute distress, obese - EENT Eyes: Present: anicteric sclerae, EOMI ENT: Present: hearing grossly normal - Respiratory Respiratory: bilateral: CTA - Cardiovascular Rhythm: regular Heart sounds: normal: S1, S2 - Peripheral edema leg Peripheral Edema: bilateral: Trace - Gastrointestinal General gastrointestinal: Present: normal bowel sounds, soft - Neurologic Neurologic: Present: CNII-XII intact - Musculoskeletal Musculoskeletal Comment(s): severe RA joint damage - Psychiatric Psychiatric: Present: A&O x's 3, appropriate affect, intact judgment & insight - Labs CBC & Chem 7: 06/23/21 05:57 06/26/21 07:07 Labs: Abnormal Lab Results - Last 24 Hours (Table) 06/26/21 Range/Units 07:07 Potassium 3.4 L (3.5-5.5) mmol/L Anion Gap 14.80 H (4.00-12.00) mmol/L BUN 40.5 H (9.0-27.0) mg/dL Est GFR (CKD-EPI)AfAm 57.1 L (60.0-200.0) Est GFR (CKD-EPI)NonAf 49.2 L (60.0-200.0) BUN/Creatinine Ratio 36.49 H (12.00-20.00) Ratio Assessment and Plan (1) Rheumatoid arthritis Narrative/Plan: F/U with Electrical And Radio Mechanic as directed Current Visit: Yes Status: Chronic Priority: High Code(s): M06.9 - R HEUMATOID ARTHRITIS, UNSPECIFIED SNOMED Code(s): 65810891 (2) Anemia Narrative/Plan: Pt has history of iron deficiency. Last anemia work up and iron infusions in Oct 2020. Current anemia work up showing iron deficiency. Planning parenteral iron infusions outpt, pt agrees with plan. She will be contacted for appts. Current Visit: Yes Status: Chronic Priority: Medium Code(s): D64.9 - ANEMIA, UNSPECIFIED SNOMED Code(s): 462053229 Plan: Dr. Conroy is her PCP. MAPS done. [facility] refilled from [facility]. Pt states the seroquil she was given inpt worked well but last night it didn't. Pt states she hasn't slept for "months". She has tried "everything" and "not rod" helps. Pt can f/u with Dr. Conroy for another approach to her insomnia problem. Dr. Conroy had recommended a sleep study at 06/13/21 visit. Recommend follow through on that. F/U with Dr. Conroy sched for after iron infusions. Reviewed case with IM
--- NOTE | 2021-06-27 07:40 | P.DS ---
Providers Date of admission: 06/24/21 08:02 Attending physician: Carmen Kelly Consults: 06/22/21 15:07 Consult Physician Routine Consulting Provider: Chris Conroy Consult Reason/Comments: Patient known to physician Do you want consulting provider notified?: Yes Consult Physician Routine Consulting Provider: Rocael Mondragon Consult Reason/Comments: Dyspnea, Rheumatoid arthritis Do you want consulting provider notified?: Yes 06/22/21 18:42 Consult Physician Routine Consulting Provider: Flaco Banks Consult Reason/Comments: sob Do you want consulting provider notified?: Yes Consult Physician Routine Consulting Provider: Kike Mercedes Consult Reason/Comments: knew the pt Do you want consulting provider notified?: Yes 06/23/21 11:11 Consult Physician Routine Consulting Provider: Denisa Saleh Consult Reason/Comments: mgmt of RA, pt not tolerating steroids Do you want consulting provider notified?: Yes [facility]: Diagnoses: Acute left leg cellulitis with left leg swelling, improved with antibiotics Chronic RA lung disease, with worsening dyspnea over 2 months. Possible elements of acute tracheobronchitis. significantly improved With antibiotics. Paroxysmal atrial fibrillation, with RVR. on Eliquis, Cardizem and metoprolol Large hiatal hernia History of rheumatoid arthritis Chronic pain syndrome Insomnia Iron deficiency anemia Hospital course: This is a pleasant 71 years old female with multiple medical problems, she has history of rheumatoid arthritis and possible rheumatoid arthritis lung and she follows up with Dr. Hinojosa the office. Also states her PCP is Dr. conroy who sees her for anemia, rheumatoid arthritis and rheumatoid lung disease. She has dyspnea for 2 months but patient came to the hospital because she was exhausted, she could not sleep well her legs were weeping with water and cannot stand up and fell. She has significant left leg redness on the lateral side and swollen, especially around the ankle. Suspicious for cellulitis. Right leg with minimal or no swelling. Also on exam she has bilateral crepitation in the middle and lower zone with decreased air entry, pulmonary evaluated the patient . On admission patient has been evaluated by pulmonary and rheumatology as well as hematology/oncology team. Also ultrasound of the left leg and right leg were negative for giving us thrombosis. Her pro BNP was normal at 352. Chest x-ray showing large hiatal hernia and bilateral basal infiltrate with mild conversant interstitial markings. Patient was treated with IV Lasix switched to oral Lasix, continue with her home dose of Eliquis, also with steroids first Solu-Medrol and then switched to prednisone. And antibiotics with cefazolin. Her left leg swelling and erythema is significantly improved. Her dyspnea also significantly improved she is not tachypneic upon discharge. She has some heartburn and recently she had cardiac cath on 06/10 showing mild coronary artery disease. He was complaining of some heartburn is occasionally most likely related to her large hiatal hernia. The patient was referred to outpatient surgeon Dr. Pearl and she agrees. On the day of discharge her dyspnea improved, no chest pain, she has some mild heartburn which is improved prior to discharge mostly related to hiatal hernia. No headache or weakness or numbness. No abdominal pain. No nausea vomiting. No diarrhea. Her left leg is significantly improving. But she was complaining of from insomnia and melatonin provided for her upon discharge with instruction about sleep hygiene is provided for the patient Eventually patient was treated by or consult on significant pulmonary, rheumatology and hematology upon discharge patient was provided with tapered prednisone down to 10 mg daily. Patient told me she is taking prednisone 10 milligrams daily although it was documented 40 mg daily upon admission. Rheumatology team stated patient does not need steroids from their perspective. Therefore patient was instructed to follow up with Dr. Hinojosa to discuss about long-term steroid treatment if needed and she agrees. Also patient discharged on Keflex for 10 days Problems and management plan were discussed with the patient and he verbalized understanding and acceptance Patient was found stable and can be discharged home in guarded prognosis however he needs follow-up as an outpatient. Patient is high-risk for readmission or complication. Patient was instructed to follow up with PCP within one week and patient agrees. Also patient was instructed to follow up with her facility engineer Dr. Hinojosa and she agrees with the appointments made for her on 07/17. Patient was instructed to discuss her prednisone with him. Also patient was instructed to follow up with laboratory clerk in one week. An appointment made for her with the surgeon Dr. Loredo on 07/03 and she agrees to see him for her hiatal hernia Physical exam Gen: patient is a AAOx3, no distress CVS: S1-S2, RRR, no murmur Lungs: B/L CTA, no wheezing Abdomen: soft, no distention, no tenderness, positive bowel sounds -Extremity: no leg edema or induration. Left leg swelling and erythema signi ficantly improved Time spent more than 35 minutes Patient Condition at Discharge: Stable Plan - Discharge Summary New Discharge Prescriptions: New Melatonin 5 mg PO HS PRN 5 Days #5 tablet PRN Reason: Insomnia predniSONE 10 mg PO DIRECTED #40 tab Cephalexin [Keflex] 500 mg PO Q8HR 10 Days #30 cap Continue Atorvastatin [Lipitor] 80 mg PO HS Tofacitinib Citrate [Xeljanz Xr] 11 mg PO DAILY HYDROcodone/APAP 5-325MG [[place] 5-325] 1 tab PO TID PRN PRN Reason: Pain cycloSPORINE 0.05% OPHTH SOLN [Restasis] 1 drop BOTH EYES BID valACYclovir [Valtrex] 500 mg PO BID Famotidine [Pepcid] 20 mg PO BID #30 tablet Omeprazole 20 mg PO DAILY Apixaban [Eliquis] 5 mg PO BID #60 tab Leflunomide [Arava] 20 mg PO DAILY Diltiazem Cd [Cardizem CD] 180 mg PO DAILY Discontinued Zolpidem [Ambien] 10 mg PO HS predniSONE 40 mg PO DAILY Discharge Medication List Atorvastatin [Lipitor] 80 mg PO HS 04/16/14 [History] HYDROcodone/APAP 5-325MG [[place] 5-325] 1 tab PO TID PRN 06/22/17 [History] Tofacitinib Citrate [Xeljanz Xr] 11 mg PO DAILY 06/22/17 [History] Leflunomide [Arava] 20 mg PO DAILY 06/08/21 [History] cycloSPORINE 0.05% OPHTH SOLN [Restasis] 1 drop BOTH EYES BID 06/08/21 [History] valACYclovir [Valtrex] 500 mg PO BID 06/08/21 [History] Famotidine [Pepcid] 20 mg PO BID #30 tablet 06/10/21 [Rx] Diltiazem Cd [Cardizem CD] 180 mg PO DAILY 06/22/21 [History] Omeprazole 20 mg PO DAILY 06/22/21 [History] Apixaban [Eliquis] 5 mg PO BID #60 tab 06/26/21 [Rx] Cephalexin [Keflex] 500 mg PO Q8HR 10 Days #30 cap 06/26/21 [Rx] Melatonin 5 mg PO HS PRN 5 Days #5 tablet 06/26/21 [Rx] predniSONE 10 mg PO DIRECTED #40 tab 06/26/21 [Rx] Follow up Appointment(s)/Referral(s): Rocael Mondragon MD [STAFF PHYSICIAN] - 07/17/21 2:15 pm (to check if you need to continue with prednisone or stop it. please discuss it with ) Denisa Saleh MD [STAFF PHYSICIAN] - 1 Week (you may have appointment with your senior wealth advisor on 07/01. please call to cofirm your appointment) Chris Conroy MD [Primary Care Provider] - 08/08/21 1:00 pm [facility] Visiting Nurse, [NON-STAFF] - 1 Week Adonis Clarke MD [STAFF PHYSICIAN] - 07/03/21 3:30 pm (CALL OFFICE and ask for LIANNE for Dr. Yadav's out of town referral.) Patient Instructions/Handouts: Hiatal Hernia (DC) Activity/Diet/Wound Care/Special Instructions: Heart healthy diet Activity is restricted till you see your doctor Discharge Disposition: HOME WITH HOME HEALTH SERVICES
== END 2021-06-26 16:22 | disposition home health service (06) | DRG 197 ==
LOC: EC 11:45 → 6NMEDSUR 15:04 → OBSVTOIN 06-24 08:02
PROVIDERS: ADMIT Hospitalist; ATTEND Hospitalist
DX: M05.10 Rheumatoid lung disease with rheumatoid arthritis of unspecified site (principal); L03.116 Cellulitis of left lower limb; E27.40 Unspecified adrenocortical insufficiency; E87.1 Hypo-osmolality and hyponatremia; I48.20 Chronic atrial fibrillation, unspecified; Z20.822 Contact with and (suspected) exposure to COVID-19; M19.90 Unspecified osteoarthritis, unspecified site; M54.5 Low back pain; K21.9 Gastro-esophageal reflux disease without esophagitis; E78.00 Pure hypercholesterolemia, unspecified; E78.5 Hyperlipidemia, unspecified; G47.00 Insomnia, unspecified; E87.6 Hypokalemia; E66.9 Obesity, unspecified; G89.4 Chronic pain syndrome; I25.10 Atherosclerotic heart disease of native coronary artery without angina pectoris; I48.0 Paroxysmal atrial fibrillation; D50.9 Iron deficiency anemia, unspecified; J84.10 Pulmonary fibrosis, unspecified; Z68.37 Body mass index [BMI] 37.0-37.9, adult; Z79.01 Long term (current) use of anticoagulants; Z79.899 Other long term (current) drug therapy; Z82.49 Family history of ischemic heart disease and other diseases of the circulatory system; Z90.710 Acquired absence of both cervix and uterus; K29.50 Unspecified chronic gastritis without bleeding; K44.9 Diaphragmatic hernia without obstruction or gangrene
CPT/HCPCS: 36415; 71045; 71046; 80048; 80053; 81001; 82607; 82728; 82747; 83540; 83550; 83605; 83735; 83880; 83921; 84145; 84439; 84443; 84484; 85025; 85610; 85730; 87635; 93005; 94640; 99285

== ENCOUNTER 2021-07-01 05:33 | Emergency (ER) | payer MEDICARE, BC ==
[2021-07-01] MEDS ORDERED: PANTOPRAZOLE 40 MG/10 ML VIAL IVP STA (06:05)
[2021-07-01] MEDS ORDERED: HYDROmorphone 0.5 MG/0.5 ML SYRINGE IVP STA (06:20)
[2021-07-01] MEDS ORDERED: ONDANSETRON 4 MG/2 ML VIAL IVP STA ×2 (06:20→10:45)
--- NOTE | 2021-07-01 06:20 | ED ---
Abdominal Pain HPI - General Chief Complaint: Abdominal Pain Stated Complaint: Abd Pain Time Seen by Provider: 07/01/21 06:03 Source: patient, RN notes reviewed Mode of arrival: ambulatory Limitations: no limitations - History of Present Illness Initial Comments: Patient is 71-year-old female presented to the ED for abdominal pain. Patient states that she's been on for months of oral steroids and believes this is causing an ulcer. Patient reports upper abdominal epigastric pain is not made better in any position. Patient's states pain started around 4:00 this morning. Patient reports no pain in any other region of abdomen, just pressure. Patient reports nausea without vomiting, and no fever. Patient denies any changes in bowel movements or urination. Patient reports pain in lower back, stating it's from "can't get out of bed". - Related Data Home Medications Medication Instructions Recorded Confirmed Atorvastatin [Lipitor] 80 mg PO HS 04/16/14 06/22/21 HYDROcodone/APAP 5-325MG [[place] 1 tab PO TID PRN 06/22/17 06/22/21 5-325] Tofacitinib Citrate [Xeljanz Xr] 11 mg PO DAILY 06/22/17 06/22/21 Leflunomide [Arava] 20 mg PO DAILY 06/08/21 06/22/21 cycloSPORINE 0.05% OPHTH SOLN 1 drop BOTH EYES BID 06/08/21 06/22/21 [Restasis] valACYclovir [Valtrex] 500 mg PO BID 06/08/21 06/22/21 Diltiazem Cd [Cardizem CD] 180 mg PO DAILY 06/22/21 06/22/21 Omeprazole 20 mg PO DAILY 06/22/21 06/22/21 Previous Rx's Medication Instructions Recorded Famotidine [Pepcid] 20 mg PO BID #30 tablet 06/10/21 Apixaban [Eliquis] 5 mg PO BID #60 tab 06/26/21 Cephalexin [Keflex] 500 mg PO Q8HR 10 Days #30 cap 06/26/21 Melatonin 5 mg PO HS PRN 5 Days #5 tablet 06/26/21 predniSONE 10 mg PO DIRECTED #40 tab 06/26/21 Ondansetron Odt [Zofran Odt] 4 mg PO Q8HR PRN #10 tab 07/01/21 Sucralfate [Carafate] 1 gm PO BID #14 tablet 07/01/21 Allergies Allergy/AdvReac Type Severity Reaction Status Date / Time celecoxib [From Celebrex] Allergy Rash/Hives Verified 07/01/21 05:38 ciprofloxacin [From Cipro] AdvReac Hallucinati Verified 07/01/21 05:38 ons gold sodium thiomalate AdvReac flushing Verified 07/01/21 05:38 [From Myochrysine] Review of Systems ROS Statement: Those systems with pertinent positive or pertinent negative responses have been documented in the HPI. ROS Other: All systems not noted in ROS Statement are negative. Past Medical History Past Medical History: Atrial Fibrillation, GERD/Reflux, Hyperlipidemia, Osteoarthritis (OA), Respiratory Disorder, Rheumatoid Arthritis (RA) Additional Past Medical History / Comment(s): HIATAL HERNIA,PULMONARY FIBROSIS, sepsis june 11 2016, anemia with transfusion, adrenal insufficiency. History of Any Multi-Drug Resistant Organisms: None Reported Past Surgical History: Adenoidectomy, Back Surgery, Hysterectomy, Tonsillectomy Additional Past Surgical History / Comment(s): SINUS SURG,johnathon cataracts removal Past Anesthesia/Blood Transfusion Reactions: No Reported Reaction Additional Past Anesthesia/Blood Transfusion Reaction / Comment(s): no hx blood transfusion Past Psychological History: No Psychological Hx Reported Smoking Status: Never smoker Past Alcohol Use History: None Reported Past Drug Use History: None Reported - Past Family History Mother Family Medical History: CVA/TIA, Myocardial Infarction ([place]) Additional Family Medical History / Comment(s): borderline diabetes Father Family Medical History: Cancer Additional Family Medical History / Comment(s): carcinoma gallbladder General Exam Limitations: physical limitation General appearance: alert, in no apparent distress Respiratory exam: Present: normal lung sounds bilaterally. Absent: respiratory distress, wheezes, rales, rhonchi, stridor Cardiovascular Exam: Present: regular rate, tachycardia, normal heart sounds. Absent: systolic murmur, diastolic murmur, rubs, gallop, clicks GI/Abdominal exam: Present: soft, tenderness (epigastric), normal bowel sounds (Epigastric) Back exam: Present: normal inspection Neurological exam: Present: alert, oriented X3 Skin exam: Present: warm, dry, intact, normal color. Absent: rash Course Vital Signs 07/01/21 07/01/21 05:35 07:42 Temperature 97.8 F 99.6 F Pulse Rate 104 H 112 H Respiratory 19 20 Rate Blood Pressure 111/65 135/76 O2 Sat by Pulse 97 95 Oximetry Medical Decision Making - Medical Decision Making Patient 71-year-old presented for abdominal discomfort CT shows chronic changes no acute changes patient has a known large hiatal hernia she is having increasing reflux and issues with her gastritis patient feels greatly improved at this time we discharged in stable condition. - Lab Data Result diagrams: 07/01/21 05:43 07/01/21 05:43 Lab Results 07/01/21 07/01/21 07/01/21 Range/Units 05:43 05:43 05:43 WBC 12.3 H (3.8-10.6) k/uL RBC 3.01 L (3.80-5.40) m/uL Hgb 9.9 L D (11.4-16.0) gm/dL Hct 28.9 L (34.0-46.0) % MCV 95.9 (80.0-100.0) fL MCH 32.9 (25.0-35.0) pg MCHC 34.3 (31.0-37.0) g/dL RDW 17.3 H (11.5-15.5) % Plt Count 286 (150-450) k/uL MPV 7.8 Neutrophils % 89 % Lymphocytes % 5 % Monocytes % 5 % Eosinophils % 0 % Basophils % 0 % Neutrophils # 10.9 H (1.3-7.7) k/uL Lymphocytes # 0.7 L (1.0-4.8) k/uL Monocytes # 0.6 (0-1.0) k/uL Eosinophils # 0.1 (0-0.7) k/uL Basophils # 0.0 (0-0.2) k/uL Anisocytosis Slight Macrocytosis Slight Sodium 133 L (137-145) mmol/L Potassium 3.2 L (3.5-5.1) mmol/L Chloride 100 (98-107) mmol/L Carbon Dioxide 28 (22-30) mmol/L Anion Gap 5 mmol/L BUN 38 H (7-17) mg/dL Creatinine 0.97 (0.52-1.04) mg/dL Est GFR (CKD-EPI)AfAm 67 (>60 ml/min/1.73 sqM) Est GFR (CKD-EPI)NonAf 58 (>60 ml/min/1.73 sqM) Glucose 85 (74-99) mg/dL Calcium 9.3 (8.4-10.2) mg/dL Magnesium 1.9 (1.6-2.3) mg/dL Total Bilirubin 0.9 (0.2-1.3) mg/dL AST 44 H (14-36) U/L ALT 14 (4-34) U/L Alkaline Phosphatase 84 (38-126) U/L Troponin I 0.025 (0.000-0.034) ng/mL Total Protein 5.6 L (6.3-8.2) g/dL Albumin 3.0 L (3.5-5.0) g/dL Amylase 88 (30-110) U/L Lipase 353 H (23-300) U/L Urine Color Urine Appearance (Clear) Urine pH (5.0-8.0) Ur Specific [place] (1.001-1.035) Urine Protein (Negative) Urine Glucose (UA) (Negative) Urine Ketones (Negative) Urine Blood (Negative) Urine Nitrite (Negative) Urine Bilirubin (Negative) Urine Urobilinogen (<2.0) mg/dL Ur Leukocyte Esterase (Negative) 07/01/21 Range/Units 09:41 WBC (3.8-10.6) k/uL RBC (3.80-5.40) m/uL Hgb (11.4-16.0) gm/dL Hct (34.0-46.0) % MCV (80.0-100.0) fL MCH (25.0-35.0) pg MCHC (31.0-37.0) g/dL RDW (11.5-15.5) % Plt Count (150-450) k/uL MPV Neutrophils % % Lymphocytes % % Monocytes % % Eosinophils % % Basophils % % Neutrophils # (1.3-7.7) k/uL Lymphocytes # (1.0-4.8) k/uL Monocytes # (0-1.0) k/uL Eosinophils # (0-0.7) k/uL Basophils # (0-0.2) k/uL Anisocytosis Macrocytosis Sodium (137-145) mmol/L Potassium (3.5-5.1) mmol/L Chloride (98-107) mmol/L Carbon Dioxide (22-30) mmol/L Anion Gap mmol/L BUN (7-17) mg/dL Creatinine (0.52-1.04) mg/dL Est GFR (CKD-EPI)AfAm (>60 ml/min/1.73 sqM) Est GFR (CKD-EPI)NonAf (>60 ml/min/1.73 sqM) Glucose (74-99) mg/dL Calcium (8.4-10.2) mg/dL Magnesium (1.6-2.3) mg/dL Total Bilirubin (0.2-1.3) mg/dL AST (14-36) U/L ALT (4-34) U/L Alkaline Phosphatase (38-126) U/L Troponin I (0.000-0.034) ng/mL Total Protein (6.3-8.2) g/dL Albumin (3.5-5.0) g/dL Amylase (30-110) U/L Lipase (23-300) U/L Urine Color Yellow Urine Appearance Clear (Clear) Urine pH 6.0 (5.0-8.0) Ur Specific [place] 1.046 H (1.001-1.035) Urine Protein Trace H (Negative) Urine Glucose (UA) Trace H (Negative) Urine Ketones Trace H (Negative) Urine Blood Negative (Negative) Urine Nitrite Negative (Negative) Urine Bilirubin Negative (Negative) Urine Urobilinogen <2.0 (<2.0) mg/dL Ur Leukocyte Esterase Negative (Negative) Disposition Clinical Impression: Abdominal pain, Gastritis Disposition: HOME SELF-CARE Condition: Stable Instructions (If sedation given, give patient instructions): Abdominal Pain (ED) Additional Instructions: Please return to the Emergency Department if symptoms worsen or any other concerns. Prescriptions: Sucralfate [Carafate] 1 gm PO BID #14 tablet Ondansetron Odt [Zofran Odt] 4 mg PO Q8HR PRN #10 tab PRN Reason: Nausea Is patient prescribed a controlled substance at d/c from ED?: No Referrals: Chris Conroy MD [Primary Care Provider] - 1-2 days Time of Disposition: 10:47
[2021-07-01] MEDS ORDERED: MAG HYDROX/AL HYDROX/SIMETH 30 ML, HYOSCYAMINE ELIXIR 10 ML, LIDOCAINE VISCOUS 2% 10 ML PO STA ×3 (06:25)
[2021-07-01] MEDS ORDERED: SODIUM CHLORIDE 0.9% 500 ML 500 ML IV ONE (06:26)
[2021-07-01] MEDS ORDERED: SODIUM CHLORIDE 0.9% 1,000 ML IV ONE (06:26)
[2021-07-01 06:47] LABS: Calcium 9.3 mg/dL (8.4-10.2); Magnesium 1.9 mg/dL (1.6-2.3); Potassium 3.2 mmol/L (3.5-5.1); Total Bilirubin 0.9 mg/dL (0.2-1.3); Total Protein 5.6 g/dL (6.3-8.2)
[2021-07-01 07:06] LABS: Anisocytosis Slight; Basophils % (A) 0 %; Eosinophils # (A) 0.1 k/uL (0-0.7); Eosinophils % (A) 0 %; HCT 28.9 % (34.0-46.0); Lymphocytes # (A) 0.7 k/uL (1.0-4.8); Lymphocytes % (A) 5 %; MCH 32.9 pg (25.0-35.0); MCHC 34.3 g/dL (31.0-37.0); MCV 95.9 fL (80.0-100.0); Macrocytosis Slight; Mean Platelet Volume 7.8; Monocytes # (A) 0.6 k/uL (0-1.0); Monocytes % (A) 5 %; Neutrophils # (A) 10.9 k/uL (1.3-7.7); Neutrophils % (A) 89 %; Platelet Count 286 k/uL (150-450); RBC 3.01 m/uL (3.80-5.40); RDW 17.3 % (11.5-15.5); WBC 12.3 k/uL (3.8-10.6)
[2021-07-01 07:07] LABS: HGB 9.9 gm/dL (11.4-16.0)
[2021-07-01 07:43] VITALS: BP 135/76; PULSE 112; RESP 20; TEMP 99.6
--- NOTE | 2021-07-01 08:43 | CT ---
EXAMINATION TYPE: CT abdomen pelvis w con DATE OF EXAM: 07/01/2021 COMPARISON: 02/01/2018 HISTORY: 71-year-old female abdominal pain TECHNIQUE: Contiguous axial scanning of the abdomen and pelvis following administration of 100 ml Iso bhavani 300 IV contrast. Delayed images through the kidneys and coronal/sagittal reconstructions perform ed. CT DLP: 1984.4 mGycm Automated exposure control for dose reduction was used. FINDINGS: Heart normal size without pericardial effusion. LAD coronary artery calcifications are present. There is a moderate to large hiatal hernia involving two thirds of the stomach in the lower chest. In addition, the body of the pancreas also extends into the hernia as does a portion of the splenic art jany and vein, unchanged from prior. Patchy interstitial changes in the lower lungs could represent fibrosis superimposed on COPD/emphysem a. No focal liver lesion or biliary ductal dilatation. Portal venous system is patent. Gallbladder, adrenal glands, kidneys, spleen, and pancreas show no gross abnormality. No dilated small bowel, free fluid, or free air. No mesenteric or retroperitoneal lymphadenopathy. Normal appendix. Mild overall stool burden. Mild sigmoid diverticulosis. No pericolonic inflammatory change. Bladder urine distended. Uterus surgically absent. Neither ovaries are visualized. Phleboliths. No ab normal fluid collection in the pelvis or pelvic lymphadenopathy. Bones: Degenerated levoconvex scoliosis of the lumbar spine. Grade 1 retrolisthesis L2-L3 and L3-L4 a nd grade 1 anterolisthesis L5-S1. Severe hypertrophic facet arthropathy throughout. IMPRESSION: 1. REDEMONSTRATED MODERATE TO LARGE HIATAL HERNIA INVOLVING TWO THIRDS OF THE STOMACH IN THE LOWER CH EST. IN ADDITION, SEEN IN 2018, THE HERNIA INVOLVES THE BODY OF THE PANCREAS WELL PORTIONS O F THE SPLENIC ARTERY AND VEIN. 2. MILD SIGMOID DIVERTICULOSIS WITHOUT ACUTE DIVERTICULITIS. 3. CHRONIC PATCHY INTERSTITIAL CHANGES/FIBROSIS AND COPD WITHIN THE VISUALIZED LOWER LUNGS. 4. ADVANCED DEGENERATED LEVOCONVEX SCOLIOSIS OF THE LUMBAR SPINE.
[2021-07-01] MEDS ORDERED: SUCRALFATE 1 GM TAB PO STA (08:53)
[2021-07-01] MEDS ORDERED: FAMOTIDINE 20 MG/2 ML VIAL IV STA (08:53)
[2021-07-01] MEDS ORDERED: MAG HYDROX/AL HYDROX/SIMETH 30 ML CUP PO STA (08:53)
[2021-07-01 10:03] LABS: Appearance,Urine Clear (Clear); Bilirubin,Urine Negative (Negative); Blood,Urine Negative (Negative); Color,Urine Yellow; Glucose,Urine (UA) Trace (Negative); Ketones,Urine Trace (Negative); Leukocyte Esterase,Urine Negative (Negative); Nitrite,Urine Negative (Negative); Protein,Urine Trace (Negative); Urobilinogen,Urine <2.0 mg/dL (<2.0)
[2021-07-01 10:29] LABS: Specific Gravity,Urine 1.046 (1.001-1.035)
== END 2021-07-01 11:19 | disposition home or self-care (01) ==
LOC: EC 05:33
DX: K29.70 Gastritis, unspecified, without bleeding (principal); I48.91 Unspecified atrial fibrillation; K21.9 Gastro-esophageal reflux disease without esophagitis; E78.5 Hyperlipidemia, unspecified; M19.90 Unspecified osteoarthritis, unspecified site; Z79.01 Long term (current) use of anticoagulants; Z88.1 Allergy status to other antibiotic agents; Z90.89 Acquired absence of other organs; Z90.710 Acquired absence of both cervix and uterus
CPT/HCPCS: 99284; 96374; 96375 ×3; 96376; 96361; 36415; 93005; 80053; 82150; 83690; 83735; 84484; 85025; 81003; 74177; J2405; C9113; J1170; Q9967

== ENCOUNTER 2021-07-13 08:23 | Inpatient (IN) | payer MEDICARE, BC ==
[2021-07-13] MEDS ORDERED: ACETAMINOPHEN TAB 500 MG TAB PO STA (08:32)
[2021-07-13] MEDS ORDERED: IBUPROFEN 600 MG TAB PO STA (08:32)
--- NOTE | 2021-07-13 08:39 | ED ---
General Adult HPI - General Stated complaint: MANUELA Time Seen by Provider: 07/13/21 08:23 Source: patient, RN notes reviewed, old records reviewed - History of Present Illness Initial comments: This is a 71-year-old female with a past medical history significant for pulmonary fibrosis. Edema and a very large hiatal hernia. Patient states she comes in today because of difficulty breathing. Patient states the difficulty breathing is been ongoing since March and she's told us because she has a large hiatal hernia. Patient states she's been unable to find a surgeon to fix it. Patient states the difficulty breathing seemed to get worse last night. Patient states she's had 3 COVID vaccines. Patient denies any fever chills. Patient denies a cough. Patient denies chest pain palpitations or difficulty - Related Data Home Medications Medication Instructions Recorded Confirmed Atorvastatin [Lipitor] 80 mg PO HS 04/16/14 06/22/21 HYDROcodone/APAP 5-325MG [[place] 1 tab PO TID PRN 06/22/17 06/22/21 5-325] Tofacitinib Citrate [Xeljanz Xr] 11 mg PO DAILY 06/22/17 06/22/21 Leflunomide [Arava] 20 mg PO DAILY 06/08/21 06/22/21 cycloSPORINE 0.05% OPHTH SOLN 1 drop BOTH EYES BID 06/08/21 06/22/21 [Restasis] valACYclovir [Valtrex] 500 mg PO BID 06/08/21 06/22/21 Diltiazem Cd [Cardizem CD] 180 mg PO DAILY 06/22/21 06/22/21 Omeprazole 20 mg PO DAILY 06/22/21 06/22/21 Previous Rx's Medication Instructions Recorded Famotidine [Pepcid] 20 mg PO BID #30 tablet 06/10/21 Apixaban [Eliquis] 5 mg PO BID #60 tab 06/26/21 Cephalexin [Keflex] 500 mg PO Q8HR 10 Days #30 cap 06/26/21 Melatonin 5 mg PO HS PRN 5 Days #5 tablet 06/26/21 predniSONE 10 mg PO DIRECTED #40 tab 06/26/21 Ondansetron Odt [Zofran Odt] 4 mg PO Q8HR PRN #10 tab 07/01/21 Sucralfate [Carafate] 1 gm PO BID #14 tablet 07/01/21 Allergies Allergy/AdvReac Type Severity Reaction Status Date / Time celecoxib [From Celebrex] Allergy Rash/Hives Verified 07/01/21 05:38 ciprofloxacin [From Cipro] AdvReac Hallucinati Verified 07/01/21 05:38 ons gold sodium thiomalate AdvReac flushing Verified 07/01/21 05:38 [From Myochrysine] Review of Systems ROS Statement: Those systems with pertinent positive or pertinent negative responses have been documented in the HPI. ROS Other: All systems not noted in ROS Statement are negative. Past Medical History Past Medical History: Atrial Fibrillation, GERD/Reflux, Hyperlipidemia, Osteoarthritis (OA), Respiratory Disorder, Rheumatoid Arthritis (RA) Additional Past Medical History / Comment(s): HIATAL HERNIA,PULMONARY FIBROSIS, sepsis june 11 2016, anemia with transfusion, adrenal insufficiency. History of Any Multi-Drug Resistant Organisms: None Reported Past Surgical History: Adenoidectomy, Back Surgery, Hysterectomy, Tonsillectomy Additional Past Surgical History / Comment(s): SINUS SURG,johnathon cataracts removal Past Anesthesia/Blood Transfusion Reactions: No Reported Reaction Additional Past Anesthesia/Blood Transfusion Reaction / Comment(s): no hx blood transfusion Past Psychological History: No Psychological Hx Reported Smoking Status: Never smoker Past Alcohol Use History: None Reported Past Drug Use History: None Reported - Past Family History Mother Family Medical History: CVA/TIA, Myocardial Infarction ([place]) Additional Family Medical History / Comment(s): borderline diabetes Father Family Medical History: Cancer Additional Family Medical History / Comment(s): carcinoma gallbladder General Exam - General Exam Comments Initial Comments: GENERAL: Patient is well-developed and well-nourished. Patient is nontoxic and well- hydrated and is in mild distress. I took the patient's oral temperature was 101.4 ENT: Neck is soft and supple. No significant lymphadenopathy is noted. Oropharynx is clear. Moist mucous membranes. Neck has full range of motion without eliciting any pain. EYES: The sclera were anicteric and conjunctiva were pink and moist. Extraocular movements were intact and pupils were equal round and reactive to light. Eyelids were unremarkable. PULMONARY: Unlabored respirations. Good breath sounds bilaterally. Patient has crackles throughout. CARDIOVASCULAR: There is a regular rate and rhythm without any murmurs gallops or rubs. ABDOMEN: Soft and nontender with normal bowel sounds. No palpable organomegaly was noted. There is no palpable pulsatile mass. SKIN: Skin is clear with no lesions or rashes and otherwise unremarkable. NEUROLOGIC: Patient is alert and oriented x3. Cranial nerves II through XII are grossly intact. Motor and sensory are also intact. Normal speech, volume and content. Symmetrical smile. MUSCULOSKELETAL: Normal extremities with adequate strength and full range of motion. 2+ edema bilaterally LYMPHATICS: No significant lymphadenopathy is noted PSYCHIATRIC: Normal psychiatric evaluation. Course Vital Signs 07/13/21 07/13/21 08:42 09:29 Temperature 101.7 F H Pulse Rate 117 H Respiratory 22 22 Rate Blood Pressure 129/62 O2 Sat by Pulse 74 L Oximetry Medical Decision Making - Medical Decision Making EKG shows sinus tachycardia at 110 bpm DE interval is on a 44 QRS is 80 QT interval is 296 QTC is 400. Patient's EKG shows no ST segment elevation or depression. X-ray shows bilateral infiltrates. Because of this and the fact the patient 101.4 fever I started the patient on antibiotics. I also gave the patient some Lasix to initiate significant edema and legs. I spoke with Dr. Block she agreed to admit the patient admitted the patient wrote admitting orders. - Lab Data Result diagrams: 07/13/21 09:02 07/13/21 09:02 Lab Results 07/13/21 07/13/21 07/13/21 Range/Units 09:02 09:02 09:02 WBC 7.8 (3.8-10.6) k/uL RBC 2.56 L (3.80-5.40) m/uL Hgb 8.9 L (11.4-16.0) gm/dL Hct 27.1 L (34.0-46.0) % MCV 106.2 H D (80.0-100.0) fL MCH 35.0 (25.0-35.0) pg MCHC 33.0 (31.0-37.0) g/dL RDW 24.3 H (11.5-15.5) % Plt Count 219 (150-450) k/uL MPV 8.1 Neutrophils % (Manual) 91 % Lymphocytes % (Manual) 4 % Monocytes % (Manual) 6 % Neutrophils # (Manual) 7.10 (1.3-7.7) k/uL Lymphocytes # (Manual) 0.31 L (1.0-4.8) k/uL Monocytes # (Manual) 0.47 (0-1.0) k/uL Nucleated RBCs 2 H (0-0) /100 WBC Manual Slide Review Performed Dimorphic RBCs Present Polychromasia Present Hypochromasia Slight Poikilocytosis Slight Anisocytosis Marked Macrocytosis Marked A Fragmented RBCs Present PT 11.1 (9.0-12.0) sec INR 1.0 (<1.2) APTT 22.9 (22.0-30.0) sec Sample Site ABG pH (7.35-7.45) ABG pCO2 (35-45) mmHg ABG pO2 (83-108) mmHg ABG HCO3 (21-25) mmol/L ABG Total CO2 (19-24) mmol/L ABG O2 Saturation (94-97) % ABG Base Excess mmol/L Raphael Test FiO2 % Sodium (137-145) mmol/L Potassium (3.5-5.1) mmol/L Chloride (98-107) mmol/L Carbon Dioxide (22-30) mmol/L Anion Gap mmol/L BUN (7-17) mg/dL Creatinine (0.52-1.04) mg/dL Est GFR (CKD-EPI)AfAm (>60 ml/min/1.73 sqM) Est GFR (CKD-EPI)NonAf (>60 ml/min/1.73 sqM) Glucose (74-99) mg/dL Plasma Lactic Acid Giovanny (0.7-2.0) mmol/L Calcium (8.4-10.2) mg/dL Total Bilirubin (0.2-1.3) mg/dL AST (14-36) U/L ALT (4-34) U/L Alkaline Phosphatase (38-126) U/L NT-Pro-B Natriuret Pep pg/mL Total Protein (6.3-8.2) g/dL Albumin (3.5-5.0) g/dL Urine Color Yellow Urine Appearance Cloudy H (Clear) Urine pH 5.0 (5.0-8.0) Ur Specific [place] 1.021 (1.001-1.035) Urine Protein Trace H (Negative) Urine Glucose (UA) Negative (Negative) Urine Ketones 1+ H (Negative) Urine Blood Trace H (Negative) Urine Nitrite Negative (Negative) Urine Bilirubin Negative (Negative) Urine Urobilinogen <2.0 (<2.0) mg/dL Ur Leukocyte Esterase Moderate H (Negative) Urine RBC 5 (0-5) /hpf Urine WBC 5 (0-5) /hpf Ur Squamous Epith Cells 7 H (0-4) /hpf Urine Bacteria Occasional H (None) /hpf Urine Mucus Many H (None) /hpf Coronavirus (PCR) (Not Detectd) 07/13/21 07/13/21 07/13/21 Range/Units 09:02 09:02 09:02 WBC (3.8-10.6) k/uL RBC (3.80-5.40) m/uL Hgb (11.4-16.0) gm/dL Hct (34.0-46.0) % MCV (80.0-100.0) fL MCH (25.0-35.0) pg MCHC (31.0-37.0) g/dL RDW (11.5-15.5) % Plt Count (150-450) k/uL MPV Neutrophils % (Manual) % Lymphocytes % (Manual) % Monocytes % (Manual) % Neutrophils # (Manual) (1.3-7.7) k/uL Lymphocytes # (Manual) (1.0-4.8) k/uL Monocytes # (Manual) (0-1.0) k/uL Nucleated RBCs (0-0) /100 WBC Manual Slide Review Dimorphic RBCs Polychromasia Hypochromasia Poikilocytosis Anisocytosis Macrocytosis Fragmented RBCs PT (9.0-12.0) sec INR (<1.2) APTT (22.0-30.0) sec Sample Site ABG pH (7.35-7.45) ABG pCO2 (35-45) mmHg ABG pO2 (83-108) mmHg ABG HCO3 (21-25) mmol/L ABG Total CO2 (19-24) mmol/L ABG O2 Saturation (94-97) % ABG Base Excess mmol/L Raphael Test FiO2 % Sodium 132 L (137-145) mmol/L Potassium 3.6 (3.5-5.1) mmol/L Chloride 101 (98-107) mmol/L Carbon Dioxide 28 (22-30) mmol/L Anion Gap 3 mmol/L BUN 30 H (7-17) mg/dL Creatinine 0.75 (0.52-1.04) mg/dL Est GFR (CKD-EPI)AfAm >90 (>60 ml/min/1.73 sqM) Est GFR (CKD-EPI)NonAf 79 (>60 ml/min/1.73 sqM) Glucose 84 (74-99) mg/dL Plasma Lactic Acid Giovanny 1.3 (0.7-2.0) mmol/L Calcium 8.6 (8.4-10.2) mg/dL Total Bilirubin 0.7 (0.2-1.3) mg/dL AST 61 H (14-36) U/L ALT 22 (4-34) U/L Alkaline Phosphatase 61 (38-126) U/L NT-Pro-B Natriuret Pep pg/mL Total Protein 5.7 L (6.3-8.2) g/dL Albumin 3.1 L (3.5-5.0) g/dL Urine Color Urine Appearance (Clear) Urine pH (5.0-8.0) Ur Specific [place] (1.001-1.035) Urine Protein (Negative) Urine Glucose (UA) (Negative) Urine Ketones (Negative) Urine Blood (Negative) Urine Nitrite (Negative) Urine Bilirubin (Negative) Urine Urobilinogen (<2.0) mg/dL Ur Leukocyte Esterase (Negative) Urine RBC (0-5) /hpf Urine WBC (0-5) /hpf Ur Squamous Epith Cells (0-4) /hpf Urine Bacteria (None) /hpf Urine Mucus (None) /hpf Coronavirus (PCR) Not Detected (Not Detectd) 07/13/21 07/13/21 Range/Units 09:02 09:51 WBC (3.8-10.6) k/uL RBC (3.80-5.40) m/uL Hgb (11.4-16.0) gm/dL Hct (34.0-46.0) % MCV (80.0-100.0) fL MCH (25.0-35.0) pg MCHC (31.0-37.0) g/dL RDW (11.5-15.5) % Plt Count (150-450) k/uL MPV Neutrophils % (Manual) % Lymphocytes % (Manual) % Monocytes % (Manual) % Neutrophils # (Manual) (1.3-7.7) k/uL Lymphocytes # (Manual) (1.0-4.8) k/uL Monocytes # (Manual) (0-1.0) k/uL Nucleated RBCs (0-0) /100 WBC Manual Slide Review Dimorphic RBCs Polychromasia Hypochromasia Poikilocytosis Anisocytosis Macrocytosis Fragmented RBCs PT (9.0-12.0) sec INR (<1.2) APTT (22.0-30.0) sec Sample Site r rad ABG pH 7.46 H (7.35-7.45) ABG pCO2 39 (35-45) mmHg ABG pO2 62 L (83-108) mmHg ABG HCO3 27 H (21-25) mmol/L ABG Total CO2 29 H (19-24) mmol/L ABG O2 Saturation 92.4 L (94-97) % ABG Base Excess 3.5 mmol/L Raphael Test Yes FiO2 36 % Sodium (137-145) mmol/L Potassium (3.5-5.1) mmol/L Chloride (98-107) mmol/L Carbon Dioxide (22-30) mmol/L Anion Gap mmol/L BUN (7-17) mg/dL Creatinine (0.52-1.04) mg/dL Est GFR (CKD-EPI)AfAm (>60 ml/min/1.73 sqM) Est GFR (CKD-EPI)NonAf (>60 ml/min/1.73 sqM) Glucose (74-99) mg/dL Plasma Lactic Acid Giovanny (0.7-2.0) mmol/L Calcium (8.4-10.2) mg/dL Total Bilirubin (0.2-1.3) mg/dL AST (14-36) U/L ALT (4-34) U/L Alkaline Phosphatase (38-126) U/L NT-Pro-B Natriuret Pep 571 pg/mL Total Protein (6.3-8.2) g/dL Albumin (3.5-5.0) g/dL Urine Color Urine Appearance (Clear) Urine pH (5.0-8.0) Ur Specific [place] (1.001-1.035) Urine Protein (Negative) Urine Glucose (UA) (Negative) Urine Ketones (Negative) Urine Blood (Negative) Urine Nitrite (Negative) Urine Bilirubin (Negative) Urine Urobilinogen (<2.0) mg/dL Ur Leukocyte Esterase (Negative) Urine RBC (0-5) /hpf Urine WBC (0-5) /hpf Ur Squamous Epith Cells (0-4) /hpf Urine Bacteria (None) /hpf Urine Mucus (None) /hpf Coronavirus (PCR) (Not Detectd) Disposition Clinical Impression: Atypical pneumonia, Hypoxia Disposition: ADMITTED IP TO THIS HOSP Referrals: Chris Conroy MD [Primary Care Provider] - 1-2 days Time of Disposition: 11:26
[2021-07-13 09:32] LABS: Appearance,Urine Cloudy (Clear); Bacteria,Urine Occasional /hpf; Bilirubin,Urine Negative (Negative); Blood,Urine Trace (Negative); Color,Urine Yellow; Glucose,Urine (UA) Negative (Negative); Ketones,Urine 1+ (Negative); Leukocyte Esterase,Urine Moderate (Negative); Mucus,Urine Many /hpf; Nitrite,Urine Negative (Negative); Protein,Urine Trace (Negative); RBC,Urine 5 /hpf (0-5); Specific Gravity,Urine 1.021 (1.001-1.035); Squamous Epithelial Cell,Urine 7 /hpf (0-4); Urobilinogen,Urine <2.0 mg/dL (<2.0); WBC,Urine 5 /hpf (0-5)
[2021-07-13 09:35] LABS: ALT 22 U/L (4-34); AST 61 U/L (14-36); African American GFR (CKD) >90 (>60 ml/min/1.73 sqM); Albumin 3.1 g/dL (3.5-5.0); Alkaline Phosphatase 61 U/L (38-126); Anion Gap 3 mmol/L; Blood Urea Nitrogen 30 mg/dL (7-17); Calcium 8.6 mg/dL (8.4-10.2); Carbon Dioxide 28 mmol/L (22-30); Chloride 101 mmol/L (98-107); Glucose 84 mg/dL (74-99); Non-African American GFR(CKD) 79 (>60 ml/min/1.73 sqM); Potassium 3.6 mmol/L (3.5-5.1); Sodium 132 mmol/L (137-145); Total Bilirubin 0.7 mg/dL (0.2-1.3); Total Protein 5.7 g/dL (6.3-8.2)
[2021-07-13 09:36] LABS: Partial Thromboplastin Time 22.9 sec (22.0-30.0); Prothrombin Time 11.1 sec (9.0-12.0)
[2021-07-13 09:49] LABS: Anisocytosis Marked; HCT 27.1 % (34.0-46.0); HGB 8.9 gm/dL (11.4-16.0); Hypochromasia Slight; Macrocytosis Marked; Mean Platelet Volume 8.1; Platelet Count 219 k/uL (150-450); Poikilocytosis Slight; RBC 2.56 m/uL (3.80-5.40); RDW 24.3 % (11.5-15.5)
[2021-07-13 09:56] LABS: ABG HCO3 27 mmol/L (21-25); ABG PCO2 39 mmHg (35-45); ABG PH 7.46 (7.35-7.45); ABG PO2 62 mmHg (83-108); Allen Test Performed? Yes
[2021-07-13 09:57] LABS: ABG Base Excess 3.5 mmol/L; ABG Oxygen Saturation 92.4 % (94-97); ABG TCO2 29 mmol/L (19-24)
[2021-07-13 09:57] LABS: MCV 106.2 fL (80.0-100.0)
[2021-07-13] MEDS ORDERED: IBUPROFEN IV 600 MG in SODIUM CHLORIDE 0.9% 250 ML IV STA (10:00)
[2021-07-13 10:06] LABS: Neutrophils % (M) 91 %; Nucleated Red Blood Cells 2 /100 WBC (0-0); Total Cells Counted 200
[2021-07-13 10:07] LABS: Lymphocytes # (M) 0.31 k/uL (1.0-4.8); Mixed Population RBC Present; Monocytes # (M) 0.47 k/uL (0-1.0); Polychromasia Present; RBC Fragments Present; WBC 7.8 k/uL (3.8-10.6)
[2021-07-13] MEDS: SODIUM CHLORIDE 0.9% 500 ML 500 ML IV SCH ×2 (10:16→17:11)
[2021-07-13] MEDS ORDERED: FUROSEMIDE 10 MG/ML 10 ML VIAL IV STA (10:32)
--- NOTE | 2021-07-13 10:48 | XR ---
EXAMINATION TYPE: XR chest 2V DATE OF EXAM: 07/13/2021 COMPARISON: 06/24/2021 HISTORY: Fever TECHNIQUE: Frontal and lateral views of the chest are obtained. FINDINGS: There are diffuse partially consolidative opacity scattered throughout both lungs. There i s elevation right hemidiaphragm. There is no large pleural effusion. There is no pneumothorax. Heart size normal. The osseous structures are intact IMPRESSION: Diffuse bilateral partially consolidative infiltrates consistent with acute cardiopulmon palomo disease.
[2021-07-13] MEDS ORDERED: AZITHROMYCIN 500 MG in SODIUM CHLORIDE 0.9% 250 ML IVPB STA (10:59)
[2021-07-13] MEDS ORDERED: PNEUMONIA PROTOCOL UTILIZED 1 EACH MISC PO PRN (11:26)
--- NOTE | 2021-07-13 12:52 | CT ---
EXAMINATION TYPE: CT chest angio for PE DATE OF EXAM: 07/13/2021 COMPARISON: 06/08/2021 HISTORY: SOB CT DLP: 452.3 mGycm Automated exposure control for dose reduction was used. CONTRAST: CT Chest for pulmonary embolism performed with with IV Contrast, patient injected with 100 mL of Isov ue 370. FINDINGS: LUNGS: Diffuse bilateral groundglass infiltrates correlate for diffuse pneumonia. Likely superimposed on a background of pulmonary fibrosis, basilar bronchiectasis, and COPD. Tiny left pleural effusion. MEDIASTINUM: There is satisfactory enhancement of the pulmonary artery and its branches, there is no CT evidence for pulmonary embolism. There are no greater than 1 cm hilar or mediastinal lymph nodes. No pericardial effusion is seen. Aorta of normal caliber. OTHER: Hypertrophic and degenerative changes of the spine. There is a large hiatal hernia. IMPRESSION: 1. Diffuse bilateral airspace disease. Multifocal pneumonia or cold pneumonia favored over pulmonary edema given the lack of significant pleural effusion. 2. No diagnostic evidence of pulmonary embolism
[2021-07-13] MEDS ORDERED: FUROSEMIDE 20 MG TAB PO PRN (17:43)
[2021-07-13] MEDS ORDERED: MELATONIN 5 MG TABLET PO PRN (17:43)
[2021-07-13] MEDS ORDERED: POTASSIUM CHLORIDE ER 20 MEQ TAB.ER PO PRN (17:45)
--- NOTE | 2021-07-13 17:53 | P.HPIM ---
History of Present Illness H&P Date: 07/13/21 Chief Complaint: Shortness of breath Patient is a 71-year-old female with a known history of paroxysmal atrial fibrillation on anticoagulation with Eliquis, hyperlipidemia, GERD, hiatal hernia, rheumatoid arthritis/rheumatoid lung, osteoarthritis, pulmonary fibrosis, atrial insufficiency and no prior history of smoking presents to ER with the complaints of worsening shortness of breath. Patient is on follow with pulmonary due to lung fibrosis and was recently on steroid tapering course. Patient otherwise denied any complaints of chest pain. No nausea vomiting or abdominal pain or diarrhea. Does have cough without sputum production. Denies any sick contacts or recent travel. Patient was hypoxic on admission and is requiring high flow oxygen via nasal cannula. On admission T-max 101.7, heart rate 117 pulse ox 74% on room air. Patient does not use oxygen at home. EKG showed sinus tachycardia. Chest x-ray showed diffuse bilateral partially consolidative infiltrates consistent with acute cardiopulmonary disease. CT chest showed diffuse bilateral air space disease. Multifocal pneumonia or covid pneumonia favored over pulmonary edema given the lack of significant pleural effusion. No evidence of PE. Laboratory data showed WBC 7.8 hemoglobin 8.9 and platelets 219, lymphocytes 0.3 ABG showed pH 7.46, pO2 62, pCO2 39 and bicarb 27 Sodium 132 potassium 3.6 chloride 101 BUN 13 creatinine 0.75 urinalysis showed cloudy, trace protein, 1+ ketones, moderate leukocyte esterase and RBCs 5 and WBC is 5. Covid 19 PCR not detected. Review of Systems Constitutional: Patient denies any fever or chills . Generalized weakness and fatigue.. Abdomen: Patient denied nausea vomiting and diarrhea and abdominal pain. Cardiovascular: Patient denies any chest pain or short of breath no palpitations. Respiratory: Patient does have cough without sputum production and shortness of breath. Neurologic: Patient denied any numbness or tingling headache. Musculoskeletal: Patient denies any complaints of joint swelling or deformity. Skin: Negative Psychiatric: Negative Endocrine: No heat or cold intolerance. No recent weight gain. Genitourinary: No dysuria or hematuria. All other 14 point ROS negative except the above Past Medical History Past Medical History: Atrial Fibrillation, GERD/Reflux, Hyperlipidemia, Osteoarthritis (OA), Respiratory Disorder, Rheumatoid Arthritis (RA) Additional Past Medical History / Comment(s): HIATAL HERNIA,PULMONARY FIBROSIS, sepsis june 11 2016, anemia with transfusion, adrenal insufficiency. History of Any Multi-Drug Resistant Organisms: None Reported Past Surgical History: Adenoidectomy, Back Surgery, Hysterectomy, Tonsillectomy Additional Past Surgical History / Comment(s): SINUS SURG,johnathon cataracts removal Past Anesthesia/Blood Transfusion Reactions: No Reported Reaction Additional Past Anesthesia/Blood Transfusion Reaction / Comment(s): no hx blood transfusion Past Psychological History: No Psychological Hx Reported Smoking Status: Never smoker Past Alcohol Use History: None Reported Past Drug Use History: None Reported - Past Family History Mother Family Medical History: CVA/TIA, Myocardial Infarction ([place]) Additional Family Medical History / Comment(s): borderline diabetes Father Family Medical History: Cancer Additional Family Medical History / Comment(s): carcinoma gallbladder Medications and Allergies Home Medications Medication Instructions Recorded Confirmed Type Atorvastatin [Lipitor] 80 mg PO HS 04/16/14 07/13/21 History HYDROcodone/APAP 5-325MG [[place] 1 tab PO TID PRN 06/22/17 07/13/21 History 5-325] Tofacitinib Citrate [Xeljanz Xr] 11 mg PO DAILY 06/22/17 07/13/21 History Leflunomide [Arava] 20 mg PO DAILY 06/08/21 07/13/21 History cycloSPORINE 0.05% OPHTH SOLN 1 drop BOTH EYES BID 06/08/21 07/13/21 History [Restasis] valACYclovir [Valtrex] 500 mg PO BID 06/08/21 07/13/21 History Diltiazem Cd [Cardizem CD] 180 mg PO DAILY 06/22/21 07/13/21 History Omeprazole 20 mg PO DAILY 06/22/21 07/13/21 History Apixaban [Eliquis] 5 mg PO BID #60 tab 06/26/21 07/13/21 Rx Melatonin 5 mg PO HS PRN 5 Days #5 tablet 06/26/21 07/13/21 Rx Furosemide [Lasix] 20 mg PO DAILY PRN 07/13/21 07/13/21 History Potassium Chloride ER [K-Dur 20] 20 meq PO DAILY PRN 07/13/21 07/13/21 History Spironolactone [Aldactone] 25 mg PO DAILY 07/13/21 07/13/21 History predniSONE 10 mg PO DAILY 07/13/21 07/13/21 History Allergies Allergy/AdvReac Type Severity Reaction Status Date / Time celecoxib [From Celebrex] Allergy Rash/Hives Verified 07/13/21 12:42 ciprofloxacin [From Cipro] AdvReac Hallucinati Verified 07/13/21 12:42 ons gold sodium thiomalate AdvReac flushing Verified 07/13/21 12:42 [From Myochrysine] Physical Exam Vitals: Vital Signs Temp Pulse Resp BP Pulse Ox 07/13/21 13:55 100.2 F H 105 H 16 98/49 93 L 07/13/21 09:29 22 07/13/21 08:42 101.7 F H 117 H 22 129/62 74 L Intake and Output 07/13/21 07/13/21 07/13/21 06:59 14:59 22:59 Other: Weight 88.451 kg PHYSICAL EXAMINATION: Patient is lying in the bed comfortably, no acute distress, awake alert and oriented.. HEENT: Normocephalic. Neck is supple. Pupils reactive. Nostrils clear. Oral cavity is moist. Neck reveals no JVD, carotid bruits, or thyromegaly. CHEST EXAMINATION: Trachea is central. Symmetrical expansion. Bilateral diffuse crackles and coarse sounds.. CARDIAC: Normal S1, S2 with no gallops. No murmurs ABDOMEN: Soft. Bowel sounds normal. No organomegaly. No abdominal bruits. Extremities: Trace bilateral pedal edema. No clubbing or cyanosis Neurologically awake, alert, oriented x3 with well-coordinated movements. No focal deficits noted Skin: No rash or skin lesions. Psychiatric: Coperative. Nonsuicidal Musculoskeletal: No joint swelling or deformity. Normal range of motion. Results CBC & Chem 7: 07/14/21 06:46 07/14/21 06:46 Labs: Abnormal Lab Results - Last 24 Hours (Table) 07/13/21 07/13/21 07/13/21 Range/Units 09:02 09:02 09:02 RBC 2.56 L (3.80-5.40) m/uL Hgb 8.9 L (11.4-16.0) gm/dL Hct 27.1 L (34.0-46.0) % MCV 106.2 H D (80.0-100.0) fL RDW 24.3 H (11.5-15.5) % Lymphocytes # (Manual) 0.31 L (1.0-4.8) k/uL Nucleated RBCs 2 H (0-0) /100 WBC Macrocytosis Marked A ABG pH (7.35-7.45) ABG pO2 (83-108) mmHg ABG HCO3 (21-25) mmol/L ABG Total CO2 (19-24) mmol/L ABG O2 Saturation (94-97) % Sodium 132 L (137-145) mmol/L BUN 30 H (7-17) mg/dL AST 61 H (14-36) U/L Total Protein 5.7 L (6.3-8.2) g/dL Albumin 3.1 L (3.5-5.0) g/dL Urine Appearance Cloudy H (Clear) Urine Protein Trace H (Negative) Urine Ketones 1+ H (Negative) Urine Blood Trace H (Negative) Ur Leukocyte Esterase Moderate H (Negative) Ur Squamous Epith Cells 7 H (0-4) /hpf Urine Bacteria Occasional H (None) /hpf Urine Mucus Many H (None) /hpf 07/13/21 Range/Units 09:51 RBC (3.80-5.40) m/uL Hgb (11.4-16.0) gm/dL Hct (34.0-46.0) % MCV (80.0-100.0) fL RDW (11.5-15.5) % Lymphocytes # (Manual) (1.0-4.8) k/uL Nucleated RBCs (0-0) /100 WBC Macrocytosis ABG pH 7.46 H (7.35-7.45) ABG pO2 62 L (83-108) mmHg ABG HCO3 27 H (21-25) mmol/L ABG Total CO2 29 H (19-24) mmol/L ABG O2 Saturation 92.4 L (94-97) % Sodium (137-145) mmol/L BUN (7-17) mg/dL AST (14-36) U/L Total Protein (6.3-8.2) g/dL Albumin (3.5-5.0) g/dL Urine Appearance (Clear) Urine Protein (Negative) Urine Ketones (Negative) Urine Blood (Negative) Ur Leukocyte Esterase (Negative) Ur Squamous Epith Cells (0-4) /hpf Urine Bacteria (None) /hpf Urine Mucus (None) /hpf Thrombosis Risk Factor Assmnt - DVT/VTE Prophylaxis DVT/VTE Prophylaxis: Pharmacologic Prophylaxis ordered Assessment and Plan Assessment: Acute hypoxic respiratory failure requiring oxygen via nasal cannula at 6 L due to multifocal pneumonia and diffuse bilateral groundglass pulmonary infiltrates involving the upper and lower lobes. Off BiPAP now. History of pulmonary fibrosis, rheumatoid lung Rheumatoid arthritis was Arava and prednisone. Coronary artery disease. Maintained on maximal medical therapy. Status post cardiac catheterization. Paroxysmal atrial fibrillation on anticoagulation Iron deficiency anemia Hyperlipidemia Pain at night insufficiency Obesity with a BMI 36.8 GERD and hiatal hernia Plan: Patient will be continued antibiotics involve ceftriaxone azithromycin. Continue with oxygen supplementation. Patient is having groundglass opacities on the CT chest. COVID-19 PCR not directed. Continue with home medications and follow-up closely. Pulmonary was consulted. Prognosis is guarded at this time due to multimedical problems and immunosuppression.. Time with Patient: Greater than 30
[2021-07-13] MEDS: APIXABAN 5 MG TAB PO SCH (22:55)
[2021-07-13] MEDS: ATORVASTATIN 80 MG TAB PO SCH (22:55)
[2021-07-13] MEDS: HYDROcodone/APAP 5-325MG 1 EACH TAB PO PRN (22:56)
[2021-07-13] MEDS: PHENAZOPYRIDINE 200 MG TAB PO SCH (22:56)
[2021-07-13] MEDS: polyethylene glycoL 3350 17 GM POWD.PACK PO SCH (22:56)
[2021-07-14] MEDS ORDERED: methylPREDNISolone SOD SUCCI 125 MG/2 ML VIAL IV STA (04:07)
[2021-07-14] MEDS: FORMOTEROL FUMARATE 20 MCG/2 ML NEBU INHALATION SCH ×3 (04:32→19:23)
[2021-07-14] MEDS: BUDESONIDE 1 MG/2 ML NEBU INHALATION SCH ×3 (04:32→19:23)
[2021-07-14] MEDS: cycloSPORINE 0.05% OPHTH 0.4 ML DROPERETTE BOTH EYES SCH ×2 (04:36→08:38)
--- NOTE | 2021-07-14 08:27 | XR ---
EXAMINATION TYPE: XR chest 1V portable DATE OF EXAM: 07/14/2021 COMPARISON: Chest x-ray and chest CT 07/13/2021 HISTORY: Pneumonia TECHNIQUE: Single frontal view of the chest is obtained. FINDINGS: Bilateral airspace disease persists. Cardiac mediastinal silhouette shows a similar appear ance. Lucency possible within the retrocardiac region. There is no evident pneumothorax or pleural ef fusion. Right hemidiaphragm remains elevated. Cardiac mediastinal silhouette not significant changed. IMPRESSION: Correlate for pneumonia, pulmonary edema felt to be less likely, there is a large hiatal hernia with partial intrathoracic stomach
[2021-07-14] MEDS: PANTOPRAZOLE 40 MG TABLET PO SCH (08:37)
[2021-07-14] MEDS: SPIRONOLACTONE 25 MG TAB PO SCH (08:37)
[2021-07-14] MEDS: APIXABAN 5 MG TAB PO SCH ×2 (08:37→20:49)
[2021-07-14] MEDS: HYDROcodone/APAP 5-325MG 1 EACH TAB PO PRN (08:38)
[2021-07-14] MEDS: PHENAZOPYRIDINE 200 MG TAB PO SCH ×3 (08:39→20:53)
[2021-07-14] MEDS ORDERED: predniSONE 10 MG TAB PO SCH (09:00)
[2021-07-14] MEDS ORDERED: LEFLUNOMIDE 20 MG TAB PO SCH (09:00)
[2021-07-14] MEDS ORDERED: methylPREDNISolone SOD SUCCI 125 MG/2 ML VIAL IV SCH (10:00)
[2021-07-14 11:13] LABS: African American GFR (CKD) 73.5 (60.0-200.0); Anion Gap 12.7 mmol/L (4.00-12.00); BUN/Creat Ratio 28.11 Ratio (12.00-20.00); Blood Urea Nitrogen 25.3 mg/dL (9.0-27.0); C Reactive Protein 28.9 mg/dL (0.00-0.80); Calcium 7.9 mg/dL (8.7-10.3); Carbon Dioxide 24.3 mmol/L (21.6-31.8); Non-African American GFR(CKD) 63.4 (60.0-200.0); Potassium 3.7 mmol/L (3.5-5.5)
[2021-07-14] MEDS ORDERED: AZITHROMYCIN 500 MG TAB PO SCH (12:00)
[2021-07-14 12:39] LABS: Basophils # (A) 0.03 X 10*3/uL (0.00-0.10); Basophils % (A) 0.3 %; Eosinophils # (A) 0.02 X 10*3/uL (0.04-0.35); Eosinophils % (A) 0.2 %; HCT 25.6 % (37.2-46.3); HGB 7.9 g/dL (12.0-15.0); Lymphocytes # (A) 0.04 X 10*3/uL (0.90-5.00); Lymphocytes % (A) 0.4 %; MCH 34.6 pg (27.0-32.0); MCHC 30.9 g/dL (32.0-37.0); MCV 112.3 fL (80.0-97.0); Monocytes # (A) 0.39 X 10*3/uL (0.20-1.00); Monocytes % (A) 4.3 %; Neutrophils # (A) 8.42 X 10*3/uL (1.80-7.70); Neutrophils % (A) 93.6 %; Platelet Count 205 X 10*3/uL (140-440); RBC 2.28 X 10*6/uL (4.10-5.20); RDW 24.9 % (11.5-14.5); WBC 9.01 X 10*3/uL (4.50-10.00)
[2021-07-14 12:40] LABS: Anisocytosis (M) 2+; Macrocytosis (M) 2+; Polychromasia 2+; Schistocytes 1+
[2021-07-14] MEDS ORDERED: VANCOMYCIN IV PER PHARMACY 1 EACH MISC MISCELLANE PRN (12:42)
--- NOTE | 2021-07-14 12:42 | P.CNPUL ---
History of Present Illness Consult date: 07/14/21 Reason for consult: dyspnea, hypoxemia History of present illness: 71-year-old female patient, admitted yesterday through the emergency department because of worsening shortness of breath. 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 The patient has an FEV1 of 1.30 2068% of predicted, FVC of 1.5 L which is only 60% of predicted and the patient's total lung capacity was 70% of predicted and diffusion capacity of 63% of predicted. The patient is also known to have RA, coronary artery disease with mild CAD, nonocclusive disease, chronic atrial fibrillation, and insufficiency, hyperlipidemia. The patient was recently hospitalized on 06/23/2021 and at that time the patient was having increased lower extremity edema. She was also having some trouble breathing. She'll complain of fatigue and generalized weakness. Doppler of the lower extremity is were negative. Chest x-ray showed some compression/atelectasis in the left lung base.COVID 19 testing was negative. Pro-calcitonin level was low at 0.04. And the patient had essentially normal blood work. During the course of her illness, the patient was seen by cardiology. Medical management was advised regarding her CAD. She was on already correlation regarding her A. fib and the patient was being treated for RA with a combination of Xeljanz , Arava and Prednisone. During this current admission, the patient a temperature of 101.7. The patient also had a white cell count of 7.8 with a hemoglobin of 8.9 and the platelets of 219, coagulation profile was normal, but. Showed a pH of 7.46 with a pCO2 of 39 pO2 of 62. Sodium was at 140. Renal function was normal with a creatinine of 0.9, CRP level was 28, LDH level was 671, pro-calcitonin level was 0.54. Repeat Covid 19 testing came back negative. UA was nonspecific. She is currently hospitalized. She is on IV Rocephin and Zithromax. She is on BiPAP for respiratory support. Chest x-ray showing diffuse bilateral pulmonary infiltrates. The BiPAP setting is currently at 12/6 with an FiO2 of 100%. She is urinating a respiratory rate of 35 and the patient's generated tidal volume is around 450 mL. She is quite tachypneic and she is unable to complete full sentences and she seems to be BiPAP dependent at this point in time. She had about a fever earlier. Currently she is afebrile. She is hemodynamically stable. Denies having any chest pain. No significant mucus production. Review of Systems All systems: negative Constitutional: Reports fatigue, Reports weakness, Denies chills, Denies fever Eyes: denies blurred vision, denies pain Ears, nose, mouth and throat: Denies headache, Denies sore throat Cardiovascular: Denies chest pain, Denies shortness of breath Respiratory: Reports dyspnea, Denies cough Gastrointestinal: Denies abdominal pain, Denies diarrhea, Denies nausea, Denies vomiting Genitourinary: Denies dysuria, Denies hematuria Musculoskeletal: Denies myalgias Integumentary: Denies pruritus, Denies rash Neurological: Denies numbness, Denies weakness Psychiatric: Denies anxiety, Denies depression Endocrine: Denies fatigue, Denies weight change Past Medical History Past Medical History: Atrial Fibrillation, GERD/Reflux, Hyperlipidemia, Osteoarthritis (OA), Respiratory Disorder, Rheumatoid Arthritis (RA) Additional Past Medical History / Comment(s): HIATAL HERNIA,PULMONARY FIBROSIS, sepsis june 11 2016, anemia with transfusion, adrenal insufficiency. History of Any Multi-Drug Resistant Organisms: None Reported Past Surgical History: Adenoidectomy, Back Surgery, Hysterectomy, Tonsillectomy Additional Past Surgical History / Comment(s): SINUS SURG,johnathon cataracts removal Past Anesthesia/Blood Transfusion Reactions: No Reported Reaction Additional Past Anesthesia/Blood Transfusion Reaction / Comment(s): no hx blood transfusion Past Psychological History: No Psychological Hx Reported Smoking Status: Never smoker Past Alcohol Use History: None Reported Past Drug Use History: None Reported - Past Family History Mother Family Medical History: CVA/TIA, Myocardial Infarction ([place]) Additional Family Medical History / Comment(s): borderline diabetes Father Family Medical History: Cancer Additional Family Medical History / Comment(s): carcinoma gallbladder Medications and Allergies Home Medications Medication Instructions Recorded Confirmed Type Atorvastatin [Lipitor] 80 mg PO HS 04/16/14 07/13/21 History HYDROcodone/APAP 5-325MG [Cascade 1 tab PO TID PRN 06/22/17 07/13/21 History 5-325] Tofacitinib Citrate [Xeljanz Xr] 11 mg PO DAILY 06/22/17 07/13/21 History Leflunomide [Arava] 20 mg PO DAILY 06/08/21 07/13/21 History cycloSPORINE 0.05% OPHTH SOLN 1 drop BOTH EYES BID 06/08/21 07/13/21 History [Restasis] valACYclovir [Valtrex] 500 mg PO BID 06/08/21 07/13/21 History Diltiazem Cd [Cardizem CD] 180 mg PO DAILY 06/22/21 07/13/21 History Omeprazole 20 mg PO DAILY 06/22/21 07/13/21 History Apixaban [Eliquis] 5 mg PO BID #60 tab 06/26/21 07/13/21 Rx Melatonin 5 mg PO HS PRN 5 Days #5 tablet 06/26/21 07/13/21 Rx Furosemide [Lasix] 20 mg PO DAILY PRN 07/13/21 07/13/21 History Potassium Chloride ER [K-Dur 20] 20 meq PO DAILY PRN 07/13/21 07/13/21 History Spironolactone [Aldactone] 25 mg PO DAILY 07/13/21 07/13/21 History predniSONE 10 mg PO DAILY 07/13/21 07/13/21 History Allergies Allergy/AdvReac Type Severity Reaction Status Date / Time celecoxib [From Celebrex] Allergy Rash/Hives Verified 07/13/21 12:42 ciprofloxacin [From Cipro] AdvReac Hallucinati Verified 07/13/21 12:42 ons gold sodium thiomalate AdvReac flushing Verified 07/13/21 12:42 [From Myochrysine] Physical Exam Vitals: Vital Signs Temp Pulse Pulse Resp BP BP Pulse Ox 07/14/21 09:17 114 H 22 07/14/21 09:06 114 H 07/14/21 08:54 112 H 96 07/14/21 08:00 97.2 F L 107 H 22 118/65 96 07/14/21 04:46 114 H 07/14/21 04:41 113 H 07/14/21 04:39 114 H 07/14/21 04:34 113 H 07/14/21 03:20 98.1 F 118 H 26 H 109/64 78 L 07/13/21 20:26 97.8 F 108 H 20 110/62 92 L 07/13/21 20:00 115 H 28 H 07/13/21 18:54 94 L 07/13/21 13:55 100.2 F H 105 H 16 98/49 93 L Intake and Output 07/13/21 07/14/21 07/14/21 22:59 06:59 14:59 Other: Voiding Method Indwelling Catheter Indwelling Catheter # Voids 200 GENERAL EXAM: Alert, pleasant, morbidly obese white female, HEAD: Normocephalic/atraumatic. EYES: Normal reaction of pupils, equal size. Conjunctiva pink, sclera white. NOSE: Clear with pink turbinates. THROAT: No erythema or exudates. NECK: No masses, no JVD, no thyroid enlargement, no adenopathy. CHEST: No chest wall deformity. Symmetrical expansion. LUNGS: Equal air entry with bilateral crackles CVS: Regular rate and rhythm, normal S1 and S2, no gallops, no murmurs, no rubs ABDOMEN: Soft, nontender. No hepatosplenomegaly, normal bowel sounds, no guarding or rigidity. EXTREMITIES: No clubbing, no edema, no cyanosis, 2+ pulses and upper and lower extremities. MUSCULOSKELETAL: Muscle strength and tone normal. SPINE: No scoliosis or deformity SKIN: No rashes CENTRAL NERVOUS SYSTEM: Alert and oriented -3. No focal deficits, tone is normal in all 4 extremities. PSYCHIATRIC: Alert and oriented -3. Appropriate affect. Intact judgment and insight. Results - Laboratory Findings CBC and BMP: 07/13/21 09:02 07/14/21 06:46 ABG WBC 7.8 k/uL (3.8-10.6) 07/13/21 09:02 RBC 2.56 m/uL (3.80-5.40) L 07/13/21 09:02 Hgb 8.9 gm/dL (11.4-16.0) L 07/13/21 09:02 Hct 27.1 % (34.0-46.0) L 07/13/21 09:02 MCV 106.2 fL (80.0-100.0) H D 07/13/21 09:02 MCH 35.0 pg (25.0-35.0) 07/13/21 09:02 MCHC 33.0 g/dL (31.0-37.0) 07/13/21 09:02 RDW 24.3 % (11.5-15.5) H 07/13/21 09:02 Plt Count 219 k/uL (150-450) 07/13/21 09:02 MPV 8.1 07/13/21 09:02 Neutrophils % (Manual) 91 % 07/13/21 09:02 Lymphocytes % (Manual) 4 % 07/13/21 09:02 Monocytes % (Manual) 6 % 07/13/21 09:02 Neutrophils # (Manual) 7.10 k/uL (1.3-7.7) 07/13/21 09:02 Lymphocytes # (Manual) 0.31 k/uL (1.0-4.8) L 07/13/21 09:02 Monocytes # (Manual) 0.47 k/uL (0-1.0) 07/13/21 09:02 Nucleated RBCs 2 /100 WBC (0-0) H 07/13/21 09:02 Manual Slide Review Performed 07/13/21 09:02 Dimorphic RBCs Present 07/13/21 09:02 Polychromasia Present 07/13/21 09:02 Hypochromasia Slight 07/13/21 09:02 Poikilocytosis Slight 07/13/21 09:02 Anisocytosis Marked 07/13/21 09:02 Macrocytosis Marked A 07/13/21 09:02 Fragmented RBCs Present 07/13/21 09:02 PT 11.1 sec (9.0-12.0) 07/13/21 09:02 INR 1.0 (<1.2) 07/13/21 09:02 APTT 22.9 sec (22.0-30.0) 07/13/21 09:02 Sample Site r rad 07/13/21 09:51 ABG pH 7.46 (7.35-7.45) H 07/13/21 09:51 ABG pCO2 39 mmHg (35-45) 07/13/21 09:51 ABG pO2 62 mmHg (83-108) L 07/13/21 09:51 ABG HCO3 27 mmol/L (21-25) H 07/13/21 09:51 ABG Total CO2 29 mmol/L (19-24) H 07/13/21 09:51 ABG O2 Saturation 92.4 % (94-97) L 07/13/21 09:51 ABG Base Excess 3.5 mmol/L 07/13/21 09:51 Raphael Test Yes 07/13/21 09:51 FiO2 36 % 07/13/21 09:51 Sodium 140 mmol/L (135-145) 07/14/21 06:46 Potassium 3.7 mmol/L (3.5-5.5) 07/14/21 06:46 Chloride 103 mmol/L (96-109) 07/14/21 06:46 Carbon Dioxide 24.3 mmol/L (21.6-31.8) 07/14/21 06:46 Anion Gap 12.70 mmol/L (4.00-12.00) H 07/14/21 06:46 BUN 25.3 mg/dL (9.0-27.0) 07/14/21 06:46 Creatinine 0.9 mg/dL (0.6-1.5) 11 06:46 Est GFR (CKD-EPI)AfAm 73.5 (60.0-200.0) 07/14/21 06:46 Est GFR (CKD-EPI)NonAf 63.4 (60.0-200.0) 07/14/21 06:46 BUN/Creatinine Ratio 28.11 Ratio (12.00-20.00) H 07/14/21 06:46 Glucose 83 mg/dL (70-110) 07/14/21 06:46 Plasma Lactic Acid Giovanny 1.3 mmol/L (0.7-2.0) 07/13/21 09:02 Calcium 7.9 mg/dL (8.7-10.3) L 07/14/21 06:46 Total Bilirubin 0.7 mg/dL (0.2-1.3) 07/13/21 09:02 AST 61 U/L (14-36) H 07/13/21 09:02 ALT 22 U/L (4-34) 07/13/21 09:02 Alkaline Phosphatase 61 U/L (38-126) 07/13/21 09:02 Lactate Dehydrogenase 671 U/L (120-246) H 07/14/21 06:46 C-Reactive Protein 28.90 mg/dL (0.00-0.80) H 07/14/21 06:46 NT-Pro-B Natriuret Pep 571 pg/mL 07/13/21 09:02 Total Protein 5.7 g/dL (6.3-8.2) L 07/13/21 09:02 Albumin 3.1 g/dL (3.5-5.0) L 07/13/21 09:02 Procalcitonin 0.54 ng/mL (0.02-0.09) H 07/14/21 06:46 Urine Color Yellow 07/13/21 09:02 Urine Appearance Cloudy (Clear) H 07/13/21 09:02 Urine pH 5.0 (5.0-8.0) 07/13/21 09:02 Ur Specific [place] 1.021 (1.001-1.035) 07/13/21 09:02 Urine Protein Trace (Negative) H 07/13/21 09:02 Urine Glucose (UA) Negative (Negative) 07/13/21 09: Urine Ketones 1+ (Negative) H 07/13/21 09:02 Urine Blood Trace (Negative) H 07/13/21 09:02 Urine Nitrite Negative (Negative) 07/13/21 09: Urine Bilirubin Negative (Negative) 07/13/21 09: Urine Urobilinogen <2.0 mg/dL (<2.0) 07/13/21 09:02 Ur Leukocyte Esterase Moderate (Negative) H 07/13/21 09:02 Urine RBC 5 /hpf (0-5) 07/13/21 09:02 Urine WBC 5 /hpf (0-5) 07/13/21 09:02 Ur Squamous Epith Cells 7 /hpf (0-4) H 07/13/21 09:02 Urine Bacteria Occasional /hpf (None) H 07/13/21 09:02 Urine Mucus Many /hpf (None) H 07/13/21 09:02 Coronavirus (PCR) Not Detected (Not Detectd) 07/13/21 09:02 PT/INR, D-dimer PT 11.1 sec (9.0-12.0) 07/13/21 09:02 INR 1.0 (<1.2) 07/13/21 09:02 Abnormal lab findings: Abnormal Labs 07/13/21 07/13/21 07/13/21 09:02 09:02 09:02 RBC 2.56 L Hgb 8.9 L Hct 27.1 L MCV 106.2 H D RDW 24.3 H Lymphocytes # (Manual) 0.31 L Nucleated RBCs 2 H Macrocytosis Marked A ABG pH ABG pO2 ABG HCO3 ABG Total CO2 ABG O2 Saturation Sodium 132 L Anion Gap BUN 30 H BUN/Creatinine Ratio Calcium AST 61 H Lactate Dehydrogenase C-Reactive Protein Total Protein 5.7 L Albumin 3.1 L Procalcitonin Urine Appearance Cloudy H Urine Protein Trace H Urine Ketones 1+ H Urine Blood Trace H Ur Leukocyte Esterase Moderate H Ur Squamous Epith Cells 7 H Urine Bacteria Occasional H Urine Mucus Many H 07/13/21 07/14/21 07/14/21 09:51 06:46 06:46 RBC Hgb Hct MCV RDW Lymphocytes # (Manual) Nucleated RBCs Macrocytosis ABG pH 7.46 H ABG pO2 62 L ABG HCO3 27 H ABG Total CO2 29 H ABG O2 Saturation 92.4 L Sodium Anion Gap 12.70 H BUN BUN/Creatinine Ratio 28.11 H Calcium 7.9 L AST Lactate Dehydrogenase 671 H C-Reactive Protein 28.90 H Total Protein Albumin Procalcitonin 0.54 H Urine Appearance Urine Protein Urine Ketones Urine Blood Ur Leukocyte Esterase Ur Squamous Epith Cells Urine Bacteria Urine Mucus Assessment and Plan Plan: 1. Acute hypoxic respiratory failure with secondary shortness of breath. The p atient is presenting with diffuse bilateral pulmonary infiltrates with obvious interval worsening compared to her most recent chest x-ray from 2 weeks ago. Note that the patient also had a CAT scan of the chest that showed diffuse bilateral ground glass pulmonary infiltrates involving the upper and lower lobes bilaterally. Currently on BiPAP at a pressure of 12/6 with an FiO2 of 100%. 2 history of pulmonary fibrosis/interstitial lung disease, related to rheumatoid lung disease, patient follows with Dr. Hinojosa in the pulmonary clinic, she is on Xeljanz, Prednisone and Arava. Most recent PFT showed moderate restriction and mild diffusion defect, overall her lung function has been stable over last 2 years. FVC is 1.55 L or 60% of predicted, FEV1 is 1.32 L or 68% of predicted, with FEV1 to FVC ratio of 112, total lung capacity is 3.25 L or 70% of predicted, and DLCO of 63% of predicted. This is based on the PFT dated 06/04/2021. 3. History of rheumatoid arthritis, On Xeljanz, Arava and Prednisone off 4. Coronary artery disease, on medical treatment, nonocclusive disease based on the most recent cardiac catheterization 5. Paroxysmal atrial fibrillation, currently in sinus mechanism 6. Insomnia 7 . History of iron deficiency anemia 8. GERD secondary to hiatal hernia 9. Hypercholesterolemia 10. Relative adrenal insufficiency 11. History of herpes simplex conjunctivitis and scleritis 12. History of back surgery 13. Obesity Plan: Continue BiPAP for respiratory support at a pressure of 12/6 and drop the FiO2 slowly to maintain a saturation above 90% Patient is immunosuppressed with a combination of immunosuppressive agents. Based on that, there is a risk of hospital-acquired pneumonias specially the patient was hospitalized approximately 2 weeks ago. For that reason, I'm recommending broadening antibiotic coverage including a combination of Zosyn and Levaquin. Discontinue the Rocephin and Zithromax for now. Put the patient IV Solu-Medrol 40 mg every 8 hours. There is the possibility of acute viral infection. The patient checked negative for Covid 19 by PCR. Check influenza A and B. Check RSV. Check a Legionella urine antigen. Check blood cultures. Continue BiPAP therapy for respiratory support. High-risk for further decompensation due to extensive the pneumonia and bilateral pulmonary infiltrates. This could be also early ARDS. Discontinue the Arava and prednisone for now Continue oral anticoagulation for history of paroxysmal atrial fibrillation Most recent echocardiogram in the system from 06/09/2021 showed a preserved ejection fraction of 55-60%. ProBNP level is not elevated. As such CHF/pulmonary edema is felt to be less likely.
[2021-07-14] MEDS: AZITHROMYCIN 500 MG TAB PO SCH (13:37)
[2021-07-14] MEDS: VANCOMYCIN 1,500 MG in SODIUM CHLORIDE 0.9% 250 ML IVPB SCH (13:37)
[2021-07-14] MEDS: methylPREDNISolone SOD SUCCI 40 MG/ML 1 ML VIAL IV SCH (17:28)
[2021-07-14] MEDS: PIPERACILLIN-TAZOBACTAM 3.375 GM in SODIUM CHLORIDE 0.9% 100 ML IVPB SCH (17:29)
[2021-07-14] MEDS: ATORVASTATIN 80 MG TAB PO SCH (20:49)
[2021-07-14] MEDS: polyethylene glycoL 3350 17 GM POWD.PACK PO SCH (20:49)
--- NOTE | 2021-07-14 22:39 | P.PN ---
Subjective Progress Note Date: 07/14/21 Principal diagnosis: Acute hypoxic respiratory failure due to multifocal pneumonia and diffuse bilateral groundglass pulmonary infiltrates involving the upper and lower lobes. Patient is a 71-year-old female with a known history of paroxysmal atrial fibrillation on anticoagulation with Eliquis, hyperlipidemia, GERD, hiatal hernia, rheumatoid arthritis/rheumatoid lung, osteoarthritis, pulmonary fibrosis, atrial insufficiency and no prior history of smoking presents to ER with the complaints of worsening shortness of breath. Patient is on follow with pulmonary due to lung fibrosis and was recently on steroid tapering course. Patient otherwise denied any complaints of chest pain. No nausea vomiting or abdominal pain or diarrhea. Does have cough without sputum production. Denies any sick contacts or recent travel. Patient was hypoxic on admission and is requiring high flow oxygen via nasal cannula. On admission T-max 101.7, heart rate 117 pulse ox 74% on room air. Patient does not use oxygen at home. EKG showed sinus tachycardia. Chest x-ray showed diffuse bilateral partially consolidative infiltrates consistent with acute cardiopulmonary disease. CT chest showed diffuse bilateral air space disease. Multifocal pneumonia or covid pneumonia favored over pulmonary edema given the lack of significant pleural effusion. No evidence of PE. Laboratory data showed WBC 7.8 hemoglobin 8.9 and platelets 219, lymphocytes 0.3 ABG showed pH 7.46, pO2 62, pCO2 39 and bicarb 27 Sodium 132 potassium 3.6 chloride 101 BUN 13 creatinine 0.75 urinalysis showed cloudy, trace protein, 1+ ketones, moderate leukocyte esterase and RBCs 5 and WBC is 5. Covid 19 PCR not detected. 07/14/2021 Patient is currently in the [facility] care unit. Requiring BiPAP. Patient is tachycardic and tachypneic. No complaints of chest pain. Patient is awake alert and oriented. Afebrile. Chest x-ray today showed correlate for pneumonia, pulmonary edema. Less likely there is a large hiatal hernia partial intrathoracic stomach. Patient was started on IV steroids and antibiotics changed to Zosyn vancomycin due to history of immunosuppressant therapy. Laboratory data showed WBC 9.01, hemoglobin 7.9 and platelets 205 neutrophils 8.42 Sodium 140 potassium 3.7 chloride 103 BUN 25.3 and creatinine 0.9 calcium 7.9 LDH 671, CRP 28.9 and pro calcitonin level 0.54. Pulmonary is following. Current medications reviewed. Objective - Vital Signs Vital signs: Vital Signs Temp 98.2 F 07/14/21 15:30 Pulse 101 H 07/14/21 15:30 Resp 22 07/14/21 15:30 BP 122/65 07/14/21 15:30 Pulse Ox 96 07/14/21 15:30 Intake & Output 07/13/21 07/14/21 07/14/21 18:59 06:59 18:59 Intake Total 140 Output Total 750 Balance -610 Weight 88.451 kg Intake: Oral 140 Output: Urine 750 Other: Voiding Method Indwelling Catheter Indwelling Catheter # Voids 200 - Exam PHYSICAL EXAMINATION: Patient is lying in the bed comfortably, mild acute distress, awake alert and oriented. on Bipap. HEENT: Normocephalic. Neck is supple. Pupils reactive. Nostrils clear. Oral cavity is moist. Neck reveals no JVD, carotid bruits, or thyromegaly. CHEST EXAMINATION: Trachea is central. Symmetrical expansion. Bilateral diffuse crackles and coarse sounds.. CARDIAC: Normal S1, S2 with no gallops. No murmurs ABDOMEN: Soft. Bowel sounds normal. No organomegaly. No abdominal bruits. Extremities: Trace bilateral pedal edema. No clubbing or cyanosis Neurologically awake, alert, oriented x3 with well-coordinated movements. No focal deficits noted Skin: No rash or skin lesions. Psychiatric: Coperative. Musculoskeletal: No joint swelling or deformity. - Labs CBC & Chem 7: 07/14/21 06:46 07/14/21 06:46 Labs: Abnormal Lab Results - Last 24 Hours (Table) 07/14/21 07/14/21 07/14/21 Range/Units 06:46 06:46 06:46 RBC 2.28 L (4.10-5.20) X 10*6/uL Hgb 7.9 L (12.0-15.0) g/dL Hct 25.6 L (37.2-46.3) % MCV 112.3 H (80.0-97.0) fL MCH 34.6 H (27.0-32.0) pg MCHC 30.9 L (32.0-37.0) g/dL RDW 24.9 H (11.5-14.5) % Absolute Nucleated RBC 0.49 H (0.00-0.00) X 10*3/uL Immature Gran # 0.11 H (0.00-0.04) X 10*3/uL Neutrophils # 8.42 H (1.80-7.70) X 10*3/uL Lymphocytes # 0.04 L (0.90-5.00) X 10*3/uL Eosinophils # 0.02 L (0.04-0.35) X 10*3/uL NRBC/100 WBC Diff 5.4 H (0.0-0.0) /100 WBCS Anion Gap 12.70 H (4.00-12.00) mmol/L BUN/Creatinine Ratio 28.11 H (12.00-20.00) Ratio Calcium 7.9 L (8.7-10.3) mg/dL Lactate Dehydrogenase 671 H (120-246) U/L C-Reactive Protein 28.90 H (0.00-0.80) mg/dL Procalcitonin 0.54 H (0.02-0.09) ng/mL Microbiology - Last 24 Hours (Table) 07/13/21 08:45 Blood Culture - Preliminary Blood No Growth after 24 hours 07/13/21 09:00 Blood Culture - Preliminary Blood No Growth after 24 hours Assessment and Plan Assessment: Acute hypoxic respiratory failure due to multifocal pneumonia and diffuse bilateral groundglass pulmonary infiltrates involving the upper and lower lobes. on BiPAP now. History of pulmonary fibrosis, rheumatoid lung Rheumatoid arthritis was Arava and prednisone. Coronary artery disease. Maintained on maximal medical therapy. Status post cardiac catheterization. Paroxysmal atrial fibrillation on anticoagulation Iron deficiency anemia Hyperlipidemia Pain at night insufficiency Obesity with a BMI 36.8 GERD and hiatal hernia Plan: Patient will be continued antibiotics involve ceftriaxone azithromycin. Antibiotics changed to vancomycin and Zosyn due to patient being immunosuppressive therapy. Follow-up sputum culture reports. Started on IV steroids, IV Solu-Medrol 60 mg every 6 hourly. Continue on BIPAP, with oxygen supplementation. Patient is having groundglass opacities on the CT chest. COVID-19 PCR not directed. Continue with home medications and follow-up closely. Pulmonary is on board. Prognosis is guarded at this time due to multimedical problems and immunosuppression.. Time with Patient: Greater than 30
[2021-07-15] MEDS: HYDROcodone/APAP 5-325MG 1 EACH TAB PO PRN ×4 (00:03→23:55)
[2021-07-15] MEDS: cycloSPORINE 0.05% OPHTH 0.4 ML DROPERETTE BOTH EYES SCH ×3 (00:03→23:55)
[2021-07-15] MEDS: methylPREDNISolone SOD SUCCI 40 MG/ML 1 ML VIAL IV SCH ×3 (00:03→21:16)
[2021-07-15] MEDS: PIPERACILLIN-TAZOBACTAM 3.375 GM in SODIUM CHLORIDE 0.9% 100 ML IVPB SCH ×3 (00:04→20:29)
[2021-07-15] MEDS: BUDESONIDE 1 MG/2 ML NEBU INHALATION SCH ×2 (07:58→19:40)
[2021-07-15] MEDS: FORMOTEROL FUMARATE 20 MCG/2 ML NEBU INHALATION SCH ×2 (07:58→19:40)
[2021-07-15 08:27] LABS: Calcium 7.6 mg/dL (8.4-10.2); Potassium 3.5 mmol/L (3.5-5.1)
[2021-07-15 08:49] LABS: Anisocytosis Marked; Basophils % (A) 0 %; Eosinophils % (A) 0 %; HCT 22.3 % (34.0-46.0); Hypochromasia Slight; Lymphocytes # (A) 0.2 k/uL (1.0-4.8); Lymphocytes % (A) 2 %; MCV 109.3 fL (80.0-100.0); Macrocytosis Marked; Mean Platelet Volume 8.7; Monocytes # (A) 0.3 k/uL (0-1.0); Monocytes % (A) 3 %; Neutrophils % (A) 94 %; Platelet Count 211 k/uL (150-450); Poikilocytosis Slight; RBC 2.04 m/uL (3.80-5.40); RDW 24.5 % (11.5-15.5); WBC 8.5 k/uL (3.8-10.6)
[2021-07-15 08:52] LABS: HGB 7.2 gm/dL (11.4-16.0)
[2021-07-15] MEDS: AZITHROMYCIN 500 MG TAB PO SCH (08:58)
[2021-07-15] MEDS: APIXABAN 5 MG TAB PO SCH ×2 (08:58→21:16)
[2021-07-15] MEDS: SPIRONOLACTONE 25 MG TAB PO SCH (08:58)
[2021-07-15] MEDS: PANTOPRAZOLE 40 MG TABLET PO SCH (08:58)
[2021-07-15] MEDS: PHENAZOPYRIDINE 200 MG TAB PO SCH ×3 (09:00→21:17)
[2021-07-15 12:43] LABS: Polychromasia Present; RBC Fragments Present
[2021-07-15] MEDS ORDERED: valACYclovir 500 MG TAB PO SCH (14:00)
[2021-07-15] MEDS: ACYCLOVIR SODIUM 1,000 MG in SODIUM CHLORIDE 0.9% 250 ML IVPB SCH (16:47)
--- NOTE | 2021-07-15 16:49 | P.PN ---
Subjective Progress Note Date: 07/15/21 71-year-old female patient, admitted yesterday through the emergency department because of worsening shortness of breath. 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 The patient has an FEV1 of 1.30 2068% of predicted, FVC of 1.5 L which is only 60% of predicted and the patient's total lung capacity was 70% of predicted and diffusion capacity of 63% of predicted. The patient is also known to have RA, coronary artery disease with mild CAD, nonocclusive disease, chronic atrial fibrillation, and insufficiency, hyperlipidemia. The patient was recently hospitalized on 06/23/2021 and at that time the patient was having increased lower extremity edema. She was also having some trouble breathing. She'll complain of fatigue and generalized weakness. Doppler of the lower extremity is were negative. Chest x-ray showed some compression/atelectasis in the left lung base.COVID 19 testing was negative. Pro-calcitonin level was low at 0.04. And the patient had essentially normal blood work. During the course of her illness, the patient was seen by cardiology. Medical management was advised regarding her CAD. She was on already correlation regarding her A. fib and the patient was being treated for RA with a combination of Xeljanz , Arava and Prednisone. During this current admission, the patient a temperature of 101.7. The patient also had a white cell count of 7.8 with a hemoglobin of 8.9 and the platelets of 219, coagulation profile was normal, but. Showed a pH of 7.46 with a pCO2 of 39 pO2 of 62. Sodium was at 140. Renal function was normal with a creatinine of 0.9, CRP level was 28, LDH level was 671, pro-calcitonin level was 0.54. Repeat Covid 19 testing came back negative. UA was nonspecific. She is currently hospitalized. She is on IV Rocephin and Zithromax. She is on BiPAP for respiratory support. Chest x-ray showing diffuse bilateral pulmonary infiltrates. The BiPAP setting is currently at 12/6 with an FiO2 of 100%. She is urinating a respiratory rate of 35 and the patient's generated tidal volume is around 450 mL. She is quite tachypneic and she is unable to complete full sentences and she seems to be BiPAP dependent at this point in time. She had about a fever earlier. Currently she is afebrile. She is hemodynamically stable. Denies having any chest pain. No significant mucus production. On today's evaluation of 07/15/2021, the patient remains on a BiPAP and she is still in the same setting of 12/6 cm of water with an FiO2 of 80% which is awake and alert. She is following commands and answering questions pH seems to be quite successfully BiPAP full face mask. Over the last, she still tachypneic. She is generating adequate minute ventilation tidal volume. The patient's FiO2 has been drop down from 100% down to 80%. She is afebrile. She is hemodynamically stable at this point in time. Further investigation revealed that the patient's Covid 19 testing was negative, influenza A and influenza B by PCR were both negative and RSV was also negative. Pro-calcitonin level came back at 0.54. The patient's LDH level was 671 with a CRP level of 28.9. The ite cell count is at 8.5 with a hemoglobin of 9.2 and a platelet count of 211. The rest of the blood work and nitrites are all within normal limits. I had the patient broad-spectrum antibiotics. I had the patient on Zithromax, Zosyn and vancomycin. Cultures of been all negative. Upon further discussion with the family, the patient had a herpetic lesion and skin lesion which obviously raises the possibility of HSV pneumonia in the setting of immunosuppression and for that reason I added IV acyclovir. Note that the patient is also on IV Solu Medrol and the doses are reduced on the 40 mg every 12 hours. The proBNP level was at 571. Objective - Vital Signs Vital signs: Vital Signs Temp 98.3 F 07/15/21 12:31 Pulse 100 07/15/21 12:31 Resp 30 H 07/15/21 12:31 BP 108/59 07/15/21 12:31 Pulse Ox 93 L 07/15/21 15:08 Intake & Output 07/14/21 07/15/21 07/15/21 18:59 06:59 18:59 Intake Total 140 150 Output Total 750 360 Balance -610 -210 Weight 93 kg Intake: Intake, IV Titration 100 Amount Piperacillin-Tazobactam 3 100 .375 gm In Sodium Chloride 0.9% 100 ml @ 25 mls/hr IVPB Q8HR [facility] Rx# :[id number] Oral 140 50 Output: Urine 750 360 Other: Voiding Method Indwelling Catheter Indwelling Catheter Indwelling Catheter - Exam GENERAL EXAM: Alert, pleasant, morbidly obese white female, the patient is currently on a BiPAP at a pressure of 12/6 with an FiO2 of 80%, breathing is labored and the patient is quite tachypneic. HEAD: Normocephalic/atraumatic. EYES: Normal reaction of pupils, equal size. Conjunctiva pink, sclera white. NOSE: Clear with pink turbinates. THROAT: No erythema or exudates. NECK: No masses, no JVD, no thyroid enlargement, no adenopathy. CHEST: No chest wall deformity. Symmetrical expansion. LUNGS: Equal air entry with bilateral crackles CVS: Regular rate and rhythm, normal S1 and S2, no gallops, no murmurs, no rubs ABDOMEN: Soft, nontender. No hepatosplenomegaly, normal bowel sounds, no guarding or rigidity. EXTREMITIES: No clubbing, no edema, no cyanosis, 2+ pulses and upper and lower extremities. MUSCULOSKELETAL: Muscle strength and tone normal. SPINE: No scoliosis or deformity SKIN: No rashes CENTRAL NERVOUS SYSTEM: Alert and oriented -3. No focal deficits, tone is normal in all 4 extremities. PSYCHIATRIC: Alert and oriented -3. Appropriate affect. Intact judgment and insight. - Labs CBC & Chem 7: 07/15/21 06:21 07/15/21 06:21 Labs: Abnormal Lab Results - Last 24 Hours (Table) 07/15/21 07/15/21 Range/Units 06:21 06:21 RBC 2.04 L (3.80-5.40) m/uL Hgb 7.2 L D (11.4-16.0) gm/dL Hct 22.3 L (34.0-46.0) % MCV 109.3 H (80.0-100.0) fL RDW 24.5 H (11.5-15.5) % Neutrophils # 8.0 H (1.3-7.7) k/uL Lymphocytes # 0.2 L (1.0-4.8) k/uL Macrocytosis Marked A Sodium 135 L (137-145) mmol/L BUN 35 H (7-17) mg/dL Glucose 136 H (74-99) mg/dL Calcium 7.6 L (8.4-10.2) mg/dL Microbiology - Last 24 Hours (Table) 07/13/21 09:00 Blood Culture - Preliminary Blood No Growth after 48 hours 07/13/21 08:45 Blood Culture - Preliminary Blood No Growth after 48 hours Assessment and Plan Plan: 1. Acute hypoxic respiratory failure with secondary shortness of breath. The patient is presenting with diffuse bilateral pulmonary infiltrates with obvious interval worsening compared to her most recent chest x-ray from 2 weeks ago. Note that the patient also had a CAT scan of the chest that showed diffuse bilateral ground glass pulmonary infiltrates involving the upper and lower lobes bilaterally. Currently on BiPAP at a pressure of 12/6 with an FiO2 of 80%. Note that the CAT scan of the chest that was done earlier on 06/08/2021 was fairly of these pulmonary infiltrates. Suspect viral pneumonias although the Covid 19 testing and influenza and B and RSV came back negative. Agency pne umonia is likely. Atypical bacterial infections need to be considered. Acute lung injury from aspiration related to hiatal hernia is felt to be less likely. PCP pneumonia felt to be less likely. CHF with interstitial edema is felt to be less likely. Infiltrates or other acute and the patient is immunosuppressed with a combination of immunosuppressive agents including Xeljanz, Arava and Prednisone 2 history of pulmonary fibrosis/interstitial lung disease, related to rheumatoid lung disease, patient follows with Dr. Hinojosa in the pulmonary clinic, she is on Xeljanz, Prednisone and Arava. Most recent PFT showed moderate restriction and mild diffusion defect, overall her lung function has been stable over last 2 years. FVC is 1.55 L or 60% of predicted, FEV1 is 1.32 L or 68% of predicted, with FEV1 to FVC ratio of 112, total lung capacity is 3.25 L or 70% of predicted, and DLCO of 63% of predicted. This is based on the PFT dated 06/04/2021. 3. History of rheumatoid arthritis, On Xeljanz, Arava and Prednisone off 4. Coronary artery disease, on medical treatment, nonocclusive disease based on the most recent cardiac catheterization 5. Paroxysmal atrial fibrillation, currently in sinus mechanism 6. Insomnia 7 . History of iron deficiency anemia 8. GERD secondary to hiatal hernia 9. Hypercholesterolemia 10. Relative adrenal insufficiency 11. History of herpes simplex conjunctivitis and scleritis 12. History of back surgery 13. Obesity Plan: Continue BiPAP for respiratory support at a pressure of 12/6 and drop the FiO2 slowly to maintain a saturation above 90% Continue same antibiotic coverage IV acyclovir was added Patient is immunosuppressed with a combination of immunosuppressive agents. Based on that, there is a risk of hospital-acquired pneumonias specially the patient was hospitalized approximately 2 weeks ago. For that reason, I'm re commending broadening antibiotic coverage including a combination of Zosyn and Zithromax and vancomycin IV Solu-Medrol 40 mg every 12 hours. Discontinue the Arava and prednisone for now Continue oral anticoagulation for history of paroxysmal atrial fibrillation Most recent echocardiogram in the system from 06/09/2021 showed a preserved ejection fraction of 55-60%. ProBNP level is not elevated. As such CHF/pulmonary edema is felt to be less likely. I have elected discussion with the family. Explained to them the situation. The patient will be also seen by infectious disease. A consultation was placed Dr. Nair.
[2021-07-15] MEDS: VANCOMYCIN 1,500 MG in SODIUM CHLORIDE 0.9% 250 ML IVPB SCH (18:53)
[2021-07-15] MEDS: polyethylene glycoL 3350 17 GM POWD.PACK PO SCH (20:30)
--- NOTE | 2021-07-15 20:34 | P.PN ---
Subjective Progress Note Date: 07/15/21 Principal diagnosis: Acute hypoxic respiratory failure due to multifocal pneumonia and diffuse bilateral groundglass pulmonary infiltrates involving the upper and lower lobes. Patient is a 71-year-old female with a known history of paroxysmal atrial fibrillation on anticoagulation with Eliquis, hyperlipidemia, GERD, hiatal hernia, rheumatoid arthritis/rheumatoid lung, osteoarthritis, pulmonary fibrosis, atrial insufficiency and no prior history of smoking presents to ER with the complaints of worsening shortness of breath. Patient is on follow with pulmonary due to lung fibrosis and was recently on steroid tapering course. Patient otherwise denied any complaints of chest pain. No nausea vomiting or abdominal pain or diarrhea. Does have cough without sputum production. Denies any sick contacts or recent travel. Patient was hypoxic on admission and is requiring high flow oxygen via nasal cannula. On admission T-max 101.7, heart rate 117 pulse ox 74% on room air. Patient does not use oxygen at home. EKG showed sinus tachycardia. Chest x-ray showed diffuse bilateral partially consolidative infiltrates consistent with acute cardiopulmonary disease. CT chest showed diffuse bilateral air space disease. Multifocal pneumonia or covid pneumonia favored over pulmonary edema given the lack of significant pleural effusion. No evidence of PE. Laboratory data showed WBC 7.8 hemoglobin 8.9 and platelets 219, lymphocytes 0.3 ABG showed pH 7.46, pO2 62, pCO2 39 and bicarb 27 Sodium 132 potassium 3.6 chloride 101 BUN 13 creatinine 0.75 urinalysis showed cloudy, trace protein, 1+ ketones, moderate leukocyte esterase and RBCs 5 and WBC is 5. Covid 19 PCR not detected. 07/14/2021 Patient is currently in the [facility] care unit. Requiring BiPAP. Patient is tachycardic and tachypneic. No complaints of chest pain. Patient is awake alert and oriented. Afebrile. Chest x-ray today showed correlate for pneumonia, pulmonary edema. Less likely there is a large hiatal hernia partial intrathoracic stomach. Patient was started on IV steroids and antibiotics changed to Zosyn vancomycin due to history of immunosuppressant therapy. Laboratory data showed WBC 9.01, hemoglobin 7.9 and platelets 205 neutrophils 8.42 Sodium 140 potassium 3.7 chloride 103 BUN 25.3 and creatinine 0.9 calcium 7.9 LDH 671, CRP 28.9 and pro calcitonin level 0.54. Pulmonary is following. 07/15/2021 Patient remains on BiPAP, 12 x 6 cm of water. FiO2 80%. Patient is awake alert and oriented. Anxious and requesting Xanax medication. Laboratory data showed WBC 8.5 hemoglobin 9.1 platelets 211 blood cultures have been negative so far. Patient is being current broad-spectrum antibiotics. Currently on azithromycin, Zosyn and acyclovir was added. Patient is also on IV steroids and duo nebs and Pulmicort, Perforomist. Afebrile. No nausea vomiting. Patient not able to tolerate oral diet and able to keep mask off. No chest pain. No headache. Current medications reviewed. Objective - Vital Signs Vital signs: Vital Signs Temp 97.8 F 07/15/21 20:00 Pulse 111 H 07/15/21 20:00 Resp 24 07/15/21 20:00 BP 112/66 07/15/21 20:00 Pulse Ox 95 07/15/21 20:00 Intake & Output 07/15/21 07/15/21 07/16/21 06:59 18:59 06:59 Intake Total 150 Output Total 360 300 Balance -210 -300 Weight 93 kg Intake: Intake, IV Titration 100 Amount Piperacillin-Tazobactam 3 100 .375 gm In Sodium Chloride 0.9% 100 ml @ 25 mls/hr IVPB Q8HR [facility] Rx# :[id number] Oral 50 Output: Urine 360 300 Other: Voiding Method Indwelling Catheter Indwelling Catheter Indwelling Catheter - Exam PHYSICAL EXAMINATION: Patient is lying in the bed comfortably, mild acute distress, awake alert and oriented. on Bipap. HEENT: Normocephalic. Neck is supple. Pupils reactive. Nostrils clear. Oral cavity is moist. Neck reveals no JVD, carotid bruits, or thyromegaly. CHEST EXAMINATION: Trachea is central. Symmetrical expansion. Bilateral diffuse crackles and coarse sounds.. CARDIAC: Normal S1, S2 with no gallops. No murmurs ABDOMEN: Soft. Bowel sounds normal. No organomegaly. No abdominal bruits. Extremities: Trace bilateral pedal edema. No clubbing or cyanosis Neurologically awake, alert, oriented x3 with well-coordinated movements. No focal deficits noted Skin: No rash or skin lesions. Psychiatric: Coperative. Musculoskeletal: No joint swelling or deformity. - Labs CBC & Chem 7: 07/17/21 06:53 11/11/21 06:53 Labs: Abnormal Lab Results - Last 24 Hours (Table) 07/15/21 07/15/21 Range/Units 06:21 06:21 RBC 2.04 L (3.80-5.40) m/uL Hgb 7.2 L D (11.4-16.0) gm/dL Hct 22.3 L (34.0-46.0) % MCV 109.3 H (80.0-100.0) fL RDW 24.5 H (11.5-15.5) % Neutrophils # 8.0 H (1.3-7.7) k/uL Lymphocytes # 0.2 L (1.0-4.8) k/uL Macrocytosis Marked A Sodium 135 L (137-145) mmol/L BUN 35 H (7-17) mg/dL Glucose 136 H (74-99) mg/dL Calcium 7.6 L (8.4-10.2) mg/dL Microbiology - Last 24 Hours (Table) 07/13/21 09:00 Blood Culture - Preliminary Blood No Growth after 48 hours 07/13/21 08:45 Blood Culture - Preliminary Blood No Growth after 48 hours Assessment and Plan Assessment: Acute hypoxic respiratory failure due to multifocal pneumonia and diffuse bilateral groundglass pulmonary infiltrates involving the upper and lower lobes. on BiPAP now. History of pulmonary fibrosis, rheumatoid lung Rheumatoid arthritis was Arava and prednisone. Coronary artery disease. Maintained on maximal medical therapy. Status post cardiac catheterization. Paroxysmal atrial fibrillation on anticoagulation Iron deficiency anemia Hyperlipidemia Pain at night insufficiency Obesity with a BMI 36.8 GERD and hiatal hernia Plan: Patient will be continued antibiotics involve ceftriaxone azithromycin. Antibiotics changed to vancomycin and Zosyn due to patient being immunosup pressive therapy. Follow-up sputum culture reports. Started on IV steroids, IV Solu-Medrol 60 mg every 6 hourly. Continue on BIPAP, with oxygen supplementation. Patient is having groundglass opacities on the CT chest. COVID-19 PCR not directed. Continue with home medications and follow-up closely. Pulmonary is on board. Prognosis is guarded at this time due to multimedical problems and immunosuppression.. Time with Patient: Greater than 30
[2021-07-15] MEDS: ALPRAZolam 0.25 MG TAB PO PRN (21:16)
[2021-07-15] MEDS: ATORVASTATIN 80 MG TAB PO SCH (21:17)
--- NOTE | 2021-07-15 23:56 | P.CONS ---
History of Present Illness - Reason for Consult Consult date: 07/15/21 pneumonia Requesting physician: Peggy Staley - Chief Complaint shortness of breath x few days - History of Present Illness History of present illness : Patient is 71-year-old female with a past medical history significant for interstitial lung disease secondary to rheumatoid arthritis with underlying pulmonary fibrosis history of coronary artery disease atrial fibrillation patient presenting to the ER 2 days ago for evaluation of increasing shortness of breath and this patient breathing has been getting worse for the last 2 days before presentation the hospital patient been complaining of increasing weakness and fatigue patient denies having any chest pain she did have a cough which is mild to moderate intensity not been up any sputum or hemoptysis denies any nausea no vomiting no choking on food no abdominal pain or any diarrhea patient on presentation to the hospital have a fever of 101.7 degree form height patient was tachycardic patient fever subsequently has resolved patient did have an O2 sats of 74% on room air upon presentation to the hospital patient did have a normal white count on admission with mild lymphopenia creatinine has been normal AST was mildly elevated CRP 29.20.54 urine was mildly positive only PCR was negative patient did have a CT angiogram of the chest diffuse bilateral airspace disease multifocal pneumonia or Covid pneumonia no PE patient noticed to have significant worsening of her respiratory status and with a history of HSV keratitis and possible presentation for herpes pneumonia was consulted she has been started on acyclovir Zosyn and vancomycin infectious disease was consulted for further management of antibiotic therapy Review of system: CONSTITUTIONAL: Positive for weakness along with the fever. EYES: No complaint. ENT: No complaint. RESPIRATORY: As per history of present illness. CARDIOVASCULAR: No complaint. GENITOURINARY: No complaint. GASTROINTESTINAL: No complaint. MUSCULOSKELETAL: No complaint. INTEGUMENTARY: No complaint. PSYCHOLOGIC: No complaint. ENDOCRINE: No complaint. NEUROLOGIC: No complaint. Past medical history : Reviewed, documented below Past surgical history : Reviewed, documented below Social history: Reviewed, documented below Medications: Reviewed, as documented below EXAMINATION: Vital sigans= Reviewed and documented below GENERAL DESCRIPTION: Elderly female lying in bed, mild distress. No tachypnea or accessory muscle of respiration use. HEENT: Shows Pallor , no scleral icterus. Oral mucous membrane is dry. NECK: Trachea central, no thyromegaly. LUNGS: Unlabored breathing. Decrease intensity of breath sounds. No wheeze or crackle. HEART: S1, S2, regular rate and rhythm. ABDOMEN: Soft, no tenderness , guarding or rigidity EXTREMITIES: No edema of feet. SKIN: No rash, no masses palpable. NEUROLOGICAL: The patient is awake, alert, oriented x3, mood and affect normal. LABS AND RADIOLOGY: Reviewed results see below Assessment : Patient presented to hospital with increasing shortness of breath in this patient to have underlying rheumatoid lung disease pulmonary fibrosis and low lung reserve with evidence of interstitial pneumonia possible viral etiology though Covid RSV has been ruled out with negative PCR as well as negative influenza, patient will be an ideal candidate for HSV pneumonia though has been exposed to immunosuppressive medication but no strong enough to precipitate HSV pneumonia PCP may be consideration and less likely MRSA pneumonia Plan: 1-we will obtain a sputum for Gram stain and culture 2-check urine for Legionella antigen 3-continue with Zosyn and Zithromax however discussed vancomycin decrease risk o f nephrotoxicity Multiple family member at the bedside their questions concerns answered We will follow on clinical condition and cultures to further adjust medication if needed Thank you for this consultation we will follow the patient along with you Past Medical History Past Medical History: Atrial Fibrillation, GERD/Reflux, Hyperlipidemia, Osteoarthritis (OA), Respiratory Disorder, Rheumatoid Arthritis (RA) Additional Past Medical History / Comment(s): HIATAL HERNIA,PULMONARY FIBROSIS, sepsis june 11 2016, anemia with transfusion, adrenal insufficiency. History of Any Multi-Drug Resistant Organisms: None Reported Past Surgical History: Adenoidectomy, Back Surgery, Hysterectomy, Tonsillectomy Additional Past Surgical History / Comment(s): SINUS SURG,johnathon cataracts removal Past Anesthesia/Blood Transfusion Reactions: No Reported Reaction Additional Past Anesthesia/Blood Transfusion Reaction / Comm: no hx blood transfusion Past Psychological History: No Psychological Hx Reported Smoking Status: Never smoker Past Alcohol Use History: None Reported Past Drug Use History: None Reported - Past Family History Mother Family Medical History: CVA/TIA, Myocardial Infarction ([place]) Additional Family Medical History / Comment(s): borderline diabetes Father Family Medical History: Cancer Additional Family Medical History / Comment(s): carcinoma gallbladder Medications and Allergies Home Medications Medication Instructions Recorded Confirmed Type Atorvastatin [Lipitor] 80 mg PO HS 04/16/14 07/13/21 History HYDROcodone/APAP 5-325MG [Trego 1 tab PO TID PRN 06/22/17 07/13/21 History 5-325] Tofacitinib Citrate [Xeljanz Xr] 11 mg PO DAILY 06/22/17 07/13/21 History Leflunomide [Arava] 20 mg PO DAILY 06/08/21 07/13/21 History cycloSPORINE 0.05% OPHTH SOLN 1 drop BOTH EYES BID 06/08/21 07/13/21 History [Restasis] valACYclovir [Valtrex] 500 mg PO BID 06/08/21 07/13/21 History Diltiazem Cd [Cardizem CD] 180 mg PO DAILY 06/22/21 07/13/21 History Omeprazole 20 mg PO DAILY 06/22/21 07/13/21 History Apixaban [Eliquis] 5 mg PO BID #60 tab 06/26/21 07/13/21 Rx Melatonin 5 mg PO HS PRN 5 Days #5 tablet 06/26/21 07/13/21 Rx Furosemide [Lasix] 20 mg PO DAILY PRN 07/13/21 07/13/21 History Potassium Chloride ER [K-Dur 20] 20 meq PO DAILY PRN 07/13/21 07/13/21 History Spironolactone [Aldactone] 25 mg PO DAILY 07/13/21 07/13/21 History predniSONE 10 mg PO DAILY 07/13/21 07/13/21 History Allergies Allergy/AdvReac Type Severity Reaction Status Date / Time celecoxib [From Celebrex] Allergy Rash/Hives Verified 07/13/21 12:42 ciprofloxacin [From Cipro] AdvReac Hallucinati Verified 07/13/21 12:42 ons gold sodium thiomalate AdvReac flushing Verified 07/13/21 12:42 [From Myochrysine] Physical Exam Vitals: Vital Signs Temp Pulse Pulse Resp BP Pulse Ox 07/15/21 15:08 93 L 07/15/21 12:31 98.3 F 100 30 H 108/59 96 07/15/21 09:03 98.7 F 96 23 121/62 100 07/15/21 08:11 108 H 07/15/21 08:01 98 07/15/21 04:00 97.6 F 99 26 H 130/75 94 L 07/15/21 02:00 93 22 07/15/21 00:00 97.5 F L 93 22 123/67 92 L 07/14/21 20:00 97.6 F 101 H 24 115/58 94 L 07/14/21 19:36 115 H 22 07/14/21 19:25 113 H 23 Intake and Output 07/15/21 07/15/21 07/15/21 06:59 14:59 22:59 Intake Total 100 Output Total 260 Balance -160 Intake: Intake, IV Titration 100 Amount Piperacillin-Tazobactam 3 100 .375 gm In Sodium Chloride 0.9% 100 ml @ 25 mls/hr IVPB Q8HR [facility] Rx# :[id number] Output: Urine 260 Other: Voiding Method Indwelling Catheter Indwelling Catheter Weight 93 kg Results CBC & Chem 7: 07/15/21 06:21 07/15/21 06:21 Labs: Abnormal Lab Results - Last 24 Hours (Table) 07/15/21 07/15/21 Range/Units 06:21 06:21 RBC 2.04 L (3.80-5.40) m/uL Hgb 7.2 L D (11.4-16.0) gm/dL Hct 22.3 L (34.0-46.0) % MCV 109.3 H (80.0-100.0) fL RDW 24.5 H (11.5-15.5) % Neutrophils # 8.0 H (1.3-7.7) k/uL Lymphocytes # 0.2 L (1.0-4.8) k/uL Macrocytosis Marked A Sodium 135 L (137-145) mmol/L BUN 35 H (7-17) mg/dL Glucose 136 H (74-99) mg/dL Calcium 7.6 L (8.4-10.2) mg/dL Microbiology - Last 24 Hours (Table) 07/13/21 09:00 Blood Culture - Preliminary Blood No Growth after 48 hours 07/13/21 08:45 Blood Culture - Preliminary Blood No Growth after 48 hours
[2021-07-16] MEDS: ACYCLOVIR SODIUM 1,000 MG in SODIUM CHLORIDE 0.9% 250 ML IVPB SCH ×4 (00:31→23:18)
[2021-07-16] MEDS: PIPERACILLIN-TAZOBACTAM 3.375 GM in SODIUM CHLORIDE 0.9% 100 ML IVPB SCH ×3 (00:35→17:13)
[2021-07-16] MEDS: HYDROcodone/APAP 5-325MG 1 EACH TAB PO PRN ×4 (05:22→20:10)
[2021-07-16 07:51] LABS: Albumin 2.6 g/dL (3.5-5.0); Calcium 8.2 mg/dL (8.4-10.2); Potassium 3.4 mmol/L (3.5-5.1); Total Bilirubin 0.6 mg/dL (0.2-1.3); Total Protein 5.2 g/dL (6.3-8.2)
[2021-07-16 08:02] LABS: Anisocytosis Marked; Basophils % (A) 0 %; Eosinophils % (A) 0 %; HCT 25.4 % (34.0-46.0); HGB 7.8 gm/dL (11.4-16.0); Hypochromasia Moderate; Lymphocytes # (A) 0.2 k/uL (1.0-4.8); Lymphocytes % (A) 2 %; MCH 33.8 pg (25.0-35.0); MCHC 30.7 g/dL (31.0-37.0); Macrocytosis Marked; Mean Platelet Volume 8.5; Monocytes # (A) 0.6 k/uL (0-1.0); Monocytes % (A) 4 %; Neutrophils # (A) 12.1 k/uL (1.3-7.7); Neutrophils % (A) 93 %; Platelet Count 260 k/uL (150-450); Poikilocytosis Moderate; RBC 2.31 m/uL (3.80-5.40); RDW 24.3 % (11.5-15.5)
[2021-07-16] MEDS: BUDESONIDE 1 MG/2 ML NEBU INHALATION SCH ×2 (08:20→20:26)
[2021-07-16] MEDS: FORMOTEROL FUMARATE 20 MCG/2 ML NEBU INHALATION SCH ×2 (08:20→20:26)
[2021-07-16] MEDS: ALPRAZolam 0.25 MG TAB PO PRN ×3 (08:44→23:18)
[2021-07-16] MEDS: AZITHROMYCIN 500 MG TAB PO SCH (09:50)
[2021-07-16] MEDS: SPIRONOLACTONE 25 MG TAB PO SCH (09:50)
[2021-07-16] MEDS: methylPREDNISolone SOD SUCCI 40 MG/ML 1 ML VIAL IV SCH ×2 (09:50→21:06)
[2021-07-16] MEDS: PANTOPRAZOLE 40 MG TABLET PO SCH (09:50)
[2021-07-16] MEDS: APIXABAN 5 MG TAB PO SCH ×2 (09:50→21:08)
[2021-07-16] MEDS: cycloSPORINE 0.05% OPHTH 0.4 ML DROPERETTE BOTH EYES SCH ×2 (09:51→21:07)
[2021-07-16] MEDS: PHENAZOPYRIDINE 200 MG TAB PO SCH ×3 (09:51→23:18)
--- NOTE | 2021-07-16 12:53 | XR ---
EXAMINATION TYPE: XR chest 1V portable DATE OF EXAM: 07/16/2021 COMPARISON: 07/14/2021 HISTORY: Shortness of breath TECHNIQUE: Single frontal view of the chest is obtained. FINDINGS: Heart is enlarged and there is diffuse bilateral airspace disease with small effusion and/ or pleural thickening. Limited inspiration. No pneumothorax. Arthropathy of the shoulders. IMPRESSION: Bilateral diffuse airspace disease stable
--- NOTE | 2021-07-16 13:39 | P.PN ---
Subjective Progress Note Date: 07/16/21 Principal diagnosis: Shortness of breath 71-year-old female patient, admitted yesterday through the emergency department because of worsening shortness of breath. 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 The patient has an FEV1 of 1.30 2068% of predicted, FVC of 1.5 L which is only 60% of predicted and the patient's total lung capacity was 70% of predicted and diffusion capacity of 63% of predicted. The patient is also known to have RA, coronary artery disease with mild CAD, nonocclusive disease, chronic atrial fibrillation, and insufficiency, hyperlipidemia. The patient was recently hospitalized on 06/23/2021 and at that time the patient was having increased lower extremity edema. She was also having some trouble breathing. She'll complain of fatigue and generalized weakness. Doppler of the lower extremity is were negative. Chest x-ray showed some compression/atelectasis in the left lung base.COVID 19 testing was negative. Pro-calcitonin level was low at 0.04. And the patient had essentially normal blood work. During the course of her illness, the patient was seen by cardiology. Medical management was advised regarding her CAD. She was on already correlation regarding her A. fib and the patient was being treated for RA with a combination of Xeljanz , Arava and Prednisone. During this current admission, the patient a temperature of 101.7. The patient also had a white cell count of 7.8 with a hemoglobin of 8.9 and the platelets of 219, coagulation profile was normal, but. Showed a pH of 7.46 with a pCO2 of 39 pO2 of 62. Sodium was at 140. Renal function was normal with a creatinine of 0.9, CRP level was 28, LDH level was 671, pro-calcitonin level was 0.54. Repeat Covid 19 testing came back negative. UA was nonspecific. She is currently hospitalized. She is on IV Rocephin and Zithromax. She is on BiPAP for respiratory support. Chest x-ray showing diffuse bilateral pulmonary infiltrates. The BiPAP setting is currently at 12/6 with an FiO2 of 100%. She is urinating a respiratory rate of 35 and the patient's generated tidal volume is around 450 mL. She is quite tachypneic and she is unable to complete full sentences and she seems to be BiPAP dependent at this point in time. She had about a fever earlier. Currently she is afebrile. She is hemodynamically stable. Denies having any chest pain. No significant mucus production. On today's evaluation of 07/15/2021, the patient remains on a BiPAP and she is still in the same setting of 12/6 cm of water with an FiO2 of 80% which is awake and alert. She is following commands and answering questions pH seems to be quite successfully BiPAP full face mask. Over the last, she still tachypneic. She is generating adequate minute ventilation tidal volume. The patient's FiO2 has been drop down from 100% down to 80%. She is afebrile. She is hemodynamically stable at this point in time. Further investigation revealed that the patient's Covid 19 testing was negative, influenza A and influenza B by PCR were both negative and RSV was also negative. Pro-calcitonin level came back at 0.54. The patient's LDH level was 671 with a CRP level of 28.9. The white cell count is at 8.5 with a hemoglobin of 9.2 and a platelet count of 211. The rest of the blood work and nitrites are all within normal limits. I had the patient broad-spectrum antibiotics. I had the patient on Zithromax, Zosyn and vancomycin. Cultures of been all negative. Upon further discussion with the family, the patient had a herpetic lesion and skin lesion which obviously raises the possibility of HSV pneumonia in the setting of immunosuppression and for that reason I added IV acyclovir. Note that the patient is also on IV Solu Medrol and the doses are reduced on the 40 mg every 12 hours. The proBNP level was at 571. On 07/16/2021 patient seen in follow-up on selective care unit, she remains on BiPAP support with pressures of 12 and 6 and FiO2 is currently at 80%, yesterday she tolerated short trial on Airvo at 68 L and FiO2 of 80%, however her get an repositioned and slightly exerted she got very anxious, and she had to be placed back on BiPAP support on which she remains. No fever or chills, she does have occasional cough, not able to bring up any phlegm. She feels very dried out on BiPAP she is on antibiotics, with Zosyn, azithromycin, and Acyclovir was added for empiric HSV coverage. Patient is on nebulized bronchodilators with Pulmicort and Perforomist, she is on IV Solu-Medrol 40 mg every 12 hours. Today's chest x-ray shows bilateral diffuse airspace disease which is stable in appearance. Today's labs show white blood cell count of 13, hemoglobin of 7.8, d-dimer 0.62, potassium is 3.4, chloride is 108, CO2 27, B1 of 43, creatinine 0.78, LDH has increased to 2184, and CRP is slightly downtrending and is down to 21, pro-calcitonin level 2 days ago was 0.54, a level will be repeated today. Lung sounds are positive for coarse crackles, patient is awake and alert, no altered mentation, her family is at the bedside. Patient has not been able to take in much in the way of oral intake other sips of water with medications. ID service is following, so far blood cultures are negative, patient has not been able to produce any phlegm Objective - Vital Signs Vital signs: Vital Signs Temp 97.5 F L 07/16/21 08:00 Pulse 116 H 07/16/21 08:40 Resp 36 H 07/16/21 08:00 BP 135/68 07/16/21 08:00 Pulse Ox 92 L 07/16/21 08:00 Intake & Output 07/15/21 07/16/21 07/16/21 18:59 06:59 18:59 Intake Total 450 Output Total 300 425 Balance -300 25 Weight 97.5 kg Intake: Intake, IV Titration 350 Amount Acyclovir Sodium 1,000 mg 250 In Sodium Chloride 0.9% 250 ml @ 270 mls/hr IVPB Q8HR BLU Rx#:[id number] Piperacillin-Tazobactam 3 100 .375 gm In Sodium Chloride 0.9% 100 ml @ 25 mls/hr IVPB Q8HR BLU Rx# :[id number] Oral 100 Output: Urine 300 425 Other: Voiding Method Indwelling Catheter Indwelling Catheter - Exam GENERAL EXAM: Alert, pleasant, 71-year-old white female, on BiPAP support a pressure of 12 and 6 and FiO2 of 80% comfortable in no apparent distress. HEAD: Normocephalic/atraumatic. EYES: Normal reaction of pupils, equal size. Conjunctiva pink, sclera white. NOSE: Clear with pink turbinates. THROAT: No erythema or exudates. NECK: No masses, no JVD, no thyroid enlargement, no adenopathy. CHEST: No chest wall deformity. Symmetrical expansion. LUNGS: Equal air entry with crackles CVS: Regular rate and rhythm, normal S1 and S2, no gallops, no murmurs, no rubs ABDOMEN: Soft, nontender. No hepatosplenomegaly, normal bowel sounds, no guarding or rigidity. EXTREMITIES: No clubbing, no edema, no cyanosis, 2+ pulses and upper and lower extremities. MUSCULOSKELETAL: Muscle strength and tone normal. SPINE: No scoliosis or deformity SKIN: No rashes CENTRAL NERVOUS SYSTEM: Alert and oriented -3. No focal deficits, tone is normal in all 4 extremities. PSYCHIATRIC: Alert and oriented -3. Appropriate affect. Intact judgment and insight. - Labs CBC & Chem 7: 07/16/21 06:15 07/16/21 06:15 Labs: Abnormal Lab Results - Last 24 Hours (Table) 07/16/21 07/16/21 07/16/21 Range/Units 06:15 06:15 06:15 WBC 13.0 H (3.8-10.6) k/uL RBC 2.31 L (3.80-5.40) m/uL Hgb 7.8 L (11.4-16.0) gm/dL Hct 25.4 L (34.0-46.0) % MCV 110.0 H (80.0-100.0) fL MCHC 30.7 L (31.0-37.0) g/dL RDW 24.3 H (11.5-15.5) % Macrocytosis Marked A D-Dimer 0.62 H (<0.60) mg/L FEU Potassium 3.4 L (3.5-5.1) mmol/L Chloride 108 H (98-107) mmol/L BUN 43 H (7-17) mg/dL Glucose 153 H (74-99) mg/dL Calcium 8.2 L (8.4-10.2) mg/dL AST 46 H (14-36) U/L Lactate Dehydrogenase 2184 H (313-618) U/L C-Reactive Protein 21.0 H (<1.0) mg/dL Total Protein 5.2 L (6.3-8.2) g/dL Albumin 2.6 L (3.5-5.0) g/dL Microbiology - Last 24 Hours (Table) 07/13/21 08:45 Blood Culture - Preliminary Blood No Growth after 72 hours 07/13/21 09:00 Blood Culture - Preliminary Blood No Growth after 72 hours Assessment and Plan Plan: #1. Acute hypoxic respiratory failure with secondary shortness of breath. The patient is presenting with diffuse bilateral pulmonary infiltrates with obvious interval worsening compared to her most recent chest x-ray from 2 weeks ago. Note that the patient also had a CAT scan of the chest that showed diffuse bilateral ground glass pulmonary infiltrates involving the upper and lower lobes bilaterally. Currently on BiPAP at a pressure of 12/6 with an FiO2 of 80%. Note that the CAT scan of the chest that was done earlier on 06/08/2021 was fairly of these pulmonary infiltrates. Suspect viral pneumonias although the Covid 19 testing and influenza and B and RSV came back negative. Agency pneumonia is likely. Atypical bacterial infections need to be considered. Acute lung injury from aspiration related to hiatal hernia is felt to be less likely. PCP pneumonia felt to be less likely. CHF with interstitial edema is felt to be less likely. Infiltrates or other acute and the patient is immunosuppressed with a combination of immunosuppressive agents including Xeljanz, Arava and Prednisone #2 history of pulmonary fibrosis/interstitial lung disease, related to rheumatoid lung disease, patient follows with Dr. Hinojosa in the pulmonary clinic, she is on Xeljanz, Prednisone and Arava. Most recent PFT showed moderate restriction and mild diffusion defect, overall her lung function has been stable over last 2 years. FVC is 1.55 L or 60% of predicted, FEV1 is 1.32 L or 68% of predicted, with FEV1 to FVC ratio of 112, total lung capacity is 3.25 L or 70% of predicted, and DLCO of 63% of predicted. This is based on the PFT dated 06/04/2021. #3. History of rheumatoid arthritis, On Xeljanz, Arava and Prednisone #4. Coronary artery disease, on medical treatment, nonocclusive disease based on the most recent cardiac catheterization #5. Paroxysmal atrial fibrillation, currently in sinus mechanism #6. Insomnia #7 . History of iron deficiency anemia #8. GERD secondary to hiatal hernia #9. Hypercholesterolemia #10. Relative adrenal insufficiency #11. History of herpes simplex conjunctivitis and scleritis #12. History of back surgery #13. Obesity Plan: Continue current antibiotic coverage FiO2 has been dropped down to 70% on her BiPAP, continue weaning to keep O2 sats ration is at or above 90% May give a trial on Airvo There is a possibility of clinical deterioration, and for that reason patient will be considered for ICU transfer Currently does not appear to be in any acute distress although still requiring BiPAP support and high oxygen concentration No fever or chills Today's chest x-ray has been noted Labs have been noted Continue IV steroids, continue neb last bronchodilators and antibiotics I performed a history & physical examination of the patient and discussed their management with my nurse practitioner, Margo Perez. I reviewed the nurse practitioner's note and agree with the documented findings and plan of care. Lung sounds are positive for diffuse crackles throughout the lung berrios. The findings and the impression was discussed with the patient. I attest to the documentation by the nurse practitioner. Time with Patient: Less than 30
[2021-07-16] MEDS ORDERED: DILTIAZEM CD 180 MG CAP.ER.24H PO SCH (13:45)
[2021-07-16 14:41] LABS: Mixed Population RBC Present; Polychromasia Present; RBC Fragments Present
[2021-07-16] MEDS ORDERED: DILTIAZEM DRIP BOLUS FROM BAG 1 MG SOLN IV ONE (15:33)
[2021-07-16] MEDS: DILTIAZEM 125 MG in SODIUM CHLORIDE 0.9% 100 ML IV SCH (15:54)
[2021-07-16] MEDS: ATORVASTATIN 80 MG TAB PO SCH (21:07)
[2021-07-16] MEDS: polyethylene glycoL 3350 17 GM POWD.PACK PO SCH ×2 (21:08→22:58)
--- NOTE | 2021-07-16 22:46 | PN ---
PROGRESS NOTE DATE OF SERVICE: 07/16/2021 REASON FOR FOLLOWUP: Pneumonia. INTERVAL HISTORY: The patient is afebrile. The patient remains to be on BiPAP. The patient is hemodynamically stable. No nausea, no vomiting. No abdominal pain. No diarrhea. PHYSICAL EXAMINATION: Blood pressure is 129/85, pulse of 113, temperature of 98.5. General description is an elderly female lying in bed in no distress. Respiratory system: Unlabored breathing, decreased intensity of breath sounds. No wheeze. Heart S1, S2. Regular rate and rhythm. Abdomen soft, no tenderness. LABS: Hemoglobin 7.8, white count 13, BUN of 43, creatinine 0.7. DIAGNOSTIC IMPRESSION AND PLAN: Patient with acute respiratory failure which is multifactorial and concern for possible pneumonia, possible aspiration, less likely HSV pneumonia. The patient is not risk factor for that. Patient is covered with Zosyn. The patient seems to have stable condition. Try to obtain a sputum and narrow down antibiotics. Continue supportive care. MMODL / IJN: [id number] / MTDD
[2021-07-17] MEDS: HYDROcodone/APAP 5-325MG 1 EACH TAB PO PRN ×3 (00:55→10:14)
[2021-07-17] MEDS: PIPERACILLIN-TAZOBACTAM 3.375 GM in SODIUM CHLORIDE 0.9% 100 ML IVPB SCH ×4 (00:56→23:36)
[2021-07-17] MEDS ORDERED: LORazepam 2 MG/ML INJ IV STA ×2 (02:29→09:53)
[2021-07-17] MEDS: DILTIAZEM 125 MG in SODIUM CHLORIDE 0.9% 100 ML IV SCH (03:22)
[2021-07-17] MEDS: ALPRAZolam 0.25 MG TAB PO PRN (05:56)
[2021-07-17 08:10] LABS: Calcium 8.1 mg/dL (8.4-10.2)
[2021-07-17 08:11] LABS: Potassium 3.7 mmol/L (3.5-5.1)
[2021-07-17] MEDS: ACYCLOVIR SODIUM 1,000 MG in SODIUM CHLORIDE 0.9% 250 ML IVPB SCH (08:32)
[2021-07-17] MEDS: FORMOTEROL FUMARATE 20 MCG/2 ML NEBU INHALATION SCH ×2 (08:44→20:08)
[2021-07-17] MEDS: BUDESONIDE 1 MG/2 ML NEBU INHALATION SCH ×2 (08:44→20:08)
[2021-07-17] MEDS ORDERED: DILTIAZEM CD 240 MG CAP.ER.24H PO SCH (09:30)
[2021-07-17] MEDS ORDERED: ALPRAZolam 0.5 MG TAB PO PRN (09:53)
[2021-07-17 10:00] LABS: Anisocytosis Moderate; HCT 21.4 % (34.0-46.0); Hypochromasia Marked; MCH 34.4 pg (25.0-35.0); MCHC 31.2 g/dL (31.0-37.0); Macrocytosis Marked; Platelet Count 226 k/uL (150-450); Poikilocytosis Moderate; RBC 1.94 m/uL (3.80-5.40); RDW 23.7 % (11.5-15.5)
[2021-07-17 10:03] LABS: MCV 110.1 fL (80.0-100.0)
[2021-07-17 10:05] LABS: HGB 6.7 gm/dL (11.4-16.0)
[2021-07-17] MEDS: AZITHROMYCIN 500 MG TAB PO SCH (10:14)
[2021-07-17] MEDS: PANTOPRAZOLE 40 MG TABLET PO SCH (10:14)
[2021-07-17] MEDS: SPIRONOLACTONE 25 MG TAB PO SCH (10:14)
[2021-07-17] MEDS: APIXABAN 5 MG TAB PO SCH ×2 (10:14→20:30)
[2021-07-17] MEDS: methylPREDNISolone SOD SUCCI 40 MG/ML 1 ML VIAL IV SCH ×2 (10:30→20:22)
--- NOTE | 2021-07-17 11:17 | P.CRDCN ---
History of Present Illness Consult date: 07/17/21 History of present illness: HISTORY OF PRESENT ILLNESS: This is a 71-year-old female with a past medical history significant for pulmonary fibrosis, rheumatoid arthritis, hypertension, hyperlipidemia, paroxysmal atrial fibrillation, and nonobstructive coronary artery disease. Patient follows in the office with Dr. Briceño. We have been asked to see the patient in consultation for AShai mccloud with RVR. Patient examined at the bedside. Patient is admitted to the hospital secondary to acute hypoxic respiratory failure, likely secondary to pneumonia in addition to her pulmonary fibrosis. She is currently on a bipap machine. Patient was afib with RVR overnight. She was started on a Cardizem drip at 10mg/hr. She is currently maintaining sinus mechanism with PACs. Chest xray bilateral diffuse airspace disease. Laboratory data: WBC 16.7. Hemoglobin 7.8. Platelet count 226. Sodium 139. Potassium 3.7. BUN 62. Creatinine 0.88. Echocardiogram completed in June 2021 revealed ejection fraction 55-60%. Trace to mild aortic regurgitation. Mild tricuspid regurgitation. Borderline pulmonary artery hypertension. Patient underwent cardiac catheterization with Dr. Brennan on 06/10/2021 revealing mild CAD including 20% RCA stenosis and 30% mid LAD stenosis. Normal left-sided filling pressures. REVIEW OF SYSTEMS: At the time of my exam: CONSTITUTIONAL: Denies fever or chills. HEENT: Denies blurred vision, vision changes, or eye pain. Denies hemoptysis CARDIOVASCULAR: Denies chest pain. Denies orthopnea. Denies PND. Denies palpitations RESPIRATORY: + shortness of breath. GASTROINTESTINAL: Denies abdominal pain. Denies nausea or vomiting. HEMATOLOGIC: Denies bleeding disorders. GENITOURINARY: Denies any blood in urine. SKIN: Denies pruitis. Denies rash. PHYSICAL EXAM: VITAL SIGNS: Reviewed. GENERAL: Well-developed in no acute distress. HEENT: Head is normocephalic. Pupils are equal, round. Sclerae anicteric. Mucous membranes of the mouth are moist. Neck supple. No JVD or thyromegaly LUNGS: Respirations even and unlabored. Lungs diminished to auscultation bilaterally. HEART: Regular rate and rhythm. S1 and S2 heard. ABDOMEN: Soft. Nondistended. Nontender. EXTREMITIES: Normal range of motion. No clubbing or cyanosis. Peripheral pulses intact. Trace lower extremity edema NEUROLOGIC: Awake and alert. Oriented x 3. ASSESSMENT: Acute hypoxic respiratory failure Pneumonia Pulmonary fibrosis Paroxysmal atrial fibrillation with RVR, on anticoagulation with Eliquis Nonobstructive coronary artery disease Hypertension Hyperlipidemia Rheumatoid arthritis PLAN: No need to repeat echocardiogram Resume Cardizem. Increased dosage to 240 mg daily Continue Eliquis Discontinue Cardizem infusion Continue telemetry monitoring Further recommendations pending patient's course Nurse practitioner note has been reviewed by physician. Signing provider agrees with the documented findings, assessment, and plan of care. Past Medical History Past Medical History: Atrial Fibrillation, GERD/Reflux, Hyperlipidemia, Osteoarthritis (OA), Respiratory Disorder, Rheumatoid Arthritis (RA) Additional Past Medical History / Comment(s): HIATAL HERNIA,PULMONARY FIBROSIS, sepsis june 11 2016, anemia with transfusion, adrenal insufficiency. History of Any Multi-Drug Resistant Organisms: None Reported Past Surgical History: Adenoidectomy, Back Surgery, Hysterectomy, Tonsillectomy Additional Past Surgical History / Comment(s): SINUS SURG,johnathon cataracts removal Past Anesthesia/Blood Transfusion Reactions: No Reported Reaction Additional Past Anesthesia/Blood Transfusion Reaction / Comment(s): no hx blood transfusion Past Psychological History: No Psychological Hx Reported Smoking Status: Never smoker Past Alcohol Use History: None Reported Past Drug Use History: None Reported - Past Family History Mother Family Medical History: CVA/TIA, Myocardial Infarction ([place]) Additional Family Medical History / Comment(s): borderline diabetes Father Family Medical History: Cancer Additional Family Medical History / Comment(s): carcinoma gallbladder Medications and Allergies Home Medications Medication Instructions Recorded Confirmed Type Atorvastatin [Lipitor] 80 mg PO HS 04/16/14 07/13/21 History HYDROcodone/APAP 5-325MG [[place] 1 tab PO TID PRN 06/22/17 07/13/21 History 5-325] Tofacitinib Citrate [Xeljanz Xr] 11 mg PO DAILY 06/22/17 07/13/21 History Leflunomide [Arava] 20 mg PO DAILY 06/08/21 07/13/21 History cycloSPORINE 0.05% OPHTH SOLN 1 drop BOTH EYES BID 06/08/21 07/13/21 History [Restasis] valACYclovir [Valtrex] 500 mg PO BID 06/08/21 07/13/21 History Diltiazem Cd [Cardizem CD] 180 mg PO DAILY 06/22/21 07/13/21 History Omeprazole 20 mg PO DAILY 06/22/21 07/13/21 History Apixaban [Eliquis] 5 mg PO BID #60 tab 06/26/21 07/13/21 Rx Melatonin 5 mg PO HS PRN 5 Days #5 tablet 06/26/21 07/13/21 Rx Furosemide [Lasix] 20 mg PO DAILY PRN 07/13/21 07/13/21 History Potassium Chloride ER [K-Dur 20] 20 meq PO DAILY PRN 07/13/21 07/13/21 History Spironolactone [Aldactone] 25 mg PO DAILY 07/13/21 07/13/21 History predniSONE 10 mg PO DAILY 07/13/21 07/13/21 History Allergies Allergy/AdvReac Type Severity Reaction Status Date / Time celecoxib [From Celebrex] Allergy Rash/Hives Verified 07/13/21 12:42 ciprofloxacin [From Cipro] AdvReac Hallucinati Verified 07/13/21 12:42 ons gold sodium thiomalate AdvReac flushing Verified 07/13/21 12:42 [From Myochrysine] Physical Exam Vitals: Vital Signs Temp Pulse Pulse Resp BP Pulse Ox 07/17/21 08:55 116 H 07/17/21 08:44 116 H 07/17/21 08:00 97.4 F L 100 17 137/74 98 07/17/21 04:00 112 H 24 144/69 94 L 07/17/21 02:00 118 H 07/17/21 00:00 116 H 26 H 151/78 94 L 07/16/21 20:41 112 H 07/16/21 20:33 203 H 07/16/21 20:32 116 H 07/16/21 20:26 118 H 07/16/21 20:13 98.5 F 113 H 20 129/65 97 07/16/21 20:00 116 H 07/16/21 16:00 125 H 28 H 134/74 96 07/16/21 15:53 121 H 23 106/58 85 L 07/16/21 15:52 130 H 127/61 07/16/21 15:30 152 H 129/65 07/16/21 14:56 20 90 L 07/16/21 12:00 136 H 22 131/73 Intake and Output 07/16/21 07/17/21 07/17/21 22:59 06:59 14:59 Intake Total 0 114.667 Output Total 225 175 Balance -225 -60.333 Intake: Intake, IV Titration 114.667 Amount Diltiazem 125 mg In 114.667 Sodium Chloride 0.9% 100 ml @ 10 MG/HR 10 mls/hr IV .[id number] [facility] Rx#: [id number] Oral 0 Output: Urine 225 175 Other: Voiding Method Indwelling Catheter Indwelling Catheter Weight 98.5 kg Results 07/17/21 06:53 07/17/21 06:53 CBC 07/17/21 Range/Units 06:53 WBC 16.7 H (3.8-10.6) k/uL RBC 1.94 L (3.80-5.40) m/uL Hct 21.4 L (34.0-46.0) % Plt Count 226 (150-450) k/uL Comprehensive Metabolic Panel 07/17/21 Range/Units 06:53 Sodium 139 (137-145) mmol/L Potassium 3.7 (3.5-5.1) mmol/L Chloride 110 H (98-107) mmol/L Carbon Dioxide 23 (22-30) mmol/L BUN 62 H (7-17) mg/dL Creatinine 0.88 (0.52-1.04) mg/dL Glucose 176 H (74-99) mg/dL Calcium 8.1 L (8.4-10.2) mg/dL Current Medications Generic Name Dose Route Start Last Admin Trade Name Freq PRN Reason Stop Dose Admin Hydrocodone Bitart/Acetaminophen 1 each 07/13/21 22:07 07/17/21 10:14 Hydrocodone/Apap 5-325mg 1 Each Tab PO 1 each Q4HR PRN Administration Pain Alprazolam 0.5 mg 07/17/21 09:53 Alprazolam 0.5 Mg Tab PO TID PRN Anxiety Apixaban 5 mg 07/13/21 21:00 07/17/21 10:14 Apixaban 5 Mg Tab PO 5 mg BID BLU Administration Protocol Atorvastatin Calcium 80 mg 07/13/21 21:00 07/16/21 21:07 Atorvastatin 80 Mg Tab PO 80 mg HS BLU Administration Azithromycin 500 mg 07/14/21 12:45 07/17/21 10:14 Azithromycin 500 Mg Tab PO 500 mg DAILY BLU Administration Budesonide 1 mg 07/14/21 04:05 07/17/21 08:44 Budesonide 1 Mg/2 Ml Nebu INHALATION 1 mg RT-BID BLU Administration Cyclosporine 1 drops 07/13/21 21:00 07/16/21 21:07 Cyclosporine 0.05% Ophth 0.4 Ml Droperette BOTH EYES 1 drops BID BLU Administration Diltiazem HCl 240 mg 07/17/21 09:30 07/17/21 10:14 Diltiazem Cd 240 Mg Cap.Er.24h PO 240 mg DAILY BLU Administration Formoterol Fumarate 20 mcg 07/14/21 04:30 07/17/21 08:44 Formoterol Fumarate 20 Mcg/2 Ml Nebu INHALATION 08/06/21 04:31 20 mcg RT-BID BLU Administration Furosemide 20 mg 07/13/21 17:43 Furosemide 20 Mg Tab PO DAILY PRN Edema Piperacillin Sod/Tazobactam 100 mls @ 25 mls/hr 07/14/21 16:00 07/17/21 10:30 Sod 3.375 gm/ Sodium Chloride IVPB 25 mls/hr Q8HR BLU Administration Acyclovir Sodium 1,000 mg/ 270 mls @ 270 mls/hr 07/17/21 21:00 Sodium Chloride IVPB Q12HR BLU Melatonin 5 mg 07/13/21 17:43 07/13/21 22:55 Melatonin 5 Mg Tablet PO 5 mg HS PRN Administration Insomnia Methylprednisolone Sodium Succinate 40 mg 07/15/21 21:00 07/17/21 10:30 Methylprednisolone Sod Succi 40 Mg/Ml 1 Ml Vial IV 40 mg Q12HR BLU Administration Miscellaneous Information 1 each 07/13/21 11:26 Pneumonia Protocol Utilized 1 Each Misc PO ONCE PRN Per Protocol Pantoprazole Sodium 40 mg 07/14/21 09:00 07/17/21 10:14 Pantoprazole 40 Mg Tablet PO 40 mg DAILY BLU Administration Phenazopyridine HCl 200 mg 07/13/21 22:15 07/16/21 23:18 Phenazopyridine 200 Mg Tab PO 200 mg TID BLU Administration Polyethylene Glycol 17 gm 07/13/21 22:15 07/16/21 22:58 Polyethylene Glycol 3350 17 Gm Powd.Pack PO Not Given HS BLU Potassium Chloride 20 meq 11/07/21 17:45 Potassium Chloride Er 20 Meq Tab.Er PO DAILY PRN w/lasix Spironolactone 25 mg 07/14/21 09:00 07/17/21 10:14 Spironolactone 25 Mg Tab PO 25 mg DAILY BLU Administration Intake and Output 07/16/21 07/17/21 07/17/21 22:59 06:59 14:59 Intake Total 0 114.667 Output Total 225 175 Balance -225 -60.333 Intake: Intake, IV Titration 114.667 Amount Diltiazem 125 mg In 114.667 Sodium Chloride 0.9% 100 ml @ 10 MG/HR 10 mls/hr IV .[id number] Rx#: [id number] Oral 0 Output: Urine 225 175 Other: Voiding Method Indwelling Catheter Indwelling Catheter Weight 98.5 kg 07/17/21 06:53 07/17/21 06:53
[2021-07-17] MEDS: cycloSPORINE 0.05% OPHTH 0.4 ML DROPERETTE BOTH EYES SCH ×2 (12:48→20:22)
[2021-07-17] MEDS: PHENAZOPYRIDINE 200 MG TAB PO SCH ×3 (12:48→20:30)
[2021-07-17 13:32] VITALS: BMI 41.0
[2021-07-17] MEDS ORDERED: LINEZOLID 600 MG in DEXTROSE/WATER 1 300ML.BAG IVPB SCH (14:00)
[2021-07-17] MEDS: LORazepam 2 MG/ML INJ IV PRN ×2 (14:07→23:32)
[2021-07-17 14:19] LABS: Band Neutrophils % 1 %; Neutrophils % (M) 94 %; Nucleated Red Blood Cells 5 /100 WBC (0-0); Total Cells Counted 200
[2021-07-17 14:20] LABS: Lymphocytes # (M) 0.48 k/uL (1.0-4.8); Monocytes # (M) 0.48 k/uL (0-1.0); WBC 15.9 k/uL (3.8-10.6)
[2021-07-17 14:23] LABS: Polychromasia Present
[2021-07-17 14:24] LABS: RBC Fragments Present
--- NOTE | 2021-07-17 15:21 | P.PN ---
Subjective Progress Note Date: 07/17/21 Principal diagnosis: Shortness of breath 71-year-old female patient, admitted yesterday through the emergency department because of worsening shortness of breath. 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 The patient has an FEV1 of 1.30 2068% of predicted, FVC of 1.5 L which is only 60% of predicted and the patient's total lung capacity was 70% of predicted and diffusion capacity of 63% of predicted. The patient is also known to have RA, coronary artery disease with mild CAD, nonocclusive disease, chronic atrial fibrillation, and insufficiency, hyperlipidemia. The patient was recently hospitalized on 06/23/2021 and at that time the patient was having increased lower extremity edema. She was also having some trouble breathing. She'll complain of fatigue and generalized weakness. Doppler of the lower extremity is were negative. Chest x-ray showed some compression/atelectasis in the left lung base.COVID 19 testing was negative. Pro-calcitonin level was low at 0.04. And the patient had essentially normal blood work. During the course of her illness, the patient was seen by cardiology. Medical management was advised regarding her CAD. She was on already correlation regarding her A. fib and the patient was being treated for RA with a combination of Xeljanz , Arava and Prednisone. During this current admission, the patient a temperature of 101.7. The patient also had a white cell count of 7.8 with a hemoglobin of 8.9 and the platelets of 219, coagulation profile was normal, but. Showed a pH of 7.46 with a pCO2 of 39 pO2 of 62. Sodium was at 140. Renal function was normal with a creatinine of 0.9, CRP level was 28, LDH level was 671, pro-calcitonin level was 0.54. Repeat Covid 19 testing came back negative. UA was nonspecific. She is currently hospitalized. She is on IV Rocephin and Zithromax. She is on BiPAP for respiratory support. Chest x-ray showing diffuse bilateral pulmonary infiltrates. The BiPAP setting is currently at 12/6 with an FiO2 of 100%. She is urinating a respiratory rate of 35 and the patient's generated tidal volume is around 450 mL. She is quite tachypneic and she is unable to complete full sentences and she seems to be BiPAP dependent at this point in time. She had about a fever earlier. Currently she is afebrile. She is hemodynamically stable. Denies having any chest pain. No significant mucus production. On today's evaluation of 07/15/2021, the patient remains on a BiPAP and she is still in the same setting of 12/6 cm of water with an FiO2 of 80% which is awake and alert. She is following commands and answering questions pH seems to be quite successfully BiPAP full face mask. Over the last, she still tachypneic. She is generating adequate minute ventilation tidal volume. The patient's FiO2 has been drop down from 100% down to 80%. She is afebrile. She is hemodynamically stable at this point in time. Further investigation revealed that the patient's Covid 19 testing was negative, influenza A and influenza B by PCR were both negative and RSV was also negative. Pro-calcitonin level came back at 0.54. The patient's LDH level was 671 with a CRP level of 28.9. The white cell count is at 8.5 with a hemoglobin of 9.2 and a platelet count of 211. The rest of the blood work and nitrites are all within normal limits. I had the patient broad-spectrum antibiotics. I had the patient on Zithromax, Zosyn and vancomycin. Cultures of been all negative. Upon further discussion with the family, the patient had a herpetic lesion and skin lesion which obviously raises the possibility of HSV pneumonia in the setting of immunosuppression and for that reason I added IV acyclovir. Note that the patient is also on IV Solu Medrol and the doses are reduced on the 40 mg every 12 hours. The proBNP level was at 571. On 07/16/2021 patient seen in follow-up on selective care unit, she remains on BiPAP support with pressures of 12 and 6 and FiO2 is currently at 80%, yesterday she tolerated short trial on Airvo at 68 L and FiO2 of 80%, however her get an repositioned and slightly exerted she got very anxious, and she had to be placed back on BiPAP support on which she remains. No fever or chills, she does have occasional cough, not able to bring up any phlegm. She feels very dried out on BiPAP she is on antibiotics, with Zosyn, azithromycin, and Acyclovir was added for empiric HSV coverage. Patient is on nebulized bronchodilators with Pulmicort and Perforomist, she is on IV Solu-Medrol 40 mg every 12 hours. Today's chest x-ray shows bilateral diffuse airspace disease which is stable in appearance. Today's labs show white blood cell count of 13, hemoglobin of 7.8, d-dimer 0.62, potassium is 3.4, chloride is 108, CO2 27, B1 of 43, creatinine 0.78, LDH has increased to 2184, and CRP is slightly downtrending and is down to 21, pro-calcitonin level 2 days ago was 0.54, a level will be repeated today. Lung sounds are positive for coarse crackles, patient is awake and alert, no altered mentation, her family is at the bedside. Patient has not been able to take in much in the way of oral intake other sips of water with medications. ID service is following, so far blood cultures are negative, patient has not been able to produce any phlegm On 07/17/2021 patient seen in follow-up on selective care unit, overnight patient went into A. fib with RVR, was placed on Cardizem drip for rate control, and she is on Eliquis for anticoagulation, her oxygenation has worsened, she is BiPAP dependent at this time, and currently FiO2 is at 90%, with a pulse ox of 95%, patient has not been able to tolerate high flow nasal cannula trials, she rapidly desaturates into the 65 range on high flow nasal cannula, and becomes severely dyspneic and has to be placed back on BiPAP support, she is also very anxious. She is afebrile, respirations are labored, she is using accessory muscles of breathing, she was given some Ativan for anxiety and increased work of breathing room air, seems to be more comfortable right now, her chest x-ray yesterday showed bilateral diffuse airspace disease. Patient has been on antibiotic coverage in the form of Zosyn, azithromycin, and Acyclovir. Patient is on IV Solu-Medrol 40 mg every 12 hours, she is on nebulized bronchodilators, her blood cultures came back positive for vancomycin resistant enterococcus, ID service is following, and Zyvox has been added, azithromycin and acyclovir were discontinued. Follow-up labs have been reviewed, with blood cell count is 16.9, hemoglobin is currently pending, sodium is 139, potassium 3.7, chloride is 110, BUN 62, creatinine 0.8, her follow-up pro-calcitonin level was 0.22. In Addition her COVID-19 antibiotic test came back positive indicating past infection with COVID-19. COVID-19 PCR was negative. Patient has been increasingly dyspneic, hypoxic, BiPAP dependent, Dr. Staley has spent a long time discussing patient's condition with the patient and the family at the bedside for last 2 days, at this point the family has decided to change her CODE STATUS to DO NOT RESUSCITATE, and proceeded to hospice consultation initially for informational meeting. After the informational meeting patient family requested hospice enrollment and make the patient comfortable. Objective - Vital Signs Vital signs: Vital Signs Temp 96.9 F L 07/17/21 12:45 Pulse 105 H 07/17/21 12:45 Resp 16 07/17/21 12:45 BP 128/58 07/17/21 12:45 Pulse Ox 95 07/17/21 12:45 Intake & Output 07/16/21 07/17/21 07/17/21 18:59 06:59 18:59 Intake Total 0 114.667 Output Total 400 400 Balance -400 -285.333 Weight 98.5 kg 98.5 kg Intake: Intake, IV Titration 114.667 Amount Diltiazem 125 mg In 114.667 Sodium Chloride 0.9% 100 ml @ 10 MG/HR 10 mls/hr IV .[id number] [facility] Rx#: [id number] Oral 0 Output: Urine 400 400 Other: Voiding Method Indwelling Catheter Indwelling Catheter Indwelling Catheter - Exam GENERAL EXAM: [id number] white female, on BiPAP support a pressure of 12 and 6 and FiO2 of 90%, dyspneic, but currently resting comfortably HEAD: Normocephalic/atraumatic. EYES: Normal reaction of pupils, equal size. Conjunctiva pink, sclera white. NOSE: Clear with pink turbinates. THROAT: No erythema or exudates. NECK: No masses, no JVD, no thyroid enlargement, no adenopathy. CHEST: No chest wall deformity. Symmetrical expansion. LUNGS: Equal air entry with crackles CVS: Regular rate and rhythm, normal S1 and S2, no gallops, no murmurs, no rubs ABDOMEN: Soft, nontender. No hepatosplenomegaly, normal bowel sounds, no guarding or rigidity. EXTREMITIES: No clubbing, no edema, no cyanosis, 2+ pulses and upper and lower extremities. MUSCULOSKELETAL: Muscle strength and tone normal. SPINE: No scoliosis or deformity SKIN: No rashes CENTRAL NERVOUS SYSTEM: Lethargic arousable to tactile and verbal stimulation currently on BiPAP support. No focal deficits, tone is normal in all 4 extre mities. - Labs CBC & Chem 7: 07/17/21 06:53 07/17/21 06:53 Labs: Abnormal Lab Results - Last 24 Hours (Table) 07/16/21 07/16/21 07/17/21 Range/Units 06:15 06:15 06:53 WBC (3.8-10.6) k/uL RBC (3.80-5.40) m/uL Hct (34.0-46.0) % RDW (11.5-15.5) % Neutrophils # (Manual) (1.3-7.7) k/uL Lymphocytes # (Manual) (1.0-4.8) k/uL Nucleated RBCs (0-0) /100 WBC Macrocytosis Chloride (98-107) mmol/L BUN (7-17) mg/dL Glucose (74-99) mg/dL Calcium (8.4-10.2) mg/dL Procalcitonin 0.24 H 0.22 H (0.02-0.09) ng/mL SARS-CoV-2 Ab,Total Positive A (Negative) 07/17/21 07/17/21 Range/Units 06:53 06:53 WBC 15.9 H (3.8-10.6) k/uL RBC 1.94 L (3.80-5.40) m/uL Hct 21.4 L (34.0-46.0) % RDW 23.7 H (11.5-15.5) % Neutrophils # (Manual) 15.10 H (1.3-7.7) k/uL Lymphocytes # (Manual) 0.48 L (1.0-4.8) k/uL Nucleated RBCs 5 H (0-0) /100 WBC Macrocytosis Marked A Chloride 110 H (98-107) mmol/L BUN 62 H (7-17) mg/dL Glucose 176 H (74-99) mg/dL Calcium 8.1 L (8.4-10.2) mg/dL Procalcitonin (0.02-0.09) ng/mL SARS-CoV-2 Ab,Total (Negative) Microbiology - Last 24 Hours (Table) 07/16/21 06:15 Blood Culture Gram Stain - Preliminary Blood Blood Culture - Preliminary Enterococcus faecium 07/13/21 08:45 Blood Culture - Preliminary Blood No Growth after 96 hours 07/13/21 09:00 Blood Culture - Preliminary Blood No Growth after 96 hours 07/16/21 06:15 Blood Culture - Final Blood Assessment and Plan Plan: #1. Acute hypoxic respiratory failure with secondary shortness of breath, possibly related to recent history of COVID-19 pneumonia. Initial Covid PCR was negative, however in view of bilateral pulmonary infiltrates with groundglass appearance on the computed tomography scan of the chest COVID-19 antibody test was sent and was positive indicating past infection with COVID-19. Patient also has vancomycin resistant enterococcus bacteremia. At this point she remains BiPAP dependent. The patient is presenting with diffuse bilateral pulmonary infiltrates with obvious interval worsening compared to her most recent chest x- ray from 2 weeks ago. Note that the patient also had a CAT scan of the chest that showed diffuse bilateral ground glass pulmonary infiltrates involving the upper and lower lobes bilaterally. Currently on BiPAP at a pressure of 12/6 with an FiO2 of 80%. Note that the CAT scan of the chest that was done earlier on 06/08/2021 was fairly of these pulmonary infiltrates. Suspect viral pneumonias although the Covid 19 testing and influenza and B and RSV came back negative. Agency pneumonia is likely. Atypical bacterial infections need to be considered. Acute lung injury from aspiration related to hiatal hernia is felt to be less likely. PCP pneumonia felt to be less likely. CHF with interstitial edema is felt to be less likely. Infiltrates or other acute and the patient is immunosuppressed with a combination of immunosuppressive agents including Xeljanz, Arava and Prednisone #2. Recent history of COVID-19 pneumonia based on COVID-19 antibiotic test, when patient was infected with COVID-19 is unknown to us as a PCR test is currently negative #3. Vancomycin resistant enterococcus bacteremia, current antibiotic coverage is with Zosyn and Zyvox #4. Atrial fibrillation with RVR, on Cardizem and Eliquis currently #5. history of pulmonary fibrosis/interstitial lung disease, related to rheumatoid lung disease, patient follows with Dr. Hinojosa in the pulmonary clinic, she is on Xeljanz, Prednisone and Arava. Most recent PFT showed moderate restriction and mild diffusion defect, overall her lung function has been stable over last 2 years. FVC is 1.55 L or 60% of predicted, FEV1 is 1.32 L or 68% of predicted, with FEV1 to FVC ratio of 112, total lung capacity is 3.25 L or 70% of predicted, and DLCO of 63% of predicted. This is based on the PFT dated 06/04/2021. #6. History of rheumatoid arthritis, On Xeljanz, Arava and Prednisone #7. Coronary artery disease, on medical treatment, nonocclusive disease based on the most recent cardiac catheterization #8. Paroxysmal atrial fibrillation, currently in sinus mechanism #9. Insomnia #10 . History of iron deficiency anemia #11. GERD secondary to hiatal hernia #12. Hypercholesterolemia #13. Relative adrenal insufficiency #14. History of herpes simplex conjunctivitis and scleritis #15. History of back surgery #16. Obesity Plan: Continue antibiotics per ID service recommendations Patient is currently on Zyvox and Zosyn for VRE bacteremia She is more dyspneic and hypoxic, she is BiPAP dependent at this time Clinically deteriorated in the last 24 hours, Her COVID-19 antibiotic test came back positive indicating recent history of infection with COVID-19 Continue IV steroids Patient is not a candidate for Remdesivir she is too far out of window She is not a candidate for Baricitinib in view of positive blood cultures Overall prognosis is poor Family has requested DO NOT RESUSCITATE CODE STATUS and hospice consultation This is appropriate given patient with multiple medical conditions AT This time the family just was to make her comfortable and relieve her dyspnea They're waiting for her son to arrive from out of town Until then continue supportive treatment I performed a history & physical examination of the patient and discussed their management with my nurse practitioner, Margo Perez. I reviewed the nurse practitioner's note and agree with the documented findings and plan of care. Lung sounds are positive for diffuse crackles throughout the lung berrios. The findings and the impression was discussed with the patient. I attest to the documentation by the nurse practitioner. Time with Patient: Greater than 30
[2021-07-17] MEDS: MORPHINE SULFATE 2 MG/ML SYRINGE IVP PRN ×2 (16:08→21:34)
[2021-07-17 20:12] VITALS: BP 137/63; TEMP 97.1
[2021-07-17] MEDS: polyethylene glycoL 3350 17 GM POWD.PACK PO SCH (20:30)
[2021-07-17] MEDS: ATORVASTATIN 80 MG TAB PO SCH (20:30)
[2021-07-17 20:43] VITALS: PULSE 106
[2021-07-17] MEDS ORDERED: ACYCLOVIR SODIUM 1,000 MG in SODIUM CHLORIDE 0.9% 250 ML IVPB SCH (21:00)
--- NOTE | 2021-07-17 21:23 | P.PN ---
Subjective Progress Note Date: 07/16/21 Principal diagnosis: Acute hypoxic respiratory failure due to multifocal pneumonia and diffuse bilateral groundglass pulmonary infiltrates involving the upper and lower lobes. Patient is a 71-year-old female with a known history of paroxysmal atrial fibrillation on anticoagulation with Eliquis, hyperlipidemia, GERD, hiatal hernia, rheumatoid arthritis/rheumatoid lung, osteoarthritis, pulmonary fibrosis, atrial insufficiency and no prior history of smoking presents to ER with the complaints of worsening shortness of breath. Patient is on follow with pulmonary due to lung fibrosis and was recently on steroid tapering course. Patient otherwise denied any complaints of chest pain. No nausea vomiting or abdominal pain or diarrhea. Does have cough without sputum production. Denies any sick contacts or recent travel. Patient was hypoxic on admission and is requiring high flow oxygen via nasal cannula. On admission T-max 101.7, heart rate 117 pulse ox 74% on room air. Patient does not use oxygen at home. EKG showed sinus tachycardia. Chest x-ray showed diffuse bilateral partially consolidative infiltrates consistent with acute cardiopulmonary disease. CT chest showed diffuse bilateral air space disease. Multifocal pneumonia or covid pneumonia favored over pulmonary edema given the lack of significant pleural effusion. No evidence of PE. Laboratory data showed WBC 7.8 hemoglobin 8.9 and platelets 219, lymphocytes 0.3 ABG showed pH 7.46, pO2 62, pCO2 39 and bicarb 27 Sodium 132 potassium 3.6 chloride 101 BUN 13 creatinine 0.75 urinalysis showed cloudy, trace protein, 1+ ketones, moderate leukocyte esterase and RBCs 5 and WBC is 5. Covid 19 PCR not detected. 07/14/2021 Patient is currently in the select care unit. Requiring BiPAP. Patient is tachycardic and tachypneic. No complaints of chest pain. Patient is awake alert and oriented. Afebrile. Chest x-ray today showed correlate for pneumonia, pulmonary edema. Less likely there is a large hiatal hernia partial intrathoracic stomach. Patient was started on IV steroids and antibiotics changed to Zosyn vancomycin due to history of immunosuppressant therapy. Laboratory data showed WBC 9.01, hemoglobin 7.9 and platelets 205 neutrophils 8.42 Sodium 140 potassium 3.7 chloride 103 BUN 25.3 and creatinine 0.9 calcium 7.9 LDH 671, CRP 28.9 and pro calcitonin level 0.54. Pulmonary is following. 07/15/2021 Patient remains on BiPAP, 12 x 6 cm of water. FiO2 80%. Patient is awake alert and oriented. Anxious and requesting Xanax medication. Laboratory data showed WBC 8.5 hemoglobin 9.1 platelets 211 blood cultures have been negative so far. Patient is being current broad-spectrum antibiotics. Currently on azithromycin, Zosyn and acyclovir was added. Patient is also on IV steroids and duo nebs and Pulmicort, Perforomist. Afebrile. No nausea vomiting. Patient not able to tolerate oral diet and able to keep mask off. No chest pain. No headache. Current medications reviewed. 07/16/2021 Patient remains BiPAP 12 x 6. FiO2 80%. Patient is very anxious. Family is at bedside. No fever or chills. Currently being continued on antibiotics in the form of azithromycin, Zosyn and acyclovir was added for empiric HSV coverage. Otherwise patient is being continued on IV Solu-Medrol and Pulmicort, Perforomist. Chest x-ray today showed bilateral diffuse airspace disease stable. Laboratory data showed WBC 13.0 hemoglobin 7.8 and platelets 260 D-dimer is 0.62 Sodium 139 potassium 3.4 chloride 108 bicarb is 27 BUN 40. Creatinine 0.78 CRP 21, LDH 2184 and albumin 2.67 procalcitonin level is 0.24 COVID-19 was sent. Pulmonary is following. Blood cultures are negative so far. Current medications reviewed. Objective - Vital Signs Vital signs: Vital Signs Temp 98.5 F 07/16/21 20:13 Pulse 112 H 07/16/21 20:41 Resp 20 07/16/21 20:13 BP 129/65 07/16/21 20:13 Pulse Ox 97 07/16/21 20:13 Intake & Output 07/16/21 07/16/21 07/17/21 06:59 18:59 06:59 Intake Total 450 0 Output Total 425 400 Balance 25 -400 Weight 97.5 kg Intake: Intake, IV Titration 350 Amount Acyclovir Sodium 1,000 mg 250 In Sodium Chloride 0.9% 250 ml @ 270 mls/hr IVPB Q8HR [facility] Rx#:[id number] Piperacillin-Tazobactam 3 100 .375 gm In Sodium Chloride 0.9% 100 ml @ 25 mls/hr IVPB Q8HR [facility] Rx# :[id number] Oral 100 0 Output: Urine 425 400 Other: Voiding Method Indwelling Catheter Indwelling Catheter Indwelling Catheter - Exam PHYSICAL EXAMINATION: Patient is lying in the bed comfortably, mild acute distress, awake alert and oriented. on Bipap. HEENT: Normocephalic. Neck is supple. Pupils reactive. Nostrils clear. Oral cavity is moist. Neck reveals no JVD, carotid bruits, or thyromegaly. CHEST EXAMINATION: Trachea is central. Symmetrical expansion. Bilateral diffuse crackles and coarse sounds.. CARDIAC: Normal S1, S2 with no gallops. No murmurs ABDOMEN: Soft. Bowel sounds normal. No organomegaly. No abdominal bruits. Extremities: Trace bilateral pedal edema. No clubbing or cyanosis Neurologically awake, alert, oriented x3 with well-coordinated movements. No focal deficits noted Skin: No rash or skin lesions. Psychiatric: Coperative. Musculoskeletal: No joint swelling or deformity. - Labs CBC & Chem 7: 07/17/21 06:53 07/17/21 06:53 Labs: Abnormal Lab Results - Last 24 Hours (Table) 07/16/21 07/16/21 07/16/21 Range/Units 06:15 06:15 06:15 WBC 13.0 H (3.8-10.6) k/uL RBC 2.31 L (3.80-5.40) m/uL Hgb 7.8 L (11.4-16.0) gm/dL Hct 25.4 L (34.0-46.0) % MCV 110.0 H (80.0-100.0) fL MCHC 30.7 L (31.0-37.0) g/dL RDW 24.3 H (11.5-15.5) % Neutrophils # 12.1 H (1.3-7.7) k/uL Lymphocytes # 0.2 L (1.0-4.8) k/uL Macrocytosis Marked A D-Dimer 0.62 H (<0.60) mg/L FEU Potassium 3.4 L (3.5-5.1) mmol/L Chloride 108 H (98-107) mmol/L BUN 43 H (7-17) mg/dL Glucose 153 H (74-99) mg/dL Calcium 8.2 L (8.4-10.2) mg/dL AST 46 H (14-36) U/L Lactate Dehydrogenase 2184 H (313-618) U/L C-Reactive Protein 21.0 H (<1.0) mg/dL Total Protein 5.2 L (6.3-8.2) g/dL Albumin 2.6 L (3.5-5.0) g/dL Procalcitonin (0.02-0.09) ng/mL 07/16/21 Range/Units 06:15 WBC (3.8-10.6) k/uL RBC (3.80-5.40) m/uL Hgb (11.4-16.0) gm/dL Hct (34.0-46.0) % MCV (80.0-100.0) fL MCHC (31.0-37.0) g/dL RDW (11.5-15.5) % Neutrophils # (1.3-7.7) k/uL Lymphocytes # (1.0-4.8) k/uL Macrocytosis D-Dimer (<0.60) mg/L FEU Potassium (3.5-5.1) mmol/L Chloride (98-107) mmol/L BUN (7-17) mg/dL Glucose (74-99) mg/dL Calcium (8.4-10.2) mg/dL AST (14-36) U/L Lactate Dehydrogenase (313-618) U/L C-Reactive Protein (<1.0) mg/dL Total Protein (6.3-8.2) g/dL Albumin (3.5-5.0) g/dL Procalcitonin 0.24 H (0.02-0.09) ng/mL Microbiology - Last 24 Hours (Table) 07/13/21 08:45 Blood Culture - Preliminary Blood No Growth after 72 hours 07/13/21 09:00 Blood Culture - Preliminary Blood No Growth after 72 hours Assessment and Plan Assessment: Acute hypoxic respiratory failure due to multifocal pneumonia and diffuse bilateral groundglass pulmonary infiltrates involving the upper and lower lobes. on BiPAP now. History of pulmonary fibrosis, rheumatoid lung Rheumatoid arthritis was Arava and prednisone. Coronary artery disease. Maintained on maximal medical therapy. Status post cardiac catheterization. Paroxysmal atrial fibrillation on anticoagulation Iron deficiency anemia Hyperlipidemia Pain at night insufficiency Obesity with a BMI 36.8 GERD and hiatal hernia Plan: Patient will be continued antibiotics involve ceftriaxone azithromycin. Antibiotics changed to vancomycin and Zosyn due to patient being immunosuppressive therapy. Follow-up sputum culture reports.Vancomycin has been discontinued. Acyclovir was added to cover for HSV empirically. ID and pulmonary is on board. Started on IV steroids, IV Solu-Medrol 40 mg every 12 hourly. Continue on BIPAP, with oxygen supplementation. Patient is having groundglass opacities on the CT chest. COVID-19 PCR not directed. Continue with home medications and follow-up closely. Prognosis is guarded at this time due to multimedical problems and immunosuppression.. Time with Patient: Greater than 30
--- NOTE | 2021-07-17 21:27 | P.PN ---
Subjective Progress Note Date: 07/17/21 Principal diagnosis: Acute hypoxic respiratory failure due to multifocal pneumonia and diffuse bilateral groundglass pulmonary infiltrates involving the upper and lower lobes. Patient is a 71-year-old female with a known history of paroxysmal atrial fibrillation on anticoagulation with Eliquis, hyperlipidemia, GERD, hiatal hernia, rheumatoid arthritis/rheumatoid lung, osteoarthritis, pulmonary fibrosis, atrial insufficiency and no prior history of smoking presents to ER with the complaints of worsening shortness of breath. Patient is on follow with pulmonary due to lung fibrosis and was recently on steroid tapering course. Patient otherwise denied any complaints of chest pain. No nausea vomiting or abdominal pain or diarrhea. Does have cough without sputum production. Denies any sick contacts or recent travel. Patient was hypoxic on admission and is requiring high flow oxygen via nasal cannula. On admission T-max 101.7, heart rate 117 pulse ox 74% on room air. Patient does not use oxygen at home. EKG showed sinus tachycardia. Chest x-ray showed diffuse bilateral partially consolidative infiltrates consistent with acute cardiopulmonary disease. CT chest showed diffuse bilateral air space disease. Multifocal pneumonia or covid pneumonia favored over pulmonary edema given the lack of significant pleural effusion. No evidence of PE. Laboratory data showed WBC 7.8 hemoglobin 8.9 and platelets 219, lymphocytes 0.3 ABG showed pH 7.46, pO2 62, pCO2 39 and bicarb 27 Sodium 132 potassium 3.6 chloride 101 BUN 13 creatinine 0.75 urinalysis showed cloudy, trace protein, 1+ ketones, moderate leukocyte esterase and RBCs 5 and WBC is 5. Covid 19 PCR not detected. 07/14/2021 Patient is currently in the select care unit. Requiring BiPAP. Patient is tachycardic and tachypneic. No complaints of chest pain. Patient is awake alert and oriented. Afebrile. Chest x-ray today showed correlate for pneumonia, pulmonary edema. Less likely there is a large hiatal hernia partial intrathoracic stomach. Patient was started on IV steroids and antibiotics changed to Zosyn vancomycin due to history of immunosuppressant therapy. Laboratory data showed WBC 9.01, hemoglobin 7.9 and platelets 205 neutrophils 8.42 Sodium 140 potassium 3.7 chloride 103 BUN 25.3 and creatinine 0.9 calcium 7.9 LDH 671, CRP 28.9 and pro calcitonin level 0.54. Pulmonary is following. 07/15/2021 Patient remains on BiPAP, 12 x 6 cm of water. FiO2 80%. Patient is awake alert and oriented. Anxious and requesting Xanax medication. Laboratory data showed WBC 8.5 hemoglobin 9.1 platelets 211 blood cultures have been negative so far. Patient is being current broad-spectrum antibiotics. Currently on azithromycin, Zosyn and acyclovir was added. Patient is also on IV steroids and duo nebs and Pulmicort, Perforomist. Afebrile. No nausea vomiting. Patient not able to tolerate oral diet and able to keep mask off. No chest pain. No headache. Current medications reviewed. 07/16/2021 Patient remains BiPAP 12 x 6. FiO2 80%. Patient is very anxious. Family is at bedside. No fever or chills. Currently being continued on antibiotics in the form of azithromycin, Zosyn and acyclovir was added for empiric HSV coverage. Otherwise patient is being continued on IV Solu-Medrol and Pulmicort, Perforomist. Chest x-ray today showed bilateral diffuse airspace disease stable. Laboratory data showed WBC 13.0 hemoglobin 7.8 and platelets 260 D-dimer is 0.62 Sodium 139 potassium 3.4 chloride 108 bicarb is 27 BUN 40. Creatinine 0.78 CRP 21, LDH 2184 and albumin 2.67 procalcitonin level is 0.24 COVID-19 was sent. Pulmonary is following. Blood cultures are negative so far. 07/17/2021 Patient is in the telemetry unit. Awake alert but very anxious. Requiring BiPAP with FiO2 90%. Yesterday evening patient went into A. fib with RVR and was started on Cardizem drip for rate control and is also on Eliquis for anticoagulation. Patient's respiratory status is getting worse and is using accessory muscles. Laboratory data showed WBC 15.9 hemoglobin 6.7 and platelets 226 and BUN 62 and creatinine 0.88, procalcitonin level 0.22 and COVID-19. Antibody came out positive. Patient remained antibiotics involve azithromycin, Zosyn and acyclovir and also on IV steroids and duo nebs. Pulmonary and ID and cardiology is on board. Due to worsening respite status and multiple medical problems family would like comfort care at this time. Hospice care will be consulted. Current medications reviewed. Objective - Vital Signs Vital signs: Vital Signs Temp 97.1 F L 07/17/21 20:00 Pulse 106 H 07/17/21 20:35 Resp 18 07/17/21 20:00 BP 137/63 07/17/21 20:00 Pulse Ox 98 07/17/21 20:00 Intake & Output 07/17/21 07/17/21 07/18/21 06:59 18:59 06:59 Intake Total 114.667 Output Total 400 300 Balance -285.333 -300 Weight 98.5 kg 98.5 kg Intake: Intake, IV Titration 114.667 Amount Diltiazem 125 mg In 114.667 Sodium Chloride 0.9% 100 ml @ 10 MG/HR 10 mls/hr IV .[id number] [facility] Rx#: [id number] Output: Urine 400 300 Other: Voiding Method Indwelling Catheter Indwelling Catheter Indwelling Catheter - Exam PHYSICAL EXAMINATION: Patient is lying in the bed comfortably, mild acute distress, awake alert and oriented. on Bipap. anxious, Using accessory muscles. HEENT: Normocephalic. Neck is supple. Pupils reactive. Nostrils clear. Oral cavity is moist. Neck reveals no JVD, carotid bruits, or thyromegaly. CHEST EXAMINATION: Trachea is central. Symmetrical expansion. Bilateral diffuse crackles and coarse sounds.. CARDIAC: Normal S1, S2 with no gallops. No murmurs ABDOMEN: Soft. Bowel sounds normal. No organomegaly. No abdominal bruits. Extremities: Trace bilateral pedal edema. No clubbing or cyanosis Neurologically awake, alert, oriented x3 with well-coordinated movements. No focal deficits noted Skin: No rash or skin lesions. Psychiatric: Coperative. Musculoskeletal: No joint swelling or deformity. - Labs CBC & Chem 7: 07/17/21 06:53 07/17/21 06:53 Labs: Abnormal Lab Results - Last 24 Hours (Table) 07/16/21 07/17/21 07/17/21 Range/Units 06:15 06:53 06:53 WBC (3.8-10.6) k/uL RBC (3.80-5.40) m/uL Hgb (11.4-16.0) gm/dL Hct (34.0-46.0) % MCV (80.0-100.0) fL RDW (11.5-15.5) % Neutrophils # (Manual) (1.3-7.7) k/uL Lymphocytes # (Manual) (1.0-4.8) k/uL Nucleated RBCs (0-0) /100 WBC Macrocytosis Chloride 110 H (98-107) mmol/L BUN 62 H (7-17) mg/dL Glucose 176 H (74-99) mg/dL Calcium 8.1 L (8.4-10.2) mg/dL Procalcitonin 0.22 H (0.02-0.09) ng/mL SARS-CoV-2 Ab,Total Positive A (Negative) 07/17/21 Range/Units 06:53 WBC 15.9 H (3.8-10.6) k/uL RBC 1.94 L (3.80-5.40) m/uL Hgb 6.7 L* (11.4-16.0) gm/dL Hct 21.4 L (34.0-46.0) % MCV 110.1 H (80.0-100.0) fL RDW 23.7 H (11.5-15.5) % Neutrophils # (Manual) 15.10 H (1.3-7.7) k/uL Lymphocytes # (Manual) 0.48 L (1.0-4.8) k/uL Nucleated RBCs 5 H (0-0) /100 WBC Macrocytosis Marked A Chloride (98-107) mmol/L BUN (7-17) mg/dL Glucose (74-99) mg/dL Calcium (8.4-10.2) mg/dL Procalcitonin (0.02-0.09) ng/mL SARS-CoV-2 Ab,Total (Negative) Microbiology - Last 24 Hours (Table) 07/16/21 06:15 Blood Culture Gram Stain - Preliminary Blood Blood Culture - Preliminary Enterococcus faecium 07/13/21 08:45 Blood Culture - Preliminary Blood No Growth after 96 hours 07/13/21 09:00 Blood Culture - Preliminary Blood No Growth after 96 hours 07/16/21 06:15 Blood Culture - Final Blood Assessment and Plan Assessment: Acute hypoxic respiratory failure due to multifocal pneumonia and diffuse bilateral groundglass pulmonary infiltrates involving the upper and lower lobes. on BiPAP now. History of pulmonary fibrosis, rheumatoid lung Rheumatoid arthritis was Arava and prednisone. Coronary artery disease. Maintained on maximal medical therapy. Status post cardiac catheterization. Paroxysmal atrial fibrillation on anticoagulation Iron deficiency anemia Hyperlipidemia Pain at night insufficiency Obesity with a BMI 36.8 GERD and hiatal hernia Plan: Patient will be continued antibiotics involve ceftriaxone azithromycin. Antibiotics changed to vancomycin and Zosyn due to patient being immunosuppressive therapy. Follow-up sputum culture reports.Vancomycin has been discontinued. Acyclovir was added to cover for HSV empirically. ID and pulmonary is on board. Started on IV steroids, IV Solu-Medrol 40 mg every 12 hourly. Continue on BIPAP, with oxygen supplementation. Patient is having groundglass opacities on the CT chest. COVID-19 PCR not directed. COVID-19 antibody positive. Prognosis is poor at this time due to multimedical problems and immunosuppression.Family decided to go with comfort care.. Time with Patient: Greater than 30
--- NOTE | 2021-07-17 22:38 | PN ---
PROGRESS NOTE DATE OF SERVICE: 07/17/2021 REASON FOR FOLLOWUP: VRE bacteremia, concerning for endocarditis. INTERVAL HISTORY: The patient is afebrile. The patient remains BiPAP-dependent. The patient is hemodynamically stable, not on any pressor support, though slightly lethargic, sleepy. No vomiting, diarrhea or any other changes reported by the nursing staff. PHYSICAL EXAMINATION: Blood pressure 137/63, pulse of 105, temperature 97.1. She is 98% on BiPAP. General description is an elderly female lying in bed in no distress. Respiratory system: Unlabored breathing, decreased intensity of breath sounds. No wheeze. Heart S1, S2. Regular rate and rhythm. Abdomen soft, no tenderness. Extremities no edema of the feet. LABS: Hemoglobin 6.7, white count 15.9, creatinine 0.8. DIAGNOSTIC IMPRESSION AND PLAN: Patient with Enterococcus faecium/VRE bacteremia in this patient with likely CHF pattern. Concern for endocarditis. Zyvox has been added, as there was some concern for possible pneumonia as well, where the daptomycin has no penetration. We will obtain an echocardiogram. However, the family is leaning more towards hospice-oriented care. If that is the case, will follow the family wishes. They had multiple questions. Those were answered in layman's terms. MMODL / IJN: [id number] /
[2021-07-18] MEDS ORDERED: SCOPOLAMINE 1.5MG/72HR PATCH TRANSDERM SCH
[2021-07-18] MEDS ORDERED: ATROPINE OPHTH SOLN 1% 5ML BTL SUBLINGUAL PRN
[2021-07-18] MEDS: MORPHINE SULFATE (100 MG/2 ML) 100 MG in SODIUM CHLORIDE 0.9% 100 ML IV SCH ×2 (00:16→16:15)
[2021-07-18] MEDS: MORPHINE SULFATE 2 MG/ML SYRINGE IV PRN ×4 (00:17→05:04)
[2021-07-18 00:43] VITALS: RESP 20
--- NOTE | 2021-07-18 14:25 | CDI ---
Documentation Clarification Form Date: 07/18/2021 01:58:12 PM From: Nimisha Rodarte RN CCDS Admit Date: 07/13/2021 11:26:00 AM Patient Name: Madai Castorena Visit Number: [id number] Discharge Date: ATTENTION: The Clinical Documentation Specialists (CDI) and [facility] Coding Staff appreciate your assistance in clarifying documentation. Please respond to the clarification below the line at the bottom and electronically sign. The CDI & [facility] Coding staff will review the response and follow-up if needed. Please note: Queries are made part of the Legal Health Record. If you have any questions, please contact the author of this message via ITS. Dr. Essie Kruse There is documentation of VRE resistant enterococcus bacteremia, 07/17, Pulmonary progress note. . Bacteremia is considered a lab finding. Additional clarification regarding bacteremia is requested. Patient history/risk factors: 71-year-old female presents to the ED with worsening shortness of breath. The patient is requiring High Flow oxygen in the ED. Medical history: Lung fibrosis/interstitial lung disease, RA, CAD wit recent cardiac catheterization and Atrial fib. Pulmonary consult, 07/14. Clinical Indicators: WBC: 07/17 15.9 Left Shift: 07/17 neutrophils 15.10 Blood Culture: 07/16 Enterococcus faecium Consult: ID progress note 07/17: VRE bacteremia, concerning for endocarditis. Treatment: 07/14 to current Zoysn 3.375gm IVPB Q8H, 07/17 Linezolid 600mg IVPB Q12HR Please provide additional clarification regarding the etiology/cause and/or clinical significance of the bacteremia: [ ] Bacteremia is related to sepsis [ ] Bacteremia is due to infectious process, please specify: [ ] Other, please specify [ ] Unable to determine (Template Last Revised: November 2020) Bacteremia is related to sepsis MTDD
--- NOTE | 2021-07-18 15:38 | PN ---
PROGRESS NOTE Mrs. Castorena is a 71-year-old female with history of pulmonary fibrosis, hypertension, rheumatoid arthritis, paroxysmal atrial fibrillation, nonobstructive coronary artery disease. Patient follows with Dr. Briceño. The patient was admitted with atrial fibrillation with RVR. Patient subsequently converted to sinus rhythm. Patient was admitted to the hospital because of hypoxic respiratory failure secondary to pneumonia. She was seen by ID specialist, and there was some question of endocarditis. Echocardiogram was being considered. However, the family is leaning towards hospice care. No further workup may be undertaken. We will be following her on a p.r.n. basis Patient is currently on antibiotics. Physical examination reveals a lethargic female on BiPAP machine. Neck: No JVD. No thyroid enlargement. Lungs appear to be showing a few crackles. Heart shows regular rhythm. No significant murmurs. Abdomen is soft. Extremities: No clubbing or edema. Neurologically lethargic and barely arousable. Lab values showed a white count of 15,000. Hemoglobin is only 6.7. PLAN: Continue current medical therapy. Family is considering hospice care. If that is the case, we will stop following her. MMODL / IJN: [id number] /
--- NOTE | 2021-08-13 15:36 | CDI ---
Documentation Clarification Form Date: 08/13/2021 02:46:06 PM From: Magdalena Thrasher RN, CCDS Email: [email or web address] Admit Date: 07/13/2021 11:26:00 AM Patient Name: Madai Castorena Visit Number: [id number] Discharge Date: 07/18/2021 08:54:00 PM ATTENTION: The Clinical Documentation Specialists (CDI) and [facility] Coding Staff appreciate your assistance in clarifying documentation. Please respond to the clarification below the line at the bottom and electronically sign. The CDI & [facility] Coding staff will review the response and follow-up if needed. Please note: Queries are made part of the Legal Health Record. If you have any questions, please contact the author of this message via ITS. Dr. Essie Kruse Pneumonia is documented throughout the record. Additional clarification regarding the type of pneumonia is requested. History/Risk Factors: pulmonary fibrosis, hypertension, rheumatoid arthritis, paroxysmal atrial fibrillation, nonobstructive coronary artery disease. Patient follows with Dr. Briceño. The patient was admitted with atrial fibrillation with RVR. Patient subsequently converted to sinus rhythm. Patient was admitted to the hospital because of hypoxic respiratory failure secondary to pneumonia. Clinical Indicators: 07/14 Consult: Based on that, there is a risk of hospital-acquired pneumonias specially the patient was hospitalized approximately 2 weeks ago. 07/15 progress note: Suspect viral pneumonias although the Covid 19 testing and influenza and B and RSV came back negative. Plan:Based on that, there is a risk of hospital-acquired pneumonias specially the patient was hospitalized approximately 2 weeks ago. 07/16 progress note: Suspect viral pneumonias although the Covid 19 testing and influenza and B and RSV came back negative. 07/17 progress note: Upon further discussion with the family, the patient had a herpetic lesion and skin lesion which obviously raises the possibility of HSV pneumonia in the setting of immunosuppression and for that reason I added IV acyclovir. Recent history of COVID-19 pneumonia based on COVID-19 antibiotic test, when patient was infected with COVID-19 is unknown to us as a PCR test is currently negative. Zyvox has been added, as there was some concern for possible pneumonia as well, where the daptomycin has no penetration. 07/18 progress note: Patient was admitted to the hospital because of hypoxic respiratory failure secondary to pneumonia. WBC: 7.8-15.9 07/13 Chest X-ray: Diffuse bilateral partially consolidative infiltrates consistent with acute cardiopulmonary disease. 07/13 ChestAG: Diffuse bilateral groundglass infiltrates correlate for diffuse pneumonia. 07/14 Chest X-ray: Correlate for pneumonia 07/16 Chest X-ray: Bilateral diffuse airspace disease stable Lung/Breathing assessment: equal entry with BL crackles Treatment: Antibiotics: Acyclovir 1gm IV 07/15-07/17, Azithromycin 500mg IV 07/13, Ceftriaxone 1gm IV 07/13-07/14, Linezolid 600mg IV 07/17, Zosyn 3.375 gm IV 07/14- 07/18, Vancomycin 1500mg IV 07/14-07/15 O2: Bipap Please clarify the type of pneumonia, if known: [ ] Gram Negative Bacterial Pneumonia [ ] Viral Pneumonia, specify casual organism (if known) [ ] Other, please specify [ ] Unable to determine Unable to determine MTDD
--- NOTE | 2021-08-20 23:15 | P.DS ---
Providers Date of admission: 07/13/21 11:26 Expected date of discharge: 07/18/21 Attending physician: Lynne Cleveland Consults: 07/13/21 11:26 Consult Physician Routine Consulting Provider: Rocael Mondragon Consult Reason/Comments: Atypical pneumonia, pulmonary fibrosis, hypoxia Do you want consulting provider notified?: Yes 07/15/21 13:49 Consult Physician Routine Consulting Provider: Issac Nair Consult Reason/Comments: pneumonia, rheumatoid lung disease Do you want consulting provider notified?: Yes 07/16/21 15:14 Consult Physician Urgent Consulting Provider: Maria Turner Consult Reason/Comments: High HR Do you want consulting provider notified?: Yes Primary care physician: [facility] Course: Dignosis Acute hypoxic respiratory failure due to multifocal pneumonia and diffuse bilateral groundglass pulmonary infiltrates involving the upper and lower lobes. Covid 19 PCR negative. COVID-19 antibodies positive. History of pulmonary fibrosis, rheumatoid lung Rheumatoid arthritis was Arava and prednisone. Coronary artery disease. Maintained on maximal medical therapy. Status post cardiac catheterization. Paroxysmal atrial fibrillation on anticoagulation Iron deficiency anemia Hyperlipidemia Pain at night insufficiency Obesity with a BMI 36.8 GERD and hiatal hernia Hospital course Patient is a 71-year-old female with a known history of paroxysmal atrial fibrillation on anticoagulation with Eliquis, hyperlipidemia, GERD, hiatal hernia, rheumatoid arthritis/rheumatoid lung, osteoarthritis, pulmonary fib rosis, atrial insufficiency and no prior history of smoking presents to ER with the complaints of worsening shortness of breath. Patient is on follow with pulmonary due to lung fibrosis and was recently on steroid tapering course. Patient otherwise denied any complaints of chest pain. No nausea vomiting or abdominal pain or diarrhea. Does have cough without sputum production. Denies any sick contacts or recent travel. Patient was hypoxic on admission and is requiring high flow oxygen via nasal cannula. On admission T-max 101.7, heart rate 117 pulse ox 74% on room air. Patient does not use oxygen at home. EKG showed sinus tachycardia. Chest x-ray showed diffuse bilateral partially consolidative infiltrates consistent with acute cardiopulmonary disease. CT chest showed diffuse bilateral air space disease. Multifocal pneumonia or covid pneumonia favored over pulmonary edema given the lack of significant pleural effusion. No evidence of PE. Laboratory data showed WBC 7.8 hemoglobin 8.9 and platelets 219, lymphocytes 0.3 ABG showed pH 7.46, pO2 62, pCO2 39 and bicarb 27 Sodium 132 potassium 3.6 chloride 101 BUN 13 creatinine 0.75 urinalysis showed cloudy, trace protein, 1+ ketones, moderate leukocyte esterase and RBCs 5 and WBC is 5. Covid 19 PCR not detected. 07/14/2021 Patient is currently in the select care unit. Requiring BiPAP. Patient is tachycardic and tachypneic. No complaints of chest pain. Patient is awake alert and oriented. Afebrile. Chest x-ray today showed correlate for pneumonia, pulmonary edema. Less likely there is a large hiatal hernia partial intrathoracic stomach. Patient was started on IV steroids and antibiotics changed to Zosyn vancomycin due to history of immunosuppressant therapy. Laboratory data showed WBC 9.01, hemoglobin 7.9 and platelets 205 neutrophils 8.42 Sodium 140 potassium 3.7 chloride 103 BUN 25.3 and creatinine 0.9 calcium 7.9 LDH 671, CRP 28.9 and pro calcitonin level 0.54. Pulmonary is following. 07/15/2021 Patient remains on BiPAP, 12 x 6 cm of water. FiO2 80%. Patient is awake alert and oriented. Anxious and requesting Xanax medication. Laboratory data showed WBC 8.5 hemoglobin 9.1 platelets 211 blood cultures have been negative so far. Patient is being current broad-spectrum antibiotics. Currently on azithromycin, Zosyn and acyclovir was added. Patient is also on IV steroids and duo nebs and Pulmicort, Perforomist. Afebrile. No nausea vomiting. Patient not able to tolerate oral diet and able to keep mask off. No chest pain. No headache. Current medications reviewed. 07/16/2021 Patient remains BiPAP 12 x 6. FiO2 80%. Patient is very anxious. Family is at bedside. No fever or chills. Currently being continued on antibiotics in the form of azithromycin, Zosyn and acyclovir was added for empiric HSV coverage. Otherwise patient is being continued on IV Solu-Medrol and Pulmicort, Perforomist. Chest x-ray today showed bilateral diffuse airspace disease stable. Laboratory data showed WBC 13.0 hemoglobin 7.8 and platelets 260 D-dimer is 0.62 Sodium 139 potassium 3.4 chloride 108 bicarb is 27 BUN 40. Creatinine 0.78 CRP 21, LDH 2184 and albumin 2.67 procalcitonin level is 0.24 COVID-19 was sent. Pulmonary is following. Blood cultures are negative so far. 07/17/2021 Patient is in the telemetry unit. Awake alert but very anxious. Requiring BiPAP with FiO2 90%. Yesterday evening patient went into A. fib with RVR and was started on Cardizem drip for rate control and is also on Eliquis for anticoagulation. Patient's respiratory status is getting worse and is using accessory muscles. Laboratory data showed WBC 15.9 hemoglobin 6.7 and platelets 226 and BUN 62 and creatinine 0.88, procalcitonin level 0.22 and COVID-19. Antibody came out positive. Patient remained antibiotics involve azithromycin, Zosyn and acyclovir and also on IV steroids and duo nebs. Pulmonary and ID and cardiology is on board. Due to worsening respite status and multiple medical problems family would like comfort care at this time. Hospice care will be consulted. 07/18/2021 Patient was continued on comfort measures and pain management. Followed up with hospice care. Patient on 07/18/2021 at 1845. Family has been notified. Patient Condition at Discharge: Undetermined Plan - Discharge Summary Discharge Rx Participant: No New Discharge Prescriptions: No Action Atorvastatin [Lipitor] 80 mg PO HS Tofacitinib Citrate [Xeljanz Xr] 11 mg PO DAILY HYDROcodone/APAP 5-325MG [[place] 5-325] 1 tab PO TID PRN PRN Reason: Pain cycloSPORINE 0.05% OPHTH SOLN [Restasis] 1 drop BOTH EYES BID valACYclovir [Valtrex] 500 mg PO BID Omeprazole 20 mg PO DAILY Melatonin 5 mg PO HS PRN 5 Days #5 tablet PRN Reason: Insomnia Apixaban [Eliquis] 5 mg PO BID #60 tab predniSONE 10 mg PO DAILY Leflunomide [Arava] 20 mg PO DAILY Diltiazem Cd [Cardizem CD] 180 mg PO DAILY Spironolactone [Aldactone] 25 mg PO DAILY Potassium Chloride ER [K-Dur 20] 20 meq PO DAILY PRN PRN Reason: w/lasix Furosemide [Lasix] 20 mg PO DAILY PRN PRN Reason: Edema Discharge Medication List Atorvastatin [Lipitor] 80 mg PO HS 04/16/14 [History] HYDROcodone/APAP 5-325MG [[place] 5-325] 1 tab PO TID PRN 06/22/17 [History] Tofacitinib Citrate [Xeljanz Xr] 11 mg PO DAILY 06/22/17 [History] Leflunomide [Arava] 20 mg PO DAILY 06/08/21 [History] cycloSPORINE 0.05% OPHTH SOLN [Restasis] 1 drop BOTH EYES BID 06/08/21 [History] valACYclovir [Valtrex] 500 mg PO BID 06/08/21 [History] Diltiazem Cd [Cardizem CD] 180 mg PO DAILY 06/22/21 [History] Omeprazole 20 mg PO DAILY 06/22/21 [History] Apixaban [Eliquis] 5 mg PO BID #60 tab 06/26/21 [Rx] Melatonin 5 mg PO HS PRN 5 Days #5 tablet 06/26/21 [Rx] Furosemide [Lasix] 20 mg PO DAILY PRN 07/13/21 [History] Potassium Chloride ER [K-Dur 20] 20 meq PO DAILY PRN 07/13/21 [History] Spironolactone [Aldactone] 25 mg PO DAILY 07/13/21 [History] predniSONE 10 mg PO DAILY 07/13/21 [History] Discharge Disposition: - Preliminary Cause of Preliminary Cause of : Acute hypoxic respiratory failure due to multifocal pneumonia
== END 2021-07-18 20:54 | disposition expired | DRG 871 ==
LOC: EC 08:23 → 4SSUR 11:26 → 3SCARD 07-14 14:16
PROVIDERS: ADMIT Internal Medicine; ATTEND Internal Medicine
DX: A41.9 Sepsis, unspecified organism (principal); J18.9 Pneumonia, unspecified organism; J96.01 Acute respiratory failure with hypoxia; E27.40 Unspecified adrenocortical insufficiency; I48.20 Chronic atrial fibrillation, unspecified; J98.11 Atelectasis; Z16.21 Resistance to vancomycin; D50.9 Iron deficiency anemia, unspecified; Z20.822 Contact with and (suspected) exposure to COVID-19; Z86.16 Personal history of COVID-19; E66.9 Obesity, unspecified; E78.5 Hyperlipidemia, unspecified; F41.9 Anxiety disorder, unspecified; I11.0 Hypertensive heart disease with heart failure; I50.9 Heart failure, unspecified; B95.2 Enterococcus as the cause of diseases classified elsewhere; I25.10 Atherosclerotic heart disease of native coronary artery without angina pectoris; I48.0 Paroxysmal atrial fibrillation; J84.10 Pulmonary fibrosis, unspecified; K21.9 Gastro-esophageal reflux disease without esophagitis; H26.9 Unspecified cataract; M05.10 Rheumatoid lung disease with rheumatoid arthritis of unspecified site; Z51.5 Encounter for palliative care; Z66 Do not resuscitate; Z68.36 Body mass index [BMI] 36.0-36.9, adult; Z79.01 Long term (current) use of anticoagulants; K44.9 Diaphragmatic hernia without obstruction or gangrene; L98.9 Disorder of the skin and subcutaneous tissue, unspecified; Z79.51 Long term (current) use of inhaled steroids; Z90.710 Acquired absence of both cervix and uterus; M06.9 Rheumatoid arthritis, unspecified; Z82.49 Family history of ischemic heart disease and other diseases of the circulatory system; Z79.899 Other long term (current) drug therapy
CPT/HCPCS: 36415; 36600; 71045; 71046; 71275; 80048; 80053; 81001; 82805; 83605; 83615; 83880; 84145; 84443; 85025; 85379; 85610; 85730; 86140; 86769; 87040; 87077; 87186; 87502; 87634; 87635; 93005; 94640; 94660; 94760; 96365; 96375; 99285